=== PATIENT | male | born 1955 | race Hispanic/Latino ===

== ENCOUNTER 2016-05-13 08:39 | Inpatient (IN) | payer MEDICARE, OTHER ==
[2016-05-13] VITALS (15 sets, daily range): BP systolic 73–132; BP diastolic 42–94
[~2016-05-13] VITALS: Ht 170.2 cm; Wt 58.5 kg
[~2016-05-13 08:39] MED LIST: AKTOB1 DROP RIGHT EYE; ARICEPT10 MG ORAL; ASPIRIN-LOW81 MG ORAL; ATIVAN0.5 MG ORAL; ATORVASTATIN CA10 MG ORAL; B COMPLEX-FOLI1 EACH ORAL; CATAPRES0.1 MG ORAL; COLACE100 MG ORAL; DULCOLAX10 MG RC; FAMOTIDINE20 MG ORAL; FEOSOL1 TAB ORAL; FLAGYL500 MG ORAL; FLEET ENEMA133 ML RECTAL; FOLIC ACID1 MG ORAL; GABAPENTIN100 MG ORAL; HEPARIN SO5000 UNIT2 SUBQ; INVANZ1 GM IVPB; LACTASE1 GM PO; LANTUS SOL100 UNIT/1 SUBQ; LANTUS5 UNITS SUBQ; LEVEMIR100 UNIT/1 SUBQ; MILK OF MA400 MG/51 ORAL; MIRTAZAPINE15 MG ORAL; Morphine Sulfate IVP; NEPHRO-VITE RX1 EAC1 PO; NEURONTIN100 MG ORAL; NORCO 5-325 TA1 EAC1 ORAL; NORCO 5-325 TA1 EACH ORAL; NOVOLOG100 UNIT/3 SUBQ; NOVOLOG100 UNITS1 SUBQ; PAXIL20 MG ORAL; PLAVIX75 MG ORAL; PRAVASTATIN SOD20 M1 ORAL; PROTEINEX LIQU236 ML PO; PROTONIX40 MG ORAL; RANITIDINE HCL150 MG ORAL; SANTYL30 GM TOPIC; TOPROL XL25 MG ORAL; TRAMADOL HCL50 MG ORAL; TYLENOL EXTRA500 MG ORAL; TYLENOL650 MG/20. ORAL; VITAMIN C500 M1 ORAL; ZINC SULFATE220 M1 ORAL; ZOFRAN4 M1 ORAL
--- NOTE | 2016-05-13 08:50 | Emergency Room Report ---
History of Present Illness General Chief Complaint: Altered Level of Consciousness Source: Medical Record Present Illness HPI 61 YOM with complex medical history (see list below) BIBEMS from SNF for "more altered than usual." Per SNF, patient usually more talkative, not as talkative today. Patient is aphasic here - follows commands, denies complaints by blinking eyes per my request. Previous history of CVA. On HD for ESRD, MWF. Due today at 4pm. HPI otherwise limited. Patient is FULL CODE per paperwork from SNF. Allergies: Coded Allergies: No Known Allergies (Unverified , 09/05/13) Patient History Past Medical History: DM, HTN, CVA/TIA, dementia, psych hx, renal disease Past Surgical History: other - Right BKA Pertinent Family History: unable to obtain Social History: Denies: alcohol use, drug use, smoking Immunizations: UTD Reviewed Nursing Documentation: PMH: Agreed, PSxH: Agreed Nursing Documentation-PMH Hx Cardiac Problems: No Hx Hypertension: No Hx Pacemaker: No Hx Asthma: No Hx COPD: No Hx Diabetes: Yes Hx Cancer: No Hx Dialysis: Yes History Of Psychiatric Problem: Yes - ,DEMENTIA Hx Neurological Problems: Yes - ALOC,DEMENTIA,DEPRESSION,PVD Hx Cerebrovascular Accident: Yes - x3 August 2013 Hx Transient Ischemic Attacks: Yes Hx Dementia: Yes Hx Seizures: Yes Hx Weakness: Yes Review of Systems All Other Systems: limited - aphasic Physical Exam Vital Signs Date Time Temp Pulse Resp B/P Pulse Ox O2 Delivery O2 Flow Rate FiO2 05/13/16 08:38 98.1 76 16 98/60 94 Nasal Cannula Sp02 EP Interpretation: reviewed, normal General Appearance: normal inspection, well appearing, no apparent distress, alert, GCS 15, non-toxic Head: normocephalic, atraumatic Eyes: bilateral eye EOMI, bilateral eye PERRL, bilateral eye other - Pinpoint pupils bilaterally ENT: normal ENT inspection, normal pharynx, no angioedema, TMs + canals normal , uvula midline, moist mucus membranes Neck: normal inspection, full range of motion, supple, no meningismus, no bony tend Respiratory: normal inspection, lungs clear, normal breath sounds, no rhonchi, no respiratory distress, no retraction, no accessory muscle use, no wheezing, speaking full sentences Cardiovascular #1: regular rate, rhythm, no edema Gastrointestinal: normal inspection, normal bowel sounds, non tender, soft, no guarding, no hernia Genitourinary: no CVA tenderness Musculoskeletal: normal inspection, back normal, normal range of motion, Sosa' s Sign negative, other - Right BKA Neurologic: normal inspection, alert, responsive, artist relationship manager III-XII nml as tested, motor strength/tone normal, other - Follows commands, 4 limb movement is intact Psychiatric: normal inspection, mood/affect normal Skin: normal inspection, normal color, no rash Lymphatic: normal inspection Medical Decision Making Diagnostic Impression: Primary Impression: Altered level of consciousness Additional Impressions: UTI (urinary tract infection) Qualified Codes: N30.01 - Acute cystitis with hematuria Methamphetamine abuse ER Course DDx includes CVA, ACS, metabolic abnormality, narcotic overdose (patient on tramadol) PLAN: Ct head, ECG, utox, CBC/CMP, infectious workup EKG Diagnostic Results Rate: normal Rhythm: NSR ST Segments: no acute changes ASA given to the pt in ED: No Rhythm Strip Diag. Results EP Interpretation: yes Rate: 79 Rhythm: NSR, no PVC's, no ectopy Chest X-Ray Diagnostic Results EP Interpretation: Yes Findings: no consolidation, no effusion, no pneumothorax, no acute cardiopulmonary disease Number of Views: 1 Reevaluation Time: 11:30 Last Vital Signs Date Time Temp Pulse Resp B/P Pulse Ox O2 Delivery O2 Flow Rate FiO2 05/13/16 08:38 98.1 76 16 98/60 94 Nasal Cannula Status: improved Reevaluation Impression Labs: No leuks. H&H stable. Troponin normal. UA grossly infected. Elevated SerumCr at baseline CXR negative for PNA CT head: No acute CVA, mass. Previous lacunar infarcts Utox + for meth IV rocephin given for UTI Endorsed to Dr Mckeon for med/surg admission at 1131am Disposition: ADMITTED INPATIENT Condition: Serious OPAL BLACKWELL M.D. May 13, 2016 08:50
[2016-05-13 09:19] LABS: BASOPHILS % (AUTO) 1.3 % (0.0-2.0); EOSINOPHILS % (AUTO) 5.2 % (0.0-3.0); LYMPHOCYTES % (AUTO) 29.8 % (20.0-45.0); MEAN CORPUSCULAR HEMOGLOBIN 32.2 PG (27.0-31.0); MEAN CORPUSCULAR VOLUME 97 FL (80-99); MEAN PLATELET VOLUME 5.8 FL (6.5-10.1); MONOCYTES % (AUTO) 7.7 % (1.0-10.0); PLATELET COUNT 228 K/UL (150-450); RED BLOOD COUNT 3.39 M/UL (4.70-6.10); RED CELL DISTRIBUTION WIDTH 12.9 % (11.6-14.8); WHITE BLOOD COUNT 7.9 K/UL (4.8-10.8)
[2016-05-13 09:29] LABS: ALANINE AMINOTRANSFERASE 10 U/L (3-41); ALBUMIN/GLOBULIN RATIO 0.8 (1.0-2.7); ANION GAP 17 (5-15); ASPARTATE AMINO TRANSFERASE 14 U/L (5-40); CALCIUM 9.2 mg/dL (8.6-10.2); CARBON DIOXIDE 24 mEQ/L (20-30); CHLORIDE 98 mEQ/L (98-107); CREATININE 5.2 mg/dL (0.7-1.2); GLOMERULAR FILTRATION RATE 11.4 mL/min (>60); HEMOLYSIS 9; POTASSIUM 4.2 mEQ/L (3.4-4.9); SODIUM 139 mEQ/L (135-145); TOTAL PROTEIN 7.4 g/dL (6.6-8.7); TROPONIN I < 0.30 ng/mL (<=0.30)
[2016-05-13 09:39] LABS: CKMB < 1.5 ng/mL (< 6.7)
[2016-05-13] MEDS ORDERED: GLUCAGON W/DILUE1 MG IJ (09:46)
[2016-05-13] MEDS ORDERED: IMODIUM2 MG ORAL (09:47)
[2016-05-13 10:45] LABS: APPEARANCE,URINE TURBID; KETONES,URINE NEGATIVE (NEGATIVE); LEUKOCYTE ESTERASE ,URINE 3+ (NEGATIVE); NITRITE,URINE NEGATIVE (NEGATIVE); PH,URINE 6 (4.5-8.0); PROTEIN,URINE 4+ (NEGATIVE); UROBILINOGEN,URINE 1 MG/DL (0.0-1.0)
--- NOTE | 2016-05-13 10:58 | Diagnostic Imaging Report ---
Indication: Altered mental status Technique: Contiguous 5 mm thick transaxial imaging of the head obtained in a Siemens Sensation [address] scanner. Soft tissue and bone windows generated. Total Dose length Product (DLP): [address] Dose Index Volume (CTDIvol): 70.38 mGy Comparison: 09/05/13 Findings: There is moderate prominence of the ventricles, basal cisterns, and cerebral sulci consistent with atrophy. Moderate, nonspecific, white matter hypoattenuation is noted throughout the brain consistent with chronic small vessel disease. Tiny cystic foci noted within the basal ganglia and thalami bilaterally consistent with old lacunar infarcts. There is no midline shift, edema, acute hemorrhage, mass effect, or abnormal extra-axial fluid collections. Bones and extra osseous soft tissues are unremarkable. Impression: No acute intracranial bleed, mass effect or edema. Old lacunar infarcts Moderate atrophy of the brain. Evidence of chronic small vessel disease involving white matter tracts. The CT scanner at [facility] is accredited by the [employer] and the scans are performed using protocols designed to limit radiation exposure to as low as reasonably achievable to attain images of sufficient resolution adequate for diagnostic evaluation.
[2016-05-13 11:15] LABS: BACTERIA,URINE MANY /HPF; ICTOTEST NEGATIVE; SQUAMOUS EPITHELIAL CELL,UR MODERATE /LPF (NONE/OCC); WBC,URINE 40-60 /HPF (0 - 0)
[2016-05-13] MEDS ORDERED: cefTRIAXone 1 GM in NS 55 ML IVPB ONE (11:30)
[2016-05-13] MEDS ORDERED: PROTEINEX LIQU236 ML PO (12:01)
[2016-05-13] MEDS ORDERED: MULTIVITAMINS1 EAC8 ORAL (12:01)
[2016-05-13] MEDS ORDERED: RENAL VITAMIN0.8 MG PO (12:01)
[2016-05-13] MEDS ORDERED: ZOFRAN ODT4 MG ORAL (12:01)
[2016-05-13] MEDS ORDERED: SENNA8.6 M2 PO (12:02)
[2016-05-13] MEDS ORDERED: TRAMADOL HCL50 MG ORAL (12:03)
--- NOTE | 2016-05-13 12:39 | Diagnostic Imaging Report ---
Indication: Chest Pain Comparison: None A single view chest radiograph was obtained. Findings: Cardiomediastinal appearance is within normal limits for age. Pulmonary vascularity is appropriate. The diaphragmatic contour is smooth and costophrenic angles are sharp. No pleural effusions are identified. The bones are unremarkable. Impression: No acute findings
[2016-05-13] MEDS ORDERED: LR 1000ml 1,000 ML IV STA (14:08)
--- NOTE | 2016-05-13 14:39 | Consultation ---
History of Present Illness General Date patient seen: May 13, 2016 Chief Complaint: Altered Level of Consciousness Referring physician: Dr Mckeon Reason for Consultation: Inpatient management Present Illness HPI 61 year old male with hx of ESRF, on HD, PVD, BKA or right leg, [place] [facility] resident. He was brought in with [facility], he was much less responsive than his usual baseline. His CT of head was negative for any acute changes. He was thought to have sepsis and admitted to telemetry for further management. Allergies: Coded Allergies: No Known Allergies (Unverified , 09/05/13) Medication History Scheduled Amino Acids/Protein Hydrolys (Proteinex Liquid), 30 ML PO DAILY, (Reported) Ascorbic Acid* (Vitamin C*), 500 MG ORAL DAILY, (Reported) Aspirin (Aspirin EC), 81 MG ORAL DAILY, (Reported) Atorvastatin Calcium* (Lipitor*), 10 MG ORAL BEDTIME, (Reported) Bisacodyl (Dulcolax), 10 MG RC PRN, (Reported) Clonidine Hcl* (Catapres*), 0.1 MG ORAL EVERY 6 HOURS, (Reported) Clopidogrel Bisulfate* (Plavix*), 75 MG ORAL DAILY, (Reported) Collagenase Clostridium Hist. (Santyl), 1 APPLIC TOPIC DAILY Docusate Sodium* (Colace*), 100 MG ORAL TWICE A DAY, (Reported) Donepezil Hcl* (Aricept*), 10 MG ORAL DAILY, (Reported) Ertapenem Sodium* (INVanz*), 0.5 GM IVPB Q24H Famotidine (Famotidine), 20 MG ORAL DAILY, (Reported) Ferrous Sulfate (Ferrous Sulfate), 325 MG ORAL DAILY, (Reported) Folic Acid* (Folic Acid*), 1 MG ORAL DAILY, (Reported) Folic Acid/Vit Bcomp,C (Renal Vitamin Tablet), 0.8 MG PO DAILY, (Reported) Gabapentin* (Neurontin*), 100 MG ORAL TID, (Reported) Heparin Sod (Porcine) (Heparin Sodium*), 5,000 UNITS SUBQ EVERY 12 HOURS Insulin Aspart (Novolog Flexpen), 0 UNITS SUBQ BEFORE MEALS AND HS Insulin Aspart* (Novolog*), 0 SUBQ AC+HS, (Reported) Insulin Detemir (Levemir), 10 SUBQ Q12HR, (Reported) Insulin Glargine (Lantus), 10 SUBQ BEDTIME, (Reported) Lactase (Lactase), 1 TAB PO DAILY, (Reported) Magnesium Hydroxide* (Milk Of Magnesia*), 30 ML ORAL DAILY, (Reported) Metoprolol Succinate* (Toprol Xl*), 25 MG ORAL BID, (Reported) Metronidazole* (Flagyl*), 500 MG ORAL TID Mirtazapine* (Remeron*), 15 MG ORAL BEDTIME, (Reported) Multivitamin With Minerals (Multivitamins With Minerals*), 1 TAB ORAL DAILY, ( Reported) Pravastatin Sod* (Pravastatin Sod*), 20 MG ORAL BEDTIME, (Reported) Ranitidine Hcl* (Zantac*), 150 MG ORAL TWICE A DAY Sennosides (Senna), 2 TAB PO BEDTIME, (Reported) Tobramycin Sulf (Tobramycin), 2 DROP RIGHT EYE Q12HR Tramadol Hcl* (Ultram*), 50 MG ORAL BID, (Reported) Vit B Cmplx 3/Fa/Vit C/Biotin (Nephro-Ashleigh Rx Tablet), 1 EACH PO DAILY, ( Reported) Zinc Sulfate (Zinc Sulfate*), 220 MG ORAL DAILY, (Reported) Scheduled PRN Acetaminophen* (Tylenol Extra Strength*), 1,000 MG ORAL Q6H PRN for Mild Pain/ Temp > 100.5, (Reported) Glucagon (Glucagen), 1 MG IJ PRN PRN for hypoglycemia, (Reported) Loperamide HCl (Loperamide), 2 MG ORAL Q6HR PRN for LOOSE STOOL, (Reported) Lorazepam* (Ativan*), 0.5 MG ORAL for Agitation, (Reported) Na Phos,M-B/Na Phos,Di-Ba* (Fleet Enema*), 133 ML RECTAL DAILY PRN for Constipation, (Reported) Ondansetron (Zofran), 4 MG ORAL Q6H PRN for Nausea & Vomiting, (Reported) Ondansetron Odt* (Zofran Odt*), 4 MG ORAL Q6H PRN for Nausea & Vomiting, ( Reported) Tramadol Hcl* (Ultram*), 50 MG ORAL Q6H PRN for For Pain, (Reported) [Morphine Sulfate], 2 MG IVP Q4H PRN for Severe Pain (Pain Scale 7-10) Patient History Healthcare decision maker Resuscitation status Advanced Directive on File No Past Medical/Surgical History Past Medical/Surgical History: (1) ESRD on dialysis (2) HTN (hypertension) (3) Depression (4) Diabetes Review of Systems All Other Systems: negative except mentioned in HPI Physical Exam General Appearance: WD/WN, other - on face mask Lines, tubes and drains: peripheral HEENT: normocephalic, atraumatic Neck: non-tender, normal alignment Respiratory/Chest: chest wall non-tender, lungs clear Cardiovascular/Chest: normal peripheral pulses, normal rate Abdomen: normal bowel sounds Genitourinary/Rectal: normal genital exam Extremities: normal range of motion Last 24 Hour Vital Signs Date Time Temp Pulse Resp B/P Pulse Ox O2 Delivery O2 Flow Rate FiO2 05/13/16 14:08 93 16 73/56 83 Venturi Mask 05/13/16 12:18 89 19 105/58 94 Nasal Cannula 2.0 05/13/16 11:47 97.2 88 14 111/59 92 Room Air 05/13/16 09:10 75 12 120/57 95 Room Air 05/13/16 08:38 98.1 76 16 98/60 94 Nasal Cannula Laboratory Tests Test 05/13/16 08:55 05/13/16 10:15 White Blood Count 7.9 K/UL (4.8-10.8) Red Blood Count 3.39 M/UL (4.70-6.10) L Hemoglobin 10.9 G/DL (14.2-18.0) L Hematocrit 33.0 % (42.0-52.0) L Mean Corpuscular Volume 97 FL (80-99) Mean Corpuscular Hemoglobin 32.2 PG (27.0-31.0) H Mean Corpuscular Hemoglobin Concent 33.0 G/DL (32.0-36.0) Red Cell Distribution Width 12.9 % (11.6-14.8) Platelet Count 228 K/UL (150-450) Mean Platelet Volume 5.8 FL (6.5-10.1) L Neutrophils (%) (Auto) 56.0 % (45.0-75.0) Lymphocytes (%) (Auto) 29.8 % (20.0-45.0) Monocytes (%) (Auto) 7.7 % (1.0-10.0) Eosinophils (%) (Auto) 5.2 % (0.0-3.0) H Basophils (%) (Auto) 1.3 % (0.0-2.0) Sodium Level 139 mEQ/L (135-145) Potassium Level 4.2 mEQ/L (3.4-4.9) Chloride Level 98 mEQ/L (98-107) Carbon Dioxide Level 24 mEQ/L (20-30) Anion Gap 17 (5-15) H Blood Urea Nitrogen 49 mg/dL (7-23) H Creatinine 5.2 mg/dL (0.7-1.2) H Estimat Glomerular Filtration Rate 11.4 mL/min (>60) Glucose Level 114 mg/dL (74-106) H Lactic Acid Level 0.80 mmol/L (0.66-2.22) Calcium Level 9.2 mg/dL (8.6-10.2) Total Bilirubin 0.3 mg/dL (0.0-1.2) Aspartate Amino Transf (AST/SGOT) 14 U/L (5-40) Alanine Aminotransferase (ALT/SGPT) 10 U/L (3-41) Alkaline Phosphatase 69 U/L (40-129) Total Creatine Kinase 15 U/L (38-174) L Creatine Kinase MB < 1.5 ng/mL (< 6.7) Creatine Kinase MB Relative Index Troponin I < 0.30 ng/mL (<=0.30) Total Protein 7.4 g/dL (6.6-8.7) Albumin 3.3 g/dL (3.5-5.2) L Globulin 4.1 g/dL Albumin/Globulin Ratio 0.8 (1.0-2.7) L Urine Color Pale yellow Urine Appearance Turbid Urine pH 6 (4.5-8.0) Urine Specific [place] 1.020 (1.005-1.035) Urine Protein 4+ (NEGATIVE) H Urine Glucose (UA) Negative (NEGATIVE) Urine Ketones Negative (NEGATIVE) Urine Occult Blood 3+ (NEGATIVE) H Urine Nitrite Negative (NEGATIVE) Urine Bilirubin 1+ (NEGATIVE) H Urine Ictotest Negative Urine Urobilinogen 1 MG/DL (0.0-1.0) H Urine Leukocyte Esterase 3+ (NEGATIVE) H Urine RBC 2-4 /HPF (0 - 0) H Urine WBC 40-60 /HPF (0 - 0) H Urine Squamous Epithelial Cells Moderate /LPF (NONE/OCC) H Urine Bacteria Many /HPF (NONE) H Urine Opiates Screen Negative (NEGATIVE) Urine Barbiturates Screen Negative (NEGATIVE) Phencyclidine (PCP) Screen Negative (NEGATIVE) Urine Amphetamines Screen Positive (NEGATIVE) H Urine Benzodiazepines Screen Negative (NEGATIVE) Urine Cocaine Screen Negative (NEGATIVE) Urine Marijuana (THC) Screen Negative (NEGATIVE) Height (Feet): 5 Height (Inches): 6.00 Weight (Pounds): 130 Medications Current Medications Medications (Trade) Dose Ordered Sig/Chelsea Route PRN Reason Start Time Stop Time Status Last Admin Dose Admin Acetaminophen (Tylenol) 1,000 mg Q6H PRN ORAL Mild Pain/Temp > 100.5 05/13/16 14:45 06/12/16 14:44 UNV Atorvastatin Calcium (Lipitor) 10 mg BEDTIME ORAL 05/13/16 21:00 06/12/16 20:59 UNV Ceftriaxone Sodium 2 gm/ Dextrose 110 ml @ 220 mls/hr Q24H IVPB 05/14/16 16:00 05/21/16 15:59 Ceftriaxone Sodium/Dextrose (Rocephin/D5W) 55 ml @ 110 mls/hr ONCE ONCE IVPB 05/13/16 16:00 05/13/16 16:29 Clonidine HCl (Catapres) 0.1 mg EVERY 6 HOURS ORAL 05/13/16 18:00 06/12/16 17:59 UNV Clopidogrel Bisulfate (Plavix) 75 mg DAILY ORAL 05/14/16 09:00 06/13/16 08:59 UNV Donepezil HCl (Aricept) 10 mg DAILY ORAL 05/14/16 09:00 06/13/16 08:59 UNV Gabapentin (Neurontin) 100 mg TID ORAL 05/13/16 18:00 06/12/16 17:59 UNV Lactated Ringer's 1,000 ml @ 999 mls/hr Q1H1M STAT IV 05/13/16 14:08 05/13/16 15:08 05/13/16 14:27 Metoprolol Succinate (Toprol XL) 25 mg BID ORAL 05/13/16 18:00 06/12/16 17:59 UNV Mirtazapine (Remeron) 15 mg BEDTIME ORAL 05/13/16 21:00 06/12/16 20:59 UNV Pravastatin Sodium (Pravachol) 20 mg BEDTIME ORAL 05/13/16 21:00 06/12/16 20:59 UNV Assessment/Plan Problem List: (1) Sepsis ICD Codes: A41.9 - Sepsis, unspecified organism SNOMED: 16003376 (2) Seizure ICD Codes: R56.9 - Seizure SNOMED: 00507174 (3) HTN (hypertension) ICD Codes: I10 - Essential (primary) hypertension SNOMED: 36234903 (4) Encephalopathy ICD Codes: G93.40 - Encephalopathy SNOMED: 35888909 (5) CVA (cerebral vascular accident) ICD Codes: I63.9 - Cerebral infarction, unspecified SNOMED: 544733538 (6) Depression ICD Codes: F32.9 - Depression SNOMED: 13553531 (7) ESRD on dialysis ICD Codes: N18.6 - End stage renal disease; Z99.2 - Dependence on renal dialysis SNOMED: 369236078 Assessment/Plan meek culture broad spectrum antibiotics neuro evaluation npo until mental status improves dvt prophylaxis sliding scale psychiatry to follow. JEFF INMAN May 13, 2016 14:39
[2016-05-13] MEDS ORDERED: Miralax 17gm pkt ORAL PRN (14:45)
[2016-05-13] MEDS ORDERED: Nitroglycerin Subl 0.4mg tab (Bottle Of 25) SL PRN (14:45)
[2016-05-13] MEDS ORDERED: Mylanta II UD 30ml ORAL PRN (14:45)
[2016-05-13] MEDS ORDERED: Acetaminophen 500mg (ES) tab ORAL PRN (14:45)
[2016-05-13] MEDS ORDERED: DuoNeb 0.5-3(2.5)mg/3ml neb HHN PRN (14:45)
[2016-05-13] MEDS ORDERED: Vancomycin 500 MG in D5W 110 ML IVPB PRN (15:30)
--- NOTE | 2016-05-13 15:31 | Infectious Diseases Prog Note ---
Assessment/Plan Problems: (1) Sepsis Assessment & Plan: will send blood culture, and start vancomycin and cefepime. (2) Hypotension Assessment & Plan: rule out sepsis, will send culture of the blood and urine, and start wide spectrum antibiotics therapy (3) UTI (urinary tract infection) Assessment & Plan: will start cefepime, send urine culture (4) ESRD on dialysis Assessment & Plan: renal is following , continue HD (5) Diabetes Assessment & Plan: recommend tight glycemic control to keep blood glucose between 80-120 Subjective Allergies: Coded Allergies: No Known Allergies (Unverified , 09/05/13) Objective Vital Signs Last 24 Hour Vital Signs Date Time Temp Pulse Resp B/P Pulse Ox O2 Delivery O2 Flow Rate FiO2 05/13/16 15:00 97.6 83 20 83/56 90 Venturi Mask 40 05/13/16 14:08 93 16 73/56 83 Venturi Mask 05/13/16 12:18 89 19 105/58 94 Nasal Cannula 2.0 05/13/16 11:47 97.2 88 14 111/59 92 Room Air 05/13/16 09:10 75 12 120/57 95 Room Air 05/13/16 08:38 98.1 76 16 98/60 94 Nasal Cannula Height (Feet): 5 Height (Inches): 6.00 Weight (Pounds): 130 Laboratory Tests Test 05/13/16 08:55 05/13/16 10:15 White Blood Count 7.9 K/UL (4.8-10.8) Red Blood Count 3.39 M/UL (4.70-6.10) L Hemoglobin 10.9 G/DL (14.2-18.0) L Hematocrit 33.0 % (42.0-52.0) L Mean Corpuscular Volume 97 FL (80-99) Mean Corpuscular Hemoglobin 32.2 PG (27.0-31.0) H Mean Corpuscular Hemoglobin Concent 33.0 G/DL (32.0-36.0) Red Cell Distribution Width 12.9 % (11.6-14.8) Platelet Count 228 K/UL (150-450) Mean Platelet Volume 5.8 FL (6.5-10.1) L Neutrophils (%) (Auto) 56.0 % (45.0-75.0) Lymphocytes (%) (Auto) 29.8 % (20.0-45.0) Monocytes (%) (Auto) 7.7 % (1.0-10.0) Eosinophils (%) (Auto) 5.2 % (0.0-3.0) H Basophils (%) (Auto) 1.3 % (0.0-2.0) Sodium Level 139 mEQ/L (135-145) Potassium Level 4.2 mEQ/L (3.4-4.9) Chloride Level 98 mEQ/L (98-107) Carbon Dioxide Level 24 mEQ/L (20-30) Anion Gap 17 (5-15) H Blood Urea Nitrogen 49 mg/dL (7-23) H Creatinine 5.2 mg/dL (0.7-1.2) H Estimat Glomerular Filtration Rate 11.4 mL/min (>60) Glucose Level 114 mg/dL (74-106) H Lactic Acid Level 0.80 mmol/L (0.66-2.22) Calcium Level 9.2 mg/dL (8.6-10.2) Total Bilirubin 0.3 mg/dL (0.0-1.2) Aspartate Amino Transf (AST/SGOT) 14 U/L (5-40) Alanine Aminotransferase (ALT/SGPT) 10 U/L (3-41) Alkaline Phosphatase 69 U/L (40-129) Total Creatine Kinase 15 U/L (38-174) L Creatine Kinase MB < 1.5 ng/mL (< 6.7) Creatine Kinase MB Relative Index Troponin I < 0.30 ng/mL (<=0.30) Total Protein 7.4 g/dL (6.6-8.7) Albumin 3.3 g/dL (3.5-5.2) L Globulin 4.1 g/dL Albumin/Globulin Ratio 0.8 (1.0-2.7) L Urine Color Pale yellow Urine Appearance Turbid Urine pH 6 (4.5-8.0) Urine Specific [place] 1.020 (1.005-1.035) Urine Protein 4+ (NEGATIVE) H Urine Glucose (UA) Negative (NEGATIVE) Urine Ketones Negative (NEGATIVE) Urine Occult Blood 3+ (NEGATIVE) H Urine Nitrite Negative (NEGATIVE) Urine Bilirubin 1+ (NEGATIVE) H Urine Ictotest Negative Urine Urobilinogen 1 MG/DL (0.0-1.0) H Urine Leukocyte Esterase 3+ (NEGATIVE) H Urine RBC 2-4 /HPF (0 - 0) H Urine WBC 40-60 /HPF (0 - 0) H Urine Squamous Epithelial Cells Moderate /LPF (NONE/OCC) H Urine Bacteria Many /HPF (NONE) H Urine Opiates Screen Negative (NEGATIVE) Urine Barbiturates Screen Negative (NEGATIVE) Phencyclidine (PCP) Screen Negative (NEGATIVE) Urine Amphetamines Screen Positive (NEGATIVE) H Urine Benzodiazepines Screen Negative (NEGATIVE) Urine Cocaine Screen Negative (NEGATIVE) Urine Marijuana (THC) Screen Negative (NEGATIVE) Current Medications Medications (Trade) Dose Ordered Sig/Chelsea Route PRN Reason Start Time Stop Time Status Last Admin Dose Admin Acetaminophen (Tylenol) 650 mg Q4H PRN ORAL T>100.5 05/13/16 14:45 06/12/16 14:44 Acetaminophen (Tylenol) 1,000 mg Q6H PRN ORAL Mild Pain/Temp > 100.5 05/13/16 14:45 06/12/16 14:44 Al Hydroxide/Mg Hydroxide (Mylanta II) 30 ml Q6H PRN ORAL dyspepsia 05/13/16 14:45 06/12/16 14:44 Albuterol/ Ipratropium (DuoNeb 0.5-3(2.5)mg/3ml) 3 ml Q4H PRN HHN Shortness of Breath 05/13/16 14:45 05/18/16 14:44 Atorvastatin Calcium (Lipitor) 10 mg BEDTIME ORAL 05/13/16 21:00 06/12/16 20:59 Ceftriaxone Sodium 2 gm/ Dextrose 110 ml @ 220 mls/hr Q24H IVPB 05/14/16 16:00 05/21/16 15:59 Ceftriaxone Sodium/Dextrose (Rocephin/D5W) 55 ml @ 110 mls/hr ONCE ONCE IVPB 05/13/16 16:00 05/13/16 16:29 Clonidine HCl (Catapres) 0.1 mg Q6H PRN ORAL SBP>160 05/13/16 15:00 06/12/16 14:59 Clopidogrel Bisulfate (Plavix) 75 mg DAILY ORAL 05/14/16 09:00 06/13/16 08:59 Dextrose (Dextrose 50%) STAT PRN IV Hypoglycemia 05/13/16 14:45 06/12/16 14:44 Donepezil HCl (Aricept) 10 mg DAILY ORAL 05/14/16 09:00 06/13/16 08:59 Gabapentin (Neurontin) 100 mg TID ORAL 05/13/16 18:00 06/12/16 17:59 Heparin Sodium (Porcine) (Heparin 5000 units/ml) 5,000 units EVERY 12 HOURS SUBQ 05/13/16 21:00 06/12/16 20:59 Insulin Aspart (NovoLOG) BEFORE MEALS AND HS SUBQ 05/13/16 16:30 06/12/16 16:29 Metoprolol Succinate (Toprol XL) 25 mg Q12HR ORAL 05/13/16 21:00 06/12/16 20:59 Mirtazapine (Remeron) 15 mg BEDTIME ORAL 05/13/16 21:00 06/12/16 20:59 Nitroglycerin (Ntg) 0.4 mg Q5M PRN SL Prn Chest Pain 05/13/16 14:45 06/12/16 14:44 Ondansetron HCl (Zofran) 4 mg Q6H PRN IVP Nausea & Vomiting 05/13/16 14:45 06/12/16 14:44 Polyethylene Glycol (Miralax) 17 gm DAILYPRN PRN ORAL Constipation 05/13/16 14:45 06/12/16 14:44 Temazepam (Restoril) 15 mg HSPRN PRN ORAL Insomnia 05/13/16 21:00 05/20/16 20:59 Bandar Cartwright M.D. May 13, 2016 15:31
[2016-05-13] MEDS ORDERED: cefTRIAXone 1gm/D5W 55ml IVPB ONE ×2 (16:00)
--- NOTE | 2016-05-13 16:08 | Cardiac Electrophysiology PN ---
Subjective Subjective 1922000 Objective Last 24 Hour Vital Signs Date Time Temp Pulse Resp B/P Pulse Ox O2 Delivery O2 Flow Rate FiO2 05/13/16 15:30 101 19 104/63 90 Venturi Mask 40 05/13/16 15:00 86 19 100/63 93 Venturi Mask 8.0 40 05/13/16 15:00 97.6 83 20 83/56 90 Venturi Mask 40 05/13/16 14:08 93 16 73/56 83 Venturi Mask 05/13/16 12:18 89 19 105/58 94 Nasal Cannula 2.0 05/13/16 11:47 97.2 88 14 111/59 92 Room Air 05/13/16 09:10 75 12 120/57 95 Room Air 05/13/16 08:38 98.1 76 16 98/60 94 Nasal Cannula Laboratory Tests Test 05/13/16 08:55 05/13/16 10:15 White Blood Count 7.9 K/UL (4.8-10.8) Red Blood Count 3.39 M/UL (4.70-6.10) L Hemoglobin 10.9 G/DL (14.2-18.0) L Hematocrit 33.0 % (42.0-52.0) L Mean Corpuscular Volume 97 FL (80-99) Mean Corpuscular Hemoglobin 32.2 PG (27.0-31.0) H Mean Corpuscular Hemoglobin Concent 33.0 G/DL (32.0-36.0) Red Cell Distribution Width 12.9 % (11.6-14.8) Platelet Count 228 K/UL (150-450) Mean Platelet Volume 5.8 FL (6.5-10.1) L Neutrophils (%) (Auto) 56.0 % (45.0-75.0) Lymphocytes (%) (Auto) 29.8 % (20.0-45.0) Monocytes (%) (Auto) 7.7 % (1.0-10.0) Eosinophils (%) (Auto) 5.2 % (0.0-3.0) H Basophils (%) (Auto) 1.3 % (0.0-2.0) Sodium Level 139 mEQ/L (135-145) Potassium Level 4.2 mEQ/L (3.4-4.9) Chloride Level 98 mEQ/L (98-107) Carbon Dioxide Level 24 mEQ/L (20-30) Anion Gap 17 (5-15) H Blood Urea Nitrogen 49 mg/dL (7-23) H Creatinine 5.2 mg/dL (0.7-1.2) H Estimat Glomerular Filtration Rate 11.4 mL/min (>60) Glucose Level 114 mg/dL (74-106) H Lactic Acid Level 0.80 mmol/L (0.66-2.22) Calcium Level 9.2 mg/dL (8.6-10.2) Total Bilirubin 0.3 mg/dL (0.0-1.2) Aspartate Amino Transf (AST/SGOT) 14 U/L (5-40) Alanine Aminotransferase (ALT/SGPT) 10 U/L (3-41) Alkaline Phosphatase 69 U/L (40-129) Total Creatine Kinase 15 U/L (38-174) L Creatine Kinase MB < 1.5 ng/mL (< 6.7) Creatine Kinase MB Relative Index Troponin I < 0.30 ng/mL (<=0.30) Total Protein 7.4 g/dL (6.6-8.7) Albumin 3.3 g/dL (3.5-5.2) L Globulin 4.1 g/dL Albumin/Globulin Ratio 0.8 (1.0-2.7) L Urine Color Pale yellow Urine Appearance Turbid Urine pH 6 (4.5-8.0) Urine Specific [place] 1.020 (1.005-1.035) Urine Protein 4+ (NEGATIVE) H Urine Glucose (UA) Negative (NEGATIVE) Urine Ketones Negative (NEGATIVE) Urine Occult Blood 3+ (NEGATIVE) H Urine Nitrite Negative (NEGATIVE) Urine Bilirubin 1+ (NEGATIVE) H Urine Ictotest Negative Urine Urobilinogen 1 MG/DL (0.0-1.0) H Urine Leukocyte Esterase 3+ (NEGATIVE) H Urine RBC 2-4 /HPF (0 - 0) H Urine WBC 40-60 /HPF (0 - 0) H Urine Squamous Epithelial Cells Moderate /LPF (NONE/OCC) H Urine Bacteria Many /HPF (NONE) H Urine Opiates Screen Negative (NEGATIVE) Urine Barbiturates Screen Negative (NEGATIVE) Phencyclidine (PCP) Screen Negative (NEGATIVE) Urine Amphetamines Screen Positive (NEGATIVE) H Urine Benzodiazepines Screen Negative (NEGATIVE) Urine Cocaine Screen Negative (NEGATIVE) Urine Marijuana (THC) Screen Negative (NEGATIVE) THU MONREAL May 13, 2016 16:08
[2016-05-13] MEDS: NovoLOG Insulin Flexpen SUBQ SCH ×2 (16:30→21:00)
[2016-05-13] MEDS ORDERED: LORazepam Inj 2mg/ml 1ml IV PRN (17:00)
[2016-05-13] MEDS ORDERED: Cefepime HCl 1 GM in D5W 55 ML IVPB ONE (18:00)
[2016-05-13] MEDS: Vancomycin 1gm in D5W 275ml IVPB SCH (19:19)
[2016-05-13] MEDS: D5NS 1,000 ML IV SCH (20:30)
[2016-05-13] MEDS ORDERED: Cefepime HCl 1 GM in D5W 55 ML IV SCH (21:00)
[2016-05-13] MEDS: Heparin 5000 units/ml inj SUBQ SCH (21:00)
--- NOTE | 2016-05-13 21:38 | Consultation ---
DATE OF CONSULTATION: INFECTIOUS DISEASE CONSULTATION REQUESTING PHYSICIAN: Paul Mckeon D.O. REASON FOR CONSULTATION: Sepsis, hypotension, and urine tract infection in hemodialysis patient. HISTORY OF PRESENT ILLNESS: The patient is a 61-year-old male with end-stage renal disease, on hemodialysis Wednesday, Wednesday, and Wednesday, was sent from the senior care facility for altered mental status. The patient normally is talkative, but he was not today. He seemed aphasic, was following commands. Denied any fever or chills. No cough or shortness of breath. No headache or blurry vision. No nausea, vomiting or diarrhea. No urinary symptoms. The patient was found to be hypotensive with urinary tract infection on his urinalysis. Chest x-ray was negative for pneumonia. Head CT did not show any acute pathology. He was admitted to the hospital and was asked by the primary provider for antibiotics treatment. PAST MEDICAL HISTORY: Significant for diabetes, hypertension, CVA, TIA, dementia, psychiatric, and renal disease. PAST SURGICAL HISTORY: Right [id number] amputation. MEDICATIONS: The patient received ceftriaxone in the emergency room. For the rest of the medications, please refer to MAR. ALLERGIES: No known drug allergy. SOCIAL HISTORY: The patient was living at [facility]. No recent drugs, tobacco or alcohol. FAMILY HISTORY: Unable to obtain. REVIEW OF SYSTEMS: A 14-point systems reviewed were all negative apart from the one I mentioned above in my History and Physical. PHYSICAL EXAMINATION: GENERAL: This is an elderly male, up in bed, awake, alert, follow commands, and not in distress. VITAL SIGNS: Temperature of 97.6 degrees, pulse 83, respiratory rate 20, blood pressure 83/56, and saturation 90% on Venturi mask. HEENT: Normocephalic and atraumatic. Pupils reactive to light equally. Moist oral mucosa. No exudate. NECK: Supple. No lymphadenopathy. CARDIOVASCULAR: Regular rate and rhythm. No murmur or gallop. LUNGS: Clear bilaterally. No wheezing. No rhonchi. ABDOMEN: Soft, nontender, and nondistended. Positive bowel sounds. EXTREMITIES: No edema or cyanosis. SKIN: No rash or breakdown. LABORATORY AND DIAGNOSTIC DATA: Laboratory showed white count of 7.9, hemoglobin of 10.9, and platelet count of 228,000. BUN of 49, creatinine 5.2, and glucose of 114. Urinalysis showed leukocyte esterase +3, WBC 40-60 and many bacteria. Imaging, head CT scan showed no acute bleeding or pathology. Chest x-ray showed no acute infiltrate. ASSESSMENT AND PLAN: 1. Sepsis with hypotension. We will send blood for culture and start vancomycin and cefepime empirically pending culture results. 2. Hypertension, rule out sepsis. Start antibiotics therapy and send culture. Continue hydration as needed. Avoid blood pressure medicine. 3. Urinary tract infection. We will start cefepime and send urine culture. 4. Endstage renal disease. Renal is following. Continue hemodialysis if tolerating with his low blood pressure. 5. Diabetes. Recommend tight glycemic control to keep blood sugar between 80 to 120. Thank you. Bandar Cartwright M.D. DR: COLT JOB#: [id number] CC:
--- NOTE | 2016-05-13 21:48 | History and Physical Report ---
DATE OF ADMISSION: 05/13/2016 Time seen: 12:00 noon. CONSULTANTS: 1. Catalina Meyers M.D. 2. Bandar Cartwright M.D. 3. Christiano Blandon M.D. 4. Marcos Jackman M.D. 5. Amanuel Malhotra M.D. CHIEF COMPLAINT: 1. Altered mental status. 2. Urinary tract infection. 3. Sepsis. 4. End-stage renal disease. 5. Seizure. BRIEF HISTORY: This is a 61-year-old male from [facility] presented with above-mentioned diagnosis, being admitted to telemetry for further care. Currently, confused in bed, not talking much. REVIEW OF SYSTEMS: Not available. PAST MEDICAL HISTORY: Altered mental status, ESRD, seizure. PAST SURGICAL HISTORY: Shunt. MEDICATIONS: Ceftriaxone. Home meds will continue. ALLERGIES: Denies. SOCIAL HISTORY: Unknown. The patient refused to answer. PHYSICAL EXAMINATION: VITAL SIGNS: Temperature 97 degrees, pulse 89, respirations 19, and blood pressure 105/58. CARDIOVASCULAR: Distant without murmur. LUNGS: Poor air exchange. ABDOMEN: Bowel sounds are positive. Nontender and nondistended. EXTREMITIES: No cyanosis, clubbing, or edema. NEUROLOGIC: The patient moves all extremities, slightly weak. LABORATORY AND DIAGNOSTIC DATA: Hemoglobin 10.9, otherwise CBC is normal. BMP shows BUN and creatinine 49 and 5.2, glucose 114. Otherwise troponin less than 0.3. Urinalysis shows 3+ blood, 4+ protein, 3+ leukocyte esterase. Urine toxicology show positive for amphetamines. ASSESSMENT AND PLAN: 1. Altered mental status. 2. Urinary tract infection. 3. Hypertension. 4. Drug intoxication, possibly. 5. Anemia. 6. End-stage renal disease. 7. Seizure. PLAN: 1. Continue premedications. 2. OT and PT. 3. Dietary evaluation. 4. CBC and BMP in the morning. 5. Urine toxicology. 6. Antibiotics per Infectious Disease. 7. Blood pressure control. 8. Dialysis. 9. Seizure control. Dr. Meyers, Dr. Cartwright, Dr. Blandon, and Dr. Jackman, and Dr. Cedeño to consult. Paul Mckeon D.O. DR: Ran JOB#: [id number] CC:
--- NOTE | 2016-05-13 23:58 | Consultation ---
DATE OF CONSULTATION: 05/13/2016 CARDIOLOGY CONSULTATION REFERRING PHYSICIAN: Paul Mckeon D.O. REASON FOR CONSULTATION: hypertension and the patient with altered mental status. HISTORY OF PRESENT ILLNESS: The patient is a 61-year-old gentleman with history of hypertension, Alzheimer's dementia, history of type 2 diabetes, end-stage renal disease, on hemodialysis versus primary schizophrenia as well as peripheral vascular disease status post amputation of right below knee, was brought to the emergency room for altered level of consciousness. The patient was brought in from alf facility. At the time my evaluation, the patient unable to provide any information, however, her sister is at the bedside. The patient also has history of prior stroke and is on dialysis Wednesday, Wednesday, and Wednesday. The patient was admitted and a Cardiology consultation was obtained for further evaluation and management. PAST MEDICAL HISTORY: 1. Hypertension. 2. History of diabetes. 3. History of CVA. 4. Dementia. 5. History of schizophrenia. 6. End-stage renal disease, on hemodialysis. 7. Status post right dtdvp-mgp-ldyx amputation. SOCIAL HISTORY: He lives in shelter. Does not smoke or drink alcohol. REVIEW OF SYSTEMS: Cannot be obtained. PHYSICAL EXAMINATION: VITAL SIGNS: Blood pressure 104/63, pulse 101, respiration 19, and temperature is 97.6 degrees. HEAD AND NECK: No JVD. LUNGS: Coarse rhonchi. CARDIOVASCULAR: Regular S1 and S2 with no gallop or rub. ABDOMEN: Soft and nontender. EXTREMITIES: Status post right below-knee amputation. He has dialysis access in the right femoral area. LABORATORY AND DIAGNOSTIC DATA: His labs show white count 7.9, hemoglobin 10.9, hematocrit 33, and platelet 228,000. Sodium 139, potassium 4.2, BUN of 49, creatinine 1.2, and glucose of 114. His EKG showed normal sinus rhythm and has normal electrocardiogram. ASSESSMENT AND PLAN: 1. Altered mental status. Etiology is not clear at this time. His EKG is normal. Troponin is negative. encephalopathy versus sepsis. The patient was on antibiotic with cefepime. 2. Hypertension, on Toprol-XL 25 mg b.i.d. 3. Hyperlipidemia, on Lipitor. 4. Severe peripheral vascular disease status post right below knee amputation, on Plavix and Lipitor. 5. Sepsis, on cefepime and vancomycin per Dr. Cartwright. 6. Schizophrenia. Thank you very much, Dr. Mckeon, for allowing me to participate in the care of this patient. Please do not hesitate to contact me for any questions regarding my evaluation. Amanuel Malhotra M.D. DR: TUNG JOB#: [id number] CC:
[2016-05-14] VITALS: BP 84/54
[2016-05-14 04:50] VITALS: BP 107/60
[2016-05-14] MEDS: NovoLOG Insulin Flexpen SUBQ SCH ×3 (06:30→16:41)
[2016-05-14 08:15] LABS: MEAN CORPUSCULAR HEMOGLOBIN 32.1 PG (27.0-31.0); MEAN CORPUSCULAR HGB CONC 32.3 G/DL (32.0-36.0); MEAN CORPUSCULAR VOLUME 99 FL (80-99); MEAN PLATELET VOLUME 6.2 FL (6.5-10.1); PLATELET COUNT 231 K/UL (150-450); RED BLOOD COUNT 3.04 M/UL (4.70-6.10); RED CELL DISTRIBUTION WIDTH 13.4 % (11.6-14.8); WHITE BLOOD COUNT 17.1 K/UL (4.8-10.8)
[2016-05-14 08:38] LABS: CALCIUM 8.7 mg/dL (8.6-10.2); CREATININE 6.5 mg/dL (0.7-1.2); GLOMERULAR FILTRATION RATE 8.8 mL/min (>60); POTASSIUM 4.5 mEQ/L (3.4-4.9)
[2016-05-14] MEDS: Heparin 5000 units/ml inj SUBQ SCH ×2 (08:47→22:50)
[2016-05-14 08:48] VITALS: BP 102/41
[2016-05-14] MEDS ORDERED: Donepezil 10mg tab ORAL SCH (09:00)
--- NOTE | 2016-05-14 09:12 | General Progress Note ---
Assessment/Plan Assessment/Plan GI CONSULT Dictated Will begin NGT feeds until neurology w/u completed Thank you Elly Reagan MD Subjective Allergies: Coded Allergies: No Known Allergies (Unverified , 09/05/13) Objective Last 24 Hour Vital Signs Date Time Temp Pulse Resp B/P Pulse Ox O2 Delivery O2 Flow Rate FiO2 05/14/16 08:48 98.1 95 20 102/41 95 Venturi Mask 8.0 05/14/16 08:15 96 Venturi Mask 8.0 40 05/14/16 08:15 114 20 Venturi Mask 8.0 40 05/14/16 08:15 Venturi Mask 8.0 40 05/14/16 04:50 98.6 87 20 107/60 100 Simple Mask 05/14/16 04:14 87 05/14/16 00:00 20 84/54 Venturi Mask 6.0 40 05/13/16 23:51 108 05/13/16 23:30 98.0 105 18 87/48 92 Venturi Mask 6.0 40 05/13/16 22:26 Venturi Mask 8.0 40 05/13/16 22:25 95 Venturi Mask 8.0 40 05/13/16 22:24 114 20 Venturi Mask 8.0 40 05/13/16 20:00 98.6 123 20 115/76 98 05/13/16 19:36 120 05/13/16 16:21 97.7 113 22 108/42 97 05/13/16 16:12 110 05/13/16 15:45 96 19 132/94 92 Venturi Mask 8.0 40 05/13/16 15:45 96 19 132/94 96 Venturi Mask 8.0 40 05/13/16 15:30 101 19 104/63 90 Venturi Mask 40 05/13/16 15:15 86 19 100/63 93 Venturi Mask 8.0 40 05/13/16 15:00 97.6 83 20 83/56 90 Venturi Mask 40 05/13/16 14:30 90 17 96/43 92 Venturi Mask 8.0 40 05/13/16 14:08 93 16 73/56 83 Venturi Mask 05/13/16 14:00 98.2 93 17 92/44 91 Nasal Cannula 2.0 05/13/16 13:50 92 18 74/48 91 Nasal Cannula 2.0 05/13/16 13:30 94 17 97/74 92 Nasal Cannula 2.0 05/13/16 12:18 89 19 105/58 94 Nasal Cannula 2.0 05/13/16 11:47 97.2 88 14 111/59 92 Room Air Intake and Output 05/13/16 05/14/16 19:00 07:00 Intake Total 55 ml 550 ml Output Total 400 ml Balance 55 ml 150 ml Intake Oral 0 ml IV Total 55 ml 550 ml Output Urine Total 400 ml # Voids 1 Laboratory Tests 05/13/16 10:15: Urine Color Pale yellow, Urine Appearance Turbid, Urine pH 6, Urine Specific [place] 1.020, Urine Protein 4+H, Urine Glucose (UA) Negative, Urine Ketones Negative, Urine Occult Blood 3+H, Urine Nitrite Negative, Urine Bilirubin 1+H, Urine Ictotest Negative, Urine Urobilinogen 1H, Urine Leukocyte Esterase 3+H, Urine RBC 2-4H, Urine WBC 40-60H, Urine Squamous Epithelial Cells ModerateH, Urine Bacteria ManyH, Urine Opiates Screen Negative, Urine Barbiturates Screen Negative, Phencyclidine (PCP) Screen Negative, Urine Amphetamines Screen PositiveH, Urine Benzodiazepines Screen Negative, Urine Cocaine Screen Negative , Urine Marijuana (THC) Screen Negative 05/14/16 07:07: White Blood Count 17.1#H, Red Blood Count 3.04L, Hemoglobin 9.8L, Hematocrit 30.2L, Mean Corpuscular Volume 99, Mean Corpuscular Hemoglobin 32.1H, Mean Corpuscular Hemoglobin Concent 32.3, Red Cell Distribution Width 13.4, Platelet Count 231, Mean Platelet Volume 6.2L, Neutrophils (%) (Auto) , Lymphocytes (%) ( Auto) , Monocytes (%) (Auto) , Eosinophils (%) (Auto) , Basophils (%) (Auto) , Neutrophils % (Manual) [Pending], Lymphocytes % (Manual) [Pending], Platelet Estimate [Pending], Platelet Morphology [Pending], Sodium Level [Pending], Potassium Level [Pending], Chloride Level [Pending], Carbon Dioxide Level [ Pending], Anion Gap 20H, Blood Urea Nitrogen [Pending], Creatinine [Pending], Estimat Glomerular Filtration Rate [Pending], Glucose Level [Pending], Calcium Level [Pending], Phosphorus Level [Pending], Troponin I [Pending], Albumin [ Pending] Height (Feet): 5 Height (Inches): 7.00 Weight (Pounds): 129 ELLY REAGAN May 14, 2016 09:12
[2016-05-14 09:27] LABS: TROPONIN I < 0.30 ng/mL (<=0.30)
[2016-05-14 10:38] LABS: BAND NEUTROPHILS % (MANUAL) 9 % (0-8); BASOPHILS % (MANUAL) 0 % (0-2); EOSINOPHILS % (MANUAL) 0 % (0-3); LYMPHOCYTES % (MANUAL) 5 % (20-45); NEUTROPHILS % (MANUAL) 83 % (45-75); PLATELET ESTIMATE ADEQUATE; PLATELET MORPHOLOGY NORMAL; TOTAL CELLS COUNTED 100
[2016-05-14 10:39] LABS: MACROCYTES 1+
[2016-05-14 10:40] LABS: CALCIUM 8.7 mg/dL (8.6-10.2); CREATININE 6.5 mg/dL (0.7-1.2); GLOMERULAR FILTRATION RATE 8.8 mL/min (>60); PHOSPHORUS 4.1 mg/dL (2.5-4.8); POTASSIUM 4.4 mEQ/L (3.4-4.9)
--- NOTE | 2016-05-14 11:10 | General Progress Note ---
Assessment/Plan Problem List: (1) ESRD on dialysis ICD Codes: N18.6 - End stage renal failure on dialysis; Z99.2 - Dependence on renal dialysis SNOMED: 217480007 (2) HTN (hypertension) ICD Codes: I10 - Essential (primary) hypertension SNOMED: 64085218 (3) Anemia ICD Codes: D64.9 - Anemia SNOMED: 567340286 (4) Depression ICD Codes: F32.9 - Depression SNOMED: 56280926 (5) Seizure ICD Codes: R56.9 - Seizure SNOMED: 94480423 (6) Encephalopathy ICD Codes: G93.40 - Encephalopathy SNOMED: 10465121 (7) ESRD on dialysis ICD Codes: N18.6 - End stage renal disease; Z99.2 - Dependence on renal dialysis SNOMED: 698004183 (8) Anemia, chronic disease ICD Codes: D63.8 - Anemia in other chronic diseases classified elsewhere SNOMED: 945896992 (9) CVA (cerebral vascular accident) ICD Codes: I63.9 - Cerebral infarction, unspecified SNOMED: 709419677 (10) Altered level of consciousness ICD Codes: R40.4 - Transient alteration of awareness SNOMED: 1802147 (11) Diabetes ICD Codes: E11.9 - Diabetes SNOMED: 61269736 Status: progressing Assessment/Plan hypotension treatment per renal and cardiology afebrile sepsis and uti abx per id Subjective ROS Limited/Unobtainable: Yes Allergies: Coded Allergies: No Known Allergies (Unverified , 09/05/13) Objective Last 24 Hour Vital Signs Date Time Temp Pulse Resp B/P Pulse Ox O2 Delivery O2 Flow Rate FiO2 05/14/16 08:48 98.1 95 20 102/41 95 Venturi Mask 8.0 05/14/16 08:15 96 Venturi Mask 8.0 40 05/14/16 08:15 114 20 Venturi Mask 8.0 40 05/14/16 08:15 Venturi Mask 8.0 40 05/14/16 07:40 Venturi Mask 40 05/14/16 04:50 98.6 87 20 107/60 100 Simple Mask 05/14/16 04:14 87 05/14/16 00:00 20 84/54 Venturi Mask 6.0 40 05/13/16 23:51 108 05/13/16 23:30 98.0 105 18 87/48 92 Venturi Mask 6.0 40 05/13/16 22:26 Venturi Mask 8.0 40 05/13/16 22:25 95 Venturi Mask 8.0 40 05/13/16 22:24 114 20 Venturi Mask 8.0 40 05/13/16 20:00 98.6 123 20 115/76 98 05/13/16 19:36 120 05/13/16 16:21 97.7 113 22 108/42 97 05/13/16 16:12 110 05/13/16 15:45 96 19 132/94 92 Venturi Mask 8.0 40 05/13/16 15:45 96 19 132/94 96 Venturi Mask 8.0 40 05/13/16 15:30 101 19 104/63 90 Venturi Mask 40 05/13/16 15:15 86 19 100/63 93 Venturi Mask 8.0 40 05/13/16 15:00 97.6 83 20 83/56 90 Venturi Mask 40 05/13/16 14:30 90 17 96/43 92 Venturi Mask 8.0 40 05/13/16 14:08 93 16 73/56 83 Venturi Mask 05/13/16 14:00 98.2 93 17 92/44 91 Nasal Cannula 2.0 05/13/16 13:50 92 18 74/48 91 Nasal Cannula 2.0 05/13/16 13:30 94 17 97/74 92 Nasal Cannula 2.0 05/13/16 12:18 89 19 105/58 94 Nasal Cannula 2.0 05/13/16 11:47 97.2 88 14 111/59 92 Room Air Intake and Output 05/13/16 05/14/16 19:00 07:00 Intake Total 55 ml 600 ml Output Total 400 ml Balance 55 ml 200 ml Intake Oral 0 ml IV Total 55 ml 600 ml Output Urine Total 400 ml # Voids 1 Laboratory Tests 05/14/16 07:07: White Blood Count 17.1#H, Red Blood Count 3.04L, Hemoglobin 9.8L, Hematocrit 30.2L, Mean Corpuscular Volume 99, Mean Corpuscular Hemoglobin 32.1H, Mean Corpuscular Hemoglobin Concent 32.3, Red Cell Distribution Width 13.4, Platelet Count 231, Mean Platelet Volume 6.2L, Neutrophils (%) (Auto) , Lymphocytes (%) ( Auto) , Monocytes (%) (Auto) , Eosinophils (%) (Auto) , Basophils (%) (Auto) , Differential Total Cells Counted 100, Neutrophils % (Manual) 83H, Lymphocytes % (Manual) 5L, Monocytes % (Manual) 3, Eosinophils % (Manual) 0, Basophils % ( Manual) 0, Band Neutrophils 9H, Platelet Estimate Adequate, Platelet Morphology Normal, Macrocytosis 1+, Sodium Level 138, Potassium Level 4.4, Chloride Level 96L, Carbon Dioxide Level 19L, Anion Gap 23H, Blood Urea Nitrogen 55H, Creatinine 6.5H, Estimat Glomerular Filtration Rate 8.8, Glucose Level 152H, Calcium Level 8.7, Phosphorus Level 4.1, Troponin I < 0.30, Albumin 2.9L Height (Feet): 5 Height (Inches): 7.00 Weight (Pounds): 129 General Appearance: confused Cardiovascular: normal rate Respiratory/Chest: lungs clear Beverly Rico MD May 14, 2016 11:10
--- NOTE | 2016-05-14 11:19 | Neurology Progress Note ---
Interim History Interim History ROS Limited/Unobtainable: Yes Objective Physical Exam Last Vital Signs Date Time Temp Pulse Resp B/P Pulse Ox O2 Delivery O2 Flow Rate FiO2 05/14/16 10:45 Venturi Mask 40 05/14/16 08:48 98.1 95 20 102/41 95 8.0 Laboratory Tests Test 05/14/16 07:07 White Blood Count 17.1 K/UL (4.8-10.8) #H Red Blood Count 3.04 M/UL (4.70-6.10) L Hemoglobin 9.8 G/DL (14.2-18.0) L Hematocrit 30.2 % (42.0-52.0) L Mean Corpuscular Volume 99 FL (80-99) Mean Corpuscular Hemoglobin 32.1 PG (27.0-31.0) H Mean Corpuscular Hemoglobin Concent 32.3 G/DL (32.0-36.0) Red Cell Distribution Width 13.4 % (11.6-14.8) Platelet Count 231 K/UL (150-450) Mean Platelet Volume 6.2 FL (6.5-10.1) L Neutrophils (%) (Auto) % (45.0-75.0) Lymphocytes (%) (Auto) % (20.0-45.0) Monocytes (%) (Auto) % (1.0-10.0) Eosinophils (%) (Auto) % (0.0-3.0) Basophils (%) (Auto) % (0.0-2.0) Differential Total Cells Counted 100 Neutrophils % (Manual) 83 % (45-75) H Lymphocytes % (Manual) 5 % (20-45) L Monocytes % (Manual) 3 % (1-10) Eosinophils % (Manual) 0 % (0-3) Basophils % (Manual) 0 % (0-2) Band Neutrophils 9 % (0-8) H Platelet Estimate Adequate Platelet Morphology Normal Macrocytosis 1+ Sodium Level 138 mEQ/L (135-145) Potassium Level 4.4 mEQ/L (3.4-4.9) Chloride Level 96 mEQ/L (98-107) L Carbon Dioxide Level 19 mEQ/L (20-30) L Anion Gap 23 (5-15) H Blood Urea Nitrogen 55 mg/dL (7-23) H Creatinine 6.5 mg/dL (0.7-1.2) H Estimat Glomerular Filtration Rate 8.8 mL/min (>60) Glucose Level 152 mg/dL (74-106) H Calcium Level 8.7 mg/dL (8.6-10.2) Phosphorus Level 4.1 mg/dL (2.5-4.8) Troponin I < 0.30 ng/mL (<=0.30) Albumin 2.9 g/dL (3.5-5.2) L Impression/Recommendations Problems: (1) verbal unresponsiveness2/2sepsis,old multiple strokes (2) Polypharmacy (3) Anemia, chronic disease (4) ESRD on dialysis (5) HTN (hypertension) (6) Diabetes (7) Tremor Status: progressing, not improved Recommendations #[id number] BARTOLO ROCK May 14, 2016 11:19
[2016-05-14 12:10] VITALS: BP 97/63
[2016-05-14] MEDS ORDERED: Tubing IV Secondary IV ONE (14:59)
--- NOTE | 2016-05-14 15:00 | Pulmonology Progress Note ---
Assessment/Plan Problems: (1) Sepsis (2) Seizure (3) HTN (hypertension) (4) Encephalopathy (5) CVA (cerebral vascular accident) (6) Depression (7) ESRD on dialysis Assessment/Plan NG tube feeding check cultures f/u wbc keep in teli titrate fio2 to sat of 02% all notes, labs, meds reviewed. Subjective ROS Limited/Unobtainable: Yes Allergies: Coded Allergies: No Known Allergies (Unverified , 09/05/13) Objective Last 24 Hour Vital Signs Date Time Temp Pulse Resp B/P Pulse Ox O2 Delivery O2 Flow Rate FiO2 05/14/16 12:10 98.1 113 20 97/63 95 Venturi Mask 05/14/16 12:00 93 05/14/16 10:45 Venturi Mask 40 05/14/16 08:48 98.1 95 20 102/41 95 Venturi Mask 8.0 05/14/16 08:15 96 Venturi Mask 8.0 40 05/14/16 08:15 114 20 Venturi Mask 8.0 40 05/14/16 08:15 Venturi Mask 8.0 40 05/14/16 08:00 82 05/14/16 07:40 Venturi Mask 40 05/14/16 04:50 98.6 87 20 107/60 100 Simple Mask 05/14/16 04:14 87 05/14/16 00:00 20 84/54 Venturi Mask 6.0 40 05/13/16 23:51 108 05/13/16 23:30 98.0 105 18 87/48 92 Venturi Mask 6.0 40 05/13/16 22:26 Venturi Mask 8.0 40 05/13/16 22:25 95 Venturi Mask 8.0 40 05/13/16 22:24 114 20 Venturi Mask 8.0 40 05/13/16 20:00 98.6 123 20 115/76 98 05/13/16 19:36 120 05/13/16 16:21 97.7 113 22 108/42 97 05/13/16 16:12 110 05/13/16 15:45 96 19 132/94 92 Venturi Mask 8.0 40 05/13/16 15:45 96 19 132/94 96 Venturi Mask 8.0 40 05/13/16 15:30 101 19 104/63 90 Venturi Mask 40 05/13/16 15:15 86 19 100/63 93 Venturi Mask 8.0 40 05/13/16 15:00 97.6 83 20 83/56 90 Venturi Mask 40 Intake and Output 05/13/16 05/14/16 19:00 07:00 Intake Total 55 ml 600 ml Output Total 400 ml Balance 55 ml 200 ml Intake Oral 0 ml IV Total 55 ml 600 ml Output Urine Total 400 ml # Voids 1 General Appearance: WD/WN Respiratory/Chest: decreased breath sounds Cardiovascular: normal peripheral pulses, regular rhythm Abdomen: normal bowel sounds, no organomegaly Genitourinary: normal external genitalia Extremities: no cyanosis Skin: no rash Neurologic/Psychiatric: talent director II-XII grossly normal, abnormal gait Lymphatic: no neck adenopathy Musculoskeletal: normal muscle bulk Laboratory Tests 05/14/16 07:07: White Blood Count 17.1#H, Red Blood Count 3.04L, Hemoglobin 9.8L, Hematocrit 30.2L, Mean Corpuscular Volume 99, Mean Corpuscular Hemoglobin 32.1H, Mean Corpuscular Hemoglobin Concent 32.3, Red Cell Distribution Width 13.4, Platelet Count 231, Mean Platelet Volume 6.2L, Neutrophils (%) (Auto) , Lymphocytes (%) ( Auto) , Monocytes (%) (Auto) , Eosinophils (%) (Auto) , Basophils (%) (Auto) , Differential Total Cells Counted 100, Neutrophils % (Manual) 83H, Lymphocytes % (Manual) 5L, Monocytes % (Manual) 3, Eosinophils % (Manual) 0, Basophils % ( Manual) 0, Band Neutrophils 9H, Platelet Estimate Adequate, Platelet Morphology Normal, Macrocytosis 1+, Sodium Level 138, Potassium Level 4.4, Chloride Level 96L, Carbon Dioxide Level 19L, Anion Gap 23H, Blood Urea Nitrogen 55H, Creatinine 6.5H, Estimat Glomerular Filtration Rate 8.8, Glucose Level 152H, Calcium Level 8.7, Phosphorus Level 4.1, Troponin I < 0.30, Albumin 2.9L Current Medications Medications (Trade) Dose Ordered Sig/Chelsea Route PRN Reason Start Time Stop Time Status Last Admin Dose Admin Acetaminophen (Tylenol) 650 mg Q4H PRN ORAL T>100.5 05/13/16 14:45 06/12/16 14:44 Acetaminophen (Tylenol) 1,000 mg Q6H PRN ORAL Mild Pain/Temp > 100.5 05/13/16 14:45 06/12/16 14:44 Al Hydroxide/Mg Hydroxide (Mylanta II) 30 ml Q6H PRN ORAL dyspepsia 05/13/16 14:45 06/12/16 14:44 Albuterol/ Ipratropium (DuoNeb 0.5-3(2.5)mg/3ml) 3 ml Q4H PRN HHN Shortness of Breath 05/13/16 14:45 05/18/16 14:44 Cefepime HCl 500 mg/Dextrose 55 ml @ 110 mls/hr Q24H IVPB 05/14/16 18:00 05/20/16 17:59 Clonidine HCl (Catapres) 0.1 mg Q6H PRN ORAL SBP>160 05/13/16 15:00 06/12/16 14:59 Clopidogrel Bisulfate (Plavix) 75 mg DAILY ORAL 05/14/16 09:00 06/13/16 08:59 Dextrose STAT PRN IV Hypoglycemia 05/13/16 14:45 06/12/16 14:44 Dextrose/Sodium Chloride (D5ns) 1,000 ml @ 50 mls/hr Q20H IV 05/13/16 20:30 06/12/16 20:29 05/13/16 20:30 Gabapentin (Neurontin) 100 mg TID ORAL 05/13/16 18:00 06/12/16 17:59 Heparin Sodium (Porcine) (Heparin 5000 units/ml) 5,000 units EVERY 12 HOURS SUBQ 05/13/16 21:00 06/12/16 20:59 05/13/16 21:00 Insulin Aspart (NovoLOG) BEFORE MEALS AND HS SUBQ 05/13/16 16:30 06/12/16 16:29 05/14/16 06:30 Lorazepam 0.5 mg 0.5 mg Q4H PRN IV FOR TREMORS 05/13/16 17:00 05/20/16 16:59 05/13/16 16:59 Metoprolol Succinate (Toprol XL) 25 mg Q12HR ORAL 05/13/16 21:00 06/12/16 20:59 Mirtazapine (Remeron) 15 mg BEDTIME ORAL 05/13/16 21:00 06/12/16 20:59 Nitroglycerin (Ntg) 0.4 mg Q5M PRN SL Prn Chest Pain 05/13/16 14:45 06/12/16 14:44 Ondansetron HCl (Zofran) 4 mg Q6H PRN IVP Nausea & Vomiting 05/13/16 14:45 06/12/16 14:44 Polyethylene Glycol (Miralax) 17 gm DAILYPRN PRN ORAL Constipation 05/13/16 14:45 06/12/16 14:44 Temazepam (Restoril) 15 mg HSPRN PRN ORAL Insomnia 05/13/16 21:00 05/20/16 20:59 Vancomycin HCl (Vanco rx to dose) 1 ea DAILY PRN MISC PRN RX PROTOCOL 05/13/16 16:00 06/12/16 15:59 Vancomycin HCl 500 mg/Dextrose 110 ml @ 110 mls/hr POSTHD PRN IVPB PRN PULSE DOSE 05/13/16 15:30 05/18/16 15:29 Vancomycin HCl/ Dextrose (Vancomycin/D5W) 275 ml @ 183.708 mls/hr ONCE IVPB 05/13/16 19:00 05/18/16 18:59 05/13/16 19:19 JEFF INMAN May 14, 2016 15:00
--- NOTE | 2016-05-14 15:56 | Cardiac Electrophysiology PN ---
Assessment/Plan Assessment/Plan 1. Altered mental status. Etiology is not clear at this time. His EKG is normal. Troponin is negative. Encephalopathy versus sepsis.Follow up Dr Blandon. 2. Hypertension, on Toprol-XL 25 mg b.i.d. 3. Hyperlipidemia, on Lipitor. 4. Severe peripheral vascular disease status post right below knee amputation, on Plavix and Lipitor. 5. Sepsis, on cefepime and vancomycin per Dr. Cartwright. 6. Schizophrenia. 7. ESRD. Had HD today. Subjective Subjective Nonverbal on tele. No events overnight.Had HD today.Inserted NG tube today.Remained in SR. Objective Last 24 Hour Vital Signs Date Time Temp Pulse Resp B/P Pulse Ox O2 Delivery O2 Flow Rate FiO2 05/14/16 12:10 98.1 113 20 97/63 95 Venturi Mask 05/14/16 12:00 93 05/14/16 10:45 Venturi Mask 40 05/14/16 08:48 98.1 95 20 102/41 95 Venturi Mask 8.0 05/14/16 08:15 96 Venturi Mask 8.0 40 05/14/16 08:15 114 20 Venturi Mask 8.0 40 05/14/16 08:15 Venturi Mask 8.0 40 05/14/16 08:00 82 05/14/16 07:40 Venturi Mask 40 05/14/16 04:50 98.6 87 20 107/60 100 Simple Mask 05/14/16 04:14 87 05/14/16 00:00 20 84/54 Venturi Mask 6.0 40 05/13/16 23:51 108 05/13/16 23:30 98.0 105 18 87/48 92 Venturi Mask 6.0 40 05/13/16 22:26 Venturi Mask 8.0 40 05/13/16 22:25 95 Venturi Mask 8.0 40 05/13/16 22:24 114 20 Venturi Mask 8.0 40 05/13/16 20:00 98.6 123 20 115/76 98 05/13/16 19:36 120 05/13/16 16:21 97.7 113 22 108/42 97 05/13/16 16:12 110 Intake and Output 05/13/16 05/14/16 19:00 07:00 Intake Total 55 ml 600 ml Output Total 400 ml Balance 55 ml 200 ml Intake Oral 0 ml IV Total 55 ml 600 ml Output Urine Total 400 ml # Voids 1 Laboratory Tests Test 05/14/16 07:07 White Blood Count 17.1 K/UL (4.8-10.8) #H Red Blood Count 3.04 M/UL (4.70-6.10) L Hemoglobin 9.8 G/DL (14.2-18.0) L Hematocrit 30.2 % (42.0-52.0) L Mean Corpuscular Volume 99 FL (80-99) Mean Corpuscular Hemoglobin 32.1 PG (27.0-31.0) H Mean Corpuscular Hemoglobin Concent 32.3 G/DL (32.0-36.0) Red Cell Distribution Width 13.4 % (11.6-14.8) Platelet Count 231 K/UL (150-450) Mean Platelet Volume 6.2 FL (6.5-10.1) L Neutrophils (%) (Auto) % (45.0-75.0) Lymphocytes (%) (Auto) % (20.0-45.0) Monocytes (%) (Auto) % (1.0-10.0) Eosinophils (%) (Auto) % (0.0-3.0) Basophils (%) (Auto) % (0.0-2.0) Differential Total Cells Counted 100 Neutrophils % (Manual) 83 % (45-75) H Lymphocytes % (Manual) 5 % (20-45) L Monocytes % (Manual) 3 % (1-10) Eosinophils % (Manual) 0 % (0-3) Basophils % (Manual) 0 % (0-2) Band Neutrophils 9 % (0-8) H Platelet Estimate Adequate Platelet Morphology Normal Macrocytosis 1+ Sodium Level 138 mEQ/L (135-145) Potassium Level 4.4 mEQ/L (3.4-4.9) Chloride Level 96 mEQ/L (98-107) L Carbon Dioxide Level 19 mEQ/L (20-30) L Anion Gap 23 (5-15) H Blood Urea Nitrogen 55 mg/dL (7-23) H Creatinine 6.5 mg/dL (0.7-1.2) H Estimat Glomerular Filtration Rate 8.8 mL/min (>60) Glucose Level 152 mg/dL (74-106) H Calcium Level 8.7 mg/dL (8.6-10.2) Phosphorus Level 4.1 mg/dL (2.5-4.8) Troponin I < 0.30 ng/mL (<=0.30) Albumin 2.9 g/dL (3.5-5.2) L Objective HEAD AND NECK: No JVD.NG tube in. LUNGS: Coarse rhonchi. CARDIOVASCULAR: Regular S1 and S2 with no gallop or rub. ABDOMEN: Soft and nontender. EXTREMITIES: Status post right below-knee amputation. He has dialysis access in the right femoral area. THU MONREAL May 14, 2016 15:56
[2016-05-14 16:00] VITALS: BP 122/55
[2016-05-14] MEDS ORDERED: cefTRIAXone 2 GM in D5W 110 ML IVPB SCH (16:00)
--- NOTE | 2016-05-14 16:02 | Wound Care Consultation ---
Wound Assessment Wound Assessment #1: Wound Present on Admission: Yes New Wound: No Status Change of Wound: No Wound Location Body Site Modif: mid Wound Location Body Site: sacral Wound Type: pressure ulcer Radha Test: Does not Radha Pressure Ulcer Stage: deep tissue injury Wound Thickness: Full Thickness Wound Length: 5.0 Wound Width: 6.0 Wound Depth: utd Percent of Wound Black/Brown: 40 Percent of Wound Purple/Maroon: 60 Wound Drainage Amount: None Wound Drainage Odor: None/Absent Tissue Surrounding Wound: Erythemic Wound General Appearance: Reddened Wound Assessment #2: Wound Number: #2 Wound Present on Admission: Yes New Wound: No Status Change of Wound: No Wound Location Body Site Modif: right Wound Location Body Site: other Wound Type: pressure ulcer Radha Test: Does not Radha Pressure Ulcer Stage: deep tissue injury Wound Thickness: Full Thickness Wound Length: 6.0 Wound Width: 5.5 Wound Depth: utd Percent of Wound Black/Brown: 100 Wound Drainage Amount: None Wound Drainage Odor: None/Absent Tissue Surrounding Wound: scar tissue Wound General Appearance: Asymptomatic Wound Assessment #3: Wound Number: #3 Wound Present on Admission: Yes New Wound: No Status Change of Wound: No Wound Location Body Site: heel Wound Type: pressure ulcer Radha Test: Does not Radha Pressure Ulcer Stage: IV/unstageable Wound Thickness: Full Thickness Wound Length: 4.0 Wound Width: 4.5 Wound Depth: utd Percent of Wound Bed Yellow/Wh: 40 Percent of Wound Black/Brown: 60 Wound Drainage Amount: None Wound Drainage Odor: None/Absent Tissue Surrounding Wound: Indurated Wound General Appearance: Reddened Wound Assessment #4: Wound Number: #4 Wound Present on Admission: Yes New Wound: No Status Change of Wound: No Wound Location Body Site Modif: left, lower, anterior Wound Location Body Site: leg Wound Type: scar Radha Test: Does not Radha Wound Thickness: Full Thickness Wound Length: 4.5 Wound Width: 1.5 Wound Depth: utd Wound Drainage Amount: None Wound Drainage Odor: None/Absent Tissue Surrounding Wound: Intact Wound General Appearance: Asymptomatic Wound Assessment #5: Wound Number: #5 Wound Present on Admission: Yes New Wound: No Status Change of Wound: No Wound Location Body Site Modif: left, lateral Wound Location Body Site: knee Wound Type: scar Radha Test: Does not Radha Wound Thickness: Full Thickness Wound Length: 2.0 Wound Width: 1.5 Wound Depth: utd Wound Drainage Amount: None Wound Drainage Odor: None/Absent Tissue Surrounding Wound: Intact Wound General Appearance: Asymptomatic Wound Assessment #6: Wound Number: #6 Wound Present on Admission: Yes New Wound: No Status Change of Wound: No Wound Location Body Site Modif: left, lower Wound Location Body Site: leg Wound Type: scab Radha Test: Does not Radha Wound Thickness: Partial Thickness Wound Length: 2.5 Wound Width: 0.3 Percent of Wound [place]/Red: 100 Wound Drainage Amount: None Wound Drainage Odor: None/Absent Tissue Surrounding Wound: Erythemic Wound General Appearance: Reddened Wound Assessment #7: Wound Number: #7 Wound Present on Admission: Yes New Wound: No Status Change of Wound: No Wound Location Body Site Modif: left, lower, lateral Wound Location Body Site: leg Wound Type: pressure ulcer Radha Test: Does not Radha Pressure Ulcer Stage: deep tissue injury Wound Thickness: Full Thickness Wound Length: 5.0 Wound Width: 3.0 Wound Depth: utd Percent of Wound Purple/Maroon: 100 Wound Drainage Amount: None Wound Drainage Odor: None/Absent Tissue Surrounding Wound: Erythemic Wound General Appearance: Reddened Wound Comment #1 Sacral DTI pressure ulcer #2 Right stump full thickness scar tissue with small dry scab #3 Left heel stage IV/unstageable scar tissue #4 Left lower anterior leg scar tissue #5 Left lateral knee scar tissue #6 Left lower anterior leg with dry scab #7 Left lower lateral leg DTI Recommendation -Sacral DTI, left lower lateral leg DTI and Left heel stage IV/unstageable pressure ulcers Cleanse with saline, pat dry, apply Triad cream, cover with bordered gauze daily and PRN soiled/dislodged -Keep clean and dry -Turn and reposition -Low air loss overlay mattress -Optimize nutrition -Offload left heel -Heel protector on left heel -Assess and f/u accordingly for any changes KALEN BROOKS RN May 14, 2016 16:02
[2016-05-14] MEDS: D5NS 1,000 ML IV SCH ×2 (16:30→23:00)
--- NOTE | 2016-05-14 16:34 | Infectious Diseases Prog Note ---
Assessment/Plan Problems: (1) Sepsis Assessment & Plan: source due to UTI , not improving with current antibiotics regimen , will switch cefepime to meropenem , and continue vancomycin , await blood culture and urine culture (2) Hypotension Assessment & Plan: rule out sepsis, culture of the blood and urine is pending , continue wide spectrum antibiotics therapy (3) UTI (urinary tract infection) Assessment & Plan: on cefepime will switch to meropenem to cover for possible ESBL producing organism , await urine culture (4) ESRD on dialysis Assessment & Plan: renal is following , continue HD (5) Diabetes Assessment & Plan: recommend tight glycemic control to keep blood glucose between 80-120 Subjective ROS Limited/Unobtainable: Yes Allergies: Coded Allergies: No Known Allergies (Unverified , 09/05/13) Subjective he was lying in bed with ventimask on, unresponsive, dosen't follow commands, afebrile, not in distress. Objective Vital Signs Last 24 Hour Vital Signs Date Time Temp Pulse Resp B/P Pulse Ox O2 Delivery O2 Flow Rate FiO2 05/14/16 16:00 98.1 91 20 122/55 91 05/14/16 12:10 98.1 113 20 97/63 95 Venturi Mask 05/14/16 12:00 93 05/14/16 10:45 Venturi Mask 40 05/14/16 08:48 98.1 95 20 102/41 95 Venturi Mask 8.0 05/14/16 08:15 96 Venturi Mask 8.0 40 05/14/16 08:15 114 20 Venturi Mask 8.0 40 05/14/16 08:15 Venturi Mask 8.0 40 05/14/16 08:00 82 05/14/16 07:40 Venturi Mask 40 05/14/16 04:50 98.6 87 20 107/60 100 Simple Mask 05/14/16 04:14 87 05/14/16 00:00 20 84/54 Venturi Mask 6.0 40 05/13/16 23:51 108 05/13/16 23:30 98.0 105 18 87/48 92 Venturi Mask 6.0 40 05/13/16 22:26 Venturi Mask 8.0 40 05/13/16 22:25 95 Venturi Mask 8.0 40 05/13/16 22:24 114 20 Venturi Mask 8.0 40 05/13/16 20:00 98.6 123 20 115/76 98 05/13/16 19:36 120 Height (Feet): 5 Height (Inches): 7.00 Weight (Pounds): 129 General Appearance: WD/WN, no acute distress, other - lethargic HEENT: normocephalic, atraumatic, anicteric, supple, no JVD Respiratory/Chest: normal breath sounds, no respiratory distress, no accessory muscle use, decreased breath sounds, crackles/rales Cardiovascular: normal peripheral pulses, normal rate, regular rhythm, no gallop/murmur Abdomen: normal bowel sounds, soft, non tender, no organomegaly, non distended , no mass Extremities: no cyanosis, no clubbing Skin: no rash, ulcers - on the left heel Laboratory Tests Test 05/14/16 07:07 White Blood Count 17.1 K/UL (4.8-10.8) #H Red Blood Count 3.04 M/UL (4.70-6.10) L Hemoglobin 9.8 G/DL (14.2-18.0) L Hematocrit 30.2 % (42.0-52.0) L Mean Corpuscular Volume 99 FL (80-99) Mean Corpuscular Hemoglobin 32.1 PG (27.0-31.0) H Mean Corpuscular Hemoglobin Concent 32.3 G/DL (32.0-36.0) Red Cell Distribution Width 13.4 % (11.6-14.8) Platelet Count 231 K/UL (150-450) Mean Platelet Volume 6.2 FL (6.5-10.1) L Neutrophils (%) (Auto) % (45.0-75.0) Lymphocytes (%) (Auto) % (20.0-45.0) Monocytes (%) (Auto) % (1.0-10.0) Eosinophils (%) (Auto) % (0.0-3.0) Basophils (%) (Auto) % (0.0-2.0) Differential Total Cells Counted 100 Neutrophils % (Manual) 83 % (45-75) H Lymphocytes % (Manual) 5 % (20-45) L Monocytes % (Manual) 3 % (1-10) Eosinophils % (Manual) 0 % (0-3) Basophils % (Manual) 0 % (0-2) Band Neutrophils 9 % (0-8) H Platelet Estimate Adequate Platelet Morphology Normal Macrocytosis 1+ Sodium Level 138 mEQ/L (135-145) Potassium Level 4.4 mEQ/L (3.4-4.9) Chloride Level 96 mEQ/L (98-107) L Carbon Dioxide Level 19 mEQ/L (20-30) L Anion Gap 23 (5-15) H Blood Urea Nitrogen 55 mg/dL (7-23) H Creatinine 6.5 mg/dL (0.7-1.2) H Estimat Glomerular Filtration Rate 8.8 mL/min (>60) Glucose Level 152 mg/dL (74-106) H Calcium Level 8.7 mg/dL (8.6-10.2) Phosphorus Level 4.1 mg/dL (2.5-4.8) Troponin I < 0.30 ng/mL (<=0.30) Albumin 2.9 g/dL (3.5-5.2) L Current Medications Medications (Trade) Dose Ordered Sig/[place] Route PRN Reason Start Time Stop Time Status Last Admin Dose Admin Acetaminophen (Tylenol) 650 mg Q4H PRN ORAL T>100.5 05/13/16 14:45 06/12/16 14:44 Acetaminophen (Tylenol) 1,000 mg Q6H PRN ORAL Mild Pain/Temp > 100.5 05/13/16 14:45 06/12/16 14:44 Al Hydroxide/Mg Hydroxide (Mylanta II) 30 ml Q6H PRN ORAL dyspepsia 05/13/16 14:45 06/12/16 14:44 Albuterol/ Ipratropium (DuoNeb 0.5-3(2.5)mg/3ml) 3 ml Q4H PRN HHN Shortness of Breath 05/13/16 14:45 05/18/16 14:44 Cefepime HCl 500 mg/Dextrose 55 ml @ 110 mls/hr Q24H IVPB 05/14/16 18:00 05/20/16 17:59 Clonidine HCl (Catapres) 0.1 mg Q6H PRN ORAL SBP>160 05/13/16 15:00 06/12/16 14:59 Clopidogrel Bisulfate (Plavix) 75 mg DAILY ORAL 05/14/16 09:00 06/13/16 08:59 Dextrose STAT PRN IV Hypoglycemia 05/13/16 14:45 06/12/16 14:44 Dextrose/Sodium Chloride (D5ns) 1,000 ml @ 50 mls/hr Q20H IV 05/13/16 20:30 06/12/16 20:29 05/13/16 20:30 Gabapentin (Neurontin) 100 mg TID ORAL 05/13/16 18:00 06/12/16 17:59 Heparin Sodium (Porcine) (Heparin 5000 units/ml) 5,000 units EVERY 12 HOURS SUBQ 05/13/16 21:00 06/12/16 20:59 05/13/16 21:00 Insulin Aspart (NovoLOG) BEFORE MEALS AND HS SUBQ 05/13/16 16:30 06/12/16 16:29 05/14/16 06:30 Lorazepam 0.5 mg 0.5 mg Q4H PRN IV FOR TREMORS 05/13/16 17:00 05/20/16 16:59 05/13/16 16:59 Metoprolol Succinate (Toprol XL) 25 mg Q12HR ORAL 05/13/16 21:00 06/12/16 20:59 Mirtazapine (Remeron) 15 mg BEDTIME ORAL 05/13/16 21:00 06/12/16 20:59 Nitroglycerin (Ntg) 0.4 mg Q5M PRN SL Prn Chest Pain 05/13/16 14:45 06/12/16 14:44 Ondansetron HCl (Zofran) 4 mg Q6H PRN IVP Nausea & Vomiting 05/13/16 14:45 06/12/16 14:44 Polyethylene Glycol (Miralax) 17 gm DAILYPRN PRN ORAL Constipation 05/13/16 14:45 06/12/16 14:44 Temazepam (Restoril) 15 mg HSPRN PRN ORAL Insomnia 05/13/16 21:00 05/20/16 20:59 Vancomycin HCl (Vanco rx to dose) 1 ea DAILY PRN MISC PRN RX PROTOCOL 05/13/16 16:00 06/12/16 15:59 Vancomycin HCl 500 mg/Dextrose 110 ml @ 110 mls/hr POSTHD PRN IVPB PRN PULSE DOSE 05/13/16 15:30 05/18/16 15:29 Vancomycin HCl/ Dextrose (Vancomycin/D5W) 275 ml @ 183.708 mls/hr ONCE IVPB 05/13/16 19:00 05/18/16 18:59 05/13/16 19:19 Bandar Cartwright M.D. May 14, 2016 16:34
[2016-05-14] MEDS ORDERED: Cefepime 500mg in D5W 55ml IVPB SCH (18:00)
--- NOTE | 2016-05-14 19:58 | Consultation ---
DATE OF CONSULTATION: 05/14/2016 NEUROLOGICAL CONSULTATION REQUESTING PHYSICIAN: Paul Mckeon D.O. HISTORY OF PRESENT ILLNESS: The patient is a 61-year-old male, resident of a convalescent home, suffering from multiple chronic medical issues, usually bedridden but talkative presented with a progressive change in mental status and unable to speak although being able to follow commands. He was brought to emergency room with signs of hypotension, blood pressure 98/60, heart rate of 76, temperature 98.1. His initial diagnostic studies included a chest x-ray with no acute findings. CT scan of the brain without contrast revealed moderate atrophy, evidence of chronic small vessel disease involving white matter tract, old lacunar infarct, basal ganglia bilaterally. Laboratory studies included toxicology screen with positive amphetamine. CBC study with hemoglobin 10.9, hematocrit 33.0, 9 bands. Chemistry panel, anion gap of 17, BUN 39, creatinine 5.2, GFR 11.4. Normal troponins. Urinalysis 40 to 60 WBCs, 3+ leukocyte esterase, 4+ protein. Following admission to present, the patient condition remained essentially unchanged. PAST MEDICAL HISTORY: The patient has a history of end-stage renal disease on hemodialysis, chronic obstructive pulmonary disease, previous strokes, vascular dementia, diabetes type 2, peripheral vascular disease status post right gdocj-kpt-belt amputation, osteoarthritis, degenerative joint disease, chronic pain syndrome, paranoid schizophrenia, chronic anemia, hypertension. MEDICATIONS: The patient's treatment prior to admission included aspirin, atorvastatin, clonidine, Plavix, Aricept, famotidine, folate, Neurontin 100 mg three times a day, insulin, metoprolol, Flagyl, Remeron 15 mg at bedtime, pravastatin, ranitidine, tramadol b.i.d., zinc, as needed use of lorazepam, glucagon, and Zofran. ALLERGIES: None reported. SOCIAL HISTORY: Resident of nursing facility. FAMILY HISTORY: Unavailable. REVIEW OF SYSTEM: Unable to obtain due the patient's status. PHYSICAL EXAMINATION: GENERAL APPEARANCE: Ill-appearing pale, cachectic man lying in bed, somewhat restless, being prepared for hemodialysis. VITAL SIGNS: Blood pressure 84/54 in the morning and now 102/41, afebrile, heart rate of 114. HEENT: Head is normocephalic. No evidence of injuries. Eyes, ears, and throat are clear. NECK: Rigid in all directions MUSCULOSKELETAL: Remarkable for right [id number]-ynpy amputation. Muscle wasting and trophic changes left lower extremity with severe deformity of left foot toes. AV fistula in place. Peripheral pulses unable to obtain in the left foot. SKIN: Unremarkable. No rash. MENTAL STATUS: The patient is alert, has a brief eye contact, follows a few simple commands, open and close eyes, looked right to left etc. He is nonverbal. CRANIAL NERVE II: Pupils both responding to light and accommodation. Extraocular movement intact. No nystagmus. CRANIAL NERVE V: Normal corneal responses. CRANIAL NERVE VII: Slight droop of left nasolabial fold. CRANIAL NERVE VIII: Grossly normal hearing. CRANIAL NERVE IX THROUGH XII: Tongue is in midline. MOTOR EXAMINATION: Able to lift arms against the gravity briefly with a postural tremors in both upper extremities, unable to move left lower extremity. Deep tendon reflexes depressed bilaterally. Plantar response is mute. SENSORY EXAMINATION: No response to pin stimulation. The patient is grimacing. IMPRESSION: 1. The patient is a 61-year-old male with extensive ischemic cerebrovascular disease, multiple lacunar strokes now presenting with verbal unresponsiveness, most likely in the setting of urosepsis. 2. End-stage renal disease on hemodialysis. 3. Diabetes type 2. 4. Hypotension. 5. Peripheral vascular disease, right [id number]-[id number] amputation. 6. Chronic pain syndrome. 7. Polypharmacy. DISCUSSION: The patient's unresponsiveness most likely result of encephalopathy or caused by a combination of underlying infection, sepsis in the setting of multiple lacunar strokes in the past. Will check liver function, sedimentation rate, SOL, B12, and folate. We will hold all unessential medication. The patient restarted on IV fluids and antibiotics. Continue with hemodialysis as necessary. Thank you for allowing me to see this interesting patient in neurological consultation. Christiano Blandon M.D. DR: Rajesh JOB#: [id number] CC:
[2016-05-14 20:00] VITALS: BP 118/47
[2016-05-14] MEDS: NS IVPB SCH (20:18)
[2016-05-14] MEDS: MEROPENEM IVPB SCH (20:18)
[2016-05-14] MEDS: Vancomycin 1gm in D5W 275ml IVPB SCH (21:25)
--- NOTE | 2016-05-14 21:38 | Consultation ---
DATE OF CONSULTATION: 05/14/2016 GASTROENTEROLOGY CONSULTATION CONSULTING PHYSICIAN: Elly Reagan M.D. REFERRING PHYSICIAN: Beverly Rico M.D. CHIEF COMPLAINT: I was asked to see this patient by Dr. Beverly Rico for evaluation of dysphagia and nutrition. HISTORY OF PRESENT ILLNESS: The patient is a 61-year-old man with a history of Alzheimer's dementia who was brought into the hospital due to altered level of consciousness. The patient appears to be awake with eyes open, but he has minimal responses. He has some twitching motions of his extremities and cannot elevate them. However, when asked to see if he could move his arm, there is motion of the arm that is visible, but is minimal. The patient therefore unable to provide any history and most of the information is only available from the chart. The patient was noted to have this degree of new mental status change and was brought in for evaluation. He has had a previous history of stroke. He has no gastrostomy tube. PAST MEDICAL HISTORY: History of hypertension; diabetes; stroke; dementia; schizophrenia; renal failure, on dialysis; and status post right below-knee amputation. FAMILY HISTORY: Not available. SOCIAL HISTORY: The patient is a long-term [facility] resident, and there is no recent chart history of smoking or drinking. MEDICATIONS: See chart list for details. REVIEW OF SYSTEMS: Otherwise negative. PHYSICAL EXAMINATION: GENERAL: Debilitated man seen in his room getting dialyzed. HEENT: Normocephalic and atraumatic. Sclerae anicteric. Dentition is poor. NECK: Supple. CHEST: Scattered rhonchi. CARDIOVASCULAR: Regular rate. ABDOMEN: Soft, flat. Good bowel sounds. EXTREMITIES: Right below-knee amputation. LABORATORY DATA: Laboratory data was noted. ASSESSMENT: This patient has had an acute neurological event, which will need to be evaluated by a neurologist. This patient has had a new stroke. The patient is clearly unable to take oral medications or oral food at this time since he is unable to follow commands and unable to move his body parts. The patient should therefore have a nasogastric tube for safe administration of fluid and medicines until at a later date when they can be re-established. He also has some degree of anemia, but that is presumed to be due to his renal failure, which is chronic and he is on dialysis. Of interest is that on admission, drug screen was positive from amphetamines and the source of this finding needs evaluation. RECOMMENDATIONS: 1. Neurology consultation and evaluation. 2. Hold p.o. medications and fluids. 3. Nasogastric tube for safe medication and tube feeding administration. 4. Follow laboratory parameters and exam. Thank you for asking me to participate in the care of this patient. Elly Reagan M.D. DR: JOSE JOB#: [id number] CC:
[2016-05-15] VITALS: BP 123/62
[2016-05-15] MEDS: NovoLOG Insulin Flexpen SUBQ SCH ×5 (00:31→23:38)
[2016-05-15 04:00] VITALS: BP 137/62
[2016-05-15 08:26] VITALS: BP 121/56
[2016-05-15] MEDS: Heparin 5000 units/ml inj SUBQ SCH ×2 (09:20→20:36)
--- NOTE | 2016-05-15 10:48 | Neurology Progress Note ---
Interim History Interim History ROS Limited/Unobtainable: Yes Complaints: nonverbal Events: more responsive Objective Physical Exam Last Vital Signs Date Time Temp Pulse Resp B/P Pulse Ox O2 Delivery O2 Flow Rate FiO2 05/15/16 09:17 99 121/56 05/15/16 08:26 99.1 20 96 15.0 05/15/16 07:39 Venturi Mask 55 General: other - cachectic, illappearingR BKA Head: normocophalic, atraumatic Neurologic Exam Mental Status: awake, alert, other - +eye contact follows few simple command Speech: other Cranial Nerve II: no papilledema Cranial Nerves III, IV, : PERRLA, EOMI, pupils Cranial Nerve V: masseters function normal Cranial Nerve VII: normal facial expressions Cranial Nerve VIII: no nystagmus Cranial Nerve IX: gag response Cranial Nerve XI: trapezii function normal Cranial Nerve XII: no tongue atrophy/fasciculations Motor System: no involuntary movement, other - R arm 3/5 L arm -5/5 L leg 1/5 Sensory: other Deep Tendon Reflexes: 0 ankle (L), 0 ankle (R), 0 bicep (L), 0 bicep (R), 0 brachioradialis (L), 0 brachioradialis (R), 0 knee (L), 0 knee (R), 0 tricep (L) , 0 tricep (R) Reflexes: mute plantar (L), mute plantar (R) Impression/Recommendations Problems: (1) verbal unresponsiveness2/2sepsis,old multiple strokes (2) Polypharmacy (3) Anemia, chronic disease (4) ESRD on dialysis (5) HTN (hypertension) (6) Diabetes (7) Tremor Status: progressing, not improved Recommendations #[id number] cont pt/ot antibx/iv fluids BARTOLO ROCK May 15, 2016 10:48
[2016-05-15 11:48] VITALS: BP 111/48
--- NOTE | 2016-05-15 13:59 | Consultation ---
DATE OF CONSULTATION: 05/14/2016 NOTE: POOR AUDIO QUALITY: PSYCHOTHERAPY CONSULTATION PROGRESS NOTE CONSULTING PHYSICIAN: Tiff Mak PsyD. TREATING ATTENDING PHYSICIAN: Paul Mckeon D.O. HISTORY OF PRESENT ILLNESS: The patient is a 61-year-old male. The patient was brought into the hospital for altered mental status. He is from [facility]. The patient has been very confused, disorganized, and altered in his mental status. and at this time requires continued hospitalization for stabilization of his symptoms. The patient also illness, increase in depression, and . For this reason, treated for . This clinician assessed this patient. The patient continues treatment altered in his mental status, unable to provide logical plan for self-care and safety. At this time, his current temperature suicidal or homicidal thoughts of ideation. This clinician assessed this patient. ALLERGIES: The patient has no known drug allergies. SUBSTANCE USE HISTORY: The patient does not have a history of alcohol use, illicit substance use, or smoking cigarettes. PSYCHIATRIC HISTORY: The patient does have a history of depression and altered mental status. The patient has been treated with psychotropic medications in the past. PAST MEDICAL HISTORY: Includes history of ESRD, ____ altered mental status. SOCIAL HISTORY: The patient is a 61-year-old male from [facility]. Financially sustained through Medicare and [email or web address]. MENTAL STATUS EXAMINATION: The patient is alert and oriented x1, to person. Mood is depressed. Affect is blunted. Thought process is disorganized. The patient has poor attention and concentration, poor insight, judgment, and impulse control. This clinician assessed the patient. Provided the patient with supportive psychotherapy, reality orientation, and coping skills. Encouraging the patient to participate in treatment and milieu . DIAGNOSES: Burnside I Rule out major depressive disorder, recurrent, remote history of dementia. Burnside II Deferred. Burnside III Per History and Physical. PLAN: This clinician assessed this patient, assessed the patient's mental status. Provided the patient with reality orientation. Continue with medication management and behavioral management. This clinician has reviewed the patient's chart. Discussed the treatment with nursing staff. Tiff Mak PsyD. DR: LOPEZ JOB#: [id number] CC:
[2016-05-15] MEDS ORDERED: Tubing IV Secondary IV ONE (14:20)
[2016-05-15] MEDS ORDERED: D5 1/2NS 1000ml IV ONE (14:20)
[2016-05-15] MEDS ORDERED: NS 275ml ONE (14:20)
--- NOTE | 2016-05-15 14:47 | Cardiac Electrophysiology PN ---
Assessment/Plan Assessment/Plan 1. Altered mental status. Etiology is not clear at this time. His EKG is normal. Troponin is negative. Encephalopathy versus sepsis.Follow up Dr Blandon. 2. Hypertension, on Toprol-XL 25 mg b.i.d. 3. Hyperlipidemia, on Lipitor. 4. Severe peripheral vascular disease status post right below knee amputation, on Plavix and Lipitor. 5. Sepsis, on Abx per Dr. Cartwright. 6. Schizophrenia. 7. ESRD. On HD DW RN and Dr Meyers Subjective Subjective Nonverbal on tele. No events overnight.Had HD yesterday. NG tube is in.Remained in SR. Objective Last 24 Hour Vital Signs Date Time Temp Pulse Resp B/P Pulse Ox O2 Delivery O2 Flow Rate FiO2 05/15/16 12:00 94 05/15/16 11:48 98.2 81 20 111/48 96 Venturi Mask 15.0 05/15/16 09:17 99 121/56 05/15/16 08:26 99.1 99 20 121/56 96 15.0 05/15/16 08:00 92 05/15/16 07:39 Venturi Mask 14.0 55 05/15/16 07:38 97 22 Venturi Mask 14.0 55 05/15/16 07:38 96 Venturi Mask 14.0 55 05/15/16 04:00 107 05/15/16 04:00 98.2 101 20 137/62 95 Simple Mask 05/15/16 00:00 98.1 95 20 123/62 95 Simple Mask 05/15/16 00:00 99 05/14/16 22:55 88 124/58 05/14/16 20:00 97 Venturi Mask 14.0 55 05/14/16 20:00 86 20 Venturi Mask 14.0 55 05/14/16 20:00 98.0 83 20 118/47 96 05/14/16 20:00 85 05/14/16 20:00 Venturi Mask 14.0 55 05/14/16 16:00 98.1 91 20 122/55 91 05/14/16 16:00 94 Intake and Output 05/14/16 05/15/16 19:00 07:00 Intake Total 600 ml 1080.000 ml Output Total 170 ml 300 ml Balance 430 ml 780.000 ml IV Total 600 ml 995.000 ml Tube Feeding 85 ml Output Urine Total 150 ml 300 ml Hemodialysis UF 20 ml Labs Test 05/14/16 07:07 White Blood Count 17.1 K/UL (4.8-10.8) Red Blood Count 3.04 M/UL (4.70-6.10) Hemoglobin 9.8 G/DL (14.2-18.0) Hematocrit 30.2 % (42.0-52.0) Mean Corpuscular Volume 99 FL (80-99) Mean Corpuscular Hemoglobin 32.1 PG (27.0-31.0) Mean Corpuscular Hemoglobin Concent 32.3 G/DL (32.0-36.0) Red Cell Distribution Width 13.4 % (11.6-14.8) Platelet Count 231 K/UL (150-450) Mean Platelet Volume 6.2 FL (6.5-10.1) Neutrophils (%) (Auto) % (45.0-75.0) Lymphocytes (%) (Auto) % (20.0-45.0) Monocytes (%) (Auto) % (1.0-10.0) Eosinophils (%) (Auto) % (0.0-3.0) Basophils (%) (Auto) % (0.0-2.0) Differential Total Cells Counted 100 Neutrophils % (Manual) 83 % (45-75) Lymphocytes % (Manual) 5 % (20-45) Monocytes % (Manual) 3 % (1-10) Eosinophils % (Manual) 0 % (0-3) Basophils % (Manual) 0 % (0-2) Band Neutrophils 9 % (0-8) Platelet Estimate Adequate Platelet Morphology Normal Macrocytosis 1+ Sodium Level 138 mEQ/L (135-145) Potassium Level 4.4 mEQ/L (3.4-4.9) Chloride Level 96 mEQ/L (98-107) Carbon Dioxide Level 19 mEQ/L (20-30) Anion Gap 23 (5-15) Blood Urea Nitrogen 55 mg/dL (7-23) Creatinine 6.5 mg/dL (0.7-1.2) Estimat Glomerular Filtration Rate 8.8 mL/min (>60) Glucose Level 152 mg/dL (74-106) Calcium Level 8.7 mg/dL (8.6-10.2) Phosphorus Level 4.1 mg/dL (2.5-4.8) Troponin I < 0.30 ng/mL (<=0.30) Albumin 2.9 g/dL (3.5-5.2) Current Medications Medications (Trade) Dose Ordered Sig/Chelsea Route PRN Reason Start Time Stop Time Status Last Admin Dose Admin Acetaminophen (Tylenol) 650 mg Q4H PRN ORAL T>100.5 05/13/16 14:45 06/12/16 14:44 Acetaminophen (Tylenol) 1,000 mg Q6H PRN ORAL Mild Pain/Temp > 100.5 05/13/16 14:45 06/12/16 14:44 Al Hydroxide/Mg Hydroxide (Mylanta II) 30 ml Q6H PRN ORAL dyspepsia 05/13/16 14:45 06/12/16 14:44 Albuterol/ Ipratropium (DuoNeb 0.5-3(2.5)mg/3ml) 3 ml Q4H PRN HHN Shortness of Breath 05/13/16 14:45 05/18/16 14:44 Clonidine HCl (Catapres) 0.1 mg Q6H PRN ORAL SBP>160 05/13/16 15:00 06/12/16 14:59 Clopidogrel Bisulfate (Plavix) 75 mg DAILY ORAL 05/14/16 09:00 06/13/16 08:59 05/15/16 09:18 Dextrose (Dextrose 50%) STAT PRN IV Hypoglycemia 05/13/16 14:45 06/12/16 14:44 Dextrose/Sodium Chloride 1,000 ml @ 50 mls/hr Q20H IV 05/13/16 20:30 06/12/16 20:29 05/14/16 23:00 Gabapentin (Neurontin) 100 mg TID ORAL 05/13/16 18:00 06/12/16 17:59 05/15/16 13:49 Heparin Sodium (Porcine) (Heparin 5000 units/ml) 5,000 units EVERY 12 HOURS SUBQ 05/13/16 21:00 06/12/16 20:59 05/15/16 09:20 Insulin Aspart (NovoLOG) Q6HR SUBQ 05/15/16 00:00 06/14/16 00:00 05/15/16 13:50 Lorazepam 0.5 mg 0.5 mg Q4H PRN IV FOR TREMORS 05/13/16 17:00 05/20/16 16:59 05/13/16 16:59 Meropenem/Sodium Chloride (Merrem/Sodium Chloride) 110 ml @ 220 mls/hr Q24HRS IVPB 05/14/16 18:00 05/19/16 17:59 05/14/16 20:18 Metoprolol Succinate (Toprol XL) 25 mg Q12HR ORAL 05/13/16 21:00 06/12/16 20:59 05/15/16 09:17 Mirtazapine (Remeron) 15 mg BEDTIME ORAL 05/13/16 21:00 06/12/16 20:59 05/14/16 22:55 Nitroglycerin (Ntg) 0.4 mg Q5M PRN SL Prn Chest Pain 05/13/16 14:45 06/12/16 14:44 Ondansetron HCl (Zofran) 4 mg Q6H PRN IVP Nausea & Vomiting 05/13/16 14:45 06/12/16 14:44 Polyethylene Glycol (Miralax) 17 gm DAILYPRN PRN ORAL Constipation 05/13/16 14:45 06/12/16 14:44 Temazepam (Restoril) 15 mg HSPRN PRN ORAL Insomnia 05/13/16 21:00 05/20/16 20:59 Vancomycin HCl (Vanco rx to dose) 1 ea DAILY PRN MISC PRN RX PROTOCOL 05/13/16 16:00 06/12/16 15:59 Microbiology Date/Time Source Procedure Growth Status 05/13/16 10:22 Blood Blood Culture - Preliminary NO GROWTH AFTER 24 HOURS Resulted 05/13/16 10:15 Blood Blood Culture - Preliminary NO GROWTH AFTER 24 HOURS Resulted 05/13/16 10:15 Nasal Nares MRSA Culture - Final NO METHICILLIN RESISTANT STAPH AUREUS... Complete 05/13/16 10:15 Urine,Clean Catch Urine Culture - Preliminary Gram Negative Bacillus 1 Resulted 05/13/16 10:15 Rectum VRE Culture - Final Enterococcus Faecalis - Vre Complete Objective HEAD AND NECK: No JVD.NG tube in. LUNGS: Coarse rhonchi. CARDIOVASCULAR: Regular S1 and S2 with no gallop or rub. ABDOMEN: Soft and nontender. EXTREMITIES: Status post right below-knee amputation. He has dialysis access in the right femoral area. THU MONREAL 10, 2017 14:47
--- NOTE | 2016-05-15 15:19 | Infectious Diseases Prog Note ---
Assessment/Plan Problems: (1) Sepsis Assessment & Plan: source due to UTI , on meropenem , and vancomycin , await blood culture (2) Hypotension Assessment & Plan: rule out sepsis, culture of the blood and urine is pending , continue wide spectrum antibiotics therapy (3) UTI (urinary tract infection) Assessment & Plan: with gram negative rods on meropenem to cover for possible ESBL producing organism , await identification and sensitivity (4) ESRD on dialysis Assessment & Plan: renal is following , continue HD (5) Diabetes Assessment & Plan: recommend tight glycemic control to keep blood glucose between 80-120 (6) Colonization with VRE (vancomycin-resistant enterococcus) Assessment & Plan: keep on contact isolation Subjective ROS Limited/Unobtainable: Yes Allergies: Coded Allergies: No Known Allergies (Unverified , 09/05/13) Subjective he was lying in bed with ventimask on, unresponsive, dosen't follow commands, afebrile, not in distress. Objective Vital Signs Last 24 Hour Vital Signs Date Time Temp Pulse Resp B/P Pulse Ox O2 Delivery O2 Flow Rate FiO2 05/15/16 12:00 94 05/15/16 11:48 98.2 81 20 111/48 96 Venturi Mask 15.0 05/15/16 09:17 99 121/56 05/15/16 08:26 99.1 99 20 121/56 96 15.0 05/15/16 08:00 92 05/15/16 07:39 Venturi Mask 14.0 55 05/15/16 07:38 97 22 Venturi Mask 14.0 55 05/15/16 07:38 96 Venturi Mask 14.0 55 05/15/16 04:00 107 05/15/16 04:00 98.2 101 20 137/62 95 Simple Mask 05/15/16 00:00 98.1 95 20 123/62 95 Simple Mask 05/15/16 00:00 99 05/14/16 22:55 88 124/58 05/14/16 20:00 97 Venturi Mask 14.0 55 05/14/16 20:00 86 20 Venturi Mask 14.0 55 05/14/16 20:00 98.0 83 20 118/47 96 05/14/16 20:00 85 05/14/16 20:00 Venturi Mask 14.0 55 05/14/16 16:00 98.1 91 20 122/55 91 05/14/16 16:00 94 Height (Feet): 5 Height (Inches): 7.00 Weight (Pounds): 129 General Appearance: WD/WN, no acute distress HEENT: normocephalic, atraumatic, anicteric, mucous membranes moist Respiratory/Chest: normal breath sounds, no respiratory distress, no accessory muscle use, decreased breath sounds, crackles/rales Cardiovascular: normal peripheral pulses, normal rate, regular rhythm, no gallop/murmur Abdomen: normal bowel sounds, soft, non tender, no organomegaly, non distended , no mass, no scars Extremities: no cyanosis, no clubbing Skin: no rash, no lesions Microbiology Date/Time Source Procedure Growth Status 05/13/16 10:22 Blood Blood Culture - Preliminary NO GROWTH AFTER 24 HOURS Resulted 05/13/16 10:15 Blood Blood Culture - Preliminary NO GROWTH AFTER 24 HOURS Resulted 05/13/16 10:15 Nasal Nares MRSA Culture - Final NO METHICILLIN RESISTANT STAPH AUREUS... Complete 05/13/16 10:15 Urine,Clean Catch Urine Culture - Preliminary Gram Negative Bacillus 1 Resulted 05/13/16 10:15 Rectum VRE Culture - Final Enterococcus Faecalis - Vre Complete Current Medications Medications (Trade) Dose Ordered Sig/Chelsea Route PRN Reason Start Time Stop Time Status Last Admin Dose Admin Acetaminophen (Tylenol) 650 mg Q4H PRN ORAL T>100.5 05/13/16 14:45 06/12/16 14:44 Acetaminophen (Tylenol) 1,000 mg Q6H PRN ORAL Mild Pain/Temp > 100.5 05/13/16 14:45 06/12/16 14:44 Al Hydroxide/Mg Hydroxide (Mylanta II) 30 ml Q6H PRN ORAL dyspepsia 05/13/16 14:45 06/12/16 14:44 Albuterol/ Ipratropium (DuoNeb 0.5-3(2.5)mg/3ml) 3 ml Q4H PRN HHN Shortness of Breath 05/13/16 14:45 05/18/16 14:44 Clonidine HCl (Catapres) 0.1 mg Q6H PRN ORAL SBP>160 05/13/16 15:00 06/12/16 14:59 Clopidogrel Bisulfate (Plavix) 75 mg DAILY ORAL 05/14/16 09:00 06/13/16 08:59 05/15/16 09:18 Dextrose (Dextrose 50%) STAT PRN IV Hypoglycemia 05/13/16 14:45 06/12/16 14:44 Dextrose/Sodium Chloride 1,000 ml @ 50 mls/hr Q20H IV 05/13/16 20:30 06/12/16 20:29 05/14/16 23:00 Gabapentin (Neurontin) 100 mg TID ORAL 05/13/16 18:00 06/12/16 17:59 05/15/16 13:49 Heparin Sodium (Porcine) (Heparin 5000 units/ml) 5,000 units EVERY 12 HOURS SUBQ 05/13/16 21:00 06/12/16 20:59 05/15/16 09:20 Insulin Aspart (NovoLOG) Q6HR SUBQ 05/15/16 00:00 06/14/16 00:00 05/15/16 13:50 Lorazepam 0.5 mg 0.5 mg Q4H PRN IV FOR TREMORS 05/13/16 17:00 05/20/16 16:59 05/13/16 16:59 Meropenem/Sodium Chloride (Merrem/Sodium Chloride) 110 ml @ 220 mls/hr Q24HRS IVPB 05/14/16 18:00 05/19/16 17:59 05/14/16 20:18 Metoprolol Succinate (Toprol XL) 25 mg Q12HR ORAL 05/13/16 21:00 06/12/16 20:59 05/15/16 09:17 Mirtazapine (Remeron) 15 mg BEDTIME ORAL 05/13/16 21:00 06/12/16 20:59 05/14/16 22:55 Nitroglycerin (Ntg) 0.4 mg Q5M PRN SL Prn Chest Pain 05/13/16 14:45 06/12/16 14:44 Ondansetron HCl (Zofran) 4 mg Q6H PRN IVP Nausea & Vomiting 05/13/16 14:45 06/12/16 14:44 Polyethylene Glycol (Miralax) 17 gm DAILYPRN PRN ORAL Constipation 05/13/16 14:45 06/12/16 14:44 Temazepam (Restoril) 15 mg HSPRN PRN ORAL Insomnia 05/13/16 21:00 05/20/16 20:59 Vancomycin HCl (Vanco rx to dose) 1 ea DAILY PRN MISC PRN RX PROTOCOL 05/13/16 16:00 06/12/16 15:59 Bandar Cartwright M.D. May 15, 2016 15:19
[2016-05-15 16:00] VITALS: BP 120/62
[2016-05-15] MEDS: MEROPENEM IVPB SCH (18:13)
[2016-05-15] MEDS: NS IVPB SCH (18:13)
[2016-05-15 20:27] VITALS: BP 144/60
--- NOTE | 2016-05-15 22:02 | General Progress Note ---
Assessment/Plan Assessment/Plan Assessment - AMS - dysphagia - HTN - amputation - Renal failure Recommendations - continue TF - Elevate HOB - Neuro w/u Subjective Allergies: Coded Allergies: No Known Allergies (Unverified , 09/05/13) Subjective non verbal tolerating TF able to respond to commands Objective Last 24 Hour Vital Signs Date Time Temp Pulse Resp B/P Pulse Ox O2 Delivery O2 Flow Rate FiO2 05/15/16 20:42 98.2 85 05/15/16 20:34 85 144/60 05/15/16 20:27 18 144/60 100 Venturi Mask 55 05/15/16 19:50 Venturi Mask 14.0 55 05/15/16 19:50 101 20 Venturi Mask 14.0 55 05/15/16 19:50 97 Venturi Mask 14.0 55 05/15/16 16:00 89 05/15/16 16:00 97.9 89 18 120/62 Venturi Mask 98 05/15/16 12:00 94 05/15/16 11:48 98.2 81 20 111/48 96 Venturi Mask 15.0 05/15/16 09:17 99 121/56 05/15/16 08:26 99.1 99 20 121/56 96 15.0 05/15/16 08:00 92 05/15/16 07:39 Venturi Mask 14.0 55 05/15/16 07:38 97 22 Venturi Mask 14.0 55 05/15/16 07:38 96 Venturi Mask 14.0 55 05/15/16 04:00 107 05/15/16 04:00 98.2 101 20 137/62 95 Simple Mask 05/15/16 00:00 98.1 95 20 123/62 95 Simple Mask 05/15/16 00:00 99 05/14/16 22:55 88 124/58 Intake and Output 05/14/16 05/15/16 19:00 07:00 Intake Total 600 ml 1100.000 ml Output Total 170 ml 300 ml Balance 430 ml 800.000 ml IV Total 600 ml 995.000 ml Tube Feeding 105 ml Output Urine Total 150 ml 300 ml Hemodialysis UF 20 ml Laboratory Tests 05/15/16 15:16: Urine Opiates Screen Negative, Urine Barbiturates Screen Negative, Phencyclidine (PCP) Screen Negative, Urine Amphetamines Screen Negative, Urine Benzodiazepines Screen Negative, Urine Cocaine Screen Negative, Urine Marijuana (THC) Screen Negative Height (Feet): 5 Height (Inches): 7.00 Weight (Pounds): 129 Objective Debilitated LM catatonic NCAT supple CTA RRR soft scaphoid no edema WILLIAM MIXON May 15, 2016 22:02
[2016-05-15] MEDS: D5NS 1,000 ML IV SCH ×2 (23:26)
--- NOTE | 2016-05-15 23:29 | Pulmonology Progress Note ---
Assessment/Plan Problems: (1) Sepsis (2) Seizure (3) HTN (hypertension) (4) Encephalopathy (5) CVA (cerebral vascular accident) (6) Depression (7) ESRD on dialysis Assessment/Plan NG tube feeding check cultures f/u wbc keep in teli continue antibiotics titrate fio2 to sat of 02% Mental status unchanged all notes, labs, meds reviewed. Subjective ROS Limited/Unobtainable: Yes Interval Events: somnolent Allergies: Coded Allergies: No Known Allergies (Unverified , 09/05/13) Objective Last 24 Hour Vital Signs Date Time Temp Pulse Resp B/P Pulse Ox O2 Delivery O2 Flow Rate FiO2 05/15/16 20:42 98.2 85 05/15/16 20:34 85 144/60 05/15/16 20:27 18 144/60 100 Venturi Mask 55 05/15/16 19:50 Venturi Mask 14.0 55 05/15/16 19:50 101 20 Venturi Mask 14.0 55 05/15/16 19:50 97 Venturi Mask 14.0 55 05/15/16 16:00 89 05/15/16 16:00 97.9 89 18 120/62 Venturi Mask 98 05/15/16 12:00 94 05/15/16 11:48 98.2 81 20 111/48 96 Venturi Mask 15.0 05/15/16 09:17 99 121/56 05/15/16 08:26 99.1 99 20 121/56 96 15.0 05/15/16 08:00 92 05/15/16 07:39 Venturi Mask 14.0 55 05/15/16 07:38 97 22 Venturi Mask 14.0 55 05/15/16 07:38 96 Venturi Mask 14.0 55 05/15/16 04:00 107 05/15/16 04:00 98.2 101 20 137/62 95 Simple Mask 05/15/16 00:00 98.1 95 20 123/62 95 Simple Mask 05/15/16 00:00 99 Intake and Output 05/14/16 05/15/16 19:00 07:00 Intake Total 600 ml 1100.000 ml Output Total 170 ml 300 ml Balance 430 ml 800.000 ml IV Total 600 ml 995.000 ml Tube Feeding 105 ml Output Urine Total 150 ml 300 ml Hemodialysis UF 20 ml HEENT: normocephalic, atraumatic Respiratory/Chest: crackles/rales Cardiovascular: normal peripheral pulses, normal rate, regular rhythm Abdomen: soft, non tender, no organomegaly Extremities: no cyanosis Skin: no rash Neurologic/Psychiatric: no motor/sensory deficits Microbiology Date/Time Source Procedure Growth Status 05/13/16 10:22 Blood Blood Culture - Preliminary NO GROWTH AFTER 24 HOURS Resulted 05/13/16 10:15 Blood Blood Culture - Preliminary NO GROWTH AFTER 24 HOURS Resulted 05/13/16 10:15 Nasal Nares MRSA Culture - Final NO METHICILLIN RESISTANT STAPH AUREUS... Complete 05/13/16 10:15 Urine,Clean Catch Urine Culture - Preliminary Gram Negative Bacillus 1 Resulted 05/13/16 10:15 Rectum VRE Culture - Final Enterococcus Faecalis - Vre Complete Laboratory Tests 05/15/16 15:16: Urine Opiates Screen Negative, Urine Barbiturates Screen Negative, Phencyclidine (PCP) Screen Negative, Urine Amphetamines Screen Negative, Urine Benzodiazepines Screen Negative, Urine Cocaine Screen Negative, Urine Marijuana (THC) Screen Negative Current Medications Medications (Trade) Dose Ordered Sig/Chelsea Route PRN Reason Start Time Stop Time Status Last Admin Dose Admin Acetaminophen (Tylenol) 650 mg Q4H PRN ORAL T>100.5 05/13/16 14:45 06/12/16 14:44 Acetaminophen (Tylenol) 1,000 mg Q6H PRN ORAL Mild Pain/Temp > 100.5 05/13/16 14:45 06/12/16 14:44 Al Hydroxide/Mg Hydroxide (Mylanta II) 30 ml Q6H PRN ORAL dyspepsia 05/13/16 14:45 06/12/16 14:44 Albuterol/ Ipratropium (DuoNeb 0.5-3(2.5)mg/3ml) 3 ml Q4H PRN HHN Shortness of Breath 05/13/16 14:45 05/18/16 14:44 Clonidine HCl (Catapres) 0.1 mg Q6H PRN ORAL SBP>160 05/13/16 15:00 06/12/16 14:59 Clopidogrel Bisulfate (Plavix) 75 mg DAILY ORAL 05/14/16 09:00 06/13/16 08:59 05/15/16 09:18 Dextrose (Dextrose 50%) STAT PRN IV Hypoglycemia 05/13/16 14:45 06/12/16 14:44 Dextrose/Sodium Chloride 1,000 ml @ 50 mls/hr Q20H IV 05/13/16 20:30 06/12/16 20:29 05/15/16 23:26 Gabapentin (Neurontin) 100 mg TID ORAL 05/13/16 18:00 06/12/16 17:59 05/15/16 18:12 Heparin Sodium (Porcine) (Heparin 5000 units/ml) 5,000 units EVERY 12 HOURS SUBQ 05/13/16 21:00 06/12/16 20:59 05/15/16 20:36 Insulin Aspart (NovoLOG) Q6HR SUBQ 05/15/16 00:00 06/14/16 00:00 05/15/16 18:14 Lorazepam 0.5 mg 0.5 mg Q4H PRN IV FOR TREMORS 05/13/16 17:00 05/20/16 16:59 05/13/16 16:59 Meropenem/Sodium Chloride (Merrem/Sodium Chloride) 110 ml @ 220 mls/hr Q24HRS IVPB 05/14/16 18:00 05/19/16 17:59 05/15/16 18:13 Metoprolol Succinate (Toprol XL) 25 mg Q12HR ORAL 05/13/16 21:00 06/12/16 20:59 05/15/16 20:34 Mirtazapine (Remeron) 15 mg BEDTIME ORAL 05/13/16 21:00 06/12/16 20:59 05/15/16 20:32 Nitroglycerin (Ntg) 0.4 mg Q5M PRN SL Prn Chest Pain 05/13/16 14:45 06/12/16 14:44 Ondansetron HCl (Zofran) 4 mg Q6H PRN IVP Nausea & Vomiting 05/13/16 14:45 06/12/16 14:44 Polyethylene Glycol (Miralax) 17 gm DAILYPRN PRN ORAL Constipation 05/13/16 14:45 06/12/16 14:44 Temazepam (Restoril) 15 mg HSPRN PRN ORAL Insomnia 05/13/16 21:00 05/20/16 20:59 Vancomycin HCl (Vanco rx to dose) 1 ea DAILY PRN MISC PRN RX PROTOCOL 05/13/16 16:00 06/12/16 15:59 JEFF INMAN May 15, 2016 23:29
[2016-05-16] VITALS (7 sets, daily range): BP systolic 120–145; BP diastolic 58–74
--- NOTE | 2016-05-16 01:59 | Consultation ---
DATE OF CONSULTATION: 05/14/2016 HISTORY OF PRESENT ILLNESS: This is a 61-year-old male, who was residing in [facility] and I have been treating the patient at the facility. The patient has been admitted to the hospital due to multiple medical problems, and altered mental status. The patient is be engaged during the evaluation, and is nonverbal. He is able to follow commands. He is a poor historian and his toxicology has been positive for amphetamines , however, as the toxicology is negative for amphetamines. The patient has a history of chronic paranoid schizophrenia and has been treated with antipsychotics. PAST PSYCHIATRIC HISTORY: Several psychiatric hospitalization, schizophrenic and has been treated with antipsychotics. PAST MEDICAL HISTORY: Significant for end-stage renal disease, on hemodialysis, COPD, several strokes, vascular dementia, chronic pain syndrome, anemia, hypertension, and osteoarthritis. MEDICATIONS: Remeron 15 mg by mouth at bedtime, pravastatin, ranitidine, tramadol, metoprolol, insulin, Neurontin, Aricept, and clonidine. ALLERGIES: None known. 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 No known history of illicit drugs or alcohol. SOCIAL HISTORY: The patient resides in a fdc, [facility]. MENTAL STATUS EXAMINATION: Not engaged, disoriented, and he is alert, nonverbal. Mood is neutral. Affect is flat and congruent. Thought process, there is a paucity of thought content. Cognition is impaired. ASSESSMENT: [place] I Schizophrenia. Delirium, which is improving [place] II Deferred. [place] III [place] IV Moderate. [place] V Global assessment of functioning is 10. PLAN: 1. The patient is on Remeron 15 mg by mouth at bedtime, lorazepam 0.4 mg every 4 hours IV. 2. Recommend to avoid prescribing benzodiazepine and opiate pain medication as it may exacerbate the delirium. Nunu Davison M.D. DR: Tree JOB#: [id number] CC:
[2016-05-16] MEDS: NovoLOG Insulin Flexpen SUBQ SCH ×3 (06:41→18:23)
[2016-05-16] MEDS: Heparin 5000 units/ml inj SUBQ SCH ×2 (09:54→22:03)
[2016-05-16] MEDS ORDERED: Sterile Water Irrig 1000ml IRRIG ONE (10:43)
[2016-05-16] MEDS ORDERED: D5NS 1000ml IV ONE (10:43)
--- NOTE | 2016-05-16 12:53 | Pulmonology Progress Note ---
Assessment/Plan Problems: (1) Sepsis (2) Seizure (3) HTN (hypertension) (4) Encephalopathy (5) CVA (cerebral vascular accident) (6) Depression (7) ESRD on dialysis Assessment/Plan no improving NG tube feeding check cultures f/u wbc keep in teli titrate fio2 to sat of 02% f/u by renal all notes, labs, meds reviewed. Subjective Interval Events: lethargic Allergies: Coded Allergies: No Known Allergies (Unverified , 09/05/13) Objective Last 24 Hour Vital Signs Date Time Temp Pulse Resp B/P Pulse Ox O2 Delivery O2 Flow Rate FiO2 05/16/16 12:07 97.7 94 20 120/58 97 Venturi Mask 8.0 05/16/16 10:40 97.7 05/16/16 09:41 88 138/68 05/16/16 08:52 Venturi Mask 55 05/16/16 08:51 97.2 88 20 138/68 95 Venturi Mask 55 05/16/16 07:50 87 20 Venturi Mask 14.0 55 05/16/16 07:50 Venturi Mask 14.0 55 05/16/16 07:50 97 Venturi Mask 14.0 55 05/16/16 07:48 96.9 87 20 132/67 98 Venturi Mask 8.0 05/16/16 05:00 97.7 80 22 145/74 Venturi Mask 55 05/16/16 05:00 Venturi Mask 55 05/16/16 03:40 86 05/16/16 00:00 97.9 81 20 141/67 100 Venturi Mask 14.0 55 05/15/16 23:31 81 05/15/16 20:42 98.2 85 05/15/16 20:34 85 144/60 05/15/16 20:27 18 144/60 100 Venturi Mask 55 05/15/16 19:58 83 05/15/16 19:50 Venturi Mask 14.0 55 05/15/16 19:50 101 20 Venturi Mask 14.0 55 05/15/16 19:50 97 Venturi Mask 14.0 55 05/15/16 16:00 89 05/15/16 16:00 97.9 89 18 120/62 Venturi Mask 98 Intake and Output 05/15/16 05/16/16 19:00 07:00 Intake Total 810 ml 220 ml Output Total 100 ml Balance 710 ml 220 ml IV Total 550 ml Tube Feeding 260 ml 220 ml Output Urine Total 100 ml # Bowel Movements 2 General Appearance: cachetic HEENT: normocephalic, anicteric Respiratory/Chest: chest wall non-tender, crackles/rales Cardiovascular: normal peripheral pulses, normal rate Abdomen: normal bowel sounds, soft, non tender Genitourinary: normal external genitalia Extremities: no cyanosis Skin: no rash 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 Laboratory Tests 05/15/16 15:16: Urine Opiates Screen Negative, Urine Barbiturates Screen Negative, Phencyclidine (PCP) Screen Negative, Urine Amphetamines Screen Negative, Urine Benzodiazepines Screen Negative, Urine Cocaine Screen Negative, Urine Marijuana (THC) Screen Negative Current Medications Medications (Trade) Dose Ordered Sig/Chelsea Route PRN Reason Start Time Stop Time Status Last Admin Dose Admin Acetaminophen (Tylenol) 650 mg Q4H PRN ORAL T>100.5 05/13/16 14:45 06/12/16 14:44 Acetaminophen (Tylenol) 1,000 mg Q6H PRN ORAL Mild Pain/Temp > 100.5 05/13/16 14:45 06/12/16 14:44 Al Hydroxide/Mg Hydroxide (Mylanta II) 30 ml Q6H PRN ORAL dyspepsia 05/13/16 14:45 06/12/16 14:44 Albuterol/ Ipratropium (DuoNeb 0.5-3(2.5)mg/3ml) 3 ml Q4H PRN HHN Shortness of Breath 05/13/16 14:45 05/18/16 14:44 Clonidine HCl (Catapres) 0.1 mg Q6H PRN ORAL SBP>160 05/13/16 15:00 06/12/16 14:59 Clopidogrel Bisulfate (Plavix) 75 mg DAILY ORAL 05/14/16 09:00 06/13/16 08:59 05/16/16 09:41 Dextrose (Dextrose 50%) STAT PRN IV Hypoglycemia 05/13/16 14:45 06/12/16 14:44 Dextrose/Sodium Chloride 1,000 ml @ 50 mls/hr Q20H IV 05/13/16 20:30 06/12/16 20:29 05/15/16 23:26 Gabapentin (Neurontin) 100 mg TID ORAL 05/13/16 18:00 06/12/16 17:59 05/16/16 09:42 Heparin Sodium (Porcine) (Heparin 5000 units/ml) 5,000 units EVERY 12 HOURS SUBQ 05/13/16 21:00 06/12/16 20:59 05/16/16 09:54 Insulin Aspart (NovoLOG) Q6HR SUBQ 05/15/16 00:00 06/14/16 00:00 05/16/16 06:41 Lorazepam 0.5 mg 0.5 mg Q4H PRN IV FOR TREMORS 05/13/16 17:00 05/20/16 16:59 05/13/16 16:59 Meropenem/Sodium Chloride (Merrem/Sodium Chloride) 110 ml @ 220 mls/hr Q24HRS IVPB 05/14/16 18:00 05/19/16 17:59 05/15/16 18:13 Metoprolol Succinate (Toprol XL) 25 mg Q12HR ORAL 05/13/16 21:00 06/12/16 20:59 05/16/16 09:41 Mirtazapine (Remeron) 15 mg BEDTIME ORAL 05/13/16 21:00 06/12/16 20:59 05/15/16 20:32 Nitroglycerin (Ntg) 0.4 mg Q5M PRN SL Prn Chest Pain 05/13/16 14:45 06/12/16 14:44 Ondansetron HCl (Zofran) 4 mg Q6H PRN IVP Nausea & Vomiting 05/13/16 14:45 06/12/16 14:44 Polyethylene Glycol (Miralax) 17 gm DAILYPRN PRN ORAL Constipation 05/13/16 14:45 06/12/16 14:44 Temazepam (Restoril) 15 mg HSPRN PRN ORAL Insomnia 05/13/16 21:00 05/20/16 20:59 Vancomycin HCl (Vanco rx to dose) 1 ea DAILY PRN MISC PRN RX PROTOCOL 05/13/16 16:00 06/12/16 15:59 JEFF INMAN May 16, 2016 12:53
--- NOTE | 2016-05-16 13:17 | Infectious Diseases Prog Note ---
Assessment/Plan Problems: (1) Sepsis Assessment & Plan: source due to UTI with pansensitive E coli, on meropenem , and vancomycin , will wait for blood culture results and deescalate antibiotics as needed . (2) Hypotension Assessment & Plan: rule out sepsis, culture of the blood is pending , continue wide spectrum antibiotics therapy for now, monitor blood pressure (3) UTI (urinary tract infection) Assessment & Plan: with gram negative rods on meropenem to cover for possible ESBL producing organism , await identification and sensitivity (4) ESRD on dialysis Assessment & Plan: renal is following , continue HD (5) Diabetes Assessment & Plan: recommend tight glycemic control to keep blood glucose between 80-120 (6) Colonization with VRE (vancomycin-resistant enterococcus) Assessment & Plan: keep on contact isolation Subjective ROS Limited/Unobtainable: Yes Allergies: Coded Allergies: No Known Allergies (Unverified , 09/05/13) Subjective he was lying in bed with venti mask on, responsive to verbal commands , comfortable , afebrile, not in distress. Objective Vital Signs Last 24 Hour Vital Signs Date Time Temp Pulse Resp B/P Pulse Ox O2 Delivery O2 Flow Rate FiO2 05/16/16 12:07 97.7 94 20 120/58 97 Venturi Mask 8.0 05/16/16 10:40 97.7 05/16/16 09:41 88 138/68 05/16/16 08:52 Venturi Mask 55 05/16/16 08:51 97.2 88 20 138/68 95 Venturi Mask 55 05/16/16 07:50 87 20 Venturi Mask 14.0 55 05/16/16 07:50 Venturi Mask 14.0 55 05/16/16 07:50 97 Venturi Mask 14.0 55 05/16/16 07:48 96.9 87 20 132/67 98 Venturi Mask 8.0 05/16/16 05:00 97.7 80 22 145/74 Venturi Mask 55 05/16/16 05:00 Venturi Mask 55 05/16/16 03:40 86 05/16/16 00:00 97.9 81 20 141/67 100 Venturi Mask 14.0 55 05/15/16 23:31 81 05/15/16 20:42 98.2 85 05/15/16 20:34 85 144/60 05/15/16 20:27 18 144/60 100 Venturi Mask 55 05/15/16 19:58 83 05/15/16 19:50 Venturi Mask 14.0 55 05/15/16 19:50 101 20 Venturi Mask 14.0 55 05/15/16 19:50 97 Venturi Mask 14.0 55 05/15/16 16:00 89 05/15/16 16:00 97.9 89 18 120/62 Venturi Mask 98 Height (Feet): 5 Height (Inches): 7.00 Weight (Pounds): 129 General Appearance: WD/WN, no acute distress HEENT: normocephalic, atraumatic, anicteric, mucous membranes moist Respiratory/Chest: chest wall non-tender, normal breath sounds, no respiratory distress, no accessory muscle use, decreased breath sounds, crackles/rales Cardiovascular: normal peripheral pulses, normal rate, regular rhythm, no JVD Abdomen: normal bowel sounds, soft, non tender, no organomegaly, non distended Extremities: no cyanosis, no clubbing Skin: no rash, no lesions Laboratory Tests Test 05/15/16 15:16 Urine Opiates Screen Negative (NEGATIVE) Urine Barbiturates Screen Negative (NEGATIVE) Phencyclidine (PCP) Screen Negative (NEGATIVE) Urine Amphetamines Screen Negative (NEGATIVE) Urine Benzodiazepines Screen Negative (NEGATIVE) Urine Cocaine Screen Negative (NEGATIVE) Urine Marijuana (THC) Screen Negative (NEGATIVE) Current Medications Medications (Trade) Dose Ordered Sig/Chelsea Route PRN Reason Start Time Stop Time Status Last Admin Dose Admin Acetaminophen (Tylenol) 650 mg Q4H PRN ORAL T>100.5 05/13/16 14:45 06/12/16 14:44 Acetaminophen (Tylenol) 1,000 mg Q6H PRN ORAL Mild Pain/Temp > 100.5 05/13/16 14:45 06/12/16 14:44 Al Hydroxide/Mg Hydroxide (Mylanta II) 30 ml Q6H PRN ORAL dyspepsia 05/13/16 14:45 06/12/16 14:44 Albuterol/ Ipratropium (DuoNeb 0.5-3(2.5)mg/3ml) 3 ml Q4H PRN HHN Shortness of Breath 05/13/16 14:45 05/18/16 14:44 Clonidine HCl (Catapres) 0.1 mg Q6H PRN ORAL SBP>160 05/13/16 15:00 06/12/16 14:59 Clopidogrel Bisulfate (Plavix) 75 mg DAILY ORAL 05/14/16 09:00 06/13/16 08:59 05/16/16 09:41 Dextrose (Dextrose 50%) STAT PRN IV Hypoglycemia 05/13/16 14:45 06/12/16 14:44 Dextrose/Sodium Chloride 1,000 ml @ 50 mls/hr Q20H IV 05/13/16 20:30 06/12/16 20:29 05/15/16 23:26 Gabapentin (Neurontin) 100 mg TID ORAL 05/13/16 18:00 06/12/16 17:59 05/16/16 13:03 Heparin Sodium (Porcine) (Heparin 5000 units/ml) 5,000 units EVERY 12 HOURS SUBQ 05/13/16 21:00 06/12/16 20:59 05/16/16 09:54 Insulin Aspart (NovoLOG) Q6HR SUBQ 05/15/16 00:00 06/14/16 00:00 05/16/16 13:04 Lorazepam 0.5 mg 0.5 mg Q4H PRN IV FOR TREMORS 05/13/16 17:00 05/20/16 16:59 05/13/16 16:59 Meropenem/Sodium Chloride (Merrem/Sodium Chloride) 110 ml @ 220 mls/hr Q24HRS IVPB 05/14/16 18:00 05/19/16 17:59 05/15/16 18:13 Metoprolol Succinate (Toprol XL) 25 mg Q12HR ORAL 05/13/16 21:00 06/12/16 20:59 05/16/16 09:41 Mirtazapine (Remeron) 15 mg BEDTIME ORAL 05/13/16 21:00 06/12/16 20:59 05/15/16 20:32 Nitroglycerin (Ntg) 0.4 mg Q5M PRN SL Prn Chest Pain 05/13/16 14:45 06/12/16 14:44 Ondansetron HCl (Zofran) 4 mg Q6H PRN IVP Nausea & Vomiting 05/13/16 14:45 06/12/16 14:44 Polyethylene Glycol (Miralax) 17 gm DAILYPRN PRN ORAL Constipation 05/13/16 14:45 06/12/16 14:44 Temazepam (Restoril) 15 mg HSPRN PRN ORAL Insomnia 05/13/16 21:00 05/20/16 20:59 Vancomycin HCl (Vanco rx to dose) 1 ea DAILY PRN MISC PRN RX PROTOCOL 05/13/16 16:00 06/12/16 15:59 Bandar Cartwright M.D. May 16, 2016 13:17
--- NOTE | 2016-05-16 13:35 | General Progress Note ---
Assessment/Plan Assessment/Plan Assessment - AMS - dysphagia - HTN - amputation - Renal failure Recommendations - continue TF - Elevate HOB - Neuro w/u - follow labs Subjective Allergies: Coded Allergies: No Known Allergies (Unverified , 09/05/13) Subjective non verbal tolerating TF able to respond to commands Objective Last 24 Hour Vital Signs Date Time Temp Pulse Resp B/P Pulse Ox O2 Delivery O2 Flow Rate FiO2 05/16/16 12:07 97.7 94 20 120/58 97 Venturi Mask 8.0 05/16/16 10:40 97.7 05/16/16 09:41 88 138/68 05/16/16 08:52 Venturi Mask 55 05/16/16 08:51 97.2 88 20 138/68 95 Venturi Mask 55 05/16/16 07:50 87 20 Venturi Mask 14.0 55 05/16/16 07:50 Venturi Mask 14.0 55 05/16/16 07:50 97 Venturi Mask 14.0 55 05/16/16 07:48 96.9 87 20 132/67 98 Venturi Mask 8.0 05/16/16 05:00 97.7 80 22 145/74 Venturi Mask 55 05/16/16 05:00 Venturi Mask 55 05/16/16 03:40 86 05/16/16 00:00 97.9 81 20 141/67 100 Venturi Mask 14.0 55 05/15/16 23:31 81 05/15/16 20:42 98.2 85 05/15/16 20:34 85 144/60 05/15/16 20:27 18 144/60 100 Venturi Mask 55 05/15/16 19:58 83 05/15/16 19:50 Venturi Mask 14.0 55 05/15/16 19:50 101 20 Venturi Mask 14.0 55 05/15/16 19:50 97 Venturi Mask 14.0 55 05/15/16 16:00 89 05/15/16 16:00 97.9 89 18 120/62 Venturi Mask 98 Intake and Output 05/15/16 05/16/16 19:00 07:00 Intake Total 810 ml 220 ml Output Total 100 ml Balance 710 ml 220 ml IV Total 550 ml Tube Feeding 260 ml 220 ml Output Urine Total 100 ml # Bowel Movements 2 Laboratory Tests 05/15/16 15:16: Urine Opiates Screen Negative, Urine Barbiturates Screen Negative, Phencyclidine (PCP) Screen Negative, Urine Amphetamines Screen Negative, Urine Benzodiazepines Screen Negative, Urine Cocaine Screen Negative, Urine Marijuana (THC) Screen Negative Height (Feet): 5 Height (Inches): 7.00 Weight (Pounds): 129 Objective Debilitated LM catatonic NCAT supple CTA RRR soft scaphoid no edema WILLIAM MIXON May 16, 2016 13:35
--- NOTE | 2016-05-16 14:29 | Cardiac Electrophysiology PN ---
Assessment/Plan Assessment/Plan 1. Altered mental status. Etiology is not clear at this time. EKG is normal. Troponin is negative. Echo EF 55%. No vegetation reported. Encephalopathy versus sepsis.Follow up Dr Blandon. 2. Hypertension, on Toprol 25 mg b.i.d. 3. Hyperlipidemia, on Lipitor. 4. Severe peripheral vascular disease status post right below knee amputation, on Plavix and Lipitor. 5. Sepsis, on Abx per Dr. Cartwright. 6. Schizophrenia per Dr Davison 7. ESRD. On HD DW RN and Pt sister at bedside No arrhythmias on last 4 days. DC Tele. Will follow periodically if any new cardiac issues arise. Subjective Subjective Nonverbal on tele. No events overnight. NG tube is in.Remained in SR with no arrhythmias on tele. Objective Last 24 Hour Vital Signs Date Time Temp Pulse Resp B/P Pulse Ox O2 Delivery O2 Flow Rate FiO2 05/16/16 12:07 97.7 94 20 120/58 97 Venturi Mask 8.0 05/16/16 10:40 97.7 05/16/16 09:41 88 138/68 05/16/16 08:52 Venturi Mask 55 05/16/16 08:51 97.2 88 20 138/68 95 Venturi Mask 55 05/16/16 07:50 87 20 Venturi Mask 14.0 55 05/16/16 07:50 Venturi Mask 14.0 55 05/16/16 07:50 97 Venturi Mask 14.0 55 05/16/16 07:48 96.9 87 20 132/67 98 Venturi Mask 8.0 05/16/16 05:00 97.7 80 22 145/74 Venturi Mask 55 05/16/16 05:00 Venturi Mask 55 05/16/16 03:40 86 05/16/16 00:00 97.9 81 20 141/67 100 Venturi Mask 14.0 55 05/15/16 23:31 81 05/15/16 20:42 98.2 85 05/15/16 20:34 85 144/60 05/15/16 20:27 18 144/60 100 Venturi Mask 55 05/15/16 19:58 83 05/15/16 19:50 Venturi Mask 14.0 55 05/15/16 19:50 101 20 Venturi Mask 14.0 55 05/15/16 19:50 97 Venturi Mask 14.0 55 05/15/16 16:00 89 05/15/16 16:00 97.9 89 18 120/62 Venturi Mask 98 Intake and Output 05/15/16 05/16/16 19:00 07:00 Intake Total 810 ml 220 ml Output Total 100 ml Balance 710 ml 220 ml IV Total 550 ml Tube Feeding 260 ml 220 ml Output Urine Total 100 ml # Bowel Movements 2 Laboratory Tests Test 05/15/16 15:16 Urine Opiates Screen Negative (NEGATIVE) Urine Barbiturates Screen Negative (NEGATIVE) Phencyclidine (PCP) Screen Negative (NEGATIVE) Urine Amphetamines Screen Negative (NEGATIVE) Urine Benzodiazepines Screen Negative (NEGATIVE) Urine Cocaine Screen Negative (NEGATIVE) Urine Marijuana (THC) Screen Negative (NEGATIVE) Objective HEAD AND NECK: No JVD.NG tube in. LUNGS: Coarse rhonchi. CARDIOVASCULAR: Regular S1 and S2 with no gallop or rub. ABDOMEN: Soft and nontender. EXTREMITIES: Status post right below-knee amputation. He has dialysis access in the right femoral area. THU MONREAL May 16, 2016 14:29
--- NOTE | 2016-05-16 14:32 | General Progress Note ---
Assessment/Plan Problem List: (1) ESRD on dialysis ICD Codes: N18.6 - End stage renal failure on dialysis; Z99.2 - Dependence on renal dialysis SNOMED: 175883119 (2) HTN (hypertension) ICD Codes: I10 - Essential (primary) hypertension SNOMED: 64429687 (3) Anemia ICD Codes: D64.9 - Anemia SNOMED: 232006304 (4) Depression ICD Codes: F32.9 - Depression SNOMED: 22284150 (5) Seizure ICD Codes: R56.9 - Seizure SNOMED: 27450558 (6) Encephalopathy ICD Codes: G93.40 - Encephalopathy SNOMED: 01438305 (7) ESRD on dialysis ICD Codes: N18.6 - End stage renal disease; Z99.2 - Dependence on renal dialysis SNOMED: 421641089 (8) Anemia, chronic disease ICD Codes: D63.8 - Anemia in other chronic diseases classified elsewhere SNOMED: 687055759 (9) CVA (cerebral vascular accident) ICD Codes: I63.9 - Cerebral infarction, unspecified SNOMED: 684000755 (10) Altered level of consciousness ICD Codes: R40.4 - Transient alteration of awareness SNOMED: 4287313 (11) Diabetes ICD Codes: E11.9 - Diabetes SNOMED: 00657339 Status: progressing Assessment/Plan hypotension resolved esrd per renal lyte abnormilty improving treatment per renal and cardiology Subjective ROS Limited/Unobtainable: Yes Constitutional: Reports: no symptoms Allergies: Coded Allergies: No Known Allergies (Unverified , 09/05/13) Objective Last 24 Hour Vital Signs Date Time Temp Pulse Resp B/P Pulse Ox O2 Delivery O2 Flow Rate FiO2 05/16/16 14:02 97.7 05/16/16 12:07 97.7 94 20 120/58 97 Venturi Mask 8.0 05/16/16 09:41 88 138/68 05/16/16 08:52 Venturi Mask 55 05/16/16 08:51 97.2 88 20 138/68 95 Venturi Mask 55 05/16/16 07:50 87 20 Venturi Mask 14.0 55 05/16/16 07:50 Venturi Mask 14.0 55 05/16/16 07:50 97 Venturi Mask 14.0 55 05/16/16 07:48 96.9 87 20 132/67 98 Venturi Mask 8.0 05/16/16 05:00 97.7 80 22 145/74 Venturi Mask 55 05/16/16 05:00 Venturi Mask 55 05/16/16 03:40 86 05/16/16 00:00 97.9 81 20 141/67 100 Venturi Mask 14.0 55 05/15/16 23:31 81 05/15/16 20:42 98.2 85 05/15/16 20:34 85 144/60 05/15/16 20:27 18 144/60 100 Venturi Mask 55 05/15/16 19:58 83 05/15/16 19:50 Venturi Mask 14.0 55 05/15/16 19:50 101 20 Venturi Mask 14.0 55 05/15/16 19:50 97 Venturi Mask 14.0 55 05/15/16 16:00 89 05/15/16 16:00 97.9 89 18 120/62 Venturi Mask 98 Intake and Output 05/15/16 05/16/16 19:00 07:00 Intake Total 810 ml 220 ml Output Total 100 ml Balance 710 ml 220 ml IV Total 550 ml Tube Feeding 260 ml 220 ml Output Urine Total 100 ml # Bowel Movements 2 Laboratory Tests 05/15/16 15:16: Urine Opiates Screen Negative, Urine Barbiturates Screen Negative, Phencyclidine (PCP) Screen Negative, Urine Amphetamines Screen Negative, Urine Benzodiazepines Screen Negative, Urine Cocaine Screen Negative, Urine Marijuana (THC) Screen Negative Height (Feet): 5 Height (Inches): 7.00 Weight (Pounds): 129 EENT: PERRL/EOMI Neck: supple Cardiovascular: normal rate Respiratory/Chest: lungs clear Abdomen: soft Beverly Rico MD May 16, 2016 14:32
--- NOTE | 2016-05-16 14:39 | Cardiology Report ---
APPROVED REPORT EXAM: Two-dimensional and M-mode echocardiogram with Doppler and color Doppler. INDICATION Congestive Heart Failure M-Mode DIMENSIONS IVSd1.1 (0.7-1.1cm)Left Atrium (MM)3.4 (1.6-4.0cm) LVDd4.5 (3.5-5.6cm)Aortic Root2.0 (2.0-3.7cm) PWd1.0 (0.7-1.1cm)Aortic Cusp Exc.1.5 (1.5-2.0cm) LVDs3.5 (2.5-4.0cm) PWs1.3 cm Technically difficult study due to poor acoustic windows. Study quality precludes accurate assessment of regional wall motion. Normal left ventricular chamber size, systolic function and wall motion. Left ventricular ejection fraction estimated to be 55 %. No evidence of ventricular hypertrophy. Small pericardial effusion. All other cardiac chamber sizes are within normal limits. Mild focal aortic valve sclerosis with adequate cusp excursion. Mildly thickened mitral valve leaflets with normal excursion. Mild mitral annulus and aortic root calcification. Pulmonic valve not well visualized. Normal tricuspid valve structure. IVC at normal size with physiologic collapse. A color flow and spectral Doppler study was performed and revealed: No aortic regurgitation. Trace mitral regurgitation. Mitral diastolic velocities suggest reduced left ventricular relaxation (Grade I). Trace tricuspid regurgitation. Tricuspid systolic velocities suggests peak right ventricular systolic pressure of 20 mmHg. No pulmonic regurgitation present.
--- NOTE | 2016-05-16 15:09 | Cardiology Report ---
APPROVED REPORT EKG Measurement Heart [id number] Normal sinus rhythm Normal ECG
[2016-05-16] MEDS ORDERED: Vancomycin 500mg in D5W 110ml IVPB ONE (16:00)
[2016-05-16] MEDS: NS IVPB SCH (18:22)
[2016-05-16] MEDS: MEROPENEM IVPB SCH (18:22)
[2016-05-16] MEDS: D5NS 1,000 ML IV SCH (19:23)
--- NOTE | 2016-05-16 21:09 | Progress Note ---
DATE: 05/15/2016 SUBJECTIVE: The patient is a 61-year-old male with altered mental status, confused, disorganized, disoriented, and has no viable or logical plan for self-care. The patient requires continued hospitalization for stabilization of symptoms. The patient has poor insight, poor judgment, and poor impulse control. The patient has no viable or logical plan for self-care. ASSESSMENT AND PLAN: This clinician assessed this patient, assessed the patient's mental status, and provided the patient with reality orientation. Continue with medication management and behavioral management. This clinician has reviewed the patient's chart. Discussed the treatment with nursing staff. Tiff Mak PsyD. DR: EDMUND JOB#: [id number] CC:
[2016-05-17] VITALS (13 sets, daily range): BP systolic 90–132; BP diastolic 45–69
[2016-05-17] MEDS: NovoLOG Insulin Flexpen SUBQ SCH ×2 (00:35→18:43)
[2016-05-17 07:41] LABS: CALCIUM 8.1 mg/dL (8.6-10.2); CREATININE 4.2 mg/dL (0.7-1.2); GLOMERULAR FILTRATION RATE 14.5 mL/min (>60); POTASSIUM 3.1 mEQ/L (3.4-4.9); TOTAL PROTEIN 5.6 g/dL (6.6-8.7)
[2016-05-17] MEDS ORDERED: Nitroglycerin Subl 0.4mg tab (Bottle Of 25) SL PRN ×2 (07:45→15:30)
[2016-05-17] MEDS ORDERED: D5NS 1,000 ML IV SCH (08:30)
[2016-05-17] MEDS ORDERED: Acetaminophen 500mg (ES) tab ORAL PRN (08:45)
[2016-05-17] MEDS ORDERED: Mylanta II UD 30ml ORAL PRN ×2 (08:45→20:45)
[2016-05-17] MEDS ORDERED: Heparin 5000 units/ml inj SUBQ SCH (09:00)
[2016-05-17] MEDS ORDERED: LORazepam Inj 2mg/ml 1ml IV PRN ×2 (09:00→17:00)
[2016-05-17 09:03] LABS: MEAN CORPUSCULAR HEMOGLOBIN 31.8 PG (27.0-31.0); MEAN CORPUSCULAR HGB CONC 31.7 G/DL (32.0-36.0); MEAN CORPUSCULAR VOLUME 100 FL (80-99); PLATELET COUNT 268 K/UL (150-450); RED BLOOD COUNT 2.91 M/UL (4.70-6.10); RED CELL DISTRIBUTION WIDTH 13.9 % (11.6-14.8); WHITE BLOOD COUNT 18.5 K/UL (4.8-10.8)
--- NOTE | 2016-05-17 09:58 | Diagnostic Imaging Report ---
Indication: NGT Technique: XRAY CHEST 1 V Comparison:05/13/2016 Findings: A nasogastric tube has been placed with the tip in the stomach. There is retrocardiac opacification obscuring the left hemidiaphragm. Left perihilar infiltrate is present. There is also right perihilar infiltrate. Blunting of left costophrenic angle is noted. Impression: Left lower lobe consolidation versus collapse. Bilateral perihilar infiltrates. This may be consistent with pneumonia or developing pulmonary edema. NG tube in the stomach.
[2016-05-17 10:25] LABS: BAND NEUTROPHILS % (MANUAL) 0 % (0-8); BASOPHILS % (MANUAL) 0 % (0-2); EOSINOPHILS % (MANUAL) 2 % (0-3); LYMPHOCYTES % (MANUAL) 7 % (20-45); NEUTROPHILS % (MANUAL) 84 % (45-75); PLATELET ESTIMATE ADEQUATE; TOTAL CELLS COUNTED 100
[2016-05-17 10:26] LABS: HYPOCHROMASIA 1+; MACROCYTES 1+; PLATELET MORPHOLOGY NORMAL
[2016-05-17] MEDS ORDERED: DuoNeb 0.5-3(2.5)mg/3ml neb HHN PRN ×2 (10:45→18:45)
--- NOTE | 2016-05-17 10:46 | Diagnostic Imaging Report ---
Indication: NGT Technique: XRAY ABDOMEN 1VIEW/KUB Comparison: 05/14/2016. Findings: A nasogastric tube is in place with the tip in the stomach. The bowel gas pattern is nonobstructive. Impression: NG tube tip in the stomach.
--- NOTE | 2016-05-17 11:06 | General Progress Note ---
Assessment/Plan Problem List: (1) ESRD on dialysis ICD Codes: N18.6 - End stage renal failure on dialysis; Z99.2 - Dependence on renal dialysis SNOMED: 676505089 (2) HTN (hypertension) ICD Codes: I10 - Essential (primary) hypertension SNOMED: 58895392 (3) Anemia ICD Codes: D64.9 - Anemia SNOMED: 155092428 (4) Depression ICD Codes: F32.9 - Depression SNOMED: 44511684 (5) Seizure ICD Codes: R56.9 - Seizure SNOMED: 00876997 (6) Encephalopathy ICD Codes: G93.40 - Encephalopathy SNOMED: 79500948 (7) ESRD on dialysis ICD Codes: N18.6 - End stage renal disease; Z99.2 - Dependence on renal dialysis SNOMED: 391212691 (8) Anemia, chronic disease ICD Codes: D63.8 - Anemia in other chronic diseases classified elsewhere SNOMED: 585138067 (9) CVA (cerebral vascular accident) ICD Codes: I63.9 - Cerebral infarction, unspecified SNOMED: 852973368 (10) Altered level of consciousness ICD Codes: R40.4 - Transient alteration of awareness SNOMED: 1782737 (11) Diabetes ICD Codes: E11.9 - Diabetes SNOMED: 82622526 Status: deteriorating Assessment/Plan hypotension resolved esrd r/o asa pna [facility] to [facility] consulted and informed dr evangelista and dr william villanueva re asa pna Subjective ROS Limited/Unobtainable: Yes Allergies: Coded Allergies: No Known Allergies (Unverified , 09/05/13) Objective Last 24 Hour Vital Signs Date Time Temp Pulse Resp B/P Pulse Ox O2 Delivery O2 Flow Rate FiO2 05/17/16 08:30 98.1 79 20 132/54 95 Venturi Mask 05/17/16 07:57 Venturi Mask 14.0 55 05/17/16 07:56 95 Venturi Mask 14.0 55 05/17/16 07:55 79 20 Venturi Mask 14.0 55 05/17/16 04:00 98.4 89 20 113/66 100 Simple Mask 10.0 05/17/16 04:00 88 05/17/16 00:00 91 05/17/16 00:00 99.3 92 20 105/67 91 Simple Mask 10.0 05/16/16 22:01 91 124/70 05/16/16 20:00 98.2 91 20 124/70 96 Venturi Mask 14.0 55 05/16/16 20:00 94 05/16/16 19:26 Venturi Mask 14.0 55 05/16/16 19:26 93 20 Venturi Mask 14.0 55 05/16/16 19:26 96 Venturi Mask 14.0 55 05/16/16 16:14 97.7 96 20 132/68 95 Venturi Mask 8.0 05/16/16 16:00 95 05/16/16 14:02 97.7 05/16/16 12:07 97.7 94 20 120/58 97 Venturi Mask 8.0 05/16/16 12:00 94 Intake and Output 05/16/16 05/17/16 19:00 07:00 Intake Total 560 ml 40 ml Output Total 3625 ml 300 ml Balance -3065 ml -260 ml IV Total 400 ml Tube Feeding 160 ml 40 ml Output Urine Total 25 ml 300 ml Hemodialysis UF 3600 ml # Bowel Movements 2 Laboratory Tests 05/17/16 05:50: Sodium Level 139, Potassium Level 3.1L, Chloride Level 96L, Carbon Dioxide Level 27, Anion Gap 16H, Blood Urea Nitrogen 30H, Creatinine 4.2H, Estimat Glomerular Filtration Rate 14.5, Glucose Level 128H, Calcium Level 8.1L, Total Bilirubin 0.5, Aspartate Amino Transf (AST/SGOT) 23, Alanine Aminotransferase ( ALT/SGPT) 11, Alkaline Phosphatase 61, Total Protein 5.6L, Albumin 2.8L, Globulin 2.8, Albumin/Globulin Ratio 1.0, Random Vancomycin Level 26.3 05/17/16 08:05: White Blood Count 18.5H, Red Blood Count 2.91L, Hemoglobin 9.2L, Hematocrit 29.1L, Mean Corpuscular Volume 100H, Mean Corpuscular Hemoglobin 31.8H, Mean Corpuscular Hemoglobin Concent 31.7L, Red Cell Distribution Width 13.9, Platelet Count 268, Mean Platelet Volume 6.0L, Neutrophils (%) (Auto) , Lymphocytes (%) (Auto) , Monocytes (%) (Auto) , Eosinophils (%) (Auto) , Basophils (%) (Auto) , Differential Total Cells Counted 100, Neutrophils % ( Manual) 84H, Lymphocytes % (Manual) 7L, Monocytes % (Manual) 7, Eosinophils % ( Manual) 2, Basophils % (Manual) 0, Band Neutrophils 0, Platelet Estimate Adequate, Platelet Morphology Normal, Hypochromasia 1+, Macrocytosis 1+ Height (Feet): 5 Height (Inches): 7.00 Weight (Pounds): 129 General Appearance: confused Respiratory/Chest: rhonchi - bilaterally Abdomen: soft Beverly Rico MD May 17, 2016 11:06
[2016-05-17] MEDS ORDERED: NovoLOG Insulin Flexpen SUBQ SCH (12:00)
[2016-05-17] MEDS ORDERED: Vancomycin oral 125mg/2.5ml ORAL SCH (13:00)
[2016-05-17] MEDS ORDERED: metroNIDAZOLE 500mg 100 ML IVPB SCH (14:00)
--- NOTE | 2016-05-17 14:17 | Cardiac Electrophysiology PN ---
Assessment/Plan Assessment/Plan 1. Altered mental status. Etiology unclear clear at this time. EKG is normal. Troponin is negative. Echo EF 55%. No vegetation reported. Encephalopathy versus sepsis.Follow up Dr Blandon. 2. Hypertension, on Toprol 25 mg NG b.i.d. 3. Hyperlipidemia, on Lipitor. 4. Severe peripheral vascular disease status post right below knee amputation, on Plavix and Lipitor. 5. Sepsis, on Abx per Dr. Cartwright. 6. Schizophrenia per Dr Davison 7. ESRD. On HD 8. ? Aspiration. NG tube was is correct place per RN. ADRIAN RN Subjective Subjective Nonverbal, transferred to [facility] / [facility] and brought back to [facility] for ? aspiration. NG tube is in.Remained in SR with no arrhythmias on tele. Objective Last 24 Hour Vital Signs Date Time Temp Pulse Resp B/P Pulse Ox O2 Delivery O2 Flow Rate FiO2 05/17/16 12:31 83 103/57 05/17/16 11:45 97.7 83 20 103/57 92 Venturi Mask 05/17/16 08:30 98.1 79 20 132/54 95 Venturi Mask 05/17/16 07:57 Venturi Mask 14.0 55 05/17/16 07:56 95 Venturi Mask 14.0 55 05/17/16 07:55 79 20 Venturi Mask 14.0 55 05/17/16 04:00 98.4 89 20 113/66 100 Simple Mask 10.0 05/17/16 04:00 88 05/17/16 00:00 91 05/17/16 00:00 99.3 92 20 105/67 91 Simple Mask 10.0 05/16/16 22:01 91 124/70 05/16/16 20:00 98.2 91 20 124/70 96 Venturi Mask 14.0 55 05/16/16 20:00 94 05/16/16 19:26 Venturi Mask 14.0 55 05/16/16 19:26 93 20 Venturi Mask 14.0 55 05/16/16 19:26 96 Venturi Mask 14.0 55 05/16/16 16:14 97.7 96 20 132/68 95 Venturi Mask 8.0 05/16/16 16:00 95 Intake and Output 05/16/16 05/17/16 19:00 07:00 Intake Total 560 ml 40 ml Output Total 3625 ml 300 ml Balance -3065 ml -260 ml IV Total 400 ml Tube Feeding 160 ml 40 ml Output Urine Total 25 ml 300 ml Hemodialysis UF 3600 ml # Bowel Movements 2 Laboratory Tests Test 05/17/16 05:50 05/17/16 08:05 Sodium Level 139 mEQ/L (135-145) Potassium Level 3.1 mEQ/L (3.4-4.9) L Chloride Level 96 mEQ/L (98-107) L Carbon Dioxide Level 27 mEQ/L (20-30) Anion Gap 16 (5-15) H Blood Urea Nitrogen 30 mg/dL (7-23) H Creatinine 4.2 mg/dL (0.7-1.2) H Estimat Glomerular Filtration Rate 14.5 mL/min (>60) Glucose Level 128 mg/dL (74-106) H Calcium Level 8.1 mg/dL (8.6-10.2) L Total Bilirubin 0.5 mg/dL (0.0-1.2) Aspartate Amino Transf (AST/SGOT) 23 U/L (5-40) Alanine Aminotransferase (ALT/SGPT) 11 U/L (3-41) Alkaline Phosphatase 61 U/L (40-129) Total Protein 5.6 g/dL (6.6-8.7) L Albumin 2.8 g/dL (3.5-5.2) L Globulin 2.8 g/dL Albumin/Globulin Ratio 1.0 (1.0-2.7) Random Vancomycin Level 26.3 ug/mL White Blood Count 18.5 K/UL (4.8-10.8) H Red Blood Count 2.91 M/UL (4.70-6.10) L Hemoglobin 9.2 G/DL (14.2-18.0) L Hematocrit 29.1 % (42.0-52.0) L Mean Corpuscular Volume 100 FL (80-99) H Mean Corpuscular Hemoglobin 31.8 PG (27.0-31.0) H Mean Corpuscular Hemoglobin Concent 31.7 G/DL (32.0-36.0) L Red Cell Distribution Width 13.9 % (11.6-14.8) Platelet Count 268 K/UL (150-450) Mean Platelet Volume 6.0 FL (6.5-10.1) L Neutrophils (%) (Auto) % (45.0-75.0) Lymphocytes (%) (Auto) % (20.0-45.0) Monocytes (%) (Auto) % (1.0-10.0) Eosinophils (%) (Auto) % (0.0-3.0) Basophils (%) (Auto) % (0.0-2.0) Differential Total Cells Counted 100 Neutrophils % (Manual) 84 % (45-75) H Lymphocytes % (Manual) 7 % (20-45) L Monocytes % (Manual) 7 % (1-10) Eosinophils % (Manual) 2 % (0-3) Basophils % (Manual) 0 % (0-2) Band Neutrophils 0 % (0-8) Platelet Estimate Adequate Platelet Morphology Normal Hypochromasia 1+ Macrocytosis 1+ Microbiology Date/Time Source Procedure Growth Status 05/16/16 05:05 Stool Clostridium difficile Toxin Assay - Final Complete Objective HEAD AND NECK: No JVD.NG tube in. LUNGS: Coarse rhonchi. CARDIOVASCULAR: Regular S1 and S2 with no gallop or rub. ABDOMEN: Soft and nontender. EXTREMITIES: Status post right below-knee amputation. He has dialysis access in the right femoral area. THU MONREAL May 17, 2016 14:17
[2016-05-17] MEDS ORDERED: EPINEPHrine 1mg/10ml carp IV ONE (14:40)
[2016-05-17] MEDS ORDERED: Miralax 17gm pkt ORAL PRN (14:45)
--- NOTE | 2016-05-17 14:59 | Emergency Room Report ---
Physical Exam Code blue called. Respiratory distress and copious secretions. Last 24 Hour Vital Signs Date Time Temp Pulse Resp B/P Pulse Ox O2 Delivery O2 Flow Rate FiO2 05/17/16 12:31 83 103/57 05/17/16 11:45 97.7 83 20 103/57 92 Venturi Mask 05/17/16 08:30 98.1 79 20 132/54 95 Venturi Mask 05/17/16 07:57 Venturi Mask 14.0 55 05/17/16 07:56 95 Venturi Mask 14.0 55 05/17/16 07:55 79 20 Venturi Mask 14.0 55 05/17/16 04:00 98.4 89 20 113/66 100 Simple Mask 10.0 05/17/16 04:00 88 05/17/16 00:00 91 05/17/16 00:00 99.3 92 20 105/67 91 Simple Mask 10.0 05/16/16 22:01 91 124/70 05/16/16 20:00 98.2 91 20 124/70 96 Venturi Mask 14.0 55 05/16/16 20:00 94 05/16/16 19:26 Venturi Mask 14.0 55 05/16/16 19:26 93 20 Venturi Mask 14.0 55 05/16/16 19:26 96 Venturi Mask 14.0 55 05/16/16 16:14 97.7 96 20 132/68 95 Venturi Mask 8.0 05/16/16 16:00 95 [id number] EP Interpretation: reviewed, abnormal - interpreted as low by me Head: normocephalic, atraumatic Eyes: bilateral eye conjunctivae pale, bilateral eye other - unreactive pupils ENT: moist mucus membranes, other - copious secretions pharynx - mucoid Neck: other - flaccid Respiratory: other - no spont vents Cardiovascular #1: other - no heart sounds Cardiovascular #2: 0 femoral (L) - shunt Gastrointestinal: abnormal bowel sounds - abscent Genitourinary: normal inspection Musculoskeletal: other - AKA Neurologic: other - flaccid and unresponsive Psychiatric: other - unresponsive Skin: pallor, cyanosis, mottled CPR/Code Blue CPR/Code Blue Narrative Respiratory arrest. RT ventilating patient. Set up and CPR started under my direction. Intubated by me. Asystole on monitor. Epi 1 mg IV. Complexes and soon after pulses with ST. ABG requested by me. Transfer to ICU. Intubation Intubation : Consent: Emergent Intubation Method: orotracheal Tube Size (cm): 7.5 Medications: Other - none Breath Sounds after Intubation: equal Intubation Complications: no complications - evidence of aspiration with copious lung secretoins also Attempts: One Patient Tolerated: Well Complications: None Medical Decision Making Diagnostic Impression: Primary Impression: Respiratory arrest Additional Impressions: Altered level of consciousness Methamphetamine abuse UTI (urinary tract infection) Qualified Codes: N30.01 - Acute cystitis with hematuria ER Course Patient with resp arrest on floor. See code and intubation notes. Patient transfer to ICU. Vent, CXR and labs ordered by me. Prognosis = poor. Labs Test 05/13/16 08:55 05/13/16 10:15 05/14/16 07:07 05/15/16 15:16 Lactic Acid Level 0.80 mmol/L (0.66-2.22) Total Creatine Kinase 15 U/L (38-174) Creatine Kinase MB < 1.5 ng/mL (< 6.7) Creatine Kinase MB Relative Index Urine Color Pale yellow Urine Appearance Turbid Urine pH 6 (4.5-8.0) Urine Specific [place] 1.020 (1.005-1.035) Urine Protein 4+ (NEGATIVE) Urine Glucose (UA) Negative (NEGATIVE) Urine Ketones Negative (NEGATIVE) Urine Occult Blood 3+ (NEGATIVE) Urine Nitrite Negative (NEGATIVE) Urine Bilirubin 1+ (NEGATIVE) Urine Ictotest Negative Urine Urobilinogen 1 MG/DL (0.0-1.0) Urine Leukocyte Esterase 3+ (NEGATIVE) Urine RBC 2-4 /HPF (0 - 0) Urine WBC 40-60 /HPF (0 - 0) Urine Squamous Epithelial Cells Moderate /LPF (NONE/OCC) Urine Bacteria Many /HPF (NONE) Phosphorus Level 4.1 mg/dL (2.5-4.8) Urine Opiates Screen Negative (NEGATIVE) Urine Barbiturates Screen Negative (NEGATIVE) Phencyclidine (PCP) Screen Negative (NEGATIVE) Urine Amphetamines Screen Negative (NEGATIVE) Urine Benzodiazepines Screen Negative (NEGATIVE) Urine Cocaine Screen Negative (NEGATIVE) Urine Marijuana (THC) Screen Negative (NEGATIVE) Test 05/17/16 05:50 05/17/16 08:05 05/17/16 15:22 05/17/16 15:30 Random Vancomycin Level 26.3 ug/mL Differential Total Cells Counted 100 Neutrophils % (Manual) 84 % (45-75) Lymphocytes % (Manual) 7 % (20-45) Monocytes % (Manual) 7 % (1-10) Eosinophils % (Manual) 2 % (0-3) Basophils % (Manual) 0 % (0-2) Band Neutrophils 0 % (0-8) Platelet Estimate Adequate Platelet Morphology Normal Hypochromasia 1+ Macrocytosis 1+ Arterial Blood pH 7.406 (7.350-7.450) Arterial Blood Partial Pressure CO2 41.1 mmHg (35.0-45.0) Arterial Blood Partial Pressure O2 148.5 mmHg (75.0-100.0) Arterial Blood HCO3 25.2 mmol/L (22.0-26.0) Arterial Blood Oxygen Saturation 98.9 % (92.0-98.0) Arterial Blood Base Excess 0.6 Tadeo Test Positive Anion Gap 18 (5-15) Troponin I < 0.30 ng/mL (<=0.30) Albumin/Globulin Ratio 0.6 (1.0-2.7) Test 05/18/16 04:00 White Blood Count 14.0 K/UL (4.8-10.8) Red Blood Count 2.59 M/UL (4.70-6.10) Hemoglobin 8.7 G/DL (14.2-18.0) Hematocrit 25.6 % (42.0-52.0) Mean Corpuscular Volume 99 FL (80-99) Mean Corpuscular Hemoglobin 33.6 PG (27.0-31.0) Mean Corpuscular Hemoglobin Concent 34.0 G/DL (32.0-36.0) Red Cell Distribution Width 13.5 % (11.6-14.8) Platelet Count 238 K/UL (150-450) Mean Platelet Volume 6.0 FL (6.5-10.1) Neutrophils (%) (Auto) 78.7 % (45.0-75.0) Lymphocytes (%) (Auto) 12.3 % (20.0-45.0) Monocytes (%) (Auto) 7.2 % (1.0-10.0) Eosinophils (%) (Auto) 1.3 % (0.0-3.0) Basophils (%) (Auto) 0.6 % (0.0-2.0) Rhythm Strip Diag. Results EP Interpretation: yes Rhythm: no PVC's, no ectopy, other - ST Chest X-Ray Diagnostic Results EP Interpretation: Yes Findings: other - infiltrates, ET too high, supine film Number of Views: 1 Other Impression Second CXR with ET better position, infiltrate R more pronounced, no pneumo Status: improved Disposition: ADMITTED INPATIENT Condition: Critical Referrals: VANDANA INMAN (PCP) Dayday London M.D. May 17, 2016 14:59
--- NOTE | 2016-05-17 15:05 | General Progress Note ---
Assessment/Plan Assessment/Plan Assessment - AMS - C Diff (+) - UTI - PNA - dysphagia - HTN - amputation - Renal failure Recommendations - Hold TF - Elevate HOB - Abx per ID - on Vanco and flagyl now - follow labs Subjective Allergies: Coded Allergies: No Known Allergies (Unverified , 09/05/13) Subjective above noted transfered to [facility] due to resp distress aspiration suspected CXR noted also C diff (+) Objective Last 24 Hour Vital Signs Date Time Temp Pulse Resp B/P Pulse Ox O2 Delivery O2 Flow Rate FiO2 05/17/16 12:31 83 103/57 05/17/16 11:45 97.7 83 20 103/57 92 Venturi Mask 05/17/16 08:30 98.1 79 20 132/54 95 Venturi Mask 05/17/16 07:57 Venturi Mask 14.0 55 05/17/16 07:56 95 Venturi Mask 14.0 55 05/17/16 07:55 79 20 Venturi Mask 14.0 55 05/17/16 04:00 98.4 89 20 113/66 100 Simple Mask 10.0 05/17/16 04:00 88 05/17/16 00:00 91 05/17/16 00:00 99.3 92 20 105/67 91 Simple Mask 10.0 05/16/16 22:01 91 124/70 05/16/16 20:00 98.2 91 20 124/70 96 Venturi Mask 14.0 55 05/16/16 20:00 94 05/16/16 19:26 Venturi Mask 14.0 55 05/16/16 19:26 93 20 Venturi Mask 14.0 55 05/16/16 19:26 96 Venturi Mask 14.0 55 05/16/16 16:14 97.7 96 20 132/68 95 Venturi Mask 8.0 05/16/16 16:00 95 Intake and Output 05/16/16 05/17/16 19:00 07:00 Intake Total 560 ml 40 ml Output Total 3625 ml 300 ml Balance -3065 ml -260 ml IV Total 400 ml Tube Feeding 160 ml 40 ml Output Urine Total 25 ml 300 ml Hemodialysis UF 3600 ml # Bowel Movements 2 Laboratory Tests 05/17/16 05:50: Sodium Level 139, Potassium Level 3.1L, Chloride Level 96L, Carbon Dioxide Level 27, Anion Gap 16H, Blood Urea Nitrogen 30H, Creatinine 4.2H, Estimat Glomerular Filtration Rate 14.5, Glucose Level 128H, Calcium Level 8.1L, Total Bilirubin 0.5, Aspartate Amino Transf (AST/SGOT) 23, Alanine Aminotransferase ( ALT/SGPT) 11, Alkaline Phosphatase 61, Total Protein 5.6L, Albumin 2.8L, Globulin 2.8, Albumin/Globulin Ratio 1.0, Random Vancomycin Level 26.3 05/17/16 08:05: White Blood Count 18.5H, Red Blood Count 2.91L, Hemoglobin 9.2L, Hematocrit 29.1L, Mean Corpuscular Volume 100H, Mean Corpuscular Hemoglobin 31.8H, Mean Corpuscular Hemoglobin Concent 31.7L, Red Cell Distribution Width 13.9, Platelet Count 268, Mean Platelet Volume 6.0L, Neutrophils (%) (Auto) , Lymphocytes (%) (Auto) , Monocytes (%) (Auto) , Eosinophils (%) (Auto) , Basophils (%) (Auto) , Differential Total Cells Counted 100, Neutrophils % ( Manual) 84H, Lymphocytes % (Manual) 7L, Monocytes % (Manual) 7, Eosinophils % ( Manual) 2, Basophils % (Manual) 0, Band Neutrophils 0, Platelet Estimate Adequate, Platelet Morphology Normal, Hypochromasia 1+, Macrocytosis 1+ Height (Feet): 5 Height (Inches): 7.00 Weight (Pounds): 129 Objective Debilitated LM catatonic NCAT supple CTA RRR soft scaphoid no edema WILLIAM MIXON May 17, 2016 15:05
[2016-05-17 15:25] LABS: ABG ALLEN TEST POSITIVE; ABG BASE EXCESS 0.6; ABG PCO2 41.1 mmHg (35.0-45.0)
[2016-05-17 15:49] LABS: BASOPHILS % (AUTO) 0.5 % (0.0-2.0); EOSINOPHILS % (AUTO) 1.4 % (0.0-3.0); LYMPHOCYTES % (AUTO) 14.8 % (20.0-45.0); MEAN CORPUSCULAR HEMOGLOBIN 32.7 PG (27.0-31.0); MEAN CORPUSCULAR HGB CONC 32.8 G/DL (32.0-36.0); MEAN CORPUSCULAR VOLUME 100 FL (80-99); MEAN PLATELET VOLUME 5.6 FL (6.5-10.1); MONOCYTES % (AUTO) 7.1 % (1.0-10.0); NEUTROPHILS % (AUTO) 76.3 % (45.0-75.0); PLATELET COUNT 227 K/UL (150-450); RED BLOOD COUNT 3.05 M/UL (4.70-6.10); RED CELL DISTRIBUTION WIDTH 14.2 % (11.6-14.8); WHITE BLOOD COUNT 17.5 K/UL (4.8-10.8)
[2016-05-17] MEDS: D5NS 1,000 ML IV SCH (16:00)
[2016-05-17 16:05] LABS: ALBUMIN/GLOBULIN RATIO 0.6 (1.0-2.7); CALCIUM 8.6 mg/dL (8.6-10.2); CREATININE 4.7 mg/dL (0.7-1.2); GLOMERULAR FILTRATION RATE 12.8 mL/min (>60); POTASSIUM 3.1 mEQ/L (3.4-4.9); TOTAL PROTEIN 6.6 g/dL (6.6-8.7); TROPONIN I < 0.30 ng/mL (<=0.30)
--- NOTE | 2016-05-17 17:56 | Infectious Diseases Prog Note ---
Assessment/Plan Problems: (1) C. difficile diarrhea Assessment & Plan: will start oral vancomycin and IV flagyl for sever C diff infection , and D/C vancomycin and meropenem for now. (2) Sepsis Assessment & Plan: most likely due to C diff infection, was treated for UTI already with meropenem, will D/C vancomycin and meropenem , and start him on oral vancomycin and IV flagyl. keep off antacid and Imodium (3) UTI (urinary tract infection) Assessment & Plan: with E coli, was treated with meropenem for 4 days (4) ESRD on dialysis Assessment & Plan: renal is following , continue HD (5) Diabetes Assessment & Plan: recommend tight glycemic control to keep blood glucose between 80-120 (6) Colonization with VRE (vancomycin-resistant enterococcus) Assessment & Plan: keep on contact isolation (7) Altered level of consciousness Assessment & Plan: due to hypoxemia and fluids overload, intubated, continue HD to remove fluids, monitor CXR, pulmonary is following Subjective ROS Limited/Unobtainable: Yes Allergies: Coded Allergies: No Known Allergies (Unverified , 09/05/13) Subjective he was altered and hypoxemic, was intubated, now on mechanical ventilation , afebrile, not in distress. Objective Vital Signs Last 24 Hour Vital Signs Date Time Temp Pulse Resp B/P Pulse Ox O2 Delivery O2 Flow Rate FiO2 05/17/16 17:21 60 05/17/16 17:05 108 28 50 05/17/16 16:00 102 05/17/16 15:51 60 05/17/16 15:00 101 20 109/64 100 Mechanical Ventilator 100 05/17/16 14:56 125 21 100 05/17/16 12:31 83 103/57 05/17/16 11:45 97.7 83 20 103/57 92 Venturi Mask 05/17/16 08:30 98.1 79 20 132/54 95 Venturi Mask 05/17/16 07:57 Venturi Mask 14.0 55 05/17/16 07:56 95 Venturi Mask 14.0 55 05/17/16 07:55 79 20 Venturi Mask 14.0 55 05/17/16 04:00 98.4 89 20 113/66 100 Simple Mask 10.0 05/17/16 04:00 88 05/17/16 00:00 91 05/17/16 00:00 99.3 92 20 105/67 91 Simple Mask 10.0 05/16/16 22:01 91 124/70 05/16/16 20:00 98.2 91 20 124/70 96 Venturi Mask 14.0 55 05/16/16 20:00 94 05/16/16 19:26 Venturi Mask 14.0 55 05/16/16 19:26 93 20 Venturi Mask 14.0 55 05/16/16 19:26 96 Venturi Mask 14.0 55 Height (Feet): 5 Height (Inches): 7.00 Weight (Pounds): 129 General Appearance: WD/WN, no acute distress HEENT: normocephalic, atraumatic, anicteric Respiratory/Chest: normal breath sounds, no respiratory distress, no accessory muscle use, decreased breath sounds, crackles/rales Cardiovascular: normal peripheral pulses, normal rate, regular rhythm Abdomen: normal bowel sounds, no organomegaly, non distended, no mass Extremities: no cyanosis, no clubbing Skin: no rash, no lesions Microbiology Date/Time Source Procedure Growth Status 05/16/16 05:05 Stool Clostridium difficile Toxin Assay - Final Complete Laboratory Tests Test 05/17/16 05:50 05/17/16 08:05 05/17/16 15:22 05/17/16 15:30 Sodium Level 139 mEQ/L (135-145) 137 mEQ/L (135-145) Potassium Level 3.1 mEQ/L (3.4-4.9) L 3.1 mEQ/L (3.4-4.9) L Chloride Level 96 mEQ/L (98-107) L 93 mEQ/L (98-107) L Carbon Dioxide Level 27 mEQ/L (20-30) 26 mEQ/L (20-30) Anion Gap 16 (5-15) H 18 (5-15) H Blood Urea Nitrogen 30 mg/dL (7-23) H 33 mg/dL (7-23) H Creatinine 4.2 mg/dL (0.7-1.2) H 4.7 mg/dL (0.7-1.2) H Estimat Glomerular Filtration Rate 14.5 mL/min (>60) 12.8 mL/min (>60) Glucose Level 128 mg/dL (74-106) H 186 mg/dL (74-106) H Calcium Level 8.1 mg/dL (8.6-10.2) L 8.6 mg/dL (8.6-10.2) Total Bilirubin 0.5 mg/dL (0.0-1.2) 0.8 mg/dL (0.0-1.2) Aspartate Amino Transf (AST/SGOT) 23 U/L (5-40) 113 U/L (5-40) H Alanine Aminotransferase (ALT/SGPT) 11 U/L (3-41) 67 U/L (3-41) H Alkaline Phosphatase 61 U/L (40-129) 68 U/L (40-129) Total Protein 5.6 g/dL (6.6-8.7) L 6.6 g/dL (6.6-8.7) Albumin 2.8 g/dL (3.5-5.2) L 2.5 g/dL (3.5-5.2) L Globulin 2.8 g/dL 4.1 g/dL Albumin/Globulin Ratio 1.0 (1.0-2.7) 0.6 (1.0-2.7) L Random Vancomycin Level 26.3 ug/mL White Blood Count 18.5 K/UL (4.8-10.8) H 17.5 K/UL (4.8-10.8) H Red Blood Count 2.91 M/UL (4.70-6.10) L 3.05 M/UL (4.70-6.10) L Hemoglobin 9.2 G/DL (14.2-18.0) L 10.0 G/DL (14.2-18.0) L Hematocrit 29.1 % (42.0-52.0) L 30.5 % (42.0-52.0) L Mean Corpuscular Volume 100 FL (80-99) H 100 FL (80-99) H Mean Corpuscular Hemoglobin 31.8 PG (27.0-31.0) H 32.7 PG (27.0-31.0) H Mean Corpuscular Hemoglobin Concent 31.7 G/DL (32.0-36.0) L 32.8 G/DL (32.0-36.0) Red Cell Distribution Width 13.9 % (11.6-14.8) 14.2 % (11.6-14.8) Platelet Count 268 K/UL (150-450) 227 K/UL (150-450) Mean Platelet Volume 6.0 FL (6.5-10.1) L 5.6 FL (6.5-10.1) L Neutrophils (%) (Auto) % (45.0-75.0) 76.3 % (45.0-75.0) H Lymphocytes (%) (Auto) % (20.0-45.0) 14.8 % (20.0-45.0) L Monocytes (%) (Auto) % (1.0-10.0) 7.1 % (1.0-10.0) Eosinophils (%) (Auto) % (0.0-3.0) 1.4 % (0.0-3.0) Basophils (%) (Auto) % (0.0-2.0) 0.5 % (0.0-2.0) Differential Total Cells Counted 100 Neutrophils % (Manual) 84 % (45-75) H Lymphocytes % (Manual) 7 % (20-45) L Monocytes % (Manual) 7 % (1-10) Eosinophils % (Manual) 2 % (0-3) Basophils % (Manual) 0 % (0-2) Band Neutrophils 0 % (0-8) Platelet Estimate Adequate Platelet Morphology Normal Hypochromasia 1+ Macrocytosis 1+ Arterial Blood pH 7.406 (7.350-7.450) Arterial Blood Partial Pressure CO2 41.1 mmHg (35.0-45.0) Arterial Blood Partial Pressure O2 148.5 mmHg (75.0-100.0) H Arterial Blood HCO3 25.2 mmol/L (22.0-26.0) Arterial Blood Oxygen Saturation 98.9 % (92.0-98.0) H Arterial Blood Base Excess 0.6 Tadeo Test Positive Troponin I < 0.30 ng/mL (<=0.30) Current Medications Medications (Trade) Dose Ordered Sig/[place]sea Route PRN Reason Start Time Stop Time Status Last Admin Dose Admin Acetaminophen (Tylenol) 1,000 mg Q6H PRN ORAL Mild Pain/Temp > 100.5 05/17/16 20:45 06/16/16 20:44 Al Hydroxide/Mg Hydroxide (Mylanta II) 30 ml Q6H PRN ORAL dyspepsia 05/17/16 20:45 06/16/16 20:44 Albuterol/ Ipratropium (DuoNeb 0.5-3(2.5)mg/3ml) 3 ml Q4H PRN HHN Shortness of Breath 05/17/16 18:45 05/22/16 18:44 Clonidine HCl (Catapres) 0.1 mg Q6H PRN ORAL SBP>160 05/17/16 21:00 06/16/16 20:59 Clopidogrel Bisulfate (Plavix) 75 mg DAILY ORAL 05/18/16 09:00 06/17/16 08:59 Dextrose (Dextrose 50%) STAT PRN IV Hypoglycemia 05/18/16 14:45 06/17/16 14:44 Dextrose/Sodium Chloride 1,000 ml @ 50 mls/hr Q20H IV 05/17/16 16:00 06/16/16 15:59 05/17/16 16:00 Gabapentin (Neurontin) 100 mg TID ORAL 05/17/16 18:00 06/16/16 17:59 Heparin Sodium (Porcine) (Heparin 5000 units/ml) 5,000 units EVERY 12 HOURS SUBQ 05/17/16 21:00 06/16/16 20:59 Insulin Aspart (NovoLOG) Q6HR SUBQ 05/17/16 18:00 06/16/16 17:59 Lorazepam (Ativan 2mg/ml 1ml) 0.5 mg Q4H PRN IV FOR TREMORS 05/17/16 17:00 05/24/16 16:59 Metoprolol Tartrate (Lopressor) 25 mg Q12HR NG 05/17/16 21:00 06/16/16 20:59 Metronidazole (Flagyl) 100 ml @ 100 mls/hr Q8HR IVPB 05/17/16 22:00 05/24/16 21:59 Mirtazapine (Remeron) 15 mg BEDTIME ORAL 05/17/16 21:00 06/16/16 20:59 Nitroglycerin (Ntg) 0.4 mg Q5M PRN SL Prn Chest Pain 05/17/16 15:30 06/16/16 15:29 Ondansetron HCl (Zofran) 4 mg Q6H PRN IVP Nausea & Vomiting 05/17/16 20:45 06/16/16 20:44 Polyethylene Glycol (Miralax) 17 gm DAILYPRN PRN ORAL Constipation 05/18/16 14:45 06/17/16 14:44 Temazepam (Restoril) 15 mg HSPRN PRN ORAL Insomnia 05/17/16 21:00 05/24/16 20:59 Vancomycin HCl (Vancomycin) 125 mg FOUR TIMES A DAY ORAL 05/17/16 18:00 05/24/16 17:59 Bandar Cartwright M.D. May 17, 2016 17:56
[2016-05-17] MEDS ORDERED: NS IVPB SCH (18:00)
[2016-05-17] MEDS ORDERED: MEROPENEM IVPB SCH (18:00)
[2016-05-17] MEDS: Vancomycin oral 125mg/2.5ml ORAL SCH ×2 (18:40→20:39)
[2016-05-17] MEDS: Metoprolol 25mg tab NG SCH (20:35)
[2016-05-17] MEDS: Heparin 5000 units/ml inj SUBQ SCH (20:38)
[2016-05-17] MEDS ORDERED: Metoprolol 25mg tab NG SCH (21:00)
[2016-05-17] MEDS: metroNIDAZOLE 500mg 100 ML IVPB SCH (21:37)
[2016-05-18] VITALS (26 sets, daily range): BP systolic 12–129; BP diastolic 37–66
[2016-05-18] MEDS: NovoLOG Insulin Flexpen SUBQ SCH ×5 (00:30→23:56)
[2016-05-18 05:13] LABS: BASOPHILS % (AUTO) 0.6 % (0.0-2.0); EOSINOPHILS % (AUTO) 1.3 % (0.0-3.0); LYMPHOCYTES % (AUTO) 12.3 % (20.0-45.0); MEAN CORPUSCULAR HEMOGLOBIN 33.6 PG (27.0-31.0); MEAN CORPUSCULAR VOLUME 99 FL (80-99); MONOCYTES % (AUTO) 7.2 % (1.0-10.0); NEUTROPHILS % (AUTO) 78.7 % (45.0-75.0); PLATELET COUNT 238 K/UL (150-450); RED BLOOD COUNT 2.59 M/UL (4.70-6.10); RED CELL DISTRIBUTION WIDTH 13.5 % (11.6-14.8)
[2016-05-18 05:37] LABS: ALBUMIN/GLOBULIN RATIO 0.4 (1.0-2.7); CALCIUM 7.9 mg/dL (8.6-10.2); CREATININE 5.1 mg/dL (0.7-1.2); GLOMERULAR FILTRATION RATE 11.6 mL/min (>60); POTASSIUM 2.9 mEQ/L (3.4-4.9); TOTAL PROTEIN 5.5 g/dL (6.6-8.7)
[2016-05-18] MEDS: metroNIDAZOLE 500mg 100 ML IVPB SCH ×3 (05:38→21:53)
--- NOTE | 2016-05-18 08:58 | Progress Note ---
DATE: 05/16/2016 PSYCHOTHERAPY CONSULTATION PROGRESS NOTE TREATING ATTENDING PHYSICIAN: Paul Mckeon D.O. SUBJECTIVE: The patient is a year-old female. confused, disorganized, has poor judgment and poor impulse control. Poor insight into her current condition. PLAN: This clinician assessed the patient and provided the patient with reality orientation and assessed the patient's mental status. Continue with medication management and behavioral management. This clinician has reviewed the patient's chart and discussed the treatment with nursing staff. Tiff Mak PsyD. DR: MARCELINA JOB#: [id number] CC:
--- NOTE | 2016-05-18 08:59 | Diagnostic Imaging Report ---
Indication: DYSPNEA Technique: XRAY CHEST 1 V Comparison:Current examination obtained at 08 40 compared with one obtained earlier 05/17/2016 03 51 Findings: Bilateral lower lung and perihilar infiltrates are present but has decreased. There is now visualization of the major fissure on the right indicating right pleural effusion. Blunting of the left prosthetic angle also remains. There is retrocardiac opacification as well though this is less prominent than on previous study. Nasogastric tube is in the stomach. Impression: Bilateral lower lobe infiltrate or atelectasis with bilateral pleural effusions. The infiltrates appear to have decreased.
[2016-05-18] MEDS: Metoprolol 25mg tab NG SCH ×2 (09:00→21:53)
[2016-05-18] MEDS: Pantoprazole Inj IVP SCH ×2 (10:04→21:54)
[2016-05-18] MEDS: Vancomycin oral 125mg/2.5ml ORAL SCH ×4 (10:05→21:00)
[2016-05-18] MEDS: Heparin 5000 units/ml inj SUBQ SCH ×2 (10:08→21:55)
--- NOTE | 2016-05-18 10:25 | Pulmonolgy Critical Care Note ---
Critical Care - Asmt/Plan Problems: (1) Acute respiratory failure (2) Nosocomial pneumonia (3) C. 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 - Objective Last 24 Hour Vital Signs Date Time Temp Pulse Resp B/P Pulse Ox O2 Delivery O2 Flow Rate FiO2 05/18/16 09:40 Mechanical Ventilator 50 05/18/16 09:38 98.0 85 20 122/53 99 Mechanical Ventilator 50 05/18/16 09:26 94 16 50 05/18/16 07:03 89 16 50 05/18/16 06:00 86 16 103/37 99 Mechanical Ventilator 50 05/18/16 06:00 86 05/18/16 05:45 97.8 84 16 103/45 Mechanical Ventilator 50 05/18/16 05:45 Mechanical Ventilator 50 05/18/16 05:25 86 17 50 05/18/16 05:00 84 16 103/44 99 Mechanical Ventilator 50 05/18/16 04:00 98.4 81 17 129/51 99 Mechanical Ventilator 50 05/18/16 03:00 82 20 94/43 99 Mechanical Ventilator 50 05/18/16 02:58 84 16 50 05/18/16 02:00 98.0 84 20 108/44 99 Mechanical Ventilator 50 05/18/16 01:20 89 16 50 05/18/16 01:00 87 24 102/50 99 Mechanical Ventilator 50 05/18/16 00:00 100.1 87 23 91/47 99 Mechanical Ventilator 50 05/18/16 00:00 87 05/17/16 23:13 91 16 50 05/17/16 23:00 94 24 113/69 99 Mechanical Ventilator 50 05/17/16 22:00 91 22 99/57 100 Mechanical Ventilator 50 05/17/16 21:17 90 16 50 05/17/16 21:00 98 23 94/61 100 Mechanical Ventilator 50 05/17/16 20:35 99 114/45 05/17/16 20:00 98.9 94 24 114/45 100 Mechanical Ventilator 50 05/17/16 20:00 50 05/17/16 20:00 99 05/17/16 19:38 97.7 05/17/16 19:04 96 16 50 05/17/16 19:00 96 22 114/57 100 Mechanical Ventilator 60 05/17/16 18:00 102 22 100/51 100 Mechanical Ventilator 60 05/17/16 17:21 60 05/17/16 17:05 108 28 50 05/17/16 17:00 102 22 90/48 100 Mechanical Ventilator 60 05/17/16 16:00 102 05/17/16 16:00 98.7 103 22 92/46 100 Mechanical Ventilator 60 05/17/16 15:51 60 05/17/16 15:00 101 20 109/64 100 Mechanical Ventilator 100 05/17/16 14:56 125 21 100 05/17/16 12:31 83 103/57 05/17/16 11:45 97.7 83 20 103/57 92 Venturi Mask Status: somnolent Condition: critical HEENT: atraumatic Neck: full ROM Lungs: clear Heart: HR/BP stable, HR/BP unstable Abdomen: soft, non-tender Extremities: no C/C/E Micro: Microbiology Date/Time Source Procedure Growth Status 05/16/16 05:05 Stool Clostridium difficile Toxin Assay - Final Complete Accucheck: 133 Critical Care - Subjective ROS Limited/Unobtainable: Yes ICU Day: 2 Intubation Day: intubated yesterday, dialyzed this morning EKG Rhythm: Sinus Rhythm FI02: 50 Vent Support Breath Rate: 16 Vent Support Mode: AC Vent Tidal Volume: 600 Sputum Amount: Small PIP: 22 Fluids: d5 NS 50 cc.hour Tube Feeding Amount: 40 I&O: Intake and Output 05/17/16 05/18/16 19:00 07:00 Intake Total 150 ml 730 ml Output Total 40 ml 95 ml Balance 110 ml 635 ml IV Total 150 ml 700 ml Other 30 ml Output Urine Total 40 ml 95 ml # Bowel Movements 2 4 CXR: ET at antonio, RLL infiltrate ET-Tube: 7.5 ET Position: 25 Labs: Laboratory Tests Test 05/17/16 15:22 05/17/16 15:30 05/18/16 04:00 Arterial Blood pH 7.406 (7.350-7.450) Arterial Blood Partial Pressure CO2 41.1 mmHg (35.0-45.0) Arterial Blood Partial Pressure O2 148.5 mmHg (75.0-100.0) H Arterial Blood HCO3 25.2 mmol/L (22.0-26.0) Arterial Blood Oxygen Saturation 98.9 % (92.0-98.0) H Arterial Blood Base Excess 0.6 Tadeo Test Positive White Blood Count 17.5 K/UL (4.8-10.8) H 14.0 K/UL (4.8-10.8) H Red Blood Count 3.05 M/UL (4.70-6.10) L 2.59 M/UL (4.70-6.10) L Hemoglobin 10.0 G/DL (14.2-18.0) L 8.7 G/DL (14.2-18.0) L Hematocrit 30.5 % (42.0-52.0) L 25.6 % (42.0-52.0) L Mean Corpuscular Volume 100 FL (80-99) H 99 FL (80-99) Mean Corpuscular Hemoglobin 32.7 PG (27.0-31.0) H 33.6 PG (27.0-31.0) H Mean Corpuscular Hemoglobin Concent 32.8 G/DL (32.0-36.0) 34.0 G/DL (32.0-36.0) Red Cell Distribution Width 14.2 % (11.6-14.8) 13.5 % (11.6-14.8) Platelet Count 227 K/UL (150-450) 238 K/UL (150-450) Mean Platelet Volume 5.6 FL (6.5-10.1) L 6.0 FL (6.5-10.1) L Neutrophils (%) (Auto) 76.3 % (45.0-75.0) H 78.7 % (45.0-75.0) H Lymphocytes (%) (Auto) 14.8 % (20.0-45.0) L 12.3 % (20.0-45.0) L Monocytes (%) (Auto) 7.1 % (1.0-10.0) 7.2 % (1.0-10.0) Eosinophils (%) (Auto) 1.4 % (0.0-3.0) 1.3 % (0.0-3.0) Basophils (%) (Auto) 0.5 % (0.0-2.0) 0.6 % (0.0-2.0) Sodium Level 137 mEQ/L (135-145) 141 mEQ/L (135-145) Potassium Level 3.1 mEQ/L (3.4-4.9) L 2.9 mEQ/L (3.4-4.9) L Chloride Level 93 mEQ/L (98-107) L 101 mEQ/L (98-107) Carbon Dioxide Level 26 mEQ/L (20-30) 21 mEQ/L (20-30) Anion Gap 18 (5-15) H 19 (5-15) H Blood Urea Nitrogen 33 mg/dL (7-23) H 40 mg/dL (7-23) H Creatinine 4.7 mg/dL (0.7-1.2) H 5.1 mg/dL (0.7-1.2) H Estimat Glomerular Filtration Rate 12.8 mL/min (>60) 11.6 mL/min (>60) Glucose Level 186 mg/dL (74-106) H 132 mg/dL (74-106) H Calcium Level 8.6 mg/dL (8.6-10.2) 7.9 mg/dL (8.6-10.2) L Total Bilirubin 0.8 mg/dL (0.0-1.2) 0.7 mg/dL (0.0-1.2) Aspartate Amino Transf (AST/SGOT) 113 U/L (5-40) H 53 U/L (5-40) H Alanine Aminotransferase (ALT/SGPT) 67 U/L (3-41) H 37 U/L (3-41) Alkaline Phosphatase 68 U/L (40-129) 64 U/L (40-129) Troponin I < 0.30 ng/mL (<=0.30) Total Protein 6.6 g/dL (6.6-8.7) 5.5 g/dL (6.6-8.7) L Albumin 2.5 g/dL (3.5-5.2) L 1.8 g/dL (3.5-5.2) L Globulin 4.1 g/dL 3.7 g/dL Albumin/Globulin Ratio 0.6 (1.0-2.7) L 0.4 (1.0-2.7) L JEFF INMAN May 18, 2016 10:25
[2016-05-18] MEDS ORDERED: Morphine Sulfate 4mg/ml Inj IVP PRN (10:30)
--- NOTE | 2016-05-18 10:33 | Diagnostic Imaging Report ---
Indication: Status post intubation Technique: One view of the chest Comparison: 6 hours earlier Findings: There is a nasogastric tube again demonstrated. Endotracheal tube is not visible. Hazy right lower lobe opacities, possible bilateral pleural fluid is again demonstrated. Cutaneous pacemaker paddles are demonstrated. Impression: Despite stated clinical history, no endotracheal tube is visible, presumably malpositioned is present. Other findings as noted This agrees with the preliminary interpretation provided overnight by Dr. Gamino
--- NOTE | 2016-05-18 10:51 | Diagnostic Imaging Report ---
Indication: TUBE PLCWA Technique: One view of the chest Comparison: 45 minutes earlier Findings: Endotracheal tube tip now projects at the level of the orifice of the right mainstem bronchus. Nasogastric tube remains in place. There is degeneration of the lungs. The diaphragms are not well demonstrated and the costophrenic angles are sharp. Bilateral perihilar/infrahilar infiltrates are better delineated on the current exam. Impression: Low position of endotracheal tube, tip projecting at level of the right mainstem bronchus orifice Bilateral infiltrates again demonstrated Other findings as noted This agrees with the preliminary interpretation provided overnight by Dr. Gamino
[2016-05-18] MEDS ORDERED: LORazepam Inj 2mg/ml 1ml IV PRN (11:00)
[2016-05-18] MEDS: D5NS 1,000 ML IV SCH ×2 (12:00→19:02)
--- NOTE | 2016-05-18 13:52 | General Progress Note ---
Assessment/Plan Problem List: (1) Respiratory failure ICD Codes: J96.90 - Respiratory failure, unspecified, unspecified whether with hypoxia or hypercapnia SNOMED: 152605168 (2) ESRD on dialysis ICD Codes: N18.6 - ESRD on dialysis; Z99.2 - Dependence on renal dialysis SNOMED: 997689589 (3) Sepsis ICD Codes: A41.9 - Sepsis, unspecified organism SNOMED: 70499780 (4) CVA (cerebral vascular accident) ICD Codes: I63.9 - Cerebral infarction, unspecified SNOMED: 547814445 (5) Encephalopathy ICD Codes: G93.40 - Encephalopathy SNOMED: 91775244 (6) Seizure ICD Codes: R56.9 - Seizure SNOMED: 81519271 (7) Altered level of consciousness ICD Codes: R40.4 - Transient alteration of awareness SNOMED: 6105744 (8) UTI (urinary tract infection) ICD Codes: N39.0 - Urinary tract infection, site not specified SNOMED: 14691246 Qualifiers: Qualified Codes: N30.01 - Acute cystitis with hematuria Status: stable, progressing, tolerating diet Assessment/Plan vent abx cbc bmp am Subjective Constitutional: Reports: weakness Allergies: Coded Allergies: No Known Allergies (Unverified , 09/05/13) All Systems: reviewed and negative except above Subjective intub ng in icu Objective Last 24 Hour Vital Signs Date Time Temp Pulse Resp B/P Pulse Ox O2 Delivery O2 Flow Rate FiO2 05/18/16 13:18 94 17 50 05/18/16 13:00 88 18 117/57 100 Mechanical Ventilator 50 05/18/16 12:00 82 05/18/16 12:00 97.9 87 17 109/61 100 Mechanical Ventilator 50 05/18/16 11:59 50 05/18/16 11:00 91 17 12/43 100 Mechanical Ventilator 50 05/18/16 10:30 92 16 50 05/18/16 10:00 89 17 101/43 100 Mechanical Ventilator 50 05/18/16 09:40 Mechanical Ventilator 50 05/18/16 09:38 98.0 85 20 122/53 99 Mechanical Ventilator 50 05/18/16 09:26 94 16 50 05/18/16 09:00 90 17 101/43 100 Mechanical Ventilator 50 05/18/16 09:00 50 05/18/16 09:00 98 119/83 3/13/17 08:00 98.0 92 17 101/45 100 Mechanical Ventilator 50 05/18/16 08:00 81 05/18/16 07:03 89 16 50 05/18/16 07:00 80 17 110/45 100 Mechanical Ventilator 50 05/18/16 06:00 86 16 103/37 99 Mechanical Ventilator 50 05/18/16 06:00 86 05/18/16 05:45 97.8 84 16 103/45 Mechanical Ventilator 50 05/18/16 05:45 Mechanical Ventilator 50 05/18/16 05:25 86 17 50 05/18/16 05:00 84 16 103/44 99 Mechanical Ventilator 50 05/18/16 04:00 98.4 81 17 129/51 99 Mechanical Ventilator 50 05/18/16 03:00 82 20 94/43 99 Mechanical Ventilator 50 05/18/16 02:58 84 16 50 05/18/16 02:00 98.0 84 20 108/44 99 Mechanical Ventilator 50 05/18/16 01:20 89 16 50 05/18/16 01:00 87 24 102/50 99 Mechanical Ventilator 50 05/18/16 00:00 100.1 87 23 91/47 99 Mechanical Ventilator 50 05/18/16 00:00 87 05/17/16 23:13 91 16 50 05/17/16 23:00 94 24 113/69 99 Mechanical Ventilator 50 05/17/16 22:00 91 22 99/57 100 Mechanical Ventilator 50 05/17/16 21:17 90 16 50 05/17/16 21:00 98 23 94/61 100 Mechanical Ventilator 50 05/17/16 20:35 99 114/45 05/17/16 20:00 98.9 94 24 114/45 100 Mechanical Ventilator 50 05/17/16 20:00 50 05/17/16 20:00 99 05/17/16 19:38 97.7 05/17/16 19:04 96 16 50 05/17/16 19:00 96 22 114/57 100 Mechanical Ventilator 60 05/17/16 18:00 102 22 100/51 100 Mechanical Ventilator 60 05/17/16 17:21 60 05/17/16 17:05 108 28 50 05/17/16 17:00 102 22 90/48 100 Mechanical Ventilator 60 05/17/16 16:00 102 05/17/16 16:00 98.7 103 22 92/46 100 Mechanical Ventilator 60 05/17/16 15:51 60 05/17/16 15:00 101 20 109/64 100 Mechanical Ventilator 100 05/17/16 14:56 125 21 100 Intake and Output 05/17/16 05/18/16 19:00 07:00 Intake Total 150 ml 880 ml Output Total 40 ml 95 ml Balance 110 ml 785 ml IV Total 150 ml 850 ml Other 30 ml Output Urine Total 40 ml 95 ml # Bowel Movements 2 4 Laboratory Tests 05/17/16 15:22: Arterial Blood pH 7.406, Arterial Blood Partial Pressure CO2 41.1, Arterial Blood Partial Pressure O2 148.5H, Arterial Blood HCO3 25.2, Arterial Blood Oxygen Saturation 98.9H, Arterial Blood Base Excess 0.6, Tadeo Test Positive 05/17/16 15:30: White Blood Count 17.5H, Red Blood Count 3.05L, Hemoglobin 10.0L, Hematocrit 30.5L, Mean Corpuscular Volume 100H, Mean Corpuscular Hemoglobin 32.7H, Mean Corpuscular Hemoglobin Concent 32.8, Red Cell Distribution Width 14.2, Platelet Count 227, Mean Platelet Volume 5.6L, Neutrophils (%) (Auto) 76.3H, Lymphocytes (%) (Auto) 14.8L, Monocytes (%) (Auto) 7.1, Eosinophils (%) (Auto) 1.4, Basophils (%) (Auto) 0.5, Sodium Level 137, Potassium Level 3.1L, Chloride Level 93L, Carbon Dioxide Level 26, Anion Gap 18H, Blood Urea Nitrogen 33H, Creatinine 4.7H, Estimat Glomerular Filtration Rate 12.8, Glucose Level 186H, Calcium Level 8.6, Total Bilirubin 0.8, Aspartate Amino Transf (AST/SGOT) 113H, Alanine Aminotransferase (ALT/SGPT) 67H, Alkaline Phosphatase 68, Troponin I < 0.30, Total Protein 6.6, Albumin 2.5L, Globulin 4.1, Albumin/Globulin Ratio 0.6L 05/18/16 04:00: White Blood Count 14.0H, Red Blood Count 2.59L, Hemoglobin 8.7L, Hematocrit 25.6L, Mean Corpuscular Volume 99, Mean Corpuscular Hemoglobin 33.6H, Mean Corpuscular Hemoglobin Concent 34.0, Red Cell Distribution Width 13.5, Platelet Count 238, Mean Platelet Volume 6.0L, Neutrophils (%) (Auto) 78.7H, Lymphocytes (%) (Auto) 12.3L, Monocytes (%) (Auto) 7.2, Eosinophils (%) (Auto) 1.3, Basophils (%) (Auto) 0.6, Sodium Level 141, Potassium Level 2.9L, Chloride Level 101, Carbon Dioxide Level 21, Anion Gap 19H, Blood Urea Nitrogen 40H, Creatinine 5.1H, Estimat Glomerular Filtration Rate 11.6, Glucose Level 132H, Calcium Level 7.9L, Total Bilirubin 0.7, Aspartate Amino Transf (AST/SGOT) 53H, Alanine Aminotransferase (ALT/SGPT) 37, Alkaline Phosphatase 64, Total Protein 5.5L, Albumin 1.8L, Globulin 3.7, Albumin/Globulin Ratio 0.4L Height (Feet): 5 Height (Inches): 7.00 Weight (Pounds): 129 General Appearance: lethargic EENT: normal ENT inspection Neck: normal alignment Cardiovascular: normal peripheral pulses, normal rate, regular rhythm Respiratory/Chest: chest wall non-tender, lungs clear, normal breath sounds Abdomen: normal bowel sounds, non tender, soft Extremities: normal inspection Edema: no edema noted Arm (L), no edema noted Arm (R), no edema noted Leg (L), no edema noted Leg (R), no edema noted Pedal (L), no edema noted Pedal (R), no edema noted Generalized Neurologic: motor weakness Skin: normal pigmentation, warm/dry VANDANA INMAN May 18, 2016 13:52
--- NOTE | 2016-05-18 14:19 | Cardiac Electrophysiology PN ---
Assessment/Plan Assessment/Plan 1. Respiratory failure due to Nosocomial PNA. On Vent. No significant CHF component as EF 55% by echo.EKG is nonischemic and Troponin is negative. 2. Hypertension, on Toprol 25 mg NG b.i.d. 3. Hyperlipidemia, on Lipitor. 4. Severe peripheral vascular disease status post right below knee amputation, on Plavix and Lipitor. 5. Sepsis, on Abx per Dr. Cartwright. 6. Psych/Schizophrenia per Dr. Davison 7. ESRD. On HD 8. Altered mental status. Etiology unclear clear at this marian. No vegetation on echo. Encephalopathy versus sepsis.Follow up Dr Blandon. DW RN Subjective Subjective Transferred to ICU on Vent for respiratory failure. RN and daughters at bedside. NG tube is in.Remained in SR with no arrhythmias on tele. Objective Last 24 Hour Vital Signs Date Time Temp Pulse Resp B/P Pulse Ox O2 Delivery O2 Flow Rate FiO2 05/18/16 14:00 90 20 111/58 99 Mechanical Ventilator 50 05/18/16 13:18 94 17 50 05/18/16 13:00 88 18 117/57 100 Mechanical Ventilator 50 05/18/16 12:00 82 05/18/16 12:00 97.9 87 17 109/61 100 Mechanical Ventilator 50 05/18/16 11:59 50 05/18/16 11:00 91 17 12/43 100 Mechanical Ventilator 50 05/18/16 10:30 92 16 50 05/18/16 10:00 89 17 101/43 100 Mechanical Ventilator 50 05/18/16 09:40 Mechanical Ventilator 50 05/18/16 09:38 98.0 85 20 122/53 99 Mechanical Ventilator 50 05/18/16 09:26 94 16 50 05/18/16 09:00 90 17 101/43 100 Mechanical Ventilator 50 05/18/16 09:00 50 05/18/16 09:00 98 119/83 05/18/16 08:00 98.0 92 17 101/45 100 Mechanical Ventilator 50 05/18/16 08:00 81 05/18/16 07:03 89 16 50 05/18/16 07:00 80 17 110/45 100 Mechanical Ventilator 50 05/18/16 06:00 86 16 103/37 99 Mechanical Ventilator 50 05/18/16 06:00 86 05/18/16 05:45 97.8 84 16 103/45 Mechanical Ventilator 50 05/18/16 05:45 Mechanical Ventilator 50 05/18/16 05:25 86 17 50 05/18/16 05:00 84 16 103/44 99 Mechanical Ventilator 50 05/18/16 04:00 98.4 81 17 129/51 99 Mechanical Ventilator 50 05/18/16 03:00 82 20 94/43 99 Mechanical Ventilator 50 05/18/16 02:58 84 16 50 05/18/16 02:00 98.0 84 20 108/44 99 Mechanical Ventilator 50 05/18/16 01:20 89 16 50 05/18/16 01:00 87 24 102/50 99 Mechanical Ventilator 50 05/18/16 00:00 100.1 87 23 91/47 99 Mechanical Ventilator 50 05/18/16 00:00 87 05/17/16 23:13 91 16 50 05/17/16 23:00 94 24 113/69 99 Mechanical Ventilator 50 05/17/16 22:00 91 22 99/57 100 Mechanical Ventilator 50 05/17/16 21:17 90 16 50 05/17/16 21:00 98 23 94/61 100 Mechanical Ventilator 50 05/17/16 20:35 99 114/45 05/17/16 20:00 98.9 94 24 114/45 100 Mechanical Ventilator 50 05/17/16 20:00 50 05/17/16 20:00 99 05/17/16 19:38 97.7 05/17/16 19:04 96 16 50 05/17/16 19:00 96 22 114/57 100 Mechanical Ventilator 60 05/17/16 18:00 102 22 100/51 100 Mechanical Ventilator 60 05/17/16 17:21 60 05/17/16 17:05 108 28 50 05/17/16 17:00 102 22 90/48 100 Mechanical Ventilator 60 05/17/16 16:00 102 05/17/16 16:00 98.7 103 22 92/46 100 Mechanical Ventilator 60 05/17/16 15:51 60 05/17/16 15:00 101 20 109/64 100 Mechanical Ventilator 100 05/17/16 14:56 125 21 100 Intake and Output 05/17/16 05/18/16 19:00 07:00 Intake Total 150 ml 880 ml Output Total 40 ml 95 ml Balance 110 ml 785 ml IV Total 150 ml 850 ml Other 30 ml Output Urine Total 40 ml 95 ml # Bowel Movements 2 4 Laboratory Tests Test 05/17/16 15:22 05/17/16 15:30 05/18/16 04:00 Arterial Blood pH 7.406 (7.350-7.450) Arterial Blood Partial Pressure CO2 41.1 mmHg (35.0-45.0) Arterial Blood Partial Pressure O2 148.5 mmHg (75.0-100.0) H Arterial Blood HCO3 25.2 mmol/L (22.0-26.0) Arterial Blood Oxygen Saturation 98.9 % (92.0-98.0) H Arterial Blood Base Excess 0.6 Tadeo Test Positive White Blood Count 17.5 K/UL (4.8-10.8) H 14.0 K/UL (4.8-10.8) H Red Blood Count 3.05 M/UL (4.70-6.10) L 2.59 M/UL (4.70-6.10) L Hemoglobin 10.0 G/DL (14.2-18.0) L 8.7 G/DL (14.2-18.0) L Hematocrit 30.5 % (42.0-52.0) L 25.6 % (42.0-52.0) L Mean Corpuscular Volume 100 FL (80-99) H 99 FL (80-99) Mean Corpuscular Hemoglobin 32.7 PG (27.0-31.0) H 33.6 PG (27.0-31.0) H Mean Corpuscular Hemoglobin Concent 32.8 G/DL (32.0-36.0) 34.0 G/DL (32.0-36.0) Red Cell Distribution Width 14.2 % (11.6-14.8) 13.5 % (11.6-14.8) Platelet Count 227 K/UL (150-450) 238 K/UL (150-450) Mean Platelet Volume 5.6 FL (6.5-10.1) L 6.0 FL (6.5-10.1) L Neutrophils (%) (Auto) 76.3 % (45.0-75.0) H 78.7 % (45.0-75.0) H Lymphocytes (%) (Auto) 14.8 % (20.0-45.0) L 12.3 % (20.0-45.0) L Monocytes (%) (Auto) 7.1 % (1.0-10.0) 7.2 % (1.0-10.0) Eosinophils (%) (Auto) 1.4 % (0.0-3.0) 1.3 % (0.0-3.0) Basophils (%) (Auto) 0.5 % (0.0-2.0) 0.6 % (0.0-2.0) Sodium Level 137 mEQ/L (135-145) 141 mEQ/L (135-145) Potassium Level 3.1 mEQ/L (3.4-4.9) L 2.9 mEQ/L (3.4-4.9) L Chloride Level 93 mEQ/L (98-107) L 101 mEQ/L (98-107) Carbon Dioxide Level 26 mEQ/L (20-30) 21 mEQ/L (20-30) Anion Gap 18 (5-15) H 19 (5-15) H Blood Urea Nitrogen 33 mg/dL (7-23) H 40 mg/dL (7-23) H Creatinine 4.7 mg/dL (0.7-1.2) H 5.1 mg/dL (0.7-1.2) H Estimat Glomerular Filtration Rate 12.8 mL/min (>60) 11.6 mL/min (>60) Glucose Level 186 mg/dL (74-106) H 132 mg/dL (74-106) H Calcium Level 8.6 mg/dL (8.6-10.2) 7.9 mg/dL (8.6-10.2) L Total Bilirubin 0.8 mg/dL (0.0-1.2) 0.7 mg/dL (0.0-1.2) Aspartate Amino Transf (AST/SGOT) 113 U/L (5-40) H 53 U/L (5-40) H Alanine Aminotransferase (ALT/SGPT) 67 U/L (3-41) H 37 U/L (3-41) Alkaline Phosphatase 68 U/L (40-129) 64 U/L (40-129) Troponin I < 0.30 ng/mL (<=0.30) Total Protein 6.6 g/dL (6.6-8.7) 5.5 g/dL (6.6-8.7) L Albumin 2.5 g/dL (3.5-5.2) L 1.8 g/dL (3.5-5.2) L Globulin 4.1 g/dL 3.7 g/dL Albumin/Globulin Ratio 0.6 (1.0-2.7) L 0.4 (1.0-2.7) L Microbiology Date/Time Source Procedure Growth Status 05/16/16 05:05 Stool Clostridium difficile Toxin Assay - Final Complete Objective HEAD AND NECK: Orally intubated.NG tube in. LUNGS: Coarse rhonchi. CARDIOVASCULAR: Regular S1 and S2 with no gallop or rub. ABDOMEN: Soft and nontender. EXTREMITIES: Status post right below-knee amputation. He has dialysis access in the right femoral area. THU MONREAL May 18, 2016 14:19
[2016-05-18] MEDS ORDERED: Miralax 17gm pkt ORAL PRN (14:45)
--- NOTE | 2016-05-18 14:46 | GI Progress Note ---
Assessment/Plan Problems: (1) On tube feeding diet ICD Codes: Z78.9 - Other specified health status SNOMED: 09748353 (2) C. difficile colitis ICD Codes: A04.7 - Enterocolitis due to Clostridium difficile SNOMED: 796895764 (3) Methamphetamine abuse ICD Codes: F15.10 - Other stimulant abuse, uncomplicated SNOMED: 491572860 (4) Anemia, chronic disease ICD Codes: D63.8 - Anemia in other chronic diseases classified elsewhere SNOMED: 371552878 (5) Diabetes ICD Codes: E11.9 - Diabetes SNOMED: 10732264 Status: unchanged Status Narrative Discussed with Dr. Irizarry. Assessment/Plan Assessment - AMS - C Diff (+) - UTI - PNA - dysphagia - HTN - amputation - Renal failure Recommendations - Hold TF - Elevate HOB - Abx per ID - on Vanco and flagyl now - follow labs Subjective Subjective limited, pt in ICU Objective Last 24 Hour Vital Signs Date Time Temp Pulse Resp B/P Pulse Ox O2 Delivery O2 Flow Rate FiO2 05/18/16 14:00 90 20 111/58 99 Mechanical Ventilator 50 05/18/16 13:18 94 17 50 05/18/16 13:00 88 18 117/57 100 Mechanical Ventilator 50 05/18/16 12:00 82 05/18/16 12:00 97.9 87 17 109/61 100 Mechanical Ventilator 50 05/18/16 11:59 50 05/18/16 11:00 91 17 12/43 100 Mechanical Ventilator 50 05/18/16 10:30 92 16 50 05/18/16 10:00 89 17 101/43 100 Mechanical Ventilator 50 05/18/16 09:40 Mechanical Ventilator 50 05/18/16 09:38 98.0 85 20 122/53 99 Mechanical Ventilator 50 05/18/16 09:26 94 16 50 05/18/16 09:00 90 17 101/43 100 Mechanical Ventilator 50 05/18/16 09:00 50 05/18/16 09:00 98 119/83 05/18/16 08:00 98.0 92 17 101/45 100 Mechanical Ventilator 50 05/18/16 08:00 81 05/18/16 07:03 89 16 50 05/18/16 07:00 80 17 110/45 100 Mechanical Ventilator 50 05/18/16 06:00 86 16 103/37 99 Mechanical Ventilator 50 05/18/16 06:00 86 05/18/16 05:45 97.8 84 16 103/45 Mechanical Ventilator 50 05/18/16 05:45 Mechanical Ventilator 50 05/18/16 05:25 86 17 50 05/18/16 05:00 84 16 103/44 99 Mechanical Ventilator 50 05/18/16 04:00 98.4 81 17 129/51 99 Mechanical Ventilator 50 05/18/16 03:00 82 20 94/43 99 Mechanical Ventilator 50 05/18/16 02:58 84 16 50 05/18/16 02:00 98.0 84 20 108/44 99 Mechanical Ventilator 50 05/18/16 01:20 89 16 50 05/18/16 01:00 87 24 102/50 99 Mechanical Ventilator 50 05/18/16 00:00 100.1 87 23 91/47 99 Mechanical Ventilator 50 05/18/16 00:00 87 05/17/16 23:13 91 16 50 05/17/16 23:00 94 24 113/69 99 Mechanical Ventilator 50 05/17/16 22:00 91 22 99/57 100 Mechanical Ventilator 50 05/17/16 21:17 90 16 50 05/17/16 21:00 98 23 94/61 100 Mechanical Ventilator 50 05/17/16 20:35 99 114/45 05/17/16 20:00 98.9 94 24 114/45 100 Mechanical Ventilator 50 05/17/16 20:00 50 05/17/16 20:00 99 05/17/16 19:38 97.7 05/17/16 19:04 96 16 50 05/17/16 19:00 96 22 114/57 100 Mechanical Ventilator 60 05/17/16 18:00 102 22 100/51 100 Mechanical Ventilator 60 05/17/16 17:21 60 05/17/16 17:05 108 28 50 05/17/16 17:00 102 22 90/48 100 Mechanical Ventilator 60 05/17/16 16:00 102 05/17/16 16:00 98.7 103 22 92/46 100 Mechanical Ventilator 60 05/17/16 15:51 60 05/17/16 15:00 101 20 109/64 100 Mechanical Ventilator 100 05/17/16 14:56 125 21 100 Intake and Output 05/17/16 05/18/16 19:00 07:00 Intake Total 150 ml 880 ml Output Total 40 ml 95 ml Balance 110 ml 785 ml IV Total 150 ml 850 ml Other 30 ml Output Urine Total 40 ml 95 ml # Bowel Movements 2 4 Laboratory Tests Test 05/17/16 15:22 05/17/16 15:30 05/18/16 04:00 Arterial Blood pH 7.406 (7.350-7.450) Arterial Blood Partial Pressure CO2 41.1 mmHg (35.0-45.0) Arterial Blood Partial Pressure O2 148.5 mmHg (75.0-100.0) H Arterial Blood HCO3 25.2 mmol/L (22.0-26.0) Arterial Blood Oxygen Saturation 98.9 % (92.0-98.0) H Arterial Blood Base Excess 0.6 Tadeo Test Positive White Blood Count 17.5 K/UL (4.8-10.8) H 14.0 K/UL (4.8-10.8) H Red Blood Count 3.05 M/UL (4.70-6.10) L 2.59 M/UL (4.70-6.10) L Hemoglobin 10.0 G/DL (14.2-18.0) L 8.7 G/DL (14.2-18.0) L Hematocrit 30.5 % (42.0-52.0) L 25.6 % (42.0-52.0) L Mean Corpuscular Volume 100 FL (80-99) H 99 FL (80-99) Mean Corpuscular Hemoglobin 32.7 PG (27.0-31.0) H 33.6 PG (27.0-31.0) H Mean Corpuscular Hemoglobin Concent 32.8 G/DL (32.0-36.0) 34.0 G/DL (32.0-36.0) Red Cell Distribution Width 14.2 % (11.6-14.8) 13.5 % (11.6-14.8) Platelet Count 227 K/UL (150-450) 238 K/UL (150-450) Mean Platelet Volume 5.6 FL (6.5-10.1) L 6.0 FL (6.5-10.1) L Neutrophils (%) (Auto) 76.3 % (45.0-75.0) H 78.7 % (45.0-75.0) H Lymphocytes (%) (Auto) 14.8 % (20.0-45.0) L 12.3 % (20.0-45.0) L Monocytes (%) (Auto) 7.1 % (1.0-10.0) 7.2 % (1.0-10.0) Eosinophils (%) (Auto) 1.4 % (0.0-3.0) 1.3 % (0.0-3.0) Basophils (%) (Auto) 0.5 % (0.0-2.0) 0.6 % (0.0-2.0) Sodium Level 137 mEQ/L (135-145) 141 mEQ/L (135-145) Potassium Level 3.1 mEQ/L (3.4-4.9) L 2.9 mEQ/L (3.4-4.9) L Chloride Level 93 mEQ/L (98-107) L 101 mEQ/L (98-107) Carbon Dioxide Level 26 mEQ/L (20-30) 21 mEQ/L (20-30) Anion Gap 18 (5-15) H 19 (5-15) H Blood Urea Nitrogen 33 mg/dL (7-23) H 40 mg/dL (7-23) H Creatinine 4.7 mg/dL (0.7-1.2) H 5.1 mg/dL (0.7-1.2) H Estimat Glomerular Filtration Rate 12.8 mL/min (>60) 11.6 mL/min (>60) Glucose Level 186 mg/dL (74-106) H 132 mg/dL (74-106) H Calcium Level 8.6 mg/dL (8.6-10.2) 7.9 mg/dL (8.6-10.2) L Total Bilirubin 0.8 mg/dL (0.0-1.2) 0.7 mg/dL (0.0-1.2) Aspartate Amino Transf (AST/SGOT) 113 U/L (5-40) H 53 U/L (5-40) H Alanine Aminotransferase (ALT/SGPT) 67 U/L (3-41) H 37 U/L (3-41) Alkaline Phosphatase 68 U/L (40-129) 64 U/L (40-129) Troponin I < 0.30 ng/mL (<=0.30) Total Protein 6.6 g/dL (6.6-8.7) 5.5 g/dL (6.6-8.7) L Albumin 2.5 g/dL (3.5-5.2) L 1.8 g/dL (3.5-5.2) L Globulin 4.1 g/dL 3.7 g/dL Albumin/Globulin Ratio 0.6 (1.0-2.7) L 0.4 (1.0-2.7) L Height (Feet): 5 Height (Inches): 7.00 Weight (Pounds): 129 General Appearance: lethargic Cardiovascular: normal rate Respiratory/Chest: other - mech vent Abdominal Exam: other - STALINT Tia Pederson N.P. May 18, 2016 14:46
--- NOTE | 2016-05-18 16:11 | Infectious Diseases Prog Note ---
Assessment/Plan Problems: (1) C. difficile diarrhea Assessment & Plan: on oral vancomycin and IV flagyl for sever C diff infection , continue hydration, avoid antacids (2) Sepsis Assessment & Plan: most likely due to C diff infection, was treated for UTI already with meropenem, on oral vancomycin and IV flagyl. keep off antacid and Imodium (3) UTI (urinary tract infection) Assessment & Plan: with E coli pansensitive , was treated with antibiotics 5 days (4) ESRD on dialysis Assessment & Plan: renal is following , continue HD (5) Diabetes Assessment & Plan: recommend tight glycemic control to keep blood glucose between 80-120 (6) Colonization with VRE (vancomycin-resistant enterococcus) Assessment & Plan: keep on contact isolation (7) Altered level of consciousness Assessment & Plan: due to hypoxemia and fluids overload, intubated, continue HD to remove fluids, monitor CXR, pulmonary is following Subjective ROS Limited/Unobtainable: Yes Allergies: Coded Allergies: No Known Allergies (Unverified , 09/05/13) Subjective he is intubated, but awake and alert, not in distress, afebrile, on mechanical ventilation . Objective Vital Signs Last 24 Hour Vital Signs Date Time Temp Pulse Resp B/P Pulse Ox O2 Delivery O2 Flow Rate FiO2 05/18/16 15:23 81 16 50 05/18/16 15:00 91 21 118/56 98 Mechanical Ventilator 50 05/18/16 14:00 90 20 111/58 99 Mechanical Ventilator 50 05/18/16 13:18 94 17 50 05/18/16 13:00 88 18 117/57 100 Mechanical Ventilator 50 05/18/16 12:00 82 05/18/16 12:00 97.9 87 17 109/61 100 Mechanical Ventilator 50 05/18/16 11:59 50 05/18/16 11:00 91 17 12/43 100 Mechanical Ventilator 50 05/18/16 10:30 92 16 50 05/18/16 10:00 89 17 101/43 100 Mechanical Ventilator 50 05/18/16 09:40 Mechanical Ventilator 50 05/18/16 09:38 98.0 85 20 122/53 99 Mechanical Ventilator 50 05/18/16 09:26 94 16 50 05/18/16 09:00 90 17 101/43 100 Mechanical Ventilator 50 05/18/16 09:00 50 05/18/16 09:00 98 119/83 3/13/17 08:00 98.0 92 17 101/45 100 Mechanical Ventilator 50 05/18/16 08:00 81 05/18/16 07:03 89 16 50 05/18/16 07:00 80 17 110/45 100 Mechanical Ventilator 50 05/18/16 06:00 86 16 103/37 99 Mechanical Ventilator 50 05/18/16 06:00 86 05/18/16 05:45 97.8 84 16 103/45 Mechanical Ventilator 50 05/18/16 05:45 Mechanical Ventilator 50 05/18/16 05:25 86 17 50 05/18/16 05:00 84 16 103/44 99 Mechanical Ventilator 50 05/18/16 04:00 98.4 81 17 129/51 99 Mechanical Ventilator 50 05/18/16 03:00 82 20 94/43 99 Mechanical Ventilator 50 05/18/16 02:58 84 16 50 05/18/16 02:00 98.0 84 20 108/44 99 Mechanical Ventilator 50 05/18/16 01:20 89 16 50 05/18/16 01:00 87 24 102/50 99 Mechanical Ventilator 50 05/18/16 00:00 100.1 87 23 91/47 99 Mechanical Ventilator 50 05/18/16 00:00 87 05/17/16 23:13 91 16 50 05/17/16 23:00 94 24 113/69 99 Mechanical Ventilator 50 05/17/16 22:00 91 22 99/57 100 Mechanical Ventilator 50 05/17/16 21:17 90 16 50 05/17/16 21:00 98 23 94/61 100 Mechanical Ventilator 50 05/17/16 20:35 99 114/45 05/17/16 20:00 98.9 94 24 114/45 100 Mechanical Ventilator 50 05/17/16 20:00 50 05/17/16 20:00 99 05/17/16 19:38 97.7 05/17/16 19:04 96 16 50 05/17/16 19:00 96 22 114/57 100 Mechanical Ventilator 60 05/17/16 18:00 102 22 100/51 100 Mechanical Ventilator 60 05/17/16 17:21 60 05/17/16 17:05 108 28 50 05/17/16 17:00 102 22 90/48 100 Mechanical Ventilator 60 Height (Feet): 5 Height (Inches): 7.00 Weight (Pounds): 129 General Appearance: WD/WN, no acute distress HEENT: normocephalic, atraumatic, anicteric Respiratory/Chest: normal breath sounds, no respiratory distress, decreased breath sounds, crackles/rales, expiratory wheezing Cardiovascular: normal peripheral pulses, normal rate, regular rhythm, no JVD Abdomen: soft, non tender, no organomegaly, no mass, no scars, hyperactive bowel sounds, distended Extremities: no cyanosis, no clubbing Skin: no rash, no lesions Microbiology Date/Time Source Procedure Growth Status 05/16/16 05:05 Stool Clostridium difficile Toxin Assay - Final Complete Laboratory Tests Test 05/18/16 04:00 White Blood Count 14.0 K/UL (4.8-10.8) H Red Blood Count 2.59 M/UL (4.70-6.10) L Hemoglobin 8.7 G/DL (14.2-18.0) L Hematocrit 25.6 % (42.0-52.0) L Mean Corpuscular Volume 99 FL (80-99) Mean Corpuscular Hemoglobin 33.6 PG (27.0-31.0) H Mean Corpuscular Hemoglobin Concent 34.0 G/DL (32.0-36.0) Red Cell Distribution Width 13.5 % (11.6-14.8) Platelet Count 238 K/UL (150-450) Mean Platelet Volume 6.0 FL (6.5-10.1) L Neutrophils (%) (Auto) 78.7 % (45.0-75.0) H Lymphocytes (%) (Auto) 12.3 % (20.0-45.0) L Monocytes (%) (Auto) 7.2 % (1.0-10.0) Eosinophils (%) (Auto) 1.3 % (0.0-3.0) Basophils (%) (Auto) 0.6 % (0.0-2.0) Sodium Level 141 mEQ/L (135-145) Potassium Level 2.9 mEQ/L (3.4-4.9) L Chloride Level 101 mEQ/L (98-107) Carbon Dioxide Level 21 mEQ/L (20-30) Anion Gap 19 (5-15) H Blood Urea Nitrogen 40 mg/dL (7-23) H Creatinine 5.1 mg/dL (0.7-1.2) H Estimat Glomerular Filtration Rate 11.6 mL/min (>60) Glucose Level 132 mg/dL (74-106) H Calcium Level 7.9 mg/dL (8.6-10.2) L Total Bilirubin 0.7 mg/dL (0.0-1.2) Aspartate Amino Transf (AST/SGOT) 53 U/L (5-40) H Alanine Aminotransferase (ALT/SGPT) 37 U/L (3-41) Alkaline Phosphatase 64 U/L (40-129) Total Protein 5.5 g/dL (6.6-8.7) L Albumin 1.8 g/dL (3.5-5.2) L Globulin 3.7 g/dL Albumin/Globulin Ratio 0.4 (1.0-2.7) L Current Medications Medications (Trade) Dose Ordered Sig/Chelsea Route PRN Reason Start Time Stop Time Status Last Admin Dose Admin Acetaminophen (Tylenol) 1,000 mg Q6H PRN ORAL Mild Pain/Temp > 100.5 05/17/16 20:45 06/16/16 20:44 Albuterol/ Ipratropium (DuoNeb 0.5-3(2.5)mg/3ml) 3 ml Q4H PRN HHN Shortness of Breath 05/17/16 18:45 05/22/16 18:44 Clonidine HCl (Catapres) 0.1 mg Q6H PRN ORAL SBP>160 05/17/16 21:00 06/16/16 20:59 Dextrose (Dextrose 50%) STAT PRN IV Hypoglycemia 05/18/16 14:45 06/17/16 14:44 Dextrose/Sodium Chloride 1,000 ml @ 50 mls/hr Q20H IV 05/17/16 16:00 06/16/16 15:59 05/17/16 16:00 Heparin Sodium (Porcine) (Heparin 5000 units/ml) 5,000 units EVERY 12 HOURS SUBQ 05/17/16 21:00 06/16/16 20:59 05/18/16 10:08 Insulin Aspart (NovoLOG) Q6HR SUBQ 05/17/16 18:00 06/16/16 17:59 05/18/16 12:48 Lorazepam (Ativan 2mg/ml 1ml) 2 mg Q4H PRN IV PRN FOR TREMORS 05/18/16 11:00 05/25/16 10:59 Metoprolol Tartrate (Lopressor) 25 mg Q12HR NG 05/17/16 21:00 06/16/16 20:59 05/18/16 09:00 Metronidazole (Flagyl) 100 ml @ 100 mls/hr Q8HR IVPB 05/17/16 22:00 05/24/16 21:59 05/18/16 14:00 Morphine Sulfate (Morphine Sulfate) 4 mg Q4H PRN IVP Moderate Pain (Pain Scale 4-6) 05/18/16 10:30 05/25/16 10:29 Nitroglycerin (Ntg) 0.4 mg Q5M PRN SL Prn Chest Pain 05/17/16 15:30 06/16/16 15:29 Ondansetron HCl (Zofran) 4 mg Q6H PRN IVP Nausea & Vomiting 05/17/16 20:45 06/16/16 20:44 05/18/16 10:05 Pantoprazole (Protonix) 40 mg EVERY 12 HOURS IVP 05/18/16 09:00 06/17/16 08:59 05/18/16 10:04 Polyethylene Glycol (Miralax) 17 gm DAILYPRN PRN ORAL Constipation 05/18/16 14:45 06/17/16 14:44 Vancomycin HCl (Vancomycin) 125 mg FOUR TIMES A DAY ORAL 05/17/16 18:00 05/24/16 17:59 05/18/16 12:46 Bandar Cartwright M.D. May 18, 2016 16:11
[2016-05-19] VITALS (24 sets, daily range): BP systolic 92–142; BP diastolic 45–106
[2016-05-19] MEDS: Acetaminophen 500mg (ES) tab ORAL PRN (01:23)
[2016-05-19] MEDS: NovoLOG Insulin Flexpen SUBQ SCH ×3 (05:54→18:30)
[2016-05-19] MEDS: metroNIDAZOLE 500mg 100 ML IVPB SCH ×3 (05:54→21:44)
[2016-05-19 06:29] LABS: BASOPHILS % (AUTO) 0.7 % (0.0-2.0); EOSINOPHILS % (AUTO) 4.4 % (0.0-3.0); LYMPHOCYTES % (AUTO) 15.9 % (20.0-45.0); MEAN CORPUSCULAR HEMOGLOBIN 32.2 PG (27.0-31.0); MEAN CORPUSCULAR VOLUME 101 FL (80-99); MEAN PLATELET VOLUME 6.1 FL (6.5-10.1); NEUTROPHILS % (AUTO) 71.9 % (45.0-75.0); PLATELET COUNT 237 K/UL (150-450); RED BLOOD COUNT 2.65 M/UL (4.70-6.10); RED CELL DISTRIBUTION WIDTH 13.3 % (11.6-14.8); WHITE BLOOD COUNT 13.1 K/UL (4.8-10.8)
[2016-05-19 07:22] LABS: ALBUMIN/GLOBULIN RATIO 0.5 (1.0-2.7); CREATININE 3.8 mg/dL (0.7-1.2); GLOMERULAR FILTRATION RATE 16.3 mL/min (>60); MAGNESIUM 1.7 mg/dL (1.7-2.5); PHOSPHORUS 1.6 mg/dL (2.5-4.8); TOTAL PROTEIN 5.8 g/dL (6.6-8.7)
[2016-05-19 07:28] LABS: POTASSIUM 2.8 mEQ/L (3.4-4.9)
[2016-05-19 08:26] LABS: ABG BASE EXCESS 5
[2016-05-19] MEDS: Vancomycin oral 125mg/2.5ml ORAL SCH ×4 (09:00→21:45)
[2016-05-19] MEDS: Metoprolol 25mg tab NG SCH ×2 (09:00→21:00)
[2016-05-19] MEDS: Heparin 5000 units/ml inj SUBQ SCH ×2 (09:00→21:46)
[2016-05-19] MEDS: Pantoprazole Inj IVP SCH (09:00)
--- NOTE | 2016-05-19 09:14 | Diagnostic Imaging Report ---
Indication: DYSPNEA Technique: One view of the chest Comparison: none Findings: Interim withdrawal of endotracheal tube, tip none improved position just above the antonio. Stable satisfactory position of nasogastric tube. Bilateral infiltrates are again demonstrated. There is now suggestion of left costophrenic angle blunting, which could indicate some atelectasis or pleural fluid. Impression: Improved position of endotracheal tube, tip now just above the antonio
[2016-05-19] MEDS ORDERED: NS 550ML IV ONE (10:56)
--- NOTE | 2016-05-19 11:57 | Diagnostic Imaging Report ---
Indication: DYSPNEA Technique: One view of the chest Comparison: 05/18/2016 Findings: Endotracheal tube remains just above the antonio. There is interim marked increase in left pulmonary opacification, likely indicates increasing pleural fluid.. There is persistent right infrahilar parenchymal opacity. Nasogastric tube is coiled in the gastric fundus. Impression: Markedly increased, now large, left pleural effusion, over one day Other stable findings as described
--- NOTE | 2016-05-19 12:23 | Pulmonolgy Critical Care Note ---
Critical Care - Asmt/Plan Problems: (1) Acute respiratory failure (2) Nosocomial pneumonia (3) C. difficile colitis (4) ESRD on dialysis (5) Sepsis Respiratory: monitor respiratory rate, adjust FIO2, CXR, other - Keep left chest elevated Cardiac: continue to monitor HR/BP Renal: F/U I&O, other - on Hd Infectious Disease: check cultures, continue antibiotics Gastrointestinal: continue feedings/current rate Endocrine: monitor blood sugar, continue sliding scale insulin Hematologic: transfuse if hgb<8.5 Neurologic: PRN Ativan, PRN Morphine, keep patient comfortable Affect: PRN ativan Prophylaxis: Protonix, Heparin Disposition: keep in ICU Notes Reviewed: coal cutter, cardio, renal Discussed with: nurses, consultants, rifle case repairergeophysical manager - Objective Last 24 Hour Vital Signs Date Time Temp Pulse Resp B/P Pulse Ox O2 Delivery O2 Flow Rate FiO2 05/19/16 12:02 50 05/19/16 12:02 79 05/19/16 12:00 98.5 80 18 132/56 100 Mechanical Ventilator 50 05/19/16 11:00 81 17 131/53 100 Mechanical Ventilator 50 05/19/16 10:54 83 16 50 05/19/16 10:00 83 16 104/65 100 Mechanical Ventilator 50 05/19/16 09:00 79 16 122/49 100 Mechanical Ventilator 50 05/19/16 09:00 85 126/70 05/19/16 08:45 84 16 50 05/19/16 08:00 98.5 85 16 105/52 100 Mechanical Ventilator 50 05/19/16 08:00 50 05/19/16 08:00 80 05/19/16 07:00 79 16 119/106 100 Mechanical Ventilator 50 05/19/16 06:59 81 16 50 05/19/16 06:00 85 16 105/71 100 Mechanical Ventilator 50 05/19/16 05:10 83 16 50 05/19/16 05:00 79 16 96/56 100 Mechanical Ventilator 50 05/19/16 04:00 98.6 76 16 97/46 100 Mechanical Ventilator 50 05/19/16 04:00 74 05/19/16 04:00 50 05/19/16 03:32 93 16 50 05/19/16 03:00 77 16 111/49 100 Mechanical Ventilator 50 05/19/16 02:30 98.7 05/19/16 02:00 83 16 98/54 98 Mechanical Ventilator 50 05/19/16 01:46 91 16 50 05/19/16 01:00 100.0 82 18 106/50 100 Mechanical Ventilator 50 05/19/16 00:00 89 05/19/16 00:00 50 05/19/16 00:00 85 16 105/45 95 Mechanical Ventilator 50 05/18/16 23:00 87 16 99/66 96 Mechanical Ventilator 50 05/18/16 22:31 90 16 50 05/18/16 22:00 85 16 119/45 100 Mechanical Ventilator 50 05/18/16 21:53 90 119/62 05/18/16 21:52 89 16 50 05/18/16 21:00 90 16 126/63 100 Mechanical Ventilator 50 05/18/16 20:00 97.3 87 16 124/48 100 Mechanical Ventilator 50 05/18/16 20:00 50 05/18/16 20:00 87 05/18/16 19:21 96 18 50 05/18/16 19:00 94 16 103/50 97 Mechanical Ventilator 50 05/18/16 18:00 92 16 118/55 97 Mechanical Ventilator 50 05/18/16 17:00 93 16 107/66 92 Mechanical Ventilator 50 05/18/16 16:51 92 16 50 05/18/16 16:00 50 05/18/16 16:00 97.7 95 16 113/56 89 Mechanical Ventilator 50 05/18/16 16:00 95 05/18/16 15:23 81 16 50 05/18/16 15:00 91 21 118/56 98 Mechanical Ventilator 50 05/18/16 14:00 90 20 111/58 99 Mechanical Ventilator 50 05/18/16 13:18 94 17 50 05/18/16 13:00 88 18 117/57 100 Mechanical Ventilator 50 Status: somnolent Condition: critical HEENT: atraumatic Neck: full ROM Lungs: rales, rhonchi Heart: HR/BP stable, HR/BP unstable Abdomen: soft, non-tender, active bowel sounds, feeding tube Extremities: no C/C/E, edema Accucheck: 151 Critical Care - Subjective ROS Limited/Unobtainable: Yes ICU Day: 2 Intubation Day: 2 Condition: critical EKG Rhythm: Sinus Rhythm FI02: 50 Vent Support Breath Rate: 16 Vent Support Mode: AC Vent Tidal Volume: 600 Sputum Amount: Moderate PIP: 27 Tube Feeding Amount: 40 I&O: Intake and Output 05/18/16 05/19/16 19:00 07:00 Intake Total 900 ml 1050 ml Output Total 400 ml 25 ml Balance 500 ml 1025 ml Intake Oral 120 ml IV Total 600 ml 700 ml Tube Feeding 180 ml 350 ml Output Urine Total 0 ml 25 ml Hemodialysis UF 400 ml # Bowel Movements 2 3 CXR: LLL atelectasis ET in good position ET-Tube: 7.5 ET Position: 22 Labs: Laboratory Tests Test 05/19/16 05:45 05/19/16 08:13 White Blood Count 13.1 K/UL (4.8-10.8) H Red Blood Count 2.65 M/UL (4.70-6.10) L Hemoglobin 8.5 G/DL (14.2-18.0) L Hematocrit 26.7 % (42.0-52.0) L Mean Corpuscular Volume 101 FL (80-99) H Mean Corpuscular Hemoglobin 32.2 PG (27.0-31.0) H Mean Corpuscular Hemoglobin Concent 32.0 G/DL (32.0-36.0) Red Cell Distribution Width 13.3 % (11.6-14.8) Platelet Count 237 K/UL (150-450) Mean Platelet Volume 6.1 FL (6.5-10.1) L Neutrophils (%) (Auto) 71.9 % (45.0-75.0) Lymphocytes (%) (Auto) 15.9 % (20.0-45.0) L Monocytes (%) (Auto) 7.0 % (1.0-10.0) Eosinophils (%) (Auto) 4.4 % (0.0-3.0) H Basophils (%) (Auto) 0.7 % (0.0-2.0) Sodium Level 138 mEQ/L (135-145) Potassium Level 2.8 mEQ/L (3.4-4.9) L Chloride Level 96 mEQ/L (98-107) L Carbon Dioxide Level 26 mEQ/L (20-30) Anion Gap 16 (5-15) H Blood Urea Nitrogen 24 mg/dL (7-23) H Creatinine 3.8 mg/dL (0.7-1.2) H Estimat Glomerular Filtration Rate 16.3 mL/min (>60) Glucose Level 189 mg/dL (74-106) H Calcium Level 8.0 mg/dL (8.6-10.2) L Phosphorus Level 1.6 mg/dL (2.5-4.8) L Magnesium Level 1.7 mg/dL (1.7-2.5) Total Bilirubin 0.4 mg/dL (0.0-1.2) Aspartate Amino Transf (AST/SGOT) 27 U/L (5-40) Alanine Aminotransferase (ALT/SGPT) 21 U/L (3-41) Alkaline Phosphatase 62 U/L (40-129) Total Protein 5.8 g/dL (6.6-8.7) L Albumin 2.1 g/dL (3.5-5.2) L Globulin 3.7 g/dL Albumin/Globulin Ratio 0.5 (1.0-2.7) L Arterial Blood pH 7.500 (7.350-7.450) Arterial Blood Partial Pressure CO2 38.0 mmHg (35.0-45.0) Arterial Blood Partial Pressure O2 58.0 mmHg (75.0-100.0) L Arterial Blood HCO3 29.0 mmol/L (22.0-26.0) H Arterial Blood Oxygen Saturation 89.0 % (92.0-98.0) L Arterial Blood Base Excess 5 Tadeo Test JEFF INMAN May 19, 2016 12:23
--- NOTE | 2016-05-19 15:00 | General Progress Note ---
Assessment/Plan Problem List: (1) Respiratory failure ICD Codes: J96.90 - Respiratory failure, unspecified, unspecified whether with hypoxia or hypercapnia SNOMED: 900566448 (2) ESRD on dialysis ICD Codes: N18.6 - ESRD on dialysis; Z99.2 - Dependence on renal dialysis SNOMED: 289184581 (3) Sepsis ICD Codes: A41.9 - Sepsis, unspecified organism SNOMED: 00528570 (4) CVA (cerebral vascular accident) ICD Codes: I63.9 - Cerebral infarction, unspecified SNOMED: 159153621 (5) Encephalopathy ICD Codes: G93.40 - Encephalopathy SNOMED: 04507940 (6) Seizure ICD Codes: R56.9 - Seizure SNOMED: 94610853 (7) Altered level of consciousness ICD Codes: R40.4 - Transient alteration of awareness SNOMED: 5731647 (8) UTI (urinary tract infection) ICD Codes: N39.0 - Urinary tract infection, site not specified SNOMED: 44129616 Qualifiers: Qualified Codes: N30.01 - Acute cystitis with hematuria Status: unchanged Assessment/Plan vent abx cbc bmp am Subjective Constitutional: Reports: weakness Allergies: Coded Allergies: No Known Allergies (Unverified , 09/05/13) All Systems: reviewed and negative except above Subjective intub ng in icu Objective Last 24 Hour Vital Signs Date Time Temp Pulse Resp B/P Pulse Ox O2 Delivery O2 Flow Rate FiO2 05/19/16 14:00 85 18 120/65 100 Mechanical Ventilator 50 05/19/16 13:00 86 20 107/53 99 Mechanical Ventilator 50 05/19/16 12:43 84 16 50 05/19/16 12:02 50 05/19/16 12:02 79 05/19/16 12:00 98.5 80 18 132/56 100 Mechanical Ventilator 50 05/19/16 11:00 81 17 131/53 100 Mechanical Ventilator 50 05/19/16 10:54 83 16 50 05/19/16 10:00 83 16 104/65 100 Mechanical Ventilator 50 05/19/16 09:00 79 16 122/49 100 Mechanical Ventilator 50 05/19/16 09:00 85 126/70 05/19/16 08:45 84 16 50 05/19/16 08:00 98.5 85 16 105/52 100 Mechanical Ventilator 50 05/19/16 08:00 50 05/19/16 08:00 80 05/19/16 07:00 79 16 119/106 100 Mechanical Ventilator 50 05/19/16 06:59 81 16 50 05/19/16 06:00 85 16 105/71 100 Mechanical Ventilator 50 05/19/16 05:10 83 16 50 05/19/16 05:00 79 16 96/56 100 Mechanical Ventilator 50 05/19/16 04:00 98.6 76 16 97/46 100 Mechanical Ventilator 50 05/19/16 04:00 74 05/19/16 04:00 50 05/19/16 03:32 93 16 50 05/19/16 03:00 77 16 111/49 100 Mechanical Ventilator 50 05/19/16 02:30 98.7 05/19/16 02:00 83 16 98/54 98 Mechanical Ventilator 50 05/19/16 01:46 91 16 50 05/19/16 01:00 100.0 82 18 106/50 100 Mechanical Ventilator 50 05/19/16 00:00 89 05/19/16 00:00 50 05/19/16 00:00 85 16 105/45 95 Mechanical Ventilator 50 05/18/16 23:00 87 16 99/66 96 Mechanical Ventilator 50 05/18/16 22:31 90 16 50 05/18/16 22:00 85 16 119/45 100 Mechanical Ventilator 50 05/18/16 21:53 90 119/62 05/18/16 21:52 89 16 50 05/18/16 21:00 90 16 126/63 100 Mechanical Ventilator 50 05/18/16 20:00 97.3 87 16 124/48 100 Mechanical Ventilator 50 05/18/16 20:00 50 05/18/16 20:00 87 05/18/16 19:21 96 18 50 05/18/16 19:00 94 16 103/50 97 Mechanical Ventilator 50 05/18/16 18:00 92 16 118/55 97 Mechanical Ventilator 50 05/18/16 17:00 93 16 107/66 92 Mechanical Ventilator 50 05/18/16 16:51 92 16 50 05/18/16 16:00 50 05/18/16 16:00 97.7 95 16 113/56 89 Mechanical Ventilator 50 05/18/16 16:00 95 05/18/16 15:23 81 16 50 05/18/16 15:00 91 21 118/56 98 Mechanical Ventilator 50 Intake and Output 05/18/16 05/19/16 19:00 07:00 Intake Total 900 ml 1050 ml Output Total 400 ml 25 ml Balance 500 ml 1025 ml Intake Oral 120 ml IV Total 600 ml 700 ml Tube Feeding 180 ml 350 ml Output Urine Total 0 ml 25 ml Hemodialysis UF 400 ml # Bowel Movements 2 3 Laboratory Tests 05/19/16 05:45: White Blood Count 13.1H, Red Blood Count 2.65L, Hemoglobin 8.5L, Hematocrit 26.7L, Mean Corpuscular Volume 101H, Mean Corpuscular Hemoglobin 32.2H, Mean Corpuscular Hemoglobin Concent 32.0, Red Cell Distribution Width 13.3, Platelet Count 237, Mean Platelet Volume 6.1L, Neutrophils (%) (Auto) 71.9, Lymphocytes ( %) (Auto) 15.9L, Monocytes (%) (Auto) 7.0, Eosinophils (%) (Auto) 4.4H, Basophils (%) (Auto) 0.7, Sodium Level 138, Potassium Level 2.8L, Chloride Level 96L, Carbon Dioxide Level 26, Anion Gap 16H, Blood Urea Nitrogen 24H, Creatinine 3.8H, Estimat Glomerular Filtration Rate 16.3, Glucose Level 189H, Calcium Level 8.0L, Phosphorus Level 1.6L, Magnesium Level 1.7, Total Bilirubin 0.4, Aspartate Amino Transf (AST/SGOT) 27, Alanine Aminotransferase (ALT/SGPT) 21, Alkaline Phosphatase 62, Total Protein 5.8L, Albumin 2.1L, Globulin 3.7, Albumin/Globulin Ratio 0.5L 05/19/16 08:13: Arterial Blood pH 7.500H, Arterial Blood Partial Pressure CO2 38.0, Arterial Blood Partial Pressure O2 58.0L, Arterial Blood HCO3 29.0H, Arterial Blood Oxygen Saturation 89.0L, Arterial Blood Base Excess 5, Tadeo Test Height (Feet): 5 Height (Inches): 7.00 Weight (Pounds): 129 General Appearance: lethargic EENT: normal ENT inspection Neck: normal alignment Cardiovascular: normal peripheral pulses, normal rate, regular rhythm Respiratory/Chest: chest wall non-tender, lungs clear, normal breath sounds Abdomen: normal bowel sounds, non tender, soft Extremities: normal inspection Edema: no edema noted Arm (L), no edema noted Arm (R), no edema noted Leg (L), no edema noted Leg (R), no edema noted Pedal (L), no edema noted Pedal (R), no edema noted Generalized Neurologic: motor weakness Skin: normal pigmentation, warm/dry VANDANA INMAN May 19, 2016 15:00
[2016-05-19] MEDS ORDERED: Tubing IV Secondary IV ONE (15:21)
--- NOTE | 2016-05-19 15:45 | GI Progress Note ---
Assessment/Plan Problems: (1) On tube feeding diet ICD Codes: Z78.9 - Other specified health status SNOMED: 96823551 (2) C. difficile colitis ICD Codes: A04.7 - Enterocolitis due to Clostridium difficile SNOMED: 318212712 (3) Methamphetamine abuse ICD Codes: F15.10 - Other stimulant abuse, uncomplicated SNOMED: 255803267 (4) Anemia, chronic disease ICD Codes: D63.8 - Anemia in other chronic diseases classified elsewhere SNOMED: 062873124 (5) Diabetes ICD Codes: E11.9 - Diabetes SNOMED: 28647922 Status: unchanged Status Narrative Discussed with Dr. Irizarry. Assessment/Plan - AMS - C Diff (+) - UTI - PNA - dysphagia - HTN - amputation - Renal failure - NGTFs - Elevate HOB - Abx per ID - follow labs Subjective Subjective limited, pt in ICU Objective Last 24 Hour Vital Signs Date Time Temp Pulse Resp B/P Pulse Ox O2 Delivery O2 Flow Rate FiO2 05/19/16 15:00 90 16 92/65 100 Mechanical Ventilator 50 05/19/16 14:00 85 18 120/65 100 Mechanical Ventilator 50 05/19/16 13:00 86 20 107/53 99 Mechanical Ventilator 50 05/19/16 12:43 84 16 50 05/19/16 12:02 50 05/19/16 12:02 79 05/19/16 12:00 98.5 80 18 132/56 100 Mechanical Ventilator 50 05/19/16 11:00 81 17 131/53 100 Mechanical Ventilator 50 05/19/16 10:54 83 16 50 05/19/16 10:00 83 16 104/65 100 Mechanical Ventilator 50 05/19/16 09:00 79 16 122/49 100 Mechanical Ventilator 50 05/19/16 09:00 85 126/70 05/19/16 08:45 84 16 50 05/19/16 08:00 98.5 85 16 105/52 100 Mechanical Ventilator 50 05/19/16 08:00 50 05/19/16 08:00 80 05/19/16 07:00 79 16 119/106 100 Mechanical Ventilator 50 05/19/16 06:59 81 16 50 05/19/16 06:00 85 16 105/71 100 Mechanical Ventilator 50 05/19/16 05:10 83 16 50 05/19/16 05:00 79 16 96/56 100 Mechanical Ventilator 50 05/19/16 04:00 98.6 76 16 97/46 100 Mechanical Ventilator 50 05/19/16 04:00 74 05/19/16 04:00 50 05/19/16 03:32 93 16 50 05/19/16 03:00 77 16 111/49 100 Mechanical Ventilator 50 05/19/16 02:30 98.7 05/19/16 02:00 83 16 98/54 98 Mechanical Ventilator 50 05/19/16 01:46 91 16 50 05/19/16 01:00 100.0 82 18 106/50 100 Mechanical Ventilator 50 05/19/16 00:00 89 05/19/16 00:00 50 05/19/16 00:00 85 16 105/45 95 Mechanical Ventilator 50 05/18/16 23:00 87 16 99/66 96 Mechanical Ventilator 50 05/18/16 22:31 90 16 50 05/18/16 22:00 85 16 119/45 100 Mechanical Ventilator 50 05/18/16 21:53 90 119/62 05/18/16 21:52 89 16 50 05/18/16 21:00 90 16 126/63 100 Mechanical Ventilator 50 05/18/16 20:00 97.3 87 16 124/48 100 Mechanical Ventilator 50 05/18/16 20:00 50 05/18/16 20:00 87 05/18/16 19:21 96 18 50 05/18/16 19:00 94 16 103/50 97 Mechanical Ventilator 50 05/18/16 18:00 92 16 118/55 97 Mechanical Ventilator 50 05/18/16 17:00 93 16 107/66 92 Mechanical Ventilator 50 05/18/16 16:51 92 16 50 05/18/16 16:00 50 05/18/16 16:00 97.7 95 16 113/56 89 Mechanical Ventilator 50 05/18/16 16:00 95 Intake and Output 05/18/16 05/19/16 19:00 07:00 Intake Total 900 ml 1050 ml Output Total 400 ml 25 ml Balance 500 ml 1025 ml Intake Oral 120 ml IV Total 600 ml 700 ml Tube Feeding 180 ml 350 ml Output Urine Total 0 ml 25 ml Hemodialysis UF 400 ml # Bowel Movements 2 3 Laboratory Tests Test 05/19/16 05:45 05/19/16 08:13 White Blood Count 13.1 K/UL (4.8-10.8) H Red Blood Count 2.65 M/UL (4.70-6.10) L Hemoglobin 8.5 G/DL (14.2-18.0) L Hematocrit 26.7 % (42.0-52.0) L Mean Corpuscular Volume 101 FL (80-99) H Mean Corpuscular Hemoglobin 32.2 PG (27.0-31.0) H Mean Corpuscular Hemoglobin Concent 32.0 G/DL (32.0-36.0) Red Cell Distribution Width 13.3 % (11.6-14.8) Platelet Count 237 K/UL (150-450) Mean Platelet Volume 6.1 FL (6.5-10.1) L Neutrophils (%) (Auto) 71.9 % (45.0-75.0) Lymphocytes (%) (Auto) 15.9 % (20.0-45.0) L Monocytes (%) (Auto) 7.0 % (1.0-10.0) Eosinophils (%) (Auto) 4.4 % (0.0-3.0) H Basophils (%) (Auto) 0.7 % (0.0-2.0) Sodium Level 138 mEQ/L (135-145) Potassium Level 2.8 mEQ/L (3.4-4.9) L Chloride Level 96 mEQ/L (98-107) L Carbon Dioxide Level 26 mEQ/L (20-30) Anion Gap 16 (5-15) H Blood Urea Nitrogen 24 mg/dL (7-23) H Creatinine 3.8 mg/dL (0.7-1.2) H Estimat Glomerular Filtration Rate 16.3 mL/min (>60) Glucose Level 189 mg/dL (74-106) H Calcium Level 8.0 mg/dL (8.6-10.2) L Phosphorus Level 1.6 mg/dL (2.5-4.8) L Magnesium Level 1.7 mg/dL (1.7-2.5) Total Bilirubin 0.4 mg/dL (0.0-1.2) Aspartate Amino Transf (AST/SGOT) 27 U/L (5-40) Alanine Aminotransferase (ALT/SGPT) 21 U/L (3-41) Alkaline Phosphatase 62 U/L (40-129) Total Protein 5.8 g/dL (6.6-8.7) L Albumin 2.1 g/dL (3.5-5.2) L Globulin 3.7 g/dL Albumin/Globulin Ratio 0.5 (1.0-2.7) L Arterial Blood pH 7.500 (7.350-7.450) Arterial Blood Partial Pressure CO2 38.0 mmHg (35.0-45.0) Arterial Blood Partial Pressure O2 58.0 mmHg (75.0-100.0) L Arterial Blood HCO3 29.0 mmol/L (22.0-26.0) H Arterial Blood Oxygen Saturation 89.0 % (92.0-98.0) L Arterial Blood Base Excess 5 Tadeo Test Height (Feet): 5 Height (Inches): 7.00 Weight (Pounds): 129 General Appearance: no apparent distress, thin Cardiovascular: normal rate Respiratory/Chest: other - [facility] vent Abdominal Exam: other - NGT Tia Pederson N.P. May 19, 2016 15:45
--- NOTE | 2016-05-19 16:04 | Infectious Diseases Prog Note ---
Assessment/Plan Problems: (1) C. difficile diarrhea Assessment & Plan: continue oral vancomycin and IV flagyl for sever C diff infection , continue hydration since he has sever diarrhea , avoid antacids and laxatives (2) Sepsis Assessment & Plan: most likely due to C diff infection, was treated for UTI already with meropenem, on oral vancomycin and IV flagyl. keep off antacid and Imodium (3) UTI (urinary tract infection) Assessment & Plan: with E coli pansensitive , was treated with antibiotics for 5 days (4) ESRD on dialysis Assessment & Plan: renal is following , continue HD (5) Diabetes Assessment & Plan: recommend tight glycemic control to keep blood glucose between 80-120 (6) Colonization with VRE (vancomycin-resistant enterococcus) Assessment & Plan: keep on contact isolation (7) Altered level of consciousness Assessment & Plan: improved, due to hypoxemia and fluids overload, intubated, continue HD to remove fluids, monitor CXR, pulmonary is following (8) Pleural effusion Assessment & Plan: recommend removing extra fluids with HD, or thoracentesis Subjective ROS Limited/Unobtainable: Yes Allergies: Coded Allergies: No Known Allergies (Unverified , 09/05/13) Subjective he is intubated, but awake and alert, and responsive to verbal commands.afebrile , on mechanical ventilation . Objective Vital Signs Last 24 Hour Vital Signs Date Time Temp Pulse Resp B/P Pulse Ox O2 Delivery O2 Flow Rate FiO2 05/19/16 15:00 90 16 92/65 100 Mechanical Ventilator 50 05/19/16 14:00 85 18 120/65 100 Mechanical Ventilator 50 05/19/16 13:00 86 20 107/53 99 Mechanical Ventilator 50 05/19/16 12:43 84 16 50 05/19/16 12:02 50 05/19/16 12:02 79 05/19/16 12:00 98.5 80 18 132/56 100 Mechanical Ventilator 50 05/19/16 11:00 81 17 131/53 100 Mechanical Ventilator 50 05/19/16 10:54 83 16 50 05/19/16 10:00 83 16 104/65 100 Mechanical Ventilator 50 05/19/16 09:00 79 16 122/49 100 Mechanical Ventilator 50 05/19/16 09:00 85 126/70 05/19/16 08:45 84 16 50 05/19/16 08:00 98.5 85 16 105/52 100 Mechanical Ventilator 50 05/19/16 08:00 50 05/19/16 08:00 80 05/19/16 07:00 79 16 119/106 100 Mechanical Ventilator 50 05/19/16 06:59 81 16 50 05/19/16 06:00 85 16 105/71 100 Mechanical Ventilator 50 05/19/16 05:10 83 16 50 05/19/16 05:00 79 16 96/56 100 Mechanical Ventilator 50 05/19/16 04:00 98.6 76 16 97/46 100 Mechanical Ventilator 50 05/19/16 04:00 74 05/19/16 04:00 50 05/19/16 03:32 93 16 50 05/19/16 03:00 77 16 111/49 100 Mechanical Ventilator 50 05/19/16 02:30 98.7 05/19/16 02:00 83 16 98/54 98 Mechanical Ventilator 50 05/19/16 01:46 91 16 50 05/19/16 01:00 100.0 82 18 106/50 100 Mechanical Ventilator 50 05/19/16 00:00 89 05/19/16 00:00 50 05/19/16 00:00 85 16 105/45 95 Mechanical Ventilator 50 05/18/16 23:00 87 16 99/66 96 Mechanical Ventilator 50 05/18/16 22:31 90 16 50 05/18/16 22:00 85 16 119/45 100 Mechanical Ventilator 50 05/18/16 21:53 90 119/62 05/18/16 21:52 89 16 50 05/18/16 21:00 90 16 126/63 100 Mechanical Ventilator 50 05/18/16 20:00 97.3 87 16 124/48 100 Mechanical Ventilator 50 05/18/16 20:00 50 05/18/16 20:00 87 05/18/16 19:21 96 18 50 05/18/16 19:00 94 16 103/50 97 Mechanical Ventilator 50 05/18/16 18:00 92 16 118/55 97 Mechanical Ventilator 50 05/18/16 17:00 93 16 107/66 92 Mechanical Ventilator 50 05/18/16 16:51 92 16 50 Height (Feet): 5 Height (Inches): 7.00 Weight (Pounds): 129 General Appearance: WD/WN, no acute distress HEENT: normocephalic, atraumatic, anicteric, mucous membranes moist Respiratory/Chest: chest wall non-tender, no respiratory distress, no accessory muscle use, decreased breath sounds, crackles/rales Cardiovascular: normal peripheral pulses, normal rate, regular rhythm, no gallop/murmur Abdomen: normal bowel sounds, soft, non tender, no organomegaly, non distended , no mass, no scars Extremities: no cyanosis, no clubbing Skin: no rash, no lesions Laboratory Tests Test 05/19/16 05:45 05/19/16 08:13 White Blood Count 13.1 K/UL (4.8-10.8) H Red Blood Count 2.65 M/UL (4.70-6.10) L Hemoglobin 8.5 G/DL (14.2-18.0) L Hematocrit 26.7 % (42.0-52.0) L Mean Corpuscular Volume 101 FL (80-99) H Mean Corpuscular Hemoglobin 32.2 PG (27.0-31.0) H Mean Corpuscular Hemoglobin Concent 32.0 G/DL (32.0-36.0) Red Cell Distribution Width 13.3 % (11.6-14.8) Platelet Count 237 K/UL (150-450) Mean Platelet Volume 6.1 FL (6.5-10.1) L Neutrophils (%) (Auto) 71.9 % (45.0-75.0) Lymphocytes (%) (Auto) 15.9 % (20.0-45.0) L Monocytes (%) (Auto) 7.0 % (1.0-10.0) Eosinophils (%) (Auto) 4.4 % (0.0-3.0) H Basophils (%) (Auto) 0.7 % (0.0-2.0) Sodium Level 138 mEQ/L (135-145) Potassium Level 2.8 mEQ/L (3.4-4.9) L Chloride Level 96 mEQ/L (98-107) L Carbon Dioxide Level 26 mEQ/L (20-30) Anion Gap 16 (5-15) H Blood Urea Nitrogen 24 mg/dL (7-23) H Creatinine 3.8 mg/dL (0.7-1.2) H Estimat Glomerular Filtration Rate 16.3 mL/min (>60) Glucose Level 189 mg/dL (74-106) H Calcium Level 8.0 mg/dL (8.6-10.2) L Phosphorus Level 1.6 mg/dL (2.5-4.8) L Magnesium Level 1.7 mg/dL (1.7-2.5) Total Bilirubin 0.4 mg/dL (0.0-1.2) Aspartate Amino Transf (AST/SGOT) 27 U/L (5-40) Alanine Aminotransferase (ALT/SGPT) 21 U/L (3-41) Alkaline Phosphatase 62 U/L (40-129) Total Protein 5.8 g/dL (6.6-8.7) L Albumin 2.1 g/dL (3.5-5.2) L Globulin 3.7 g/dL Albumin/Globulin Ratio 0.5 (1.0-2.7) L Arterial Blood pH 7.500 (7.350-7.450) Arterial Blood Partial Pressure CO2 38.0 mmHg (35.0-45.0) Arterial Blood Partial Pressure O2 58.0 mmHg (75.0-100.0) L Arterial Blood HCO3 29.0 mmol/L (22.0-26.0) H Arterial Blood Oxygen Saturation 89.0 % (92.0-98.0) L Arterial Blood Base Excess 5 Tadeo Test Current Medications Medications (Trade) Dose Ordered Sig/Chelsea Route PRN Reason Start Time Stop Time Status Last Admin Dose Admin Acetaminophen (Tylenol) 1,000 mg Q6H PRN ORAL Mild Pain/Temp > 100.5 05/17/16 20:45 06/16/16 20:44 05/19/16 01:23 Albuterol/ Ipratropium (DuoNeb 0.5-3(2.5)mg/3ml) 3 ml Q4H PRN HHN Shortness of Breath 05/17/16 18:45 05/22/16 18:44 Clonidine HCl (Catapres) 0.1 mg Q6H PRN ORAL SBP>160 05/17/16 21:00 06/16/16 20:59 Dextrose (Dextrose 50%) STAT PRN IV Hypoglycemia 05/18/16 14:45 06/17/16 14:44 Heparin Sodium (Porcine) (Heparin 5000 units/ml) 5,000 units EVERY 12 HOURS SUBQ 05/17/16 21:00 06/16/16 20:59 3/13/17 21:55 Insulin Aspart (NovoLOG) Q6HR SUBQ 05/17/16 18:00 06/16/16 17:59 05/19/16 12:20 Lorazepam (Ativan 2mg/ml 1ml) 2 mg Q4H PRN IV PRN FOR TREMORS 05/18/16 11:00 05/25/16 10:59 Metoprolol Tartrate (Lopressor) 25 mg Q12HR NG 05/17/16 21:00 06/16/16 20:59 05/19/16 09:00 Metronidazole (Flagyl) 100 ml @ 100 mls/hr Q8HR IVPB 05/17/16 22:00 05/24/16 21:59 05/19/16 14:26 Morphine Sulfate (Morphine Sulfate) 4 mg Q4H PRN IVP Moderate Pain (Pain Scale 4-6) 05/18/16 10:30 05/25/16 10:29 Nitroglycerin (Ntg) 0.4 mg Q5M PRN SL Prn Chest Pain 05/17/16 15:30 06/16/16 15:29 Ondansetron HCl (Zofran) 4 mg Q6H PRN IVP Nausea & Vomiting 05/17/16 20:45 06/16/16 20:44 05/18/16 10:05 Pantoprazole (Protonix) 40 mg EVERY 12 HOURS IVP 05/18/16 09:00 06/17/16 08:59 05/19/16 09:00 Polyethylene Glycol (Miralax) 17 gm DAILYPRN PRN ORAL Constipation 05/18/16 14:45 06/17/16 14:44 Vancomycin HCl (Vancomycin) 125 mg FOUR TIMES A DAY ORAL 05/17/16 18:00 05/24/16 17:59 05/19/16 12:19 Bandar Cartwright M.D. May 19, 2016 16:04
--- NOTE | 2016-05-19 16:47 | Progress Note ---
DATE: 05/18/2016 TREATMENT ATTENDING: Paul Mckeon D.O. SUBJECTIVE: The patient is a 61-year-old male who is confused, disorganized, altered mental status, poor insight, poor judgment, poor impulse control, at this time has no viable and logical plan for self-care at this time. The patient requires further hospitalization for stabilization of symptoms. He has been altered in mental status. This clinician assessed this patient. This clinician continued to assess the patient's mental status. PLAN: Continue with medication management and behavioral management. This clinician has reviewed the patient's chart and discussed the treatment with nursing staff. Tiff Mak PsyD. DR: AVINASH JOB#: [id number] CC:
--- NOTE | 2016-05-19 16:53 | Cardiac Electrophysiology PN ---
Assessment/Plan Assessment/Plan 1. Respiratory failure due to Nosocomial PNA. On Vent. No significant CHF component as EF 55% by echo.EKG is nonischemic and Troponin is negative. 2. Hypertension, on Toprol 25 mg NG b.i.d. 3. Hyperlipidemia, on Lipitor. 4. Severe peripheral vascular disease status post right below knee amputation, on Plavix and Lipitor. 5. Sepsis, on Abx per Dr. Cartwright. 6. Psychosis per Dr. Davison 7. ESRD. Had HD 05/18/16 8. Altered mental status. No vegetation on echo. Encephalopathy versus sepsis.Follow up Dr Blandon. DW RN Subjective Subjective In ICU on Vent for respiratory failure. RN at bedside. NG tube is in.Remained in SR with no arrhythmias on tele.Off pressors. Objective Last 24 Hour Vital Signs Date Time Temp Pulse Resp B/P Pulse Ox O2 Delivery O2 Flow Rate FiO2 05/19/16 15:00 90 16 92/65 100 Mechanical Ventilator 50 05/19/16 14:50 91 16 50 05/19/16 14:00 85 18 120/65 100 Mechanical Ventilator 50 05/19/16 13:00 86 20 107/53 99 Mechanical Ventilator 50 05/19/16 12:43 84 16 50 05/19/16 12:02 50 05/19/16 12:02 79 05/19/16 12:00 98.5 80 18 132/56 100 Mechanical Ventilator 50 05/19/16 11:00 81 17 131/53 100 Mechanical Ventilator 50 05/19/16 10:54 83 16 50 05/19/16 10:00 83 16 104/65 100 Mechanical Ventilator 50 05/19/16 09:00 79 16 122/49 100 Mechanical Ventilator 50 05/19/16 09:00 85 126/70 05/19/16 08:45 84 16 50 05/19/16 08:00 98.5 85 16 105/52 100 Mechanical Ventilator 50 05/19/16 08:00 50 05/19/16 08:00 80 05/19/16 07:00 79 16 119/106 100 Mechanical Ventilator 50 05/19/16 06:59 81 16 50 05/19/16 06:00 85 16 105/71 100 Mechanical Ventilator 50 05/19/16 05:10 83 16 50 05/19/16 05:00 79 16 96/56 100 Mechanical Ventilator 50 05/19/16 04:00 98.6 76 16 97/46 100 Mechanical Ventilator 50 05/19/16 04:00 74 05/19/16 04:00 50 05/19/16 03:32 93 16 50 05/19/16 03:00 77 16 111/49 100 Mechanical Ventilator 50 05/19/16 02:30 98.7 05/19/16 02:00 83 16 98/54 98 Mechanical Ventilator 50 05/19/16 01:46 91 16 50 05/19/16 01:00 100.0 82 18 106/50 100 Mechanical Ventilator 50 05/19/16 00:00 89 05/19/16 00:00 50 05/19/16 00:00 85 16 105/45 95 Mechanical Ventilator 50 05/18/16 23:00 87 16 99/66 96 Mechanical Ventilator 50 05/18/16 22:31 90 16 50 05/18/16 22:00 85 16 119/45 100 Mechanical Ventilator 50 05/18/16 21:53 90 119/62 05/18/16 21:52 89 16 50 05/18/16 21:00 90 16 126/63 100 Mechanical Ventilator 50 05/18/16 20:00 97.3 87 16 124/48 100 Mechanical Ventilator 50 05/18/16 20:00 50 05/18/16 20:00 87 05/18/16 19:21 96 18 50 05/18/16 19:00 94 16 103/50 97 Mechanical Ventilator 50 05/18/16 18:00 92 16 118/55 97 Mechanical Ventilator 50 05/18/16 17:00 93 16 107/66 92 Mechanical Ventilator 50 05/18/16 16:51 92 16 50 Intake and Output 05/18/16 05/19/16 19:00 07:00 Intake Total 900 ml 1050 ml Output Total 400 ml 25 ml Balance 500 ml 1025 ml Intake Oral 120 ml IV Total 600 ml 700 ml Tube Feeding 180 ml 350 ml Output Urine Total 0 ml 25 ml Hemodialysis UF 400 ml # Bowel Movements 2 3 Laboratory Tests Test 05/19/16 05:45 05/19/16 08:13 White Blood Count 13.1 K/UL (4.8-10.8) H Red Blood Count 2.65 M/UL (4.70-6.10) L Hemoglobin 8.5 G/DL (14.2-18.0) L Hematocrit 26.7 % (42.0-52.0) L Mean Corpuscular Volume 101 FL (80-99) H Mean Corpuscular Hemoglobin 32.2 PG (27.0-31.0) H Mean Corpuscular Hemoglobin Concent 32.0 G/DL (32.0-36.0) Red Cell Distribution Width 13.3 % (11.6-14.8) Platelet Count 237 K/UL (150-450) Mean Platelet Volume 6.1 FL (6.5-10.1) L Neutrophils (%) (Auto) 71.9 % (45.0-75.0) Lymphocytes (%) (Auto) 15.9 % (20.0-45.0) L Monocytes (%) (Auto) 7.0 % (1.0-10.0) Eosinophils (%) (Auto) 4.4 % (0.0-3.0) H Basophils (%) (Auto) 0.7 % (0.0-2.0) Sodium Level 138 mEQ/L (135-145) Potassium Level 2.8 mEQ/L (3.4-4.9) L Chloride Level 96 mEQ/L (98-107) L Carbon Dioxide Level 26 mEQ/L (20-30) Anion Gap 16 (5-15) H Blood Urea Nitrogen 24 mg/dL (7-23) H Creatinine 3.8 mg/dL (0.7-1.2) H Estimat Glomerular Filtration Rate 16.3 mL/min (>60) Glucose Level 189 mg/dL (74-106) H Calcium Level 8.0 mg/dL (8.6-10.2) L Phosphorus Level 1.6 mg/dL (2.5-4.8) L Magnesium Level 1.7 mg/dL (1.7-2.5) Total Bilirubin 0.4 mg/dL (0.0-1.2) Aspartate Amino Transf (AST/SGOT) 27 U/L (5-40) Alanine Aminotransferase (ALT/SGPT) 21 U/L (3-41) Alkaline Phosphatase 62 U/L (40-129) Total Protein 5.8 g/dL (6.6-8.7) L Albumin 2.1 g/dL (3.5-5.2) L Globulin 3.7 g/dL Albumin/Globulin Ratio 0.5 (1.0-2.7) L Arterial Blood pH 7.500 (7.350-7.450) Arterial Blood Partial Pressure CO2 38.0 mmHg (35.0-45.0) Arterial Blood Partial Pressure O2 58.0 mmHg (75.0-100.0) L Arterial Blood HCO3 29.0 mmol/L (22.0-26.0) H Arterial Blood Oxygen Saturation 89.0 % (92.0-98.0) L Arterial Blood Base Excess 5 Tadeo Test Objective HEAD AND NECK: Orally intubated.NG tube in. LUNGS: Coarse rhonchi. CARDIOVASCULAR: Regular S1 and S2 with no gallop or rub. ABDOMEN: Soft and nontender. EXTREMITIES: Status post right below-knee amputation. Dialysis access in the right femoral area. THU MONREAL May 19, 2016 16:53
--- NOTE | 2016-05-19 22:58 | Progress Note ---
DATE: 05/19/2016 SUBJECTIVE: The patient's mental condition is unchanged since previous encounter. Continues to be anxious to question. He continues to be home, however, he is unable to communicate. There is no anxiety or agitation. No aggressive behavior. MENTAL STATUS EXAMINATION: Alert and oriented x2. Mood is neutral. Affect is constricted. Congruent mood. Thought process, was unable to assess. Cognitive impairment. Affect constricted and paraplegic delirium, which is improving. PLAN: 1. We will be continued on Ativan as needed. 2. We will continue to follow. Nunu Davison M.D. DR: Tree JOB#: [id number] CC:
--- NOTE | 2016-05-19 23:47 | Nephrology Progress Note ---
Objective Objective Last 24 Hour Vital Signs Date Time Temp Pulse Resp B/P Pulse Ox O2 Delivery O2 Flow Rate FiO2 05/19/16 23:10 92 16 65 05/19/16 23:00 92 16 102/50 96 Mechanical Ventilator 65 05/19/16 22:00 99 17 101/49 98 Mechanical Ventilator 65 05/19/16 21:18 91 16 65 05/19/16 21:00 92 16 113/62 97 Mechanical Ventilator 65 05/19/16 21:00 101 99/48 05/19/16 20:00 95 05/19/16 20:00 65 05/19/16 20:00 98.8 95 16 103/50 94 Mechanical Ventilator 65 05/19/16 19:33 99 16 65 05/19/16 19:00 100 16 103/45 95 Mechanical Ventilator 65 05/19/16 18:00 92 16 109/48 94 Mechanical Ventilator 65 05/19/16 17:02 91 16 50 05/19/16 17:00 97 16 100/49 95 Mechanical Ventilator 65 05/19/16 16:00 82 05/19/16 16:00 99.1 84 16 142/46 100 Mechanical Ventilator 65 05/19/16 16:00 65 05/19/16 15:00 90 16 92/65 100 Mechanical Ventilator 50 05/19/16 14:50 91 16 50 05/19/16 14:00 85 18 120/65 100 Mechanical Ventilator 50 05/19/16 13:00 86 20 107/53 99 Mechanical Ventilator 50 05/19/16 12:43 84 16 50 05/19/16 12:02 50 05/19/16 12:02 79 05/19/16 12:00 98.5 80 18 132/56 100 Mechanical Ventilator 50 05/19/16 11:00 81 17 131/53 100 Mechanical Ventilator 50 05/19/16 10:54 83 16 50 05/19/16 10:00 83 16 104/65 100 Mechanical Ventilator 50 05/19/16 09:00 79 16 122/49 100 Mechanical Ventilator 50 05/19/16 09:00 85 126/70 05/19/16 08:45 84 16 50 05/19/16 08:00 98.5 85 16 105/52 100 Mechanical Ventilator 50 05/19/16 08:00 50 05/19/16 08:00 80 05/19/16 07:00 79 16 119/106 100 Mechanical Ventilator 50 05/19/16 06:59 81 16 50 05/19/16 06:00 85 16 105/71 100 Mechanical Ventilator 50 05/19/16 05:10 83 16 50 05/19/16 05:00 79 16 96/56 100 Mechanical Ventilator 50 05/19/16 04:00 98.6 76 16 97/46 100 Mechanical Ventilator 50 05/19/16 04:00 74 05/19/16 04:00 50 05/19/16 03:32 93 16 50 05/19/16 03:00 77 16 111/49 100 Mechanical Ventilator 50 05/19/16 02:30 98.7 05/19/16 02:00 83 16 98/54 98 Mechanical Ventilator 50 05/19/16 01:46 91 16 50 05/19/16 01:00 100.0 82 18 106/50 100 Mechanical Ventilator 50 05/19/16 00:00 89 05/19/16 00:00 50 05/19/16 00:00 85 16 105/45 95 Mechanical Ventilator 50 Intake and Output 05/18/16 05/19/16 19:00 07:00 Intake Total 900 ml 1050 ml Output Total 400 ml 25 ml Balance 500 ml 1025 ml Intake Oral 120 ml IV Total 600 ml 700 ml Tube Feeding 180 ml 350 ml Output Urine Total 0 ml 25 ml Hemodialysis UF 400 ml # Bowel Movements 2 3 Laboratory Tests 05/19/16 05:45: White Blood Count 13.1H, Red Blood Count 2.65L, Hemoglobin 8.5L, Hematocrit 26.7L, Mean Corpuscular Volume 101H, Mean Corpuscular Hemoglobin 32.2H, Mean Corpuscular Hemoglobin Concent 32.0, Red Cell Distribution Width 13.3, Platelet Count 237, Mean Platelet Volume 6.1L, Neutrophils (%) (Auto) 71.9, Lymphocytes ( %) (Auto) 15.9L, Monocytes (%) (Auto) 7.0, Eosinophils (%) (Auto) 4.4H, Basophils (%) (Auto) 0.7, Sodium Level 138, Potassium Level 2.8L, Chloride Level 96L, Carbon Dioxide Level 26, Anion Gap 16H, Blood Urea Nitrogen 24H, Creatinine 3.8H, Estimat Glomerular Filtration Rate 16.3, Glucose Level 189H, Calcium Level 8.0L, Phosphorus Level 1.6L, Magnesium Level 1.7, Total Bilirubin 0.4, Aspartate Amino Transf (AST/SGOT) 27, Alanine Aminotransferase (ALT/SGPT) 21, Alkaline Phosphatase 62, Total Protein 5.8L, Albumin 2.1L, Globulin 3.7, Albumin/Globulin Ratio 0.5L 05/19/16 08:13: Arterial Blood pH 7.500H, Arterial Blood Partial Pressure CO2 38.0, Arterial Blood Partial Pressure O2 58.0L, Arterial Blood HCO3 29.0H, Arterial Blood Oxygen Saturation 89.0L, Arterial Blood Base Excess 5, Tadeo Test Height (Feet): 5 Height (Inches): 7.00 Weight (Pounds): 129 AUTUMN RODNEY May 19, 2016 23:47
[2016-05-20] VITALS (25 sets, daily range): BP systolic 91–156; BP diastolic 40–73
[2016-05-20] MEDS: NovoLOG Insulin Flexpen SUBQ SCH ×5 (00:21→23:39)
--- NOTE | 2016-05-20 01:08 | Progress Note ---
DATE: 05/18/2016 SUBJECTIVE: The patient is likely intubated, however, he was able to understand as he was communicating by closing and opening his eyes. He was alert and oriented to self and place. There is no anxiety or agitation. No behavior issues. Compliant. MENTAL STATUS EXAMINATION: The patient is alert and oriented x2, intubated, unable to speak. Therefore, I was unable to assess the thought process, thought content, or do a min-mental status examination. ASSESSMENT: Respiratory failure, sepsis, delirious, which is impending, urinary tract infection, and cerebrovascular accident. PLAN: 1. At this point, the patient will be only continued on Ativan p.r.n. He will not benefit from antipsychotic medication. 2. We will continue to follow him and readjust the medication. Nunu Davison M.D. DR: ANDRE JOB#: [id number] CC:
[2016-05-20] MEDS: metroNIDAZOLE 500mg 100 ML IVPB SCH ×3 (05:23→21:45)
[2016-05-20] MEDS: Acetaminophen 500mg (ES) tab ORAL PRN (06:16)
[2016-05-20 06:24] LABS: MEAN CORPUSCULAR HEMOGLOBIN 32.2 PG (27.0-31.0); MEAN CORPUSCULAR HGB CONC 32.1 G/DL (32.0-36.0); MEAN CORPUSCULAR VOLUME 100 FL (80-99); MEAN PLATELET VOLUME 6.2 FL (6.5-10.1); PLATELET COUNT 251 K/UL (150-450); RED BLOOD COUNT 2.42 M/UL (4.70-6.10); RED CELL DISTRIBUTION WIDTH 13.6 % (11.6-14.8); WHITE BLOOD COUNT 11.1 K/UL (4.8-10.8)
[2016-05-20 06:39] LABS: ALBUMIN/GLOBULIN RATIO 0.6 (1.0-2.7); CALCIUM 7.9 mg/dL (8.6-10.2); GLOMERULAR FILTRATION RATE 11.9 mL/min (>60); MAGNESIUM 1.8 mg/dL (1.7-2.5); PHOSPHORUS 1.6 mg/dL (2.5-4.8); TOTAL PROTEIN 5.6 g/dL (6.6-8.7)
[2016-05-20 06:49] LABS: POTASSIUM 2.5 mEQ/L (3.4-4.9)
[2016-05-20] MEDS: Metoprolol 25mg tab NG SCH ×2 (09:00→20:39)
[2016-05-20] MEDS: Vancomycin oral 125mg/2.5ml ORAL SCH ×4 (09:00→20:39)
[2016-05-20 10:08] LABS: ABG BASE EXCESS 11.6; ABG PCO2 28.7 mmHg (35.0-45.0)
[2016-05-20 10:09] LABS: ABG ALLEN TEST POSITIVE
--- NOTE | 2016-05-20 10:25 | Pulmonolgy Critical Care Note ---
Critical Care - Asmt/Plan Problems: (1) Acute respiratory failure (2) Nosocomial pneumonia (3) C. difficile colitis (4) ESRD on dialysis (5) Sepsis Respiratory: adjust FIO2, other - chagne to SIMV to treat respiratory alkalosis. Keep left chest up, if atelectasis doesn't resolve then I do FOB. Renal: F/U I&O, check electrolytes Infectious Disease: check cultures Gastrointestinal: continue feedings/current rate Endocrine: monitor blood sugar, continue sliding scale insulin Hematologic: monitor H/H, transfuse if hgb<8.5 Neurologic: PRN Ativan, PRN Morphine, keep patient comfortable Affect: PRN ativan Prophylaxis: Protonix, Heparin Disposition: keep in ICU Time Spent (Minutes): 40 Notes Reviewed: cardio, renal Discussed with: nurses, consultants, case aidenight manager - Objective Last 24 Hour Vital Signs Date Time Temp Pulse Resp B/P Pulse Ox O2 Delivery O2 Flow Rate FiO2 05/20/16 10:09 85 19 100/56 98 Mechanical Ventilator 65 05/20/16 09:11 92 16 65 05/20/16 09:00 86 18 104/58 98 Mechanical Ventilator 65 05/20/16 08:57 Mechanical Ventilator 62 05/20/16 08:30 98.8 90 16 103/61 99 Mechanical Ventilator 65 05/20/16 08:00 94 18 100/52 98 Mechanical Ventilator 65 05/20/16 08:00 65 05/20/16 08:00 85 05/20/16 07:07 92 16 94/51 98 Mechanical Ventilator 65 05/20/16 06:37 91 16 65 05/20/16 06:00 94 16 109/55 98 Mechanical Ventilator 65 05/20/16 05:12 94 16 65 05/20/16 05:00 94 16 125/48 98 Mechanical Ventilator 65 05/20/16 05:00 Mechanical Ventilator 65 05/20/16 05:00 99.3 104 22 103/40 100 Mechanical Ventilator 65 05/20/16 04:00 98.2 87 16 113/63 98 Mechanical Ventilator 65 05/20/16 04:00 65 05/20/16 04:00 87 05/20/16 03:00 90 16 111/52 98 Mechanical Ventilator 65 05/20/16 02:40 88 16 65 05/20/16 02:00 91 18 102/48 98 Mechanical Ventilator 65 05/20/16 01:10 95 16 65 05/20/16 01:00 91 18 91/45 98 Mechanical Ventilator 65 05/20/16 00:00 98.2 93 18 108/49 98 Mechanical Ventilator 65 05/20/16 00:00 65 05/20/16 00:00 94 05/19/16 23:10 92 16 65 05/19/16 23:00 92 16 102/50 96 Mechanical Ventilator 65 05/19/16 22:00 99 17 101/49 98 Mechanical Ventilator 65 05/19/16 21:18 91 16 65 05/19/16 21:00 92 16 113/62 97 Mechanical Ventilator 65 05/19/16 21:00 101 99/48 05/19/16 20:00 95 05/19/16 20:00 65 05/19/16 20:00 98.8 95 16 103/50 94 Mechanical Ventilator 65 05/19/16 19:33 99 16 65 05/19/16 19:00 100 16 103/45 95 Mechanical Ventilator 65 05/19/16 18:00 92 16 109/48 94 Mechanical Ventilator 65 05/19/16 17:02 91 16 50 05/19/16 17:00 97 16 100/49 95 Mechanical Ventilator 65 05/19/16 16:00 82 05/19/16 16:00 99.1 84 16 142/46 100 Mechanical Ventilator 65 05/19/16 16:00 65 05/19/16 15:00 90 16 92/65 100 Mechanical Ventilator 50 05/19/16 14:50 91 16 50 05/19/16 14:00 85 18 120/65 100 Mechanical Ventilator 50 05/19/16 13:00 86 20 107/53 99 Mechanical Ventilator 50 05/19/16 12:43 84 16 50 05/19/16 12:02 50 05/19/16 12:02 79 05/19/16 12:00 98.5 80 18 132/56 100 Mechanical Ventilator 50 05/19/16 11:00 81 17 131/53 100 Mechanical Ventilator 50 05/19/16 10:54 83 16 50 Status: awake Condition: critical, grave Neck: full ROM Lungs: clear Heart: HR/BP stable Abdomen: soft, non-tender Extremities: no C/C/E, edema Decubiti: stage Accucheck: 133 Critical Care - Subjective ROS Limited/Unobtainable: Yes ICU Day: 3 Intubation Day: 3 Condition: critical EKG Rhythm: Sinus Rhythm FI02: 65 Vent Support Breath Rate: 16 Vent Support Mode: AC Vent Tidal Volume: 700 Sputum Amount: Large PIP: 25 Tube Feeding Amount: 40 I&O: Intake and Output 05/19/16 05/20/16 19:00 07:00 Intake Total 980 ml 630 ml Output Total 160 ml 460 ml Balance 820 ml 170 ml Free Water 50 ml IV Total 500 ml 100 ml Tube Feeding 480 ml 480 ml Output Urine Total 10 ml 10 ml Stool Total 150 ml 450 ml # Bowel Movements 2 2 CXR: worsening LLL atelectasis ET-Tube: 7.5 ET Position: 24 Labs: Laboratory Tests Test 05/20/16 05:30 05/20/16 09:52 White Blood Count 11.1 K/UL (4.8-10.8) H Red Blood Count 2.42 M/UL (4.70-6.10) L Hemoglobin 7.8 G/DL (14.2-18.0) L Hematocrit 24.3 % (42.0-52.0) L Mean Corpuscular Volume 100 FL (80-99) H Mean Corpuscular Hemoglobin 32.2 PG (27.0-31.0) H Mean Corpuscular Hemoglobin Concent 32.1 G/DL (32.0-36.0) Red Cell Distribution Width 13.6 % (11.6-14.8) Platelet Count 251 K/UL (150-450) Mean Platelet Volume 6.2 FL (6.5-10.1) L Neutrophils (%) (Auto) % (45.0-75.0) Lymphocytes (%) (Auto) % (20.0-45.0) Monocytes (%) (Auto) % (1.0-10.0) Eosinophils (%) (Auto) % (0.0-3.0) Basophils (%) (Auto) % (0.0-2.0) Sodium Level 141 mEQ/L (135-145) Potassium Level 2.5 mEQ/L (3.4-4.9) *L Chloride Level 103 mEQ/L (98-107) Carbon Dioxide Level 23 mEQ/L (20-30) Anion Gap 15 (5-15) Blood Urea Nitrogen 33 mg/dL (7-23) H Creatinine 5.0 mg/dL (0.7-1.2) H Estimat Glomerular Filtration Rate 11.9 mL/min (>60) Glucose Level 178 mg/dL (74-106) H Calcium Level 7.9 mg/dL (8.6-10.2) L Phosphorus Level 1.6 mg/dL (2.5-4.8) L Magnesium Level 1.8 mg/dL (1.7-2.5) Total Bilirubin 0.4 mg/dL (0.0-1.2) Aspartate Amino Transf (AST/SGOT) 18 U/L (5-40) Alanine Aminotransferase (ALT/SGPT) 14 U/L (3-41) Alkaline Phosphatase 50 U/L (40-129) Total Protein 5.6 g/dL (6.6-8.7) L Albumin 2.3 g/dL (3.5-5.2) L Globulin 3.3 g/dL Albumin/Globulin Ratio 0.6 (1.0-2.7) L Arterial Blood pH 7.673 (7.350-7.450) Arterial Blood Partial Pressure CO2 28.7 mmHg (35.0-45.0) L Arterial Blood Partial Pressure O2 55.9 mmHg (75.0-100.0) L Arterial Blood HCO3 32.6 mmol/L (22.0-26.0) H Arterial Blood Oxygen Saturation 93.2 % (92.0-98.0) Arterial Blood Base Excess 11.6 Tadeo Test Positive JEFF INMAN May 20, 2016 10:25
[2016-05-20] MEDS: Heparin 5000 units/ml inj SUBQ SCH ×2 (10:27→20:41)
--- NOTE | 2016-05-20 12:31 | Diagnostic Imaging Report ---
Indication: DYSPNEA Technique: One view of the chest Comparison: 05/19/2016 Findings: There is increased pleural fluid on the left, with pleural fluid now occupying the vast majority left the thorax and minimal residual aerated lung is demonstrated. Right perihilar infiltrate persists, unchanged. Right pleural space remains clear. Stable satisfactory positions of endotracheal and nasogastric tubes Impression: Interim marked worsening of left pleural effusion, now occupying the vast majority of left hemithorax with only minimal aerated lung. Persistent right perihilar infiltrate Stable nasogastric and endotracheal tube positions
--- NOTE | 2016-05-20 13:07 | GI Progress Note ---
Assessment/Plan Problems: (1) On tube feeding diet ICD Codes: Z78.9 - Other specified health status SNOMED: 49566414 (2) C. difficile colitis ICD Codes: A04.7 - Enterocolitis due to Clostridium difficile SNOMED: 048409496 (3) Methamphetamine abuse ICD Codes: F15.10 - Other stimulant abuse, uncomplicated SNOMED: 666251791 (4) Anemia, chronic disease ICD Codes: D63.8 - Anemia in other chronic diseases classified elsewhere SNOMED: 025747262 (5) Diabetes ICD Codes: E11.9 - Diabetes SNOMED: 56755872 Status: unchanged Status Narrative Discussed with Dr. Irizarry. Assessment/Plan - AMS - C Diff (+) - UTI - PNA - dysphagia - HTN - amputation - Renal failure - NGTFs - monitor H&H, transfuse prn >> downtrending, ordered OB stool - Elevate HOB - Abx per ID - follow labs Subjective Subjective limited, pt in ICU Objective Last 24 Hour Vital Signs Date Time Temp Pulse Resp B/P Pulse Ox O2 Delivery O2 Flow Rate FiO2 05/20/16 11:02 84 20 98/56 96 Mechanical Ventilator 100 05/20/16 10:34 100 05/20/16 10:15 89 14 100 05/20/16 10:09 85 19 100/56 98 Mechanical Ventilator 65 05/20/16 09:11 92 16 65 05/20/16 09:00 86 18 104/58 98 Mechanical Ventilator 65 05/20/16 09:00 84 95/60 05/20/16 08:57 Mechanical Ventilator 62 05/20/16 08:30 98.8 90 16 103/61 99 Mechanical Ventilator 65 05/20/16 08:00 94 18 100/52 98 Mechanical Ventilator 65 05/20/16 08:00 65 05/20/16 08:00 85 05/20/16 07:07 92 16 94/51 98 Mechanical Ventilator 65 05/20/16 06:37 91 16 65 05/20/16 06:00 94 16 109/55 98 Mechanical Ventilator 65 05/20/16 05:12 94 16 65 05/20/16 05:00 94 16 125/48 98 Mechanical Ventilator 65 05/20/16 05:00 Mechanical Ventilator 65 05/20/16 05:00 99.3 104 22 103/40 100 Mechanical Ventilator 65 05/20/16 04:00 98.2 87 16 113/63 98 Mechanical Ventilator 65 05/20/16 04:00 65 05/20/16 04:00 87 05/20/16 03:00 90 16 111/52 98 Mechanical Ventilator 65 05/20/16 02:40 88 16 65 05/20/16 02:00 91 18 102/48 98 Mechanical Ventilator 65 05/20/16 01:10 95 16 65 05/20/16 01:00 91 18 91/45 98 Mechanical Ventilator 65 05/20/16 00:00 98.2 93 18 108/49 98 Mechanical Ventilator 65 05/20/16 00:00 65 05/20/16 00:00 94 05/19/16 23:10 92 16 65 05/19/16 23:00 92 16 102/50 96 Mechanical Ventilator 65 05/19/16 22:00 99 17 101/49 98 Mechanical Ventilator 65 05/19/16 21:18 91 16 65 05/19/16 21:00 92 16 113/62 97 Mechanical Ventilator 65 05/19/16 21:00 101 99/48 05/19/16 20:00 95 05/19/16 20:00 65 05/19/16 20:00 98.8 95 16 103/50 94 Mechanical Ventilator 65 05/19/16 19:33 99 16 65 05/19/16 19:00 100 16 103/45 95 Mechanical Ventilator 65 05/19/16 18:00 92 16 109/48 94 Mechanical Ventilator 65 05/19/16 17:02 91 16 50 05/19/16 17:00 97 16 100/49 95 Mechanical Ventilator 65 05/19/16 16:00 82 05/19/16 16:00 99.1 84 16 142/46 100 Mechanical Ventilator 65 05/19/16 16:00 65 05/19/16 15:00 90 16 92/65 100 Mechanical Ventilator 50 05/19/16 14:50 91 16 50 05/19/16 14:00 85 18 120/65 100 Mechanical Ventilator 50 Intake and Output 05/19/16 05/20/16 19:00 07:00 Intake Total 980 ml 630 ml Output Total 160 ml 460 ml Balance 820 ml 170 ml Free Water 50 ml IV Total 500 ml 100 ml Tube Feeding 480 ml 480 ml Output Urine Total 10 ml 10 ml Stool Total 150 ml 450 ml # Bowel Movements 2 2 Laboratory Tests Test 05/20/16 05:30 3/15/17 09:52 White Blood Count 11.1 K/UL (4.8-10.8) H Red Blood Count 2.42 M/UL (4.70-6.10) L Hemoglobin 7.8 G/DL (14.2-18.0) L Hematocrit 24.3 % (42.0-52.0) L Mean Corpuscular Volume 100 FL (80-99) H Mean Corpuscular Hemoglobin 32.2 PG (27.0-31.0) H Mean Corpuscular Hemoglobin Concent 32.1 G/DL (32.0-36.0) Red Cell Distribution Width 13.6 % (11.6-14.8) Platelet Count 251 K/UL (150-450) Mean Platelet Volume 6.2 FL (6.5-10.1) L Neutrophils (%) (Auto) % (45.0-75.0) Lymphocytes (%) (Auto) % (20.0-45.0) Monocytes (%) (Auto) % (1.0-10.0) Eosinophils (%) (Auto) % (0.0-3.0) Basophils (%) (Auto) % (0.0-2.0) Sodium Level 141 mEQ/L (135-145) Potassium Level 2.5 mEQ/L (3.4-4.9) *L Chloride Level 103 mEQ/L (98-107) Carbon Dioxide Level 23 mEQ/L (20-30) Anion Gap 15 (5-15) Blood Urea Nitrogen 33 mg/dL (7-23) H Creatinine 5.0 mg/dL (0.7-1.2) H Estimat Glomerular Filtration Rate 11.9 mL/min (>60) Glucose Level 178 mg/dL (74-106) H Calcium Level 7.9 mg/dL (8.6-10.2) L Phosphorus Level 1.6 mg/dL (2.5-4.8) L Magnesium Level 1.8 mg/dL (1.7-2.5) Total Bilirubin 0.4 mg/dL (0.0-1.2) Aspartate Amino Transf (AST/SGOT) 18 U/L (5-40) Alanine Aminotransferase (ALT/SGPT) 14 U/L (3-41) Alkaline Phosphatase 50 U/L (40-129) Total Protein 5.6 g/dL (6.6-8.7) L Albumin 2.3 g/dL (3.5-5.2) L Globulin 3.3 g/dL Albumin/Globulin Ratio 0.6 (1.0-2.7) L Arterial Blood pH 7.673 (7.350-7.450) Arterial Blood Partial Pressure CO2 28.7 mmHg (35.0-45.0) L Arterial Blood Partial Pressure O2 55.9 mmHg (75.0-100.0) L Arterial Blood HCO3 32.6 mmol/L (22.0-26.0) H Arterial Blood Oxygen Saturation 93.2 % (92.0-98.0) Arterial Blood Base Excess 11.6 Tadeo Test Positive Height (Feet): 5 Height (Inches): 7.00 Weight (Pounds): 129 General Appearance: no apparent distress Cardiovascular: normal rate Respiratory/Chest: other - mech vent Abdominal Exam: other - [facility] Tia Pederson N.P. May 20, 2016 13:07
--- NOTE | 2016-05-20 15:01 | General Progress Note ---
Assessment/Plan Problem List: (1) Respiratory failure ICD Codes: J96.90 - Respiratory failure, unspecified, unspecified whether with hypoxia or hypercapnia SNOMED: 544099453 (2) ESRD on dialysis ICD Codes: N18.6 - ESRD on dialysis; Z99.2 - Dependence on renal dialysis SNOMED: 409368404 (3) Sepsis ICD Codes: A41.9 - Sepsis, unspecified organism SNOMED: 87368637 (4) CVA (cerebral vascular accident) ICD Codes: I63.9 - Cerebral infarction, unspecified SNOMED: 640366230 (5) Encephalopathy ICD Codes: G93.40 - Encephalopathy SNOMED: 60602392 (6) Seizure ICD Codes: R56.9 - Seizure SNOMED: 97695677 (7) Altered level of consciousness ICD Codes: R40.4 - Transient alteration of awareness SNOMED: 3272307 (8) UTI (urinary tract infection) ICD Codes: N39.0 - Urinary tract infection, site not specified SNOMED: 96182047 Qualifiers: Qualified Codes: N30.01 - Acute cystitis with hematuria Status: unchanged Assessment/Plan vent abx cbc bmp am Subjective Constitutional: Reports: weakness Allergies: Coded Allergies: No Known Allergies (Unverified , 09/05/13) All Systems: reviewed and negative except above Subjective intub ng in icu Objective Last 24 Hour Vital Signs Date Time Temp Pulse Resp B/P Pulse Ox O2 Delivery O2 Flow Rate FiO2 05/20/16 14:00 84 22 104/61 98 Mechanical Ventilator 50 05/20/16 13:08 95 22 100 05/20/16 13:00 82 25 105/58 100 Mechanical Ventilator 50 05/20/16 12:00 98.7 86 18 100/60 98 Mechanical Ventilator 100 05/20/16 12:00 86 05/20/16 11:02 84 20 98/56 96 Mechanical Ventilator 100 05/20/16 10:34 100 05/20/16 10:15 89 14 100 05/20/16 10:09 85 19 100/56 98 Mechanical Ventilator 65 05/20/16 09:11 92 16 65 05/20/16 09:00 86 18 104/58 98 Mechanical Ventilator 65 05/20/16 09:00 84 95/60 05/20/16 08:57 Mechanical Ventilator 62 05/20/16 08:30 98.8 90 16 103/61 99 Mechanical Ventilator 65 05/20/16 08:00 94 18 100/52 98 Mechanical Ventilator 65 05/20/16 08:00 65 05/20/16 08:00 85 05/20/16 07:07 92 16 94/51 98 Mechanical Ventilator 65 05/20/16 06:37 91 16 65 05/20/16 06:00 94 16 109/55 98 Mechanical Ventilator 65 05/20/16 05:12 94 16 65 05/20/16 05:00 94 16 125/48 98 Mechanical Ventilator 65 05/20/16 05:00 Mechanical Ventilator 65 05/20/16 05:00 99.3 104 22 103/40 100 Mechanical Ventilator 65 05/20/16 04:00 98.2 87 16 113/63 98 Mechanical Ventilator 65 05/20/16 04:00 65 05/20/16 04:00 87 05/20/16 03:00 90 16 111/52 98 Mechanical Ventilator 65 05/20/16 02:40 88 16 65 05/20/16 02:00 91 18 102/48 98 Mechanical Ventilator 65 05/20/16 01:10 95 16 65 05/20/16 01:00 91 18 91/45 98 Mechanical Ventilator 65 05/20/16 00:00 98.2 93 18 108/49 98 Mechanical Ventilator 65 05/20/16 00:00 65 05/20/16 00:00 94 05/19/16 23:10 92 16 65 05/19/16 23:00 92 16 102/50 96 Mechanical Ventilator 65 05/19/16 22:00 99 17 101/49 98 Mechanical Ventilator 65 05/19/16 21:18 91 16 65 05/19/16 21:00 92 16 113/62 97 Mechanical Ventilator 65 05/19/16 21:00 101 99/48 05/19/16 20:00 95 05/19/16 20:00 65 05/19/16 20:00 98.8 95 16 103/50 94 Mechanical Ventilator 65 05/19/16 19:33 99 16 65 05/19/16 19:00 100 16 103/45 95 Mechanical Ventilator 65 05/19/16 18:00 92 16 109/48 94 Mechanical Ventilator 65 05/19/16 17:02 91 16 50 05/19/16 17:00 97 16 100/49 95 Mechanical Ventilator 65 05/19/16 16:00 82 05/19/16 16:00 99.1 84 16 142/46 100 Mechanical Ventilator 65 05/19/16 16:00 65 Intake and Output 05/19/16 05/20/16 19:00 07:00 Intake Total 980 ml 630 ml Output Total 160 ml 460 ml Balance 820 ml 170 ml Free Water 50 ml IV Total 500 ml 100 ml Tube Feeding 480 ml 480 ml Output Urine Total 10 ml 10 ml Stool Total 150 ml 450 ml # Bowel Movements 2 2 Laboratory Tests 05/20/16 05:30: White Blood Count 11.1H, Red Blood Count 2.42L, Hemoglobin 7.8L, Hematocrit 24.3L, Mean Corpuscular Volume 100H, Mean Corpuscular Hemoglobin 32.2H, Mean Corpuscular Hemoglobin Concent 32.1, Red Cell Distribution Width 13.6, Platelet Count 251, Mean Platelet Volume 6.2L, Neutrophils (%) (Auto) , Lymphocytes (%) ( Auto) , Monocytes (%) (Auto) , Eosinophils (%) (Auto) , Basophils (%) (Auto) , Sodium Level 141, Potassium Level 2.5*L, Chloride Level 103, Carbon Dioxide Level 23, Anion Gap 15, Blood Urea Nitrogen 33H, Creatinine 5.0H, Estimat Glomerular Filtration Rate 11.9, Glucose Level 178H, Calcium Level 7.9L, Phosphorus Level 1.6L, Magnesium Level 1.8, Total Bilirubin 0.4, Aspartate Amino Transf (AST/SGOT) 18, Alanine Aminotransferase (ALT/SGPT) 14, Alkaline Phosphatase 50, Total Protein 5.6L, Albumin 2.3L, Globulin 3.3, Albumin/ Globulin Ratio 0.6L 05/20/16 09:52: Arterial Blood pH 7.673*H, Arterial Blood Partial Pressure CO2 28.7L, Arterial Blood Partial Pressure O2 55.9L, Arterial Blood HCO3 32.6H, Arterial Blood Oxygen Saturation 93.2, Arterial Blood Base Excess 11.6, Tadeo Test Positive Height (Feet): 5 Height (Inches): 7.00 Weight (Pounds): 129 General Appearance: lethargic EENT: normal ENT inspection Neck: normal alignment Cardiovascular: normal peripheral pulses, normal rate, regular rhythm Respiratory/Chest: chest wall non-tender, lungs clear, decreased breath sounds Abdomen: normal bowel sounds, non tender, soft Extremities: normal inspection Edema: no edema noted Arm (L), no edema noted Arm (R), no edema noted Leg (L), no edema noted Leg (R), no edema noted Pedal (L), no edema noted Pedal (R), no edema noted Generalized Neurologic: motor weakness Skin: normal pigmentation, warm/dry VANDANA INMAN May 20, 2016 15:01
--- NOTE | 2016-05-20 16:19 | Infectious Diseases Prog Note ---
Assessment/Plan Problems: (1) C. difficile diarrhea Assessment & Plan: on oral vancomycin and IV flagyl for sever C diff infection , continue gentle hydration since he still has sever diarrhea , avoid antacids and laxatives (2) Sepsis Assessment & Plan: most likely due to C diff infection, was treated for UTI already with meropenem, on oral vancomycin and IV flagyl. keep off antacid and Imodium (3) UTI (urinary tract infection) Assessment & Plan: with E coli pansensitive , was treated with antibiotics for 5 days (4) ESRD on dialysis Assessment & Plan: renal is following , continue HD (5) Diabetes Assessment & Plan: recommend tight glycemic control to keep blood glucose between 80-120 (6) Colonization with VRE (vancomycin-resistant enterococcus) Assessment & Plan: keep on contact isolation (7) Altered level of consciousness Assessment & Plan: improved, due to hypoxemia and fluids overload, intubated, continue HD to remove fluids, monitor CXR, pulmonary is following (8) Pleural effusion Assessment & Plan: with complete left lung collapse , recommend thoracentesis to remove fluids quickly , since he didn't tolerate HD today , and became hypotensive , 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 Subjective ROS Limited/Unobtainable: Yes Allergies: Coded Allergies: No Known Allergies (Unverified , 09/05/13) Subjective he is still intubated, on mechanical ventilation , alert, but tachypneic, in mild distress .afebrile Objective Vital Signs Last 24 Hour Vital Signs Date Time Temp Pulse Resp B/P Pulse Ox O2 Delivery O2 Flow Rate FiO2 05/20/16 15:00 90 14 156/73 100 Mechanical Ventilator 50 05/20/16 14:46 92 18 100 05/20/16 14:00 84 22 104/61 98 Mechanical Ventilator 50 05/20/16 13:08 95 22 100 05/20/16 13:00 82 25 105/58 100 Mechanical Ventilator 50 05/20/16 12:00 98.7 86 18 100/60 98 Mechanical Ventilator 100 05/20/16 12:00 86 05/20/16 11:02 84 20 98/56 96 Mechanical Ventilator 100 05/20/16 10:34 100 05/20/16 10:15 89 14 100 05/20/16 10:09 85 19 100/56 98 Mechanical Ventilator 65 05/20/16 09:11 92 16 65 05/20/16 09:00 86 18 104/58 98 Mechanical Ventilator 65 05/20/16 09:00 84 95/60 05/20/16 08:57 Mechanical Ventilator 62 05/20/16 08:30 98.8 90 16 103/61 99 Mechanical Ventilator 65 05/20/16 08:00 94 18 100/52 98 Mechanical Ventilator 65 05/20/16 08:00 65 05/20/16 08:00 85 05/20/16 07:07 92 16 94/51 98 Mechanical Ventilator 65 05/20/16 06:37 91 16 65 05/20/16 06:00 94 16 109/55 98 Mechanical Ventilator 65 05/20/16 05:12 94 16 65 05/20/16 05:00 94 16 125/48 98 Mechanical Ventilator 65 05/20/16 05:00 Mechanical Ventilator 65 05/20/16 05:00 99.3 104 22 103/40 100 Mechanical Ventilator 65 05/20/16 04:00 98.2 87 16 113/63 98 Mechanical Ventilator 65 05/20/16 04:00 65 05/20/16 04:00 87 05/20/16 03:00 90 16 111/52 98 Mechanical Ventilator 65 05/20/16 02:40 88 16 65 05/20/16 02:00 91 18 102/48 98 Mechanical Ventilator 65 05/20/16 01:10 95 16 65 05/20/16 01:00 91 18 91/45 98 Mechanical Ventilator 65 05/20/16 00:00 98.2 93 18 108/49 98 Mechanical Ventilator 65 05/20/16 00:00 65 05/20/16 00:00 94 05/19/16 23:10 92 16 65 05/19/16 23:00 92 16 102/50 96 Mechanical Ventilator 65 05/19/16 22:00 99 17 101/49 98 Mechanical Ventilator 65 05/19/16 21:18 91 16 65 05/19/16 21:00 92 16 113/62 97 Mechanical Ventilator 65 05/19/16 21:00 101 99/48 05/19/16 20:00 95 05/19/16 20:00 65 05/19/16 20:00 98.8 95 16 103/50 94 Mechanical Ventilator 65 05/19/16 19:33 99 16 65 05/19/16 19:00 100 16 103/45 95 Mechanical Ventilator 65 05/19/16 18:00 92 16 109/48 94 Mechanical Ventilator 65 05/19/16 17:02 91 16 50 05/19/16 17:00 97 16 100/49 95 Mechanical Ventilator 65 Height (Feet): 5 Height (Inches): 7.00 Weight (Pounds): 129 General Appearance: WD/WN, other - tachypnec HEENT: normocephalic, atraumatic, anicteric Respiratory/Chest: respiratory distress, decreased breath sounds, crackles/ rales Cardiovascular: normal peripheral pulses, normal rate, regular rhythm, no gallop/murmur Abdomen: normal bowel sounds, soft, non tender, no organomegaly, non distended , no mass, no scars Extremities: no cyanosis, no clubbing Skin: no rash, no lesions Laboratory Tests Test 05/20/16 05:30 05/20/16 09:52 White Blood Count 11.1 K/UL (4.8-10.8) H Red Blood Count 2.42 M/UL (4.70-6.10) L Hemoglobin 7.8 G/DL (14.2-18.0) L Hematocrit 24.3 % (42.0-52.0) L Mean Corpuscular Volume 100 FL (80-99) H Mean Corpuscular Hemoglobin 32.2 PG (27.0-31.0) H Mean Corpuscular Hemoglobin Concent 32.1 G/DL (32.0-36.0) Red Cell Distribution Width 13.6 % (11.6-14.8) Platelet Count 251 K/UL (150-450) Mean Platelet Volume 6.2 FL (6.5-10.1) L Neutrophils (%) (Auto) % (45.0-75.0) Lymphocytes (%) (Auto) % (20.0-45.0) Monocytes (%) (Auto) % (1.0-10.0) Eosinophils (%) (Auto) % (0.0-3.0) Basophils (%) (Auto) % (0.0-2.0) Sodium Level 141 mEQ/L (135-145) Potassium Level 2.5 mEQ/L (3.4-4.9) *L Chloride Level 103 mEQ/L (98-107) Carbon Dioxide Level 23 mEQ/L (20-30) Anion Gap 15 (5-15) Blood Urea Nitrogen 33 mg/dL (7-23) H Creatinine 5.0 mg/dL (0.7-1.2) H Estimat Glomerular Filtration Rate 11.9 mL/min (>60) Glucose Level 178 mg/dL (74-106) H Calcium Level 7.9 mg/dL (8.6-10.2) L Phosphorus Level 1.6 mg/dL (2.5-4.8) L Magnesium Level 1.8 mg/dL (1.7-2.5) Total Bilirubin 0.4 mg/dL (0.0-1.2) Aspartate Amino Transf (AST/SGOT) 18 U/L (5-40) Alanine Aminotransferase (ALT/SGPT) 14 U/L (3-41) Alkaline Phosphatase 50 U/L (40-129) Total Protein 5.6 g/dL (6.6-8.7) L Albumin 2.3 g/dL (3.5-5.2) L Globulin 3.3 g/dL Albumin/Globulin Ratio 0.6 (1.0-2.7) L Arterial Blood pH 7.673 (7.350-7.450) Arterial Blood Partial Pressure CO2 28.7 mmHg (35.0-45.0) L Arterial Blood Partial Pressure O2 55.9 mmHg (75.0-100.0) L Arterial Blood HCO3 32.6 mmol/L (22.0-26.0) H Arterial Blood Oxygen Saturation 93.2 % (92.0-98.0) Arterial Blood Base Excess 11.6 Tadeo Test Positive Current Medications Medications (Trade) Dose Ordered Sig/Chelsea Route PRN Reason Start Time Stop Time Status Last Admin Dose Admin Acetaminophen (Tylenol) 1,000 mg Q6H PRN ORAL Mild Pain/Temp > 100.5 05/17/16 20:45 06/16/16 20:44 05/20/16 06:16 Albuterol/ Ipratropium (DuoNeb 0.5-3(2.5)mg/3ml) 3 ml Q4H PRN HHN Shortness of Breath 05/17/16 18:45 05/22/16 18:44 Clonidine HCl (Catapres) 0.1 mg Q6H PRN ORAL SBP>160 05/17/16 21:00 06/16/16 20:59 Dextrose (Dextrose 50%) STAT PRN IV Hypoglycemia 05/18/16 14:45 06/17/16 14:44 Heparin Sodium (Porcine) (Heparin 5000 units/ml) 5,000 units EVERY 12 HOURS SUBQ 05/17/16 21:00 06/16/16 20:59 05/20/16 10:27 Insulin Aspart (NovoLOG) Q6HR SUBQ 05/17/16 18:00 06/16/16 17:59 05/20/16 13:43 Lorazepam (Ativan 2mg/ml 1ml) 2 mg Q4H PRN IV PRN FOR TREMORS 05/18/16 11:00 05/25/16 10:59 Metoprolol Tartrate (Lopressor) 25 mg Q12HR NG 05/17/16 21:00 06/16/16 20:59 05/19/16 09:00 Metronidazole (Flagyl) 100 ml @ 100 mls/hr Q8HR IVPB 05/17/16 22:00 05/24/16 21:59 05/20/16 14:33 Morphine Sulfate (Morphine Sulfate) 4 mg Q4H PRN IVP Moderate Pain (Pain Scale 4-6) 05/18/16 10:30 05/25/16 10:29 Nitroglycerin (Ntg) 0.4 mg Q5M PRN SL Prn Chest Pain 05/17/16 15:30 06/16/16 15:29 Ondansetron HCl (Zofran) 4 mg Q6H PRN IVP Nausea & Vomiting 05/17/16 20:45 06/16/16 20:44 05/18/16 10:05 Vancomycin HCl (Vancomycin) 125 mg FOUR TIMES A DAY ORAL 05/17/16 18:00 05/24/16 17:59 05/20/16 13:44 Bandar Cartwright M.D. May 20, 2016 16:19
--- NOTE | 2016-05-20 16:29 | Wound Care Consultation ---
Wound Assessment Wound Assessment : Wound Present on Admission: No New Wound: No Status Change of Wound: No Wound Location Body Site Modif: left, upper, lateral Wound Location Body Site: thigh Wound Type: pressure ulcer Radha Test: Does not Radha Pressure Ulcer Stage: deep tissue injury Wound Thickness: Full Thickness Wound Length: 4.5 Wound Width: 3.5 Wound Depth: utd Percent of Wound Purple/Maroon: 100 Wound Drainage Amount: None Wound Drainage Odor: None/Absent Tissue Surrounding Wound: Erythemic Wound General Appearance: Reddened Wound Comment #7 Left upper lateral thigh DTI pressure ulcer Reassessed this Pt. Pt with multiple pressure ulcer. Sacral DTI same in size and 50% maroon and 50% purple in color from the last time I saw this Pt. Will cont to monitor. Pt in ICU at this time. Recommendation -Local wound care per protocol for DTI -Cont previous wound care treatment as ordered for all sites -Turn and reposition -Keep clean and dry -Low air loss mattress -Optimize nutrition -Assess and f/u accordingly for any changes KALEN BROOKS RN May 20, 2016 16:29
--- NOTE | 2016-05-20 21:37 | Cardiac Electrophysiology PN ---
Assessment/Plan Problem List: (1) Acute respiratory failure (2) Nosocomial pneumonia (3) ESRD on dialysis (4) HTN (hypertension) (5) Anemia Status: not improved, unchanged Status Narrative Pt remains on vent, but more alert/ responsive. In resp failure , due to pneumonia ECHO w/ nl LV systolic function noted. Met and resp alkalosis noted - pt now on IMV . Repeat ABG Hypokalemia - ESRD, on dialysis Assessment/Plan Continue vent support - IMV Repeat ABGs, K Hypkalemia management per nephrology - HD adjustment. Subjective ROS Limited/Unobtainable: No Subjective Intubated/ awake. c/o CP Objective Last 24 Hour Vital Signs Date Time Temp Pulse Resp B/P Pulse Ox O2 Delivery O2 Flow Rate FiO2 05/20/16 20:51 78 12 50 05/20/16 20:39 82 114/54 05/20/16 18:57 83 12 50 05/20/16 18:00 82 12 122/54 97 Mechanical Ventilator 50 05/20/16 17:02 98.5 85 18 109/56 98 Mechanical Ventilator 50 05/20/16 16:46 83 12 100 05/20/16 16:00 82 05/20/16 16:00 84 16 119/58 98 Mechanical Ventilator 50 05/20/16 16:00 50 05/20/16 15:00 90 14 156/73 100 Mechanical Ventilator 50 05/20/16 14:46 92 18 100 05/20/16 14:00 84 22 104/61 98 Mechanical Ventilator 50 05/20/16 13:08 95 22 100 05/20/16 13:00 82 25 105/58 100 Mechanical Ventilator 50 05/20/16 12:00 98.7 86 18 100/60 98 Mechanical Ventilator 100 05/20/16 12:00 86 05/20/16 11:02 84 20 98/56 96 Mechanical Ventilator 100 05/20/16 10:34 100 05/20/16 10:15 89 14 100 05/20/16 10:09 85 19 100/56 98 Mechanical Ventilator 65 05/20/16 09:11 92 16 65 05/20/16 09:00 86 18 104/58 98 Mechanical Ventilator 65 05/20/16 09:00 84 95/60 05/20/16 08:57 Mechanical Ventilator 62 05/20/16 08:30 98.8 90 16 103/61 99 Mechanical Ventilator 65 05/20/16 08:00 94 18 100/52 98 Mechanical Ventilator 65 05/20/16 08:00 65 05/20/16 08:00 85 05/20/16 07:07 92 16 94/51 98 Mechanical Ventilator 65 05/20/16 06:37 91 16 65 05/20/16 06:00 94 16 109/55 98 Mechanical Ventilator 65 05/20/16 05:12 94 16 65 05/20/16 05:00 94 16 125/48 98 Mechanical Ventilator 65 05/20/16 05:00 Mechanical Ventilator 65 05/20/16 05:00 99.3 104 22 103/40 100 Mechanical Ventilator 65 05/20/16 04:00 98.2 87 16 113/63 98 Mechanical Ventilator 65 05/20/16 04:00 65 05/20/16 04:00 87 05/20/16 03:00 90 16 111/52 98 Mechanical Ventilator 65 05/20/16 02:40 88 16 65 05/20/16 02:00 91 18 102/48 98 Mechanical Ventilator 65 05/20/16 01:10 95 16 65 05/20/16 01:00 91 18 91/45 98 Mechanical Ventilator 65 05/20/16 00:00 98.2 93 18 108/49 98 Mechanical Ventilator 65 05/20/16 00:00 65 05/20/16 00:00 94 05/19/16 23:10 92 16 65 05/19/16 23:00 92 16 102/50 96 Mechanical Ventilator 65 05/19/16 22:00 99 17 101/49 98 Mechanical Ventilator 65 General Appearance: WD/WN, on vent EENT: PERRL/EOMI, other - ET tube og tube Neck: non-tender Rhythm: NSR Cardiovascular: normal rate, regular rhythm, no gallop/murmur Respiratory/Chest: lungs clear - clear anteriorly Abdomen: non tender, soft Extremities: no swelling, other - R BKA Intake and Output 05/19/16 05/20/16 19:00 07:00 Intake Total 980 ml 630 ml Output Total 160 ml 460 ml Balance 820 ml 170 ml Free Water 50 ml IV Total 500 ml 100 ml Tube Feeding 480 ml 480 ml Output Urine Total 10 ml 10 ml Stool Total 150 ml 450 ml # Bowel Movements 2 2 Laboratory Tests Test 05/20/16 05:30 05/20/16 09:52 White Blood Count 11.1 K/UL (4.8-10.8) H Red Blood Count 2.42 M/UL (4.70-6.10) L Hemoglobin 7.8 G/DL (14.2-18.0) L Hematocrit 24.3 % (42.0-52.0) L Mean Corpuscular Volume 100 FL (80-99) H Mean Corpuscular Hemoglobin 32.2 PG (27.0-31.0) H Mean Corpuscular Hemoglobin Concent 32.1 G/DL (32.0-36.0) Red Cell Distribution Width 13.6 % (11.6-14.8) Platelet Count 251 K/UL (150-450) Mean Platelet Volume 6.2 FL (6.5-10.1) L Neutrophils (%) (Auto) % (45.0-75.0) Lymphocytes (%) (Auto) % (20.0-45.0) Monocytes (%) (Auto) % (1.0-10.0) Eosinophils (%) (Auto) % (0.0-3.0) Basophils (%) (Auto) % (0.0-2.0) Sodium Level 141 mEQ/L (135-145) Potassium Level 2.5 mEQ/L (3.4-4.9) *L Chloride Level 103 mEQ/L (98-107) Carbon Dioxide Level 23 mEQ/L (20-30) Anion Gap 15 (5-15) Blood Urea Nitrogen 33 mg/dL (7-23) H Creatinine 5.0 mg/dL (0.7-1.2) H Estimat Glomerular Filtration Rate 11.9 mL/min (>60) Glucose Level 178 mg/dL (74-106) H Calcium Level 7.9 mg/dL (8.6-10.2) L Phosphorus Level 1.6 mg/dL (2.5-4.8) L Magnesium Level 1.8 mg/dL (1.7-2.5) Total Bilirubin 0.4 mg/dL (0.0-1.2) Aspartate Amino Transf (AST/SGOT) 18 U/L (5-40) Alanine Aminotransferase (ALT/SGPT) 14 U/L (3-41) Alkaline Phosphatase 50 U/L (40-129) Total Protein 5.6 g/dL (6.6-8.7) L Albumin 2.3 g/dL (3.5-5.2) L Globulin 3.3 g/dL Albumin/Globulin Ratio 0.6 (1.0-2.7) L Arterial Blood pH 7.673 (7.350-7.450) Arterial Blood Partial Pressure CO2 28.7 mmHg (35.0-45.0) L Arterial Blood Partial Pressure O2 55.9 mmHg (75.0-100.0) L Arterial Blood HCO3 32.6 mmol/L (22.0-26.0) H Arterial Blood Oxygen Saturation 93.2 % (92.0-98.0) Arterial Blood Base Excess 11.6 Tadeo Test Positive KAVEH ROBISON May 20, 2016 21:37
--- NOTE | 2016-05-20 21:46 | Consultation ---
History of Present Illness General Date patient seen: May 20, 2016 Chief Complaint: Altered Level of Consciousness Referring physician: Dr Mckeon Reason for Consultation: ESRD on HD Present Illness HPI The patient is a 61-year-old male with history of hypertension, Alzheimer's dementia, type 2 diabetes, end-stage renal disease, on hemodialysis, schizophrenia as well as peripheral vascular disease status post amputation of right below knee, was brought to the emergency room for altered level of consciousness. The patient was brought in from half-way facility. At the time my evaluation, the patient unable to provide any information, however, her sister is at the bedside. The patient also has history of prior stroke and is on dialysis Wednesday, Wednesday, and Wednesday. Currently intubated, on mechanical ventilation , alert, but tachypneic, in mild distress .afebrile Allergies: Coded Allergies: No Known Allergies (Unverified , 09/05/13) Medication History Scheduled Amino Acids/Protein Hydrolys (Proteinex Liquid), 30 ML PO DAILY, (Reported) Ascorbic Acid* (Vitamin C*), 500 MG ORAL DAILY, (Reported) Aspirin (Aspirin EC), 81 MG ORAL DAILY, (Reported) Atorvastatin Calcium* (Lipitor*), 10 MG ORAL BEDTIME, (Reported) Bisacodyl (Dulcolax), 10 MG RC PRN, (Reported) Clonidine Hcl* (Catapres*), 0.1 MG ORAL EVERY 6 HOURS, (Reported) Clopidogrel Bisulfate* (Plavix*), 75 MG ORAL DAILY, (Reported) Collagenase Clostridium Hist. (Santyl), 1 APPLIC TOPIC DAILY Docusate Sodium* (Colace*), 100 MG ORAL TWICE A DAY, (Reported) Donepezil Hcl* (Aricept*), 10 MG ORAL DAILY, (Reported) Ertapenem Sodium* (INVanz*), 0.5 GM IVPB Q24H Famotidine (Famotidine), 20 MG ORAL DAILY, (Reported) Ferrous Sulfate (Ferrous Sulfate), 325 MG ORAL DAILY, (Reported) Folic Acid* (Folic Acid*), 1 MG ORAL DAILY, (Reported) Folic Acid/Vit Bcomp,C (Renal Vitamin Tablet), 0.8 MG PO DAILY, (Reported) Gabapentin* (Neurontin*), 100 MG ORAL TID, (Reported) Heparin Sod (Porcine) (Heparin Sodium*), 5,000 UNITS SUBQ EVERY 12 HOURS Insulin Aspart (Novolog Flexpen), 0 UNITS SUBQ BEFORE MEALS AND HS Insulin Aspart* (Novolog*), 0 SUBQ AC+HS, (Reported) Insulin Detemir (Levemir), 10 SUBQ Q12HR, (Reported) Insulin Glargine (Lantus), 10 SUBQ BEDTIME, (Reported) Lactase (Lactase), 1 TAB PO DAILY, (Reported) Magnesium Hydroxide* (Milk Of Magnesia*), 30 ML ORAL DAILY, (Reported) Metoprolol Succinate* (Toprol Xl*), 25 MG ORAL BID, (Reported) Metronidazole* (Flagyl*), 500 MG ORAL TID Mirtazapine* (Remeron*), 15 MG ORAL BEDTIME, (Reported) Multivitamin With Minerals (Multivitamins With Minerals*), 1 TAB ORAL DAILY, ( Reported) Pravastatin Sod* (Pravastatin Sod*), 20 MG ORAL BEDTIME, (Reported) Ranitidine Hcl* (Zantac*), 150 MG ORAL TWICE A DAY Sennosides (Senna), 2 TAB PO BEDTIME, (Reported) Tobramycin Sulf (Tobramycin), 2 DROP RIGHT EYE Q12HR Tramadol Hcl* (Ultram*), 50 MG ORAL BID, (Reported) Vit B Cmplx 3/Fa/Vit C/Biotin (Nephro-Ashleigh Rx Tablet), 1 EACH PO DAILY, ( Reported) Zinc Sulfate (Zinc Sulfate*), 220 MG ORAL DAILY, (Reported) Scheduled PRN Acetaminophen* (Tylenol Extra Strength*), 1,000 MG ORAL Q6H PRN for Mild Pain/ Temp > 100.5, (Reported) Glucagon (Glucagen), 1 MG IJ PRN PRN for hypoglycemia, (Reported) Loperamide HCl (Loperamide), 2 MG ORAL Q6HR PRN for LOOSE STOOL, (Reported) Lorazepam* (Ativan*), 0.5 MG ORAL for Agitation, (Reported) Na Phos,M-B/Na Phos,Di-Ba* (Fleet Enema*), 133 ML RECTAL DAILY PRN for Constipation, (Reported) Ondansetron (Zofran), 4 MG ORAL Q6H PRN for Nausea & Vomiting, (Reported) Ondansetron Odt* (Zofran Odt*), 4 MG ORAL Q6H PRN for Nausea & Vomiting, ( Reported) Tramadol Hcl* (Ultram*), 50 MG ORAL Q6H PRN for For Pain, (Reported) [Morphine Sulfate], 2 MG IVP Q4H PRN for Severe Pain (Pain Scale 7-10) Patient History Healthcare decision maker Resuscitation status Full Code Advanced Directive on File No Past Medical/Surgical History Past Medical/Surgical History: (1) ESRD on dialysis (2) Anemia, chronic disease (3) Methamphetamine abuse (4) Depression (5) Diabetes Review of Systems All Other Systems: negative except mentioned in HPI Physical Exam General Appearance: no apparent distress Lines, tubes and drains: ngt, dialysis access, stone cath, rectal tube HEENT: normocephalic Neck: supple Respiratory/Chest: decreased breath sounds Cardiovascular/Chest: no JVD Abdomen: normal bowel sounds Genitourinary/Rectal: stone Extremities: non-pitting Neurologic: unresponsiveness Last 24 Hour Vital Signs Date Time Temp Pulse Resp B/P Pulse Ox O2 Delivery O2 Flow Rate FiO2 05/20/16 20:51 78 12 50 05/20/16 20:39 82 114/54 05/20/16 18:57 83 12 50 05/20/16 18:00 82 12 122/54 97 Mechanical Ventilator 50 05/20/16 17:02 98.5 85 18 109/56 98 Mechanical Ventilator 50 05/20/16 16:46 83 12 100 05/20/16 16:00 82 05/20/16 16:00 84 16 119/58 98 Mechanical Ventilator 50 05/20/16 16:00 50 05/20/16 15:00 90 14 156/73 100 Mechanical Ventilator 50 05/20/16 14:46 92 18 100 05/20/16 14:00 84 22 104/61 98 Mechanical Ventilator 50 05/20/16 13:08 95 22 100 05/20/16 13:00 82 25 105/58 100 Mechanical Ventilator 50 05/20/16 12:00 98.7 86 18 100/60 98 Mechanical Ventilator 100 05/20/16 12:00 86 05/20/16 11:02 84 20 98/56 96 Mechanical Ventilator 100 05/20/16 10:34 100 05/20/16 10:15 89 14 100 05/20/16 10:09 85 19 100/56 98 Mechanical Ventilator 65 05/20/16 09:11 92 16 65 05/20/16 09:00 86 18 104/58 98 Mechanical Ventilator 65 05/20/16 09:00 84 95/60 05/20/16 08:57 Mechanical Ventilator 62 05/20/16 08:30 98.8 90 16 103/61 99 Mechanical Ventilator 65 05/20/16 08:00 94 18 100/52 98 Mechanical Ventilator 65 05/20/16 08:00 65 05/20/16 08:00 85 05/20/16 07:07 92 16 94/51 98 Mechanical Ventilator 65 05/20/16 06:37 91 16 65 05/20/16 06:00 94 16 109/55 98 Mechanical Ventilator 65 05/20/16 05:12 94 16 65 05/20/16 05:00 94 16 125/48 98 Mechanical Ventilator 65 05/20/16 05:00 Mechanical Ventilator 65 05/20/16 05:00 99.3 104 22 103/40 100 Mechanical Ventilator 65 05/20/16 04:00 98.2 87 16 113/63 98 Mechanical Ventilator 65 05/20/16 04:00 65 05/20/16 04:00 87 05/20/16 03:00 90 16 111/52 98 Mechanical Ventilator 65 05/20/16 02:40 88 16 65 05/20/16 02:00 91 18 102/48 98 Mechanical Ventilator 65 05/20/16 01:10 95 16 65 05/20/16 01:00 91 18 91/45 98 Mechanical Ventilator 65 05/20/16 00:00 98.2 93 18 108/49 98 Mechanical Ventilator 65 05/20/16 00:00 65 05/20/16 00:00 94 05/19/16 23:10 92 16 65 05/19/16 23:00 92 16 102/50 96 Mechanical Ventilator 65 05/19/16 22:00 99 17 101/49 98 Mechanical Ventilator 65 Intake and Output 05/19/16 05/20/16 19:00 07:00 Intake Total 980 ml 630 ml Output Total 160 ml 460 ml Balance 820 ml 170 ml Free Water 50 ml IV Total 500 ml 100 ml Tube Feeding 480 ml 480 ml Output Urine Total 10 ml 10 ml Stool Total 150 ml 450 ml # Bowel Movements 2 2 Laboratory Tests Test 05/20/16 05:30 05/20/16 09:52 White Blood Count 11.1 K/UL (4.8-10.8) H Red Blood Count 2.42 M/UL (4.70-6.10) L Hemoglobin 7.8 G/DL (14.2-18.0) L Hematocrit 24.3 % (42.0-52.0) L Mean Corpuscular Volume 100 FL (80-99) H Mean Corpuscular Hemoglobin 32.2 PG (27.0-31.0) H Mean Corpuscular Hemoglobin Concent 32.1 G/DL (32.0-36.0) Red Cell Distribution Width 13.6 % (11.6-14.8) Platelet Count 251 K/UL (150-450) Mean Platelet Volume 6.2 FL (6.5-10.1) L Neutrophils (%) (Auto) % (45.0-75.0) Lymphocytes (%) (Auto) % (20.0-45.0) Monocytes (%) (Auto) % (1.0-10.0) Eosinophils (%) (Auto) % (0.0-3.0) Basophils (%) (Auto) % (0.0-2.0) Sodium Level 141 mEQ/L (135-145) Potassium Level 2.5 mEQ/L (3.4-4.9) *L Chloride Level 103 mEQ/L (98-107) Carbon Dioxide Level 23 mEQ/L (20-30) Anion Gap 15 (5-15) Blood Urea Nitrogen 33 mg/dL (7-23) H Creatinine 5.0 mg/dL (0.7-1.2) H Estimat Glomerular Filtration Rate 11.9 mL/min (>60) Glucose Level 178 mg/dL (74-106) H Calcium Level 7.9 mg/dL (8.6-10.2) L Phosphorus Level 1.6 mg/dL (2.5-4.8) L Magnesium Level 1.8 mg/dL (1.7-2.5) Total Bilirubin 0.4 mg/dL (0.0-1.2) Aspartate Amino Transf (AST/SGOT) 18 U/L (5-40) Alanine Aminotransferase (ALT/SGPT) 14 U/L (3-41) Alkaline Phosphatase 50 U/L (40-129) Total Protein 5.6 g/dL (6.6-8.7) L Albumin 2.3 g/dL (3.5-5.2) L Globulin 3.3 g/dL Albumin/Globulin Ratio 0.6 (1.0-2.7) L Arterial Blood pH 7.673 (7.350-7.450) Arterial Blood Partial Pressure CO2 28.7 mmHg (35.0-45.0) L Arterial Blood Partial Pressure O2 55.9 mmHg (75.0-100.0) L Arterial Blood HCO3 32.6 mmol/L (22.0-26.0) H Arterial Blood Oxygen Saturation 93.2 % (92.0-98.0) Arterial Blood Base Excess 11.6 Tadeo Test Positive Height (Feet): 5 Height (Inches): 7.00 Weight (Pounds): 129 Medications Current Medications Medications (Trade) Dose Ordered Sig/Chelsea Route PRN Reason Start Time Stop Time Status Last Admin Dose Admin Acetaminophen (Tylenol) 1,000 mg Q6H PRN ORAL Mild Pain/Temp > 100.5 05/17/16 20:45 06/16/16 20:44 05/20/16 06:16 Albuterol/ Ipratropium (DuoNeb 0.5-3(2.5)mg/3ml) 3 ml Q4H PRN HHN Shortness of Breath 05/17/16 18:45 05/22/16 18:44 Clonidine HCl (Catapres) 0.1 mg Q6H PRN ORAL SBP>160 05/17/16 21:00 06/16/16 20:59 Dextrose (Dextrose 50%) STAT PRN IV Hypoglycemia 05/18/16 14:45 06/17/16 14:44 Heparin Sodium (Porcine) (Heparin 5000 units/ml) 5,000 units EVERY 12 HOURS SUBQ 05/17/16 21:00 06/16/16 20:59 05/20/16 20:41 Insulin Aspart (NovoLOG) Q6HR SUBQ 05/17/16 18:00 06/16/16 17:59 05/20/16 18:28 Lorazepam (Ativan 2mg/ml 1ml) 2 mg Q4H PRN IV PRN FOR TREMORS 05/18/16 11:00 05/25/16 10:59 Metoprolol Tartrate (Lopressor) 25 mg Q12HR NG 05/17/16 21:00 06/16/16 20:59 05/20/16 20:39 Metronidazole (Flagyl) 100 ml @ 100 mls/hr Q8HR IVPB 05/17/16 22:00 05/24/16 21:59 05/20/16 14:33 Morphine Sulfate (Morphine Sulfate) 4 mg Q4H PRN IVP Moderate Pain (Pain Scale 4-6) 05/18/16 10:30 05/25/16 10:29 Nitroglycerin (Ntg) 0.4 mg Q5M PRN SL Prn Chest Pain 05/17/16 15:30 06/16/16 15:29 Ondansetron HCl (Zofran) 4 mg Q6H PRN IVP Nausea & Vomiting 05/17/16 20:45 06/16/16 20:44 05/18/16 10:05 Vancomycin HCl (Vancomycin) 125 mg FOUR TIMES A DAY ORAL 05/17/16 18:00 05/24/16 17:59 05/20/16 20:39 Assessment/Plan Status: not improved Assessment/Plan Continue HD every MWF Monitor lytes, correct with HD Monitor H&H, transfuse as needed Continue Stone ABX per ID DVT prophylaxis AM labs Yelena Peoples N.P. May 20, 2016 21:46
[2016-05-21] VITALS (24 sets, daily range): BP systolic 102–144; BP diastolic 37–70
[2016-05-21 05:48] LABS: BASOPHILS % (AUTO) 0.6 % (0.0-2.0); EOSINOPHILS % (AUTO) 6.1 % (0.0-3.0); LYMPHOCYTES % (AUTO) 19.4 % (20.0-45.0); MEAN CORPUSCULAR HEMOGLOBIN 31.9 PG (27.0-31.0); MEAN CORPUSCULAR HGB CONC 32.6 G/DL (32.0-36.0); MEAN CORPUSCULAR VOLUME 98 FL (80-99); MEAN PLATELET VOLUME 6.2 FL (6.5-10.1); NEUTROPHILS % (AUTO) 66.8 % (45.0-75.0); PLATELET COUNT 254 K/UL (150-450); RED BLOOD COUNT 3.04 M/UL (4.70-6.10); RED CELL DISTRIBUTION WIDTH 13.6 % (11.6-14.8); WHITE BLOOD COUNT 11.5 K/UL (4.8-10.8)
[2016-05-21] MEDS: metroNIDAZOLE 500mg 100 ML IVPB SCH ×3 (05:49→21:37)
[2016-05-21] MEDS: NovoLOG Insulin Flexpen SUBQ SCH ×3 (05:50→17:39)
[2016-05-21 06:23] LABS: ALBUMIN/GLOBULIN RATIO 0.5 (1.0-2.7); CALCIUM 8.1 mg/dL (8.6-10.2); CREATININE 3.8 mg/dL (0.7-1.2); GLOMERULAR FILTRATION RATE 16.3 mL/min (>60); MAGNESIUM 1.8 mg/dL (1.7-2.5); PHOSPHORUS 1.3 mg/dL (2.5-4.8); TOTAL PROTEIN 5.8 g/dL (6.6-8.7)
[2016-05-21] MEDS: Vancomycin oral 125mg/2.5ml ORAL SCH ×4 (08:36→20:55)
[2016-05-21] MEDS: Metoprolol 25mg tab NG SCH ×2 (08:36→20:41)
[2016-05-21] MEDS: Heparin 5000 units/ml inj SUBQ SCH ×2 (08:37→20:42)
[2016-05-21 09:37] LABS: ABG ALLEN TEST POSITIVE; ABG BASE EXCESS 11.2; ABG PCO2 33.7 mmHg (35.0-45.0)
--- NOTE | 2016-05-21 10:22 | Pulmonolgy Critical Care Note ---
Critical Care - Asmt/Plan Problems: (1) Acute respiratory failure (2) Nosocomial pneumonia (3) C. 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 Discussed with: nurses, consultants Critical Care - Objective Last 24 Hour Vital Signs Date Time Temp Pulse Resp B/P Pulse Ox O2 Delivery O2 Flow Rate FiO2 05/21/16 09:25 75 12 50 05/21/16 08:36 77 119/76 05/21/16 07:15 82 12 50 05/21/16 06:00 76 12 112/37 98 Mechanical Ventilator 50 05/21/16 05:00 83 12 104/69 99 Mechanical Ventilator 50 05/21/16 04:51 79 12 50 05/21/16 04:00 98.5 78 12 128/55 98 Mechanical Ventilator 50 05/21/16 04:00 78 05/21/16 04:00 50 05/21/16 03:00 77 12 120/56 98 Mechanical Ventilator 50 05/21/16 02:58 77 12 50 05/21/16 02:00 79 12 116/62 98 Mechanical Ventilator 50 05/21/16 01:26 78 12 50 05/21/16 01:00 79 15 117/58 98 Mechanical Ventilator 50 05/21/16 00:00 80 05/21/16 00:00 99.5 80 12 112/61 97 Mechanical Ventilator 50 05/21/16 00:00 50 05/20/16 23:20 79 12 50 05/20/16 23:00 79 12 119/54 97 Mechanical Ventilator 50 05/20/16 22:00 76 12 105/53 98 Mechanical Ventilator 50 05/20/16 21:00 81 14 105/53 99 Mechanical Ventilator 50 05/20/16 20:51 78 12 50 05/20/16 20:39 82 114/54 05/20/16 20:00 100.1 86 14 114/54 99 Mechanical Ventilator 50 05/20/16 20:00 86 3/15/17 20:00 50 05/20/16 19:00 85 13 115/55 99 Mechanical Ventilator 50 05/20/16 18:57 83 12 50 05/20/16 18:00 82 12 122/54 97 Mechanical Ventilator 50 05/20/16 17:02 98.5 85 18 109/56 98 Mechanical Ventilator 50 05/20/16 16:46 83 12 100 05/20/16 16:00 82 05/20/16 16:00 84 16 119/58 98 Mechanical Ventilator 50 05/20/16 16:00 50 05/20/16 15:00 90 14 156/73 100 Mechanical Ventilator 50 05/20/16 14:46 92 18 100 05/20/16 14:00 84 22 104/61 98 Mechanical Ventilator 50 05/20/16 13:08 95 22 100 05/20/16 13:00 82 25 105/58 100 Mechanical Ventilator 50 05/20/16 12:00 98.7 86 18 100/60 98 Mechanical Ventilator 100 05/20/16 12:00 86 05/20/16 11:02 84 20 98/56 96 Mechanical Ventilator 100 05/20/16 10:34 100 Status: sedated Condition: critical HEENT: atraumatic Neck: full ROM Lungs: chest wall tender Heart: HR/BP stable, regular Abdomen: non-tender, feeding tube Extremities: no C/C/E, edema Accucheck: 175 Critical Care - Subjective ROS Limited/Unobtainable: No ICU Day: 4 Condition: critical EKG Rhythm: Sinus Rhythm FI02: 50 Vent Support Breath Rate: 12 Vent Support Mode: IMV/SIMV Vent Tidal Volume: 700 Sputum Amount: Small PEEP: 5.0 PIP: 33 Tube Feeding Amount: 40 I&O: Intake and Output 05/20/16 05/21/16 19:00 07:00 Intake Total 940 ml 570 ml Output Total 510 ml 60 ml Balance 430 ml 510 ml Free Water 80 ml 30 ml IV Total 100 ml 100 ml Tube Feeding 480 ml 440 ml Blood Product 280 ml Output Urine Total 10 ml 10 ml Stool Total 200 ml 50 ml Hemodialysis UF 300 ml CXR: LLL atelectasis opened up now. ET-Tube: 7.5 ET Position: 24 Labs: Laboratory Tests Test 05/21/16 03:50 05/21/16 09:27 White Blood Count 11.5 K/UL (4.8-10.8) H Red Blood Count 3.04 M/UL (4.70-6.10) L Hemoglobin 9.7 G/DL (14.2-18.0) L Hematocrit 29.8 % (42.0-52.0) L Mean Corpuscular Volume 98 FL (80-99) Mean Corpuscular Hemoglobin 31.9 PG (27.0-31.0) H Mean Corpuscular Hemoglobin Concent 32.6 G/DL (32.0-36.0) Red Cell Distribution Width 13.6 % (11.6-14.8) Platelet Count 254 K/UL (150-450) Mean Platelet Volume 6.2 FL (6.5-10.1) L Neutrophils (%) (Auto) 66.8 % (45.0-75.0) Lymphocytes (%) (Auto) 19.4 % (20.0-45.0) L Monocytes (%) (Auto) 7.0 % (1.0-10.0) Eosinophils (%) (Auto) 6.1 % (0.0-3.0) H Basophils (%) (Auto) 0.6 % (0.0-2.0) Sodium Level 143 mEQ/L (135-145) Potassium Level 3.0 mEQ/L (3.4-4.9) L Chloride Level 99 mEQ/L (98-107) Carbon Dioxide Level 32 mEQ/L (20-30) H Anion Gap 12 (5-15) Blood Urea Nitrogen 26 mg/dL (7-23) H Creatinine 3.8 mg/dL (0.7-1.2) H Estimat Glomerular Filtration Rate 16.3 mL/min (>60) Glucose Level 166 mg/dL (74-106) H Calcium Level 8.1 mg/dL (8.6-10.2) L Phosphorus Level 1.3 mg/dL (2.5-4.8) L Magnesium Level 1.8 mg/dL (1.7-2.5) Total Bilirubin 0.5 mg/dL (0.0-1.2) Aspartate Amino Transf (AST/SGOT) 20 U/L (5-40) Alanine Aminotransferase (ALT/SGPT) 12 U/L (3-41) Alkaline Phosphatase 68 U/L (40-129) Total Protein 5.8 g/dL (6.6-8.7) L Albumin 2.0 g/dL (3.5-5.2) L Globulin 3.8 g/dL Albumin/Globulin Ratio 0.5 (1.0-2.7) L Arterial Blood pH 7.612 (7.350-7.450) Arterial Blood Partial Pressure CO2 33.7 mmHg (35.0-45.0) L Arterial Blood Partial Pressure O2 76.4 mmHg (75.0-100.0) Arterial Blood HCO3 33.2 mmol/L (22.0-26.0) H Arterial Blood Oxygen Saturation 95.6 % (92.0-98.0) Arterial Blood Base Excess 11.2 Tadeo Test Positive JEFF INMAN May 21, 2016 10:22
--- NOTE | 2016-05-21 10:30 | Diagnostic Imaging Report ---
Indication: DYSPNEA Technique: One view of the chest Comparison: 05/20/2016 Findings: There has been interim reexpansion of the left lung. Some residual hazy opacity is seen in the left infrahilar region. Hazy right perihilar opacity persists. Is slight blunting of the right costophrenic sulcus, likely indicating a small amount of pleural fluid. Nasogastric tube and endotracheal tube remain. The heart remains borderline enlarged.. Impression: Interim reexpansion of previously atelectatic left lung. Some residual hazy opacity may reflect infiltrate or reexpansion pulmonary edema
--- NOTE | 2016-05-21 14:34 | General Progress Note ---
Assessment/Plan Problem List: (1) Respiratory failure ICD Codes: J96.90 - Respiratory failure, unspecified, unspecified whether with hypoxia or hypercapnia SNOMED: 251411607 (2) ESRD on dialysis ICD Codes: N18.6 - ESRD on dialysis; Z99.2 - Dependence on renal dialysis SNOMED: 953182828 (3) Sepsis ICD Codes: A41.9 - Sepsis, unspecified organism SNOMED: 78380924 (4) CVA (cerebral vascular accident) ICD Codes: I63.9 - Cerebral infarction, unspecified SNOMED: 859343410 (5) Encephalopathy ICD Codes: G93.40 - Encephalopathy SNOMED: 08808777 (6) Seizure ICD Codes: R56.9 - Seizure SNOMED: 06505831 (7) Altered level of consciousness ICD Codes: R40.4 - Transient alteration of awareness SNOMED: 4856044 (8) UTI (urinary tract infection) ICD Codes: N39.0 - Urinary tract infection, site not specified SNOMED: 42912428 Qualifiers: Qualified Codes: N30.01 - Acute cystitis with hematuria Status: stable, progressing, tolerating diet Assessment/Plan vent abx cbc bmp am ltach eval Subjective Constitutional: Reports: weakness Allergies: Coded Allergies: No Known Allergies (Unverified , 09/05/13) All Systems: reviewed and negative except above Subjective intub ng in icu Objective Last 24 Hour Vital Signs Date Time Temp Pulse Resp B/P Pulse Ox O2 Delivery O2 Flow Rate FiO2 05/21/16 14:00 74 14 131/57 100 Mechanical Ventilator 50 05/21/16 13:17 85 12 50 05/21/16 13:00 77 12 122/53 100 Mechanical Ventilator 50 05/21/16 12:00 50 05/21/16 12:00 99.0 75 12 133/64 98 Mechanical Ventilator 50 05/21/16 12:00 79 05/21/16 11:00 75 12 126/61 98 Mechanical Ventilator 50 05/21/16 10:33 80 12 50 05/21/16 10:00 74 12 116/55 98 Mechanical Ventilator 50 05/21/16 09:25 75 12 50 05/21/16 09:00 75 14 115/54 98 Mechanical Ventilator 50 05/21/16 08:36 77 119/76 05/21/16 08:00 50 05/21/16 08:00 99.1 76 13 102/49 98 Mechanical Ventilator 50 05/21/16 08:00 81 05/21/16 07:15 82 12 50 05/21/16 07:00 79 12 119/66 98 Mechanical Ventilator 50 05/21/16 06:00 76 12 112/37 98 Mechanical Ventilator 50 05/21/16 05:00 83 12 104/69 99 Mechanical Ventilator 50 05/21/16 04:51 79 12 50 05/21/16 04:00 98.5 78 12 128/55 98 Mechanical Ventilator 50 05/21/16 04:00 78 05/21/16 04:00 50 05/21/16 03:00 77 12 120/56 98 Mechanical Ventilator 50 05/21/16 02:58 77 12 50 05/21/16 02:00 79 12 116/62 98 Mechanical Ventilator 50 05/21/16 01:26 78 12 50 05/21/16 01:00 79 15 117/58 98 Mechanical Ventilator 50 05/21/16 00:00 80 05/21/16 00:00 99.5 80 12 112/61 97 Mechanical Ventilator 50 05/21/16 00:00 50 05/20/16 23:20 79 12 50 05/20/16 23:00 79 12 119/54 97 Mechanical Ventilator 50 05/20/16 22:00 76 12 105/53 98 Mechanical Ventilator 50 05/20/16 21:00 81 14 105/53 99 Mechanical Ventilator 50 05/20/16 20:51 78 12 50 05/20/16 20:39 82 114/54 05/20/16 20:00 100.1 86 14 114/54 99 Mechanical Ventilator 50 05/20/16 20:00 86 05/20/16 20:00 50 05/20/16 19:00 85 13 115/55 99 Mechanical Ventilator 50 05/20/16 18:57 83 12 50 05/20/16 18:00 82 12 122/54 97 Mechanical Ventilator 50 05/20/16 17:02 98.5 85 18 109/56 98 Mechanical Ventilator 50 05/20/16 16:46 83 12 100 05/20/16 16:00 82 05/20/16 16:00 84 16 119/58 98 Mechanical Ventilator 50 05/20/16 16:00 50 05/20/16 15:00 90 14 156/73 100 Mechanical Ventilator 50 05/20/16 14:46 92 18 100 Intake and Output 05/20/16 05/21/16 19:00 07:00 Intake Total 940 ml 570 ml Output Total 510 ml 60 ml Balance 430 ml 510 ml Free Water 80 ml 30 ml IV Total 100 ml 100 ml Tube Feeding 480 ml 440 ml Blood Product 280 ml Output Urine Total 10 ml 10 ml Stool Total 200 ml 50 ml Hemodialysis UF 300 ml Laboratory Tests 05/21/16 03:50: White Blood Count 11.5H, Red Blood Count 3.04L, Hemoglobin 9.7L, Hematocrit 29.8L, Mean Corpuscular Volume 98, Mean Corpuscular Hemoglobin 31.9H, Mean Corpuscular Hemoglobin Concent 32.6, Red Cell Distribution Width 13.6, Platelet Count 254, Mean Platelet Volume 6.2L, Neutrophils (%) (Auto) 66.8, Lymphocytes ( %) (Auto) 19.4L, Monocytes (%) (Auto) 7.0, Eosinophils (%) (Auto) 6.1H, Basophils (%) (Auto) 0.6, Sodium Level 143, Potassium Level 3.0L, Chloride Level 99, Carbon Dioxide Level 32H, Anion Gap 12, Blood Urea Nitrogen 26H, Creatinine 3.8H, Estimat Glomerular Filtration Rate 16.3, Glucose Level 166H, Calcium Level 8.1L, Phosphorus Level 1.3L, Magnesium Level 1.8, Total Bilirubin 0.5, Aspartate Amino Transf (AST/SGOT) 20, Alanine Aminotransferase (ALT/SGPT) 12, Alkaline Phosphatase 68, Total Protein 5.8L, Albumin 2.0L, Globulin 3.8, Albumin/Globulin Ratio 0.5L 05/21/16 09:27: Arterial Blood pH 7.612*H, Arterial Blood Partial Pressure CO2 33.7L, Arterial Blood Partial Pressure O2 76.4, Arterial Blood HCO3 33.2H, Arterial Blood Oxygen Saturation 95.6, Arterial Blood Base Excess 11.2, Tadeo Test Positive Height (Feet): 5 Height (Inches): 7.00 Weight (Pounds): 129 General Appearance: lethargic EENT: normal ENT inspection Neck: normal alignment Cardiovascular: normal peripheral pulses, normal rate, regular rhythm Respiratory/Chest: chest wall non-tender, lungs clear, decreased breath sounds Abdomen: normal bowel sounds, non tender, soft Extremities: normal inspection Edema: no edema noted Arm (L), no edema noted Arm (R), no edema noted Leg (L), no edema noted Leg (R), no edema noted Pedal (L), no edema noted Pedal (R), no edema noted Generalized Neurologic: motor weakness Skin: normal pigmentation, warm/dry VANDANA INMAN May 21, 2016 14:34
--- NOTE | 2016-05-21 15:17 | General Progress Note ---
Assessment/Plan Problem List: (1) C. difficile colitis ICD Codes: A04.7 - Enterocolitis due to Clostridium difficile SNOMED: 105212741 (2) HTN (hypertension) ICD Codes: I10 - Essential (primary) hypertension SNOMED: 89114384 (3) Anemia, chronic disease ICD Codes: D63.8 - Anemia in other chronic diseases classified elsewhere SNOMED: 496030867 (4) Methamphetamine abuse ICD Codes: F15.10 - Other stimulant abuse, uncomplicated SNOMED: 268464088 (5) Acute respiratory failure ICD Codes: J96.00 - Acute respiratory failure, unspecified whether with hypoxia or hypercapnia SNOMED: 19984954 Assessment/Plan ngtf treat for C.diff fu labs peg if needed Subjective ROS Limited/Unobtainable: No Allergies: Coded Allergies: No Known Allergies (Unverified , 09/05/13) Objective Last 24 Hour Vital Signs Date Time Temp Pulse Resp B/P Pulse Ox O2 Delivery O2 Flow Rate FiO2 05/21/16 15:05 76 12 50 05/21/16 14:00 74 14 131/57 100 Mechanical Ventilator 50 05/21/16 13:17 85 12 50 05/21/16 13:00 77 12 122/53 100 Mechanical Ventilator 50 05/21/16 12:00 50 05/21/16 12:00 99.0 75 12 133/64 98 Mechanical Ventilator 50 05/21/16 12:00 79 05/21/16 11:00 75 12 126/61 98 Mechanical Ventilator 50 05/21/16 10:33 80 12 50 05/21/16 10:00 74 12 116/55 98 Mechanical Ventilator 50 05/21/16 09:25 75 12 50 05/21/16 09:00 75 14 115/54 98 Mechanical Ventilator 50 05/21/16 08:36 77 119/76 05/21/16 08:00 50 05/21/16 08:00 99.1 76 13 102/49 98 Mechanical Ventilator 50 05/21/16 08:00 81 05/21/16 07:15 82 12 50 05/21/16 07:00 79 12 119/66 98 Mechanical Ventilator 50 05/21/16 06:00 76 12 112/37 98 Mechanical Ventilator 50 05/21/16 05:00 83 12 104/69 99 Mechanical Ventilator 50 05/21/16 04:51 79 12 50 05/21/16 04:00 98.5 78 12 128/55 98 Mechanical Ventilator 50 05/21/16 04:00 78 05/21/16 04:00 50 05/21/16 03:00 77 12 120/56 98 Mechanical Ventilator 50 05/21/16 02:58 77 12 50 05/21/16 02:00 79 12 116/62 98 Mechanical Ventilator 50 05/21/16 01:26 78 12 50 05/21/16 01:00 79 15 117/58 98 Mechanical Ventilator 50 05/21/16 00:00 80 05/21/16 00:00 99.5 80 12 112/61 97 Mechanical Ventilator 50 05/21/16 00:00 50 05/20/16 23:20 79 12 50 05/20/16 23:00 79 12 119/54 97 Mechanical Ventilator 50 05/20/16 22:00 76 12 105/53 98 Mechanical Ventilator 50 05/20/16 21:00 81 14 105/53 99 Mechanical Ventilator 50 05/20/16 20:51 78 12 50 05/20/16 20:39 82 114/54 05/20/16 20:00 100.1 86 14 114/54 99 Mechanical Ventilator 50 05/20/16 20:00 86 05/20/16 20:00 50 05/20/16 19:00 85 13 115/55 99 Mechanical Ventilator 50 05/20/16 18:57 83 12 50 05/20/16 18:00 82 12 122/54 97 Mechanical Ventilator 50 05/20/16 17:02 98.5 85 18 109/56 98 Mechanical Ventilator 50 05/20/16 16:46 83 12 100 05/20/16 16:00 82 05/20/16 16:00 84 16 119/58 98 Mechanical Ventilator 50 05/20/16 16:00 50 Intake and Output 05/20/16 05/21/16 19:00 07:00 Intake Total 940 ml 570 ml Output Total 510 ml 60 ml Balance 430 ml 510 ml Free Water 80 ml 30 ml IV Total 100 ml 100 ml Tube Feeding 480 ml 440 ml Blood Product 280 ml Output Urine Total 10 ml 10 ml Stool Total 200 ml 50 ml Hemodialysis UF 300 ml Laboratory Tests 05/21/16 03:50: White Blood Count 11.5H, Red Blood Count 3.04L, Hemoglobin 9.7L, Hematocrit 29.8L, Mean Corpuscular Volume 98, Mean Corpuscular Hemoglobin 31.9H, Mean Corpuscular Hemoglobin Concent 32.6, Red Cell Distribution Width 13.6, Platelet Count 254, Mean Platelet Volume 6.2L, Neutrophils (%) (Auto) 66.8, Lymphocytes ( %) (Auto) 19.4L, Monocytes (%) (Auto) 7.0, Eosinophils (%) (Auto) 6.1H, Basophils (%) (Auto) 0.6, Sodium Level 143, Potassium Level 3.0L, Chloride Level 99, Carbon Dioxide Level 32H, Anion Gap 12, Blood Urea Nitrogen 26H, Creatinine 3.8H, Estimat Glomerular Filtration Rate 16.3, Glucose Level 166H, Calcium Level 8.1L, Phosphorus Level 1.3L, Magnesium Level 1.8, Total Bilirubin 0.5, Aspartate Amino Transf (AST/SGOT) 20, Alanine Aminotransferase (ALT/SGPT) 12, Alkaline Phosphatase 68, Total Protein 5.8L, Albumin 2.0L, Globulin 3.8, Albumin/Globulin Ratio 0.5L 05/21/16 09:27: Arterial Blood pH 7.612*H, Arterial Blood Partial Pressure CO2 33.7L, Arterial Blood Partial Pressure O2 76.4, Arterial Blood HCO3 33.2H, Arterial Blood Oxygen Saturation 95.6, Arterial Blood Base Excess 11.2, Tadeo Test Positive Height (Feet): 5 Height (Inches): 7.00 Weight (Pounds): 129 General Appearance: no apparent distress EENT: normal ENT inspection Neck: supple Cardiovascular: normal rate Respiratory/Chest: decreased breath sounds Abdomen: normal bowel sounds, non tender, soft Extremities: non-tender GOLD LOPEZ May 21, 2016 15:16
[2016-05-21] MEDS ORDERED: D5NS 1000ml IV ONE (15:19)
[2016-05-21] MEDS ORDERED: NS 275ml ONE (15:19)
--- NOTE | 2016-05-21 15:22 | Wound Care Consultation ---
Wound Assessment Wound Assessment #1: Wound Number: #1 Wound Present on Admission: No New Wound: Yes Status Change of Wound: No Wound Location Body Site Modif: left, upper, lateral Wound Location Body Site: thigh Wound Type: pressure ulcer Radha Test: Does not Radha Pressure Ulcer Stage: deep tissue injury Wound Thickness: Full Thickness Wound Length: 4.5 Wound Width: 3.5 Wound Depth: utd Percent of Wound Purple/Maroon: 100 Wound Drainage Amount: None Wound Drainage Odor: None/Absent Tissue Surrounding Wound: Erythemic Wound General Appearance: Reddened Wound Assessment #2: Wound Number: #2 Wound Present on Admission: Yes New Wound: No Status Change of Wound: No Wound Location Body Site Modif: mid Wound Location Body Site: sacral Wound Type: pressure ulcer Radha Test: Does not Radha Pressure Ulcer Stage: deep tissue injury Wound Thickness: Full Thickness Wound Length: 5.0 Wound Width: 6.0 Wound Depth: utd Percent of Wound Black/Brown: 40 Percent of Wound Purple/Maroon: 60 Wound Drainage Amount: None Wound Drainage Odor: None/Absent Tissue Surrounding Wound: Intact - maroon. Wound General Appearance: Reddened Wound Assessment #3: Wound Number: #3 Wound Present on Admission: Yes New Wound: No Status Change of Wound: No Wound Location Body Site Modif: right Wound Location Body Site: other - stump Wound Type: scar - full thickness scar with scab , scab is 0.5cmx0.5cm Radha Test: Does not Radha Wound Thickness: Full Thickness Wound Drainage Amount: None Wound Drainage Odor: None/Absent Tissue Surrounding Wound: Intact Wound General Appearance: Blackened - scar tissue, Clean/Dry Wound Assessment #4: Wound Number: #4 Wound Present on Admission: Yes New Wound: No Status Change of Wound: No Wound Location Body Site Modif: left Wound Location Body Site: heel Wound Type: pressure ulcer Radha Test: Does not Radha Pressure Ulcer Stage: IV/unstageable - surrounding skin noted with scar tissue. Wound Thickness: Full Thickness Wound Length: 4.0 Wound Width: 4.5 Wound Depth: utd Percent of Wound Bed Yellow/Wh: 40 Percent of Wound Black/Brown: 60 Wound Drainage Amount: None Wound Drainage Odor: None/Absent Tissue Surrounding Wound: Indurated Wound General Appearance: Reddened Wound Assessment #5: Wound Number: #5 Wound Present on Admission: Yes New Wound: No Status Change of Wound: No Wound Location Body Site Modif: left, lower, anterior Wound Location Body Site: leg Wound Type: scar - FULLTHICKNESS SCAR TISSUE. Radha Test: Does not Radha Wound Thickness: Full Thickness Wound Length: 4.5 Wound Width: 1.5 Wound Drainage Amount: None Wound Drainage Odor: None/Absent Tissue Surrounding Wound: Intact Wound General Appearance: Clean/Dry Wound Assessment #6: Wound Number: #6 Wound Present on Admission: Yes New Wound: No Status Change of Wound: No Wound Location Body Site Modif: left, lateral Wound Location Body Site: knee Wound Type: scar - full thickness Radha Test: Does not Radha Wound Thickness: Full Thickness Wound Length: 2.0 Wound Width: 1.5 Wound Drainage Amount: None Wound Drainage Odor: None/Absent Tissue Surrounding Wound: Intact Wound Assessment #7: Wound Number: #7 Wound Present on Admission: Yes New Wound: No Status Change of Wound: Yes Wound Location Body Site Modif: left, lower, lateral Wound Location Body Site: leg Wound Type: pressure ulcer Radha Test: Does not Radha Pressure Ulcer Stage: IV/unstageable - previous DTI revealed self to stage IV/Unstageable. Wound Thickness: Full Thickness Wound Length: 5.0 Wound Width: 3.0 Wound Depth: utd Percent of Wound Bed Yellow/Wh: 100 Wound Drainage Description: Serosanguineous Wound Drainage Amount: Moderate Wound Drainage Odor: None/Absent Tissue Surrounding Wound: Erythemic Wound General Appearance: Reddened, Necrotic Wound Comment #1 Sacral Deep tissue injury. #2 Right stump full thickness scar tissue with small dry scab. #3 Left heel stage IV/Unstageable with surrounding skin noted with scar tissue. #4 Left lower anterior leg scar tissue. #5 Left lateral anterior leg scab - resolved, skin intact. #6 Left lower lateral leg previous DTI revealing self as stage IV/Unstageable. Recommendation. -Offload left lower extremity/heels/ankle -Turn and reposition. -Keep clean and dry. -Avoid shear and friction. -Local wound care as ordered. -Optimize nutrition. -pressure reduce mattress low air loss mattress -Assess and notify MD if any further changes of condition in skin is noted. TOMAS FORRESTER May 21, 2016 15:22
--- NOTE | 2016-05-21 16:39 | Infectious Diseases Prog Note ---
Assessment/Plan Problems: (1) C. difficile diarrhea Assessment & Plan: will continue oral vancomycin and IV flagyl for sever C diff infection , continue gentle hydration since he still has sever diarrhea , avoid antacids and laxatives (2) Sepsis Assessment & Plan: most likely due to C diff infection, continue oral vancomycin and IV flagyl. keep off antacid and Imodium (3) ESRD on dialysis Assessment & Plan: renal is following , continue HD (4) Diabetes Assessment & Plan: recommend tight glycemic control to keep blood glucose between 80-120 (5) Colonization with VRE (vancomycin-resistant enterococcus) Assessment & Plan: keep on contact isolation (6) Altered level of consciousness Assessment & Plan: improved, due to hypoxemia and fluids overload, intubated, continue HD to remove fluids, monitor CXR, pulmonary is following Subjective ROS Limited/Unobtainable: Yes Allergies: Coded Allergies: No Known Allergies (Unverified , 09/05/13) Subjective he is still intubated, on mechanical ventilation , had large volume diarrhea .afebrile Objective Vital Signs Last 24 Hour Vital Signs Date Time Temp Pulse Resp B/P Pulse Ox O2 Delivery O2 Flow Rate FiO2 05/21/16 15:05 76 12 50 05/21/16 15:00 77 14 120/62 100 Mechanical Ventilator 50 05/21/16 14:00 74 14 131/57 100 Mechanical Ventilator 50 05/21/16 13:17 85 12 50 05/21/16 13:00 77 12 122/53 100 Mechanical Ventilator 50 05/21/16 12:00 50 05/21/16 12:00 99.0 75 12 133/64 98 Mechanical Ventilator 50 05/21/16 12:00 79 05/21/16 11:00 75 12 126/61 98 Mechanical Ventilator 50 05/21/16 10:33 80 12 50 05/21/16 10:00 74 12 116/55 98 Mechanical Ventilator 50 05/21/16 09:25 75 12 50 05/21/16 09:00 75 14 115/54 98 Mechanical Ventilator 50 05/21/16 08:36 77 119/76 05/21/16 08:00 50 05/21/16 08:00 99.1 76 13 102/49 98 Mechanical Ventilator 50 05/21/16 08:00 81 05/21/16 07:15 82 12 50 05/21/16 07:00 79 12 119/66 98 Mechanical Ventilator 50 05/21/16 06:00 76 12 112/37 98 Mechanical Ventilator 50 05/21/16 05:00 83 12 104/69 99 Mechanical Ventilator 50 05/21/16 04:51 79 12 50 05/21/16 04:00 98.5 78 12 128/55 98 Mechanical Ventilator 50 05/21/16 04:00 78 05/21/16 04:00 50 05/21/16 03:00 77 12 120/56 98 Mechanical Ventilator 50 05/21/16 02:58 77 12 50 05/21/16 02:00 79 12 116/62 98 Mechanical Ventilator 50 05/21/16 01:26 78 12 50 05/21/16 01:00 79 15 117/58 98 Mechanical Ventilator 50 05/21/16 00:00 80 05/21/16 00:00 99.5 80 12 112/61 97 Mechanical Ventilator 50 05/21/16 00:00 50 05/20/16 23:20 79 12 50 05/20/16 23:00 79 12 119/54 97 Mechanical Ventilator 50 05/20/16 22:00 76 12 105/53 98 Mechanical Ventilator 50 05/20/16 21:00 81 14 105/53 99 Mechanical Ventilator 50 05/20/16 20:51 78 12 50 05/20/16 20:39 82 114/54 05/20/16 20:00 100.1 86 14 114/54 99 Mechanical Ventilator 50 05/20/16 20:00 86 05/20/16 20:00 50 05/20/16 19:00 85 13 115/55 99 Mechanical Ventilator 50 05/20/16 18:57 83 12 50 05/20/16 18:00 82 12 122/54 97 Mechanical Ventilator 50 05/20/16 17:02 98.5 85 18 109/56 98 Mechanical Ventilator 50 05/20/16 16:46 83 12 100 Height (Feet): 5 Height (Inches): 7.00 Weight (Pounds): 129 General Appearance: WD/WN, no acute distress HEENT: normocephalic, atraumatic, anicteric, mucous membranes moist Respiratory/Chest: no respiratory distress, no accessory muscle use, decreased breath sounds, crackles/rales Cardiovascular: normal peripheral pulses, normal rate, regular rhythm, no JVD Abdomen: normal bowel sounds, soft, non tender, no organomegaly, non distended , no mass Extremities: no cyanosis, no clubbing Skin: ulcers Laboratory Tests Test 05/21/16 03:50 05/21/16 09:27 05/21/16 16:00 White Blood Count 11.5 K/UL (4.8-10.8) H Red Blood Count 3.04 M/UL (4.70-6.10) L Hemoglobin 9.7 G/DL (14.2-18.0) L Hematocrit 29.8 % (42.0-52.0) L Mean Corpuscular Volume 98 FL (80-99) Mean Corpuscular Hemoglobin 31.9 PG (27.0-31.0) H Mean Corpuscular Hemoglobin Concent 32.6 G/DL (32.0-36.0) Red Cell Distribution Width 13.6 % (11.6-14.8) Platelet Count 254 K/UL (150-450) Mean Platelet Volume 6.2 FL (6.5-10.1) L Neutrophils (%) (Auto) 66.8 % (45.0-75.0) Lymphocytes (%) (Auto) 19.4 % (20.0-45.0) L Monocytes (%) (Auto) 7.0 % (1.0-10.0) Eosinophils (%) (Auto) 6.1 % (0.0-3.0) H Basophils (%) (Auto) 0.6 % (0.0-2.0) Sodium Level 143 mEQ/L (135-145) Potassium Level 3.0 mEQ/L (3.4-4.9) L Chloride Level 99 mEQ/L (98-107) Carbon Dioxide Level 32 mEQ/L (20-30) H Anion Gap 12 (5-15) Blood Urea Nitrogen 26 mg/dL (7-23) H Creatinine 3.8 mg/dL (0.7-1.2) H Estimat Glomerular Filtration Rate 16.3 mL/min (>60) Glucose Level 166 mg/dL (74-106) H Calcium Level 8.1 mg/dL (8.6-10.2) L Phosphorus Level 1.3 mg/dL (2.5-4.8) L Magnesium Level 1.8 mg/dL (1.7-2.5) Total Bilirubin 0.5 mg/dL (0.0-1.2) Aspartate Amino Transf (AST/SGOT) 20 U/L (5-40) Alanine Aminotransferase (ALT/SGPT) 12 U/L (3-41) Alkaline Phosphatase 68 U/L (40-129) Total Protein 5.8 g/dL (6.6-8.7) L Albumin 2.0 g/dL (3.5-5.2) L Globulin 3.8 g/dL Albumin/Globulin Ratio 0.5 (1.0-2.7) L Arterial Blood pH 7.612 (7.350-7.450) Arterial Blood Partial Pressure CO2 33.7 mmHg (35.0-45.0) L Arterial Blood Partial Pressure O2 76.4 mmHg (75.0-100.0) Arterial Blood HCO3 33.2 mmol/L (22.0-26.0) H Arterial Blood Oxygen Saturation 95.6 % (92.0-98.0) Arterial Blood Base Excess 11.2 Tadeo Test Positive Stool Occult Blood Pending Current Medications Medications (Trade) Dose Ordered Sig/Chelsea Route PRN Reason Start Time Stop Time Status Last Admin Dose Admin Acetaminophen (Tylenol) 1,000 mg Q6H PRN ORAL Mild Pain/Temp > 100.5 05/17/16 20:45 06/16/16 20:44 05/20/16 06:16 Albuterol/ Ipratropium (DuoNeb 0.5-3(2.5)mg/3ml) 3 ml Q4H PRN HHN Shortness of Breath 05/17/16 18:45 05/22/16 18:44 Clonidine HCl (Catapres) 0.1 mg Q6H PRN ORAL SBP>160 05/17/16 21:00 06/16/16 20:59 Dextrose (Dextrose 50%) STAT PRN IV Hypoglycemia 05/18/16 14:45 06/17/16 14:44 Heparin Sodium (Porcine) (Heparin 5000 units/ml) 5,000 units EVERY 12 HOURS SUBQ 05/17/16 21:00 06/16/16 20:59 05/21/16 08:37 Insulin Aspart (NovoLOG) Q6HR SUBQ 05/17/16 18:00 06/16/16 17:59 05/21/16 12:21 Lorazepam (Ativan 2mg/ml 1ml) 2 mg Q4H PRN IV PRN FOR TREMORS 05/18/16 11:00 05/25/16 10:59 Metoprolol Tartrate (Lopressor) 25 mg Q12HR NG 05/17/16 21:00 06/16/16 20:59 05/21/16 08:36 Metronidazole (Flagyl) 100 ml @ 100 mls/hr Q8HR IVPB 05/17/16 22:00 05/24/16 21:59 05/21/16 14:23 Morphine Sulfate (Morphine Sulfate) 4 mg Q4H PRN IVP Moderate Pain (Pain Scale 4-6) 05/18/16 10:30 05/25/16 10:29 Nitroglycerin (Ntg) 0.4 mg Q5M PRN SL Prn Chest Pain 05/17/16 15:30 06/16/16 15:29 Ondansetron HCl (Zofran) 4 mg Q6H PRN IVP Nausea & Vomiting 05/17/16 20:45 06/16/16 20:44 05/18/16 10:05 Vancomycin HCl (Vancomycin) 125 mg FOUR TIMES A DAY ORAL 05/17/16 18:00 05/24/16 17:59 05/21/16 13:00 Bandar Cartwright M.D. May 21, 2016 16:39
--- NOTE | 2016-05-21 19:53 | Cardiac Electrophysiology PN ---
Assessment/Plan Assessment/Plan 1. Respiratory failure due to Nosocomial PNA. On Vent. No significant CHF component. EF 55% by echo.EKG is nonischemic and Troponin is negative.May need Tracheostomy. 2. Hypertension, on Toprol 25 mg NG b.i.d. 3. Hyperlipidemia, on Lipitor. 4. Severe peripheral vascular disease status post right below knee amputation, on Plavix and Lipitor. 5. Sepsis, on Abx per Dr. Cartwright. 6. Psychosis per Dr. Davison 7. ESRD. Had HD 05/20/16 8. Altered mental status. No vegetation on echo. Encephalopathy versus sepsis. DW RN Subjective Subjective In ICU on Vent for respiratory failure. NG tube is in.Remained in SR with no arrhythmias. Off pressors. Objective Last 24 Hour Vital Signs Date Time Temp Pulse Resp B/P Pulse Ox O2 Delivery O2 Flow Rate FiO2 05/21/16 19:05 81 12 50 05/21/16 19:00 79 12 127/64 100 Mechanical Ventilator 50 05/21/16 18:00 77 12 127/68 100 Mechanical Ventilator 50 05/21/16 17:00 76 14 142/62 100 Mechanical Ventilator 50 05/21/16 16:50 75 12 50 05/21/16 16:00 97.9 74 15 144/70 100 Mechanical Ventilator 50 05/21/16 16:00 75 05/21/16 16:00 50 05/21/16 15:05 76 12 50 05/21/16 15:00 77 14 120/62 100 Mechanical Ventilator 50 05/21/16 14:00 74 14 131/57 100 Mechanical Ventilator 50 05/21/16 13:17 85 12 50 05/21/16 13:00 77 12 122/53 100 Mechanical Ventilator 50 05/21/16 12:00 50 05/21/16 12:00 99.0 75 12 133/64 98 Mechanical Ventilator 50 05/21/16 12:00 79 05/21/16 11:00 75 12 126/61 98 Mechanical Ventilator 50 05/21/16 10:33 80 12 50 05/21/16 10:00 74 12 116/55 98 Mechanical Ventilator 50 05/21/16 09:25 75 12 50 05/21/16 09:00 75 14 115/54 98 Mechanical Ventilator 50 05/21/16 08:36 77 119/76 05/21/16 08:00 50 05/21/16 08:00 99.1 76 13 102/49 98 Mechanical Ventilator 50 05/21/16 08:00 81 05/21/16 07:15 82 12 50 05/21/16 07:00 79 12 119/66 98 Mechanical Ventilator 50 05/21/16 06:00 76 12 112/37 98 Mechanical Ventilator 50 05/21/16 05:00 83 12 104/69 99 Mechanical Ventilator 50 05/21/16 04:51 79 12 50 05/21/16 04:00 98.5 78 12 128/55 98 Mechanical Ventilator 50 05/21/16 04:00 78 05/21/16 04:00 50 05/21/16 03:00 77 12 120/56 98 Mechanical Ventilator 50 05/21/16 02:58 77 12 50 05/21/16 02:00 79 12 116/62 98 Mechanical Ventilator 50 05/21/16 01:26 78 12 50 05/21/16 01:00 79 15 117/58 98 Mechanical Ventilator 50 05/21/16 00:00 80 05/21/16 00:00 99.5 80 12 112/61 97 Mechanical Ventilator 50 05/21/16 00:00 50 05/20/16 23:20 79 12 50 05/20/16 23:00 79 12 119/54 97 Mechanical Ventilator 50 05/20/16 22:00 76 12 105/53 98 Mechanical Ventilator 50 05/20/16 21:00 81 14 105/53 99 Mechanical Ventilator 50 05/20/16 20:51 78 12 50 05/20/16 20:39 82 114/54 05/20/16 20:00 100.1 86 14 114/54 99 Mechanical Ventilator 50 05/20/16 20:00 86 05/20/16 20:00 50 Intake and Output 05/20/16 05/21/16 19:00 07:00 Intake Total 940 ml 570 ml Output Total 510 ml 60 ml Balance 430 ml 510 ml Free Water 80 ml 30 ml IV Total 100 ml 100 ml Tube Feeding 480 ml 440 ml Blood Product 280 ml Output Urine Total 10 ml 10 ml Stool Total 200 ml 50 ml Hemodialysis UF 300 ml Laboratory Tests Test 05/21/16 03:50 05/21/16 09:27 05/21/16 16:00 White Blood Count 11.5 K/UL (4.8-10.8) H Red Blood Count 3.04 M/UL (4.70-6.10) L Hemoglobin 9.7 G/DL (14.2-18.0) L Hematocrit 29.8 % (42.0-52.0) L Mean Corpuscular Volume 98 FL (80-99) Mean Corpuscular Hemoglobin 31.9 PG (27.0-31.0) H Mean Corpuscular Hemoglobin Concent 32.6 G/DL (32.0-36.0) Red Cell Distribution Width 13.6 % (11.6-14.8) Platelet Count 254 K/UL (150-450) Mean Platelet Volume 6.2 FL (6.5-10.1) L Neutrophils (%) (Auto) 66.8 % (45.0-75.0) Lymphocytes (%) (Auto) 19.4 % (20.0-45.0) L Monocytes (%) (Auto) 7.0 % (1.0-10.0) Eosinophils (%) (Auto) 6.1 % (0.0-3.0) H Basophils (%) (Auto) 0.6 % (0.0-2.0) Sodium Level 143 mEQ/L (135-145) Potassium Level 3.0 mEQ/L (3.4-4.9) L Chloride Level 99 mEQ/L (98-107) Carbon Dioxide Level 32 mEQ/L (20-30) H Anion Gap 12 (5-15) Blood Urea Nitrogen 26 mg/dL (7-23) H Creatinine 3.8 mg/dL (0.7-1.2) H Estimat Glomerular Filtration Rate 16.3 mL/min (>60) Glucose Level 166 mg/dL (74-106) H Calcium Level 8.1 mg/dL (8.6-10.2) L Phosphorus Level 1.3 mg/dL (2.5-4.8) L Magnesium Level 1.8 mg/dL (1.7-2.5) Total Bilirubin 0.5 mg/dL (0.0-1.2) Aspartate Amino Transf (AST/SGOT) 20 U/L (5-40) Alanine Aminotransferase (ALT/SGPT) 12 U/L (3-41) Alkaline Phosphatase 68 U/L (40-129) Total Protein 5.8 g/dL (6.6-8.7) L Albumin 2.0 g/dL (3.5-5.2) L Globulin 3.8 g/dL Albumin/Globulin Ratio 0.5 (1.0-2.7) L Arterial Blood pH 7.612 (7.350-7.450) Arterial Blood Partial Pressure CO2 33.7 mmHg (35.0-45.0) L Arterial Blood Partial Pressure O2 76.4 mmHg (75.0-100.0) Arterial Blood HCO3 33.2 mmol/L (22.0-26.0) H Arterial Blood Oxygen Saturation 95.6 % (92.0-98.0) Arterial Blood Base Excess 11.2 Tadeo Test Positive Stool Occult Blood Pending Objective HEAD AND NECK: Orally intubated.NG tube in. LUNGS: Coarse rhonchi. CARDIOVASCULAR: Regular S1 and S2 with no gallop or rub. ABDOMEN: Soft and nontender. EXTREMITIES: Status post right below-knee amputation. Dialysis access in the right femoral area. THU MONREAL May 21, 2016 19:53
--- NOTE | 2016-05-21 20:48 | Consultation ---
DATE OF CONSULTATION: ADDENDUM MENTAL STATUS EXAMINATION: He also has confusion. Cognition continues to decline at baseline. I will continue to work on this patient to prevent any further decline in cognition. Siva Hussein M.D. DR: MELY JOB#: [id number] CC:
--- NOTE | 2016-05-21 21:08 | Consultation ---
DATE OF CONSULTATION: SUBJECTIVE: The patient is a 61-year-old male patient with altered mental status. PLAN: I am going to continue treating this patient with psychotropic medications to prevent any further decline in his cognition. Chart reviewed. Discussed with staff. Seen and assessed at bedside. Siva Hussein M.D. DR: CELESTINA JOB#: [id number] CC:
--- NOTE | 2016-05-21 22:08 | Consultation ---
DATE OF CONSULTATION: 05/21/2016 The patient continues to have altered mental status and confusion. Poor cognition secondary to progression of his medical illness. So, to prevent any of his cognition. Continue to be followed. Continue treatment with Ativan 2 mg q.4 hours as needed for anxiety and agitation. Siva Hussein M.D. DR: ADELAIDE JOB#: [id number] CC:
--- NOTE | 2016-05-21 22:18 | Consultation ---
DATE OF CONSULTATION: 05/16/2016 The patient has altered mental status and confusion. Continue treating this patient with Ativan as needed for anxiety and agitation. Chart reviewed and discussed with staff. Seen and assessed at the bedside. Siva Hussein M.D. DR: ADELAIDE JOB#: [id number] CC:
--- NOTE | 2016-05-21 23:28 | Consultation ---
DATE OF CONSULTATION: 05/13/2016 REQUESTING PHYSICIAN: Paul Mckeon D.O. HISTORY OF PRESENT ILLNESS: The patient came into the hospital with altered mental status, confused, disorganized, poor cognition, subsequently had progression of his medical illness. The patient came in because of altered mental status and confusion. His cognition is declined below baseline. For that reason the patient required consistent psychiatric followup throughout hospital course. This patient is confused, disorganized, does have some mood lability and confusion throughout his hospital course. PAST MEDICAL HISTORY: See internal medicine notes. PAST PSYCHIATRIC HISTORY: Paranoid schizophrenia. ALLERGIES: No known drug allergies. SOCIAL HISTORY: He is financially supported by [employer] and Medicare. Lives in [facility]. MENTAL STATUS EXAMINATION: The patient is a 61-year-old male with psychomotor retardation. Mood is depressed. Affect is guarded and restricted. Thought process disorganized and illogical. No signs of any suicidal or homicidal thoughts. Hearing is poor. DIAGNOSES: Paranoid schizophrenia with acute exacerbation. PLAN: Continue treatment for this patient with psychotropic medications, stabilize his mood and reduce any further decline in his cognition so his cognition does not decline below baseline and continue to follow. Chart reviewed. Discussed with staff. Seen and assessed at bedside. Thank you for this interesting consultation. Siva Hussein M.D. DR: CARMEN JOB#: [id number] CC:
--- NOTE | 2016-05-21 23:28 | Nephrology Progress Note ---
Objective Objective Last 24 Hour Vital Signs Date Time Temp Pulse Resp B/P Pulse Ox O2 Delivery O2 Flow Rate FiO2 05/21/16 22:56 75 12 50 05/21/16 22:00 73 12 126/58 100 Mechanical Ventilator 50 05/21/16 21:08 76 12 50 05/21/16 21:00 80 15 125/63 100 Mechanical Ventilator 50 05/21/16 20:41 80 109/52 05/21/16 20:00 98.7 77 12 109/52 100 Mechanical Ventilator 50 05/21/16 20:00 50 05/21/16 20:00 75 05/21/16 19:05 81 12 50 05/21/16 19:00 79 12 127/64 100 Mechanical Ventilator 50 05/21/16 18:00 77 12 127/68 100 Mechanical Ventilator 50 05/21/16 17:00 76 14 142/62 100 Mechanical Ventilator 50 05/21/16 16:50 75 12 50 05/21/16 16:00 97.9 74 15 144/70 100 Mechanical Ventilator 50 05/21/16 16:00 75 05/21/16 16:00 50 05/21/16 15:05 76 12 50 05/21/16 15:00 77 14 120/62 100 Mechanical Ventilator 50 05/21/16 14:00 74 14 131/57 100 Mechanical Ventilator 50 05/21/16 13:17 85 12 50 05/21/16 13:00 77 12 122/53 100 Mechanical Ventilator 50 05/21/16 12:00 50 05/21/16 12:00 99.0 75 12 133/64 98 Mechanical Ventilator 50 05/21/16 12:00 79 05/21/16 11:00 75 12 126/61 98 Mechanical Ventilator 50 05/21/16 10:33 80 12 50 05/21/16 10:00 74 12 116/55 98 Mechanical Ventilator 50 05/21/16 09:25 75 12 50 05/21/16 09:00 75 14 115/54 98 Mechanical Ventilator 50 05/21/16 08:36 77 119/76 05/21/16 08:00 50 05/21/16 08:00 99.1 76 13 102/49 98 Mechanical Ventilator 50 05/21/16 08:00 81 05/21/16 07:15 82 12 50 05/21/16 07:00 79 12 119/66 98 Mechanical Ventilator 50 05/21/16 06:00 76 12 112/37 98 Mechanical Ventilator 50 05/21/16 05:00 83 12 104/69 99 Mechanical Ventilator 50 05/21/16 04:51 79 12 50 05/21/16 04:00 98.5 78 12 128/55 98 Mechanical Ventilator 50 05/21/16 04:00 78 05/21/16 04:00 50 05/21/16 03:00 77 12 120/56 98 Mechanical Ventilator 50 05/21/16 02:58 77 12 50 05/21/16 02:00 79 12 116/62 98 Mechanical Ventilator 50 05/21/16 01:26 78 12 50 05/21/16 01:00 79 15 117/58 98 Mechanical Ventilator 50 05/21/16 00:00 80 05/21/16 00:00 99.5 80 12 112/61 97 Mechanical Ventilator 50 05/21/16 00:00 50 Intake and Output 05/20/16 05/21/16 19:00 07:00 Intake Total 940 ml 570 ml Output Total 510 ml 60 ml Balance 430 ml 510 ml Free Water 80 ml 30 ml IV Total 100 ml 100 ml Tube Feeding 480 ml 440 ml Blood Product 280 ml Output Urine Total 10 ml 10 ml Stool Total 200 ml 50 ml Hemodialysis UF 300 ml Laboratory Tests 05/21/16 03:50: White Blood Count 11.5H, Red Blood Count 3.04L, Hemoglobin 9.7L, Hematocrit 29.8L, Mean Corpuscular Volume 98, Mean Corpuscular Hemoglobin 31.9H, Mean Corpuscular Hemoglobin Concent 32.6, Red Cell Distribution Width 13.6, Platelet Count 254, Mean Platelet Volume 6.2L, Neutrophils (%) (Auto) 66.8, Lymphocytes ( %) (Auto) 19.4L, Monocytes (%) (Auto) 7.0, Eosinophils (%) (Auto) 6.1H, Basophils (%) (Auto) 0.6, Sodium Level 143, Potassium Level 3.0L, Chloride Level 99, Carbon Dioxide Level 32H, Anion Gap 12, Blood Urea Nitrogen 26H, Creatinine 3.8H, Estimat Glomerular Filtration Rate 16.3, Glucose Level 166H, Calcium Level 8.1L, Phosphorus Level 1.3L, Magnesium Level 1.8, Total Bilirubin 0.5, Aspartate Amino Transf (AST/SGOT) 20, Alanine Aminotransferase (ALT/SGPT) 12, Alkaline Phosphatase 68, Total Protein 5.8L, Albumin 2.0L, Globulin 3.8, Albumin/Globulin Ratio 0.5L 05/21/16 09:27: Arterial Blood pH 7.612*H, Arterial Blood Partial Pressure CO2 33.7L, Arterial Blood Partial Pressure O2 76.4, Arterial Blood HCO3 33.2H, Arterial Blood Oxygen Saturation 95.6, Arterial Blood Base Excess 11.2, Tadeo Test Positive 05/21/16 16:00: Stool Occult Blood [Pending] Height (Feet): 5 Height (Inches): 7.00 Weight (Pounds): 129 AUTUMN RODNEY May 21, 2016 23:28
[2016-05-22] VITALS (25 sets, daily range): BP systolic 98–152; BP diastolic 48–99
[2016-05-22] MEDS: NovoLOG Insulin Flexpen SUBQ SCH ×5 (00:09→23:53)
[2016-05-22] MEDS: metroNIDAZOLE 500mg 100 ML IVPB SCH ×3 (05:54→21:40)
[2016-05-22 06:32] LABS: BASOPHILS % (AUTO) 0.8 % (0.0-2.0); EOSINOPHILS % (AUTO) 5.4 % (0.0-3.0); LYMPHOCYTES % (AUTO) 13.9 % (20.0-45.0); MEAN CORPUSCULAR HEMOGLOBIN 32.3 PG (27.0-31.0); MEAN CORPUSCULAR HGB CONC 32.8 G/DL (32.0-36.0); MEAN CORPUSCULAR VOLUME 98 FL (80-99); MONOCYTES % (AUTO) 7.3 % (1.0-10.0); NEUTROPHILS % (AUTO) 72.6 % (45.0-75.0); PLATELET COUNT 282 K/UL (150-450); RED CELL DISTRIBUTION WIDTH 13.2 % (11.6-14.8); WHITE BLOOD COUNT 12.5 K/UL (4.8-10.8)
[2016-05-22 06:51] LABS: ALBUMIN/GLOBULIN RATIO 0.5 (1.0-2.7); CALCIUM 8.1 mg/dL (8.6-10.2); GLOMERULAR FILTRATION RATE 11.9 mL/min (>60); PHOSPHORUS 1.8 mg/dL (2.5-4.8); POTASSIUM 2.9 mEQ/L (3.4-4.9); TOTAL PROTEIN 5.8 g/dL (6.6-8.7)
[2016-05-22] MEDS: Vancomycin oral 125mg/2.5ml ORAL SCH ×4 (09:25→21:42)
[2016-05-22] MEDS: Metoprolol 25mg tab NG SCH ×2 (09:25→21:41)
[2016-05-22] MEDS: Heparin 5000 units/ml inj SUBQ SCH ×2 (09:27→21:00)
[2016-05-22] MEDS ORDERED: NS 275ml ONE ×2 (10:28→10:33)
[2016-05-22] MEDS ORDERED: Tubing IV Secondary IV ONE ×2 (10:28→10:33)
[2016-05-22] MEDS ORDERED: Sterile Water Irrig 1000ml IRRIG ONE (10:33)
[2016-05-22] MEDS ORDERED: Tubing Blood Filter IV ONE (10:33)
[2016-05-22 10:40] LABS: ABG BASE EXCESS 12.3; ABG PCO2 35.9 mmHg (35.0-45.0)
--- NOTE | 2016-05-22 11:53 | Pulmonolgy Critical Care Note ---
Critical Care - Asmt/Plan Problems: (1) Acute respiratory failure (2) Nosocomial pneumonia (3) C. 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 Discussed with: nurses, consultants Critical Care - Objective Last 24 Hour Vital Signs Date Time Temp Pulse Resp B/P Pulse Ox O2 Delivery O2 Flow Rate FiO2 05/22/16 11:00 80 12 50 05/22/16 11:00 79 14 143/73 100 Mechanical Ventilator 50 05/22/16 10:00 85 20 115/65 100 Mechanical Ventilator 50 05/22/16 09:25 82 134/69 05/22/16 09:00 97 05/22/16 09:00 82 20 134/69 100 Mechanical Ventilator 50 05/22/16 09:00 85 12 50 05/22/16 08:51 Mechanical Ventilator 50 05/22/16 08:00 98.3 85 110/86 Mechanical Ventilator 50 05/22/16 08:00 83 05/22/16 08:00 50 05/22/16 08:00 98.5 81 118/64 Mechanical Ventilator 50 05/22/16 07:00 85 12 50 05/22/16 07:00 85 12 106/89 100 Mechanical Ventilator 50 05/22/16 06:00 85 13 98/72 100 Mechanical Ventilator 50 05/22/16 05:27 77 12 50 05/22/16 05:00 71 12 125/59 99 Mechanical Ventilator 50 05/22/16 05:00 Mechanical Ventilator 50 05/22/16 04:45 98.7 75 12 125/59 100 Mechanical Ventilator 50 05/22/16 04:00 84 05/22/16 04:00 50 05/22/16 04:00 97.9 82 13 115/54 100 Mechanical Ventilator 50 05/22/16 03:15 77 12 50 05/22/16 03:00 77 12 117/52 99 Mechanical Ventilator 50 05/22/16 02:00 77 13 123/67 100 Mechanical Ventilator 50 05/22/16 01:00 80 15 113/88 100 Mechanical Ventilator 50 05/22/16 00:52 80 12 50 05/22/16 00:00 76 05/22/16 00:00 98.1 77 13 125/59 100 Mechanical Ventilator 50 05/22/16 00:00 50 05/21/16 23:00 73 12 132/55 100 Mechanical Ventilator 50 05/21/16 22:56 75 12 50 05/21/16 22:00 73 12 126/58 100 Mechanical Ventilator 50 05/21/16 21:08 76 12 50 05/21/16 21:00 80 15 125/63 100 Mechanical Ventilator 50 05/21/16 20:41 80 109/52 05/21/16 20:00 98.7 77 12 109/52 100 Mechanical Ventilator 50 05/21/16 20:00 50 05/21/16 20:00 75 05/21/16 19:05 81 12 50 05/21/16 19:00 79 12 127/64 100 Mechanical Ventilator 50 05/21/16 18:00 77 12 127/68 100 Mechanical Ventilator 50 05/21/16 17:00 76 14 142/62 100 Mechanical Ventilator 50 05/21/16 16:50 75 12 50 05/21/16 16:00 97.9 74 15 144/70 100 Mechanical Ventilator 50 05/21/16 16:00 75 05/21/16 16:00 50 05/21/16 15:05 76 12 50 05/21/16 15:00 77 14 120/62 100 Mechanical Ventilator 50 05/21/16 14:00 74 14 131/57 100 Mechanical Ventilator 50 05/21/16 13:17 85 12 50 05/21/16 13:00 77 12 122/53 100 Mechanical Ventilator 50 05/21/16 12:00 50 05/21/16 12:00 99.0 75 12 133/64 98 Mechanical Ventilator 50 05/21/16 12:00 79 Status: awake Condition: critical, grave Neck: full ROM Lungs: clear Heart: HR/BP stable, HR/BP unstable Abdomen: non-tender, feeding tube Extremities: no C/C/E, edema Decubiti: location Accucheck: 188 Critical Care - Subjective ROS Limited/Unobtainable: Yes ICU Day: 7 Intubation Day: 7 Condition: critical EKG Rhythm: Sinus Rhythm FI02: 50 Vent Support Breath Rate: 12 Vent Support Mode: IMV/SIMV Vent Tidal Volume: 700 Sputum Amount: Moderate PEEP: 5.0 PIP: 28 Tube Feeding Amount: 40 I&O: Intake and Output 05/21/16 05/22/16 19:00 07:00 Intake Total 580 ml 610 ml Output Total 0 ml 250 ml Balance 580 ml 360 ml IV Total 100 ml 100 ml Tube Feeding 480 ml 480 ml Other 30 ml Output Urine Total 0 ml 50 ml Stool Total 200 ml # Bowel Movements 100 CXR: left atelectasis opened up ET-Tube: 7.5 ET Position: 24 Labs: Laboratory Tests Test 05/21/16 16:00 05/22/16 03:30 05/22/16 10:32 Stool Occult Blood Negative (NEGATIVE) White Blood Count 12.5 K/UL (4.8-10.8) H Red Blood Count 2.80 M/UL (4.70-6.10) L Hemoglobin 9.0 G/DL (14.2-18.0) L Hematocrit 27.5 % (42.0-52.0) L Mean Corpuscular Volume 98 FL (80-99) Mean Corpuscular Hemoglobin 32.3 PG (27.0-31.0) H Mean Corpuscular Hemoglobin Concent 32.8 G/DL (32.0-36.0) Red Cell Distribution Width 13.2 % (11.6-14.8) Platelet Count 282 K/UL (150-450) Mean Platelet Volume 6.0 FL (6.5-10.1) L Neutrophils (%) (Auto) 72.6 % (45.0-75.0) Lymphocytes (%) (Auto) 13.9 % (20.0-45.0) L Monocytes (%) (Auto) 7.3 % (1.0-10.0) Eosinophils (%) (Auto) 5.4 % (0.0-3.0) H Basophils (%) (Auto) 0.8 % (0.0-2.0) Sodium Level 142 mEQ/L (135-145) Potassium Level 2.9 mEQ/L (3.4-4.9) L Chloride Level 98 mEQ/L (98-107) Carbon Dioxide Level 29 mEQ/L (20-30) Anion Gap 15 (5-15) Blood Urea Nitrogen 44 mg/dL (7-23) H Creatinine 5.0 mg/dL (0.7-1.2) H Estimat Glomerular Filtration Rate 11.9 mL/min (>60) Glucose Level 179 mg/dL (74-106) H Calcium Level 8.1 mg/dL (8.6-10.2) L Phosphorus Level 1.8 mg/dL (2.5-4.8) L Magnesium Level 2.0 mg/dL (1.7-2.5) Total Bilirubin 0.3 mg/dL (0.0-1.2) Aspartate Amino Transf (AST/SGOT) 23 U/L (5-40) Alanine Aminotransferase (ALT/SGPT) 11 U/L (3-41) Alkaline Phosphatase 65 U/L (40-129) Total Protein 5.8 g/dL (6.6-8.7) L Albumin 2.0 g/dL (3.5-5.2) L Globulin 3.8 g/dL Albumin/Globulin Ratio 0.5 (1.0-2.7) L Arterial Blood pH 7.603 (7.350-7.450) Arterial Blood Partial Pressure CO2 35.9 mmHg (35.0-45.0) Arterial Blood Partial Pressure O2 58.0 mmHg (75.0-100.0) L Arterial Blood HCO3 34.7 mmol/L (22.0-26.0) H Arterial Blood Oxygen Saturation 92.4 % (92.0-98.0) Arterial Blood Base Excess 12.3 Tadeo Test N/a JEFF INMAN May 22, 2016 11:53
--- NOTE | 2016-05-22 11:58 | Diagnostic Imaging Report ---
Indication: DYSPNEA Technique: One view of the chest Comparison: 05/21/2016 Findings: Hazy bilateral basilar opacities persists, unchanged on the right, perhaps slightly improved on the left. Satisfactory positions of endotracheal and nasogastric tubes. Impression: Slightly improved left basilar consolidation, over one day Otherwise stable, as described
--- NOTE | 2016-05-22 12:48 | General Progress Note ---
Assessment/Plan Problem List: (1) C. difficile colitis ICD Codes: A04.7 - Enterocolitis due to Clostridium difficile SNOMED: 988569134 (2) HTN (hypertension) ICD Codes: I10 - Essential (primary) hypertension SNOMED: 51507187 (3) Anemia, chronic disease ICD Codes: D63.8 - Anemia in other chronic diseases classified elsewhere SNOMED: 444917151 (4) Methamphetamine abuse ICD Codes: F15.10 - Other stimulant abuse, uncomplicated SNOMED: 575866980 (5) Acute respiratory failure ICD Codes: J96.00 - Acute respiratory failure, unspecified whether with hypoxia or hypercapnia SNOMED: 76975935 Assessment/Plan ngtf treat for C.diff fu labs peg if needed possibly next week Subjective ROS Limited/Unobtainable: No Allergies: Coded Allergies: No Known Allergies (Unverified , 09/05/13) Objective Last 24 Hour Vital Signs Date Time Temp Pulse Resp B/P Pulse Ox O2 Delivery O2 Flow Rate FiO2 05/22/16 12:00 98.4 77 14 104/48 100 Mechanical Ventilator 50 05/22/16 12:00 78 05/22/16 11:50 50 05/22/16 11:00 80 12 50 05/22/16 11:00 79 14 143/73 100 Mechanical Ventilator 50 05/22/16 10:00 85 20 115/65 100 Mechanical Ventilator 50 05/22/16 09:25 82 134/69 05/22/16 09:00 97 05/22/16 09:00 82 20 134/69 100 Mechanical Ventilator 50 05/22/16 09:00 85 12 50 05/22/16 08:51 Mechanical Ventilator 50 05/22/16 08:00 98.3 85 110/86 Mechanical Ventilator 50 05/22/16 08:00 83 05/22/16 08:00 50 05/22/16 08:00 98.5 81 118/64 Mechanical Ventilator 50 05/22/16 07:00 85 12 50 05/22/16 07:00 85 12 106/89 100 Mechanical Ventilator 50 05/22/16 06:00 85 13 98/72 100 Mechanical Ventilator 50 05/22/16 05:27 77 12 50 05/22/16 05:00 71 12 125/59 99 Mechanical Ventilator 50 05/22/16 05:00 Mechanical Ventilator 50 05/22/16 04:45 98.7 75 12 125/59 100 Mechanical Ventilator 50 05/22/16 04:00 84 05/22/16 04:00 50 05/22/16 04:00 97.9 82 13 115/54 100 Mechanical Ventilator 50 05/22/16 03:15 77 12 50 05/22/16 03:00 77 12 117/52 99 Mechanical Ventilator 50 05/22/16 02:00 77 13 123/67 100 Mechanical Ventilator 50 05/22/16 01:00 80 15 113/88 100 Mechanical Ventilator 50 05/22/16 00:52 80 12 50 05/22/16 00:00 76 05/22/16 00:00 98.1 77 13 125/59 100 Mechanical Ventilator 50 05/22/16 00:00 50 05/21/16 23:00 73 12 132/55 100 Mechanical Ventilator 50 05/21/16 22:56 75 12 50 05/21/16 22:00 73 12 126/58 100 Mechanical Ventilator 50 05/21/16 21:08 76 12 50 05/21/16 21:00 80 15 125/63 100 Mechanical Ventilator 50 05/21/16 20:41 80 109/52 05/21/16 20:00 98.7 77 12 109/52 100 Mechanical Ventilator 50 05/21/16 20:00 50 05/21/16 20:00 75 05/21/16 19:05 81 12 50 05/21/16 19:00 79 12 127/64 100 Mechanical Ventilator 50 05/21/16 18:00 77 12 127/68 100 Mechanical Ventilator 50 05/21/16 17:00 76 14 142/62 100 Mechanical Ventilator 50 05/21/16 16:50 75 12 50 05/21/16 16:00 97.9 74 15 144/70 100 Mechanical Ventilator 50 05/21/16 16:00 75 05/21/16 16:00 50 05/21/16 15:05 76 12 50 05/21/16 15:00 77 14 120/62 100 Mechanical Ventilator 50 05/21/16 14:00 74 14 131/57 100 Mechanical Ventilator 50 05/21/16 13:17 85 12 50 05/21/16 13:00 77 12 122/53 100 Mechanical Ventilator 50 Intake and Output 05/21/16 05/22/16 19:00 07:00 Intake Total 580 ml 610 ml Output Total 0 ml 250 ml Balance 580 ml 360 ml IV Total 100 ml 100 ml Tube Feeding 480 ml 480 ml Other 30 ml Output Urine Total 0 ml 50 ml Stool Total 200 ml # Bowel Movements 100 Laboratory Tests 05/21/16 16:00: Stool Occult Blood Negative 05/22/16 03:30: White Blood Count 12.5H, Red Blood Count 2.80L, Hemoglobin 9.0L, Hematocrit 27.5L, Mean Corpuscular Volume 98, Mean Corpuscular Hemoglobin 32.3H, Mean Corpuscular Hemoglobin Concent 32.8, Red Cell Distribution Width 13.2, Platelet Count 282, Mean Platelet Volume 6.0L, Neutrophils (%) (Auto) 72.6, Lymphocytes ( %) (Auto) 13.9L, Monocytes (%) (Auto) 7.3, Eosinophils (%) (Auto) 5.4H, Basophils (%) (Auto) 0.8, Sodium Level 142, Potassium Level 2.9L, Chloride Level 98, Carbon Dioxide Level 29, Anion Gap 15, Blood Urea Nitrogen 44H, Creatinine 5.0H, Estimat Glomerular Filtration Rate 11.9, Glucose Level 179H, Calcium Level 8.1L, Phosphorus Level 1.8L, Magnesium Level 2.0, Total Bilirubin 0.3, Aspartate Amino Transf (AST/SGOT) 23, Alanine Aminotransferase (ALT/SGPT) 11, Alkaline Phosphatase 65, Total Protein 5.8L, Albumin 2.0L, Globulin 3.8, Albumin/Globulin Ratio 0.5L 05/22/16 10:32: Arterial Blood pH 7.603*H, Arterial Blood Partial Pressure CO2 35.9, Arterial Blood Partial Pressure O2 58.0L, Arterial Blood HCO3 34.7H, Arterial Blood Oxygen Saturation 92.4, Arterial Blood Base Excess 12.3, Tadeo Test N/a Height (Feet): 5 Height (Inches): 7.00 Weight (Pounds): 129 General Appearance: no apparent distress EENT: normal ENT inspection Neck: supple Cardiovascular: normal rate Respiratory/Chest: decreased breath sounds Abdomen: normal bowel sounds, non tender, soft Extremities: non-tender GOLD LOPEZ May 22, 2016 12:48
[2016-05-22] MEDS ORDERED: Pantoprazole Inj IVP SCH (13:00)
--- NOTE | 2016-05-22 13:03 | General Progress Note ---
Assessment/Plan Problem List: (1) Respiratory failure ICD Codes: J96.90 - Respiratory failure, unspecified, unspecified whether with hypoxia or hypercapnia SNOMED: 293474283 (2) ESRD on dialysis ICD Codes: N18.6 - ESRD on dialysis; Z99.2 - Dependence on renal dialysis SNOMED: 418504719 (3) Sepsis ICD Codes: A41.9 - Sepsis, unspecified organism SNOMED: 59541871 (4) CVA (cerebral vascular accident) ICD Codes: I63.9 - Cerebral infarction, unspecified SNOMED: 906041695 (5) Encephalopathy ICD Codes: G93.40 - Encephalopathy SNOMED: 37766025 (6) Seizure ICD Codes: R56.9 - Seizure SNOMED: 99402572 (7) Altered level of consciousness ICD Codes: R40.4 - Transient alteration of awareness SNOMED: 0621980 (8) UTI (urinary tract infection) ICD Codes: N39.0 - Urinary tract infection, site not specified SNOMED: 78374570 Qualifiers: Qualified Codes: N30.01 - Acute cystitis with hematuria Status: unchanged Assessment/Plan vent abx cbc bmp am ltach transfer if clear Subjective Constitutional: Reports: weakness Allergies: Coded Allergies: No Known Allergies (Unverified , 09/05/13) All Systems: reviewed and negative except above Subjective intub ng in icu Objective Last 24 Hour Vital Signs Date Time Temp Pulse Resp B/P Pulse Ox O2 Delivery O2 Flow Rate FiO2 05/22/16 12:00 98.4 77 14 104/48 100 Mechanical Ventilator 50 05/22/16 12:00 78 05/22/16 11:50 50 05/22/16 11:00 80 12 50 05/22/16 11:00 79 14 143/73 100 Mechanical Ventilator 50 05/22/16 10:00 85 20 115/65 100 Mechanical Ventilator 50 05/22/16 09:25 82 134/69 05/22/16 09:00 97 05/22/16 09:00 82 20 134/69 100 Mechanical Ventilator 50 05/22/16 09:00 85 12 50 05/22/16 08:51 Mechanical Ventilator 50 05/22/16 08:00 98.3 85 110/86 Mechanical Ventilator 50 05/22/16 08:00 83 05/22/16 08:00 50 05/22/16 08:00 98.5 81 118/64 Mechanical Ventilator 50 05/22/16 07:00 85 12 50 05/22/16 07:00 85 12 106/89 100 Mechanical Ventilator 50 05/22/16 06:00 85 13 98/72 100 Mechanical Ventilator 50 05/22/16 05:27 77 12 50 05/22/16 05:00 71 12 125/59 99 Mechanical Ventilator 50 05/22/16 05:00 Mechanical Ventilator 50 05/22/16 04:45 98.7 75 12 125/59 100 Mechanical Ventilator 50 05/22/16 04:00 84 05/22/16 04:00 50 05/22/16 04:00 97.9 82 13 115/54 100 Mechanical Ventilator 50 05/22/16 03:15 77 12 50 05/22/16 03:00 77 12 117/52 99 Mechanical Ventilator 50 05/22/16 02:00 77 13 123/67 100 Mechanical Ventilator 50 05/22/16 01:00 80 15 113/88 100 Mechanical Ventilator 50 05/22/16 00:52 80 12 50 05/22/16 00:00 76 05/22/16 00:00 98.1 77 13 125/59 100 Mechanical Ventilator 50 05/22/16 00:00 50 05/21/16 23:00 73 12 132/55 100 Mechanical Ventilator 50 05/21/16 22:56 75 12 50 05/21/16 22:00 73 12 126/58 100 Mechanical Ventilator 50 05/21/16 21:08 76 12 50 05/21/16 21:00 80 15 125/63 100 Mechanical Ventilator 50 05/21/16 20:41 80 109/52 05/21/16 20:00 98.7 77 12 109/52 100 Mechanical Ventilator 50 05/21/16 20:00 50 05/21/16 20:00 75 05/21/16 19:05 81 12 50 05/21/16 19:00 79 12 127/64 100 Mechanical Ventilator 50 05/21/16 18:00 77 12 127/68 100 Mechanical Ventilator 50 05/21/16 17:00 76 14 142/62 100 Mechanical Ventilator 50 05/21/16 16:50 75 12 50 05/21/16 16:00 97.9 74 15 144/70 100 Mechanical Ventilator 50 05/21/16 16:00 75 05/21/16 16:00 50 05/21/16 15:05 76 12 50 05/21/16 15:00 77 14 120/62 100 Mechanical Ventilator 50 05/21/16 14:00 74 14 131/57 100 Mechanical Ventilator 50 05/21/16 13:17 85 12 50 Intake and Output 05/21/16 05/22/16 19:00 07:00 Intake Total 580 ml 610 ml Output Total 0 ml 250 ml Balance 580 ml 360 ml IV Total 100 ml 100 ml Tube Feeding 480 ml 480 ml Other 30 ml Output Urine Total 0 ml 50 ml Stool Total 200 ml # Bowel Movements 100 Laboratory Tests 05/21/16 16:00: Stool Occult Blood Negative 05/22/16 03:30: White Blood Count 12.5H, Red Blood Count 2.80L, Hemoglobin 9.0L, Hematocrit 27.5L, Mean Corpuscular Volume 98, Mean Corpuscular Hemoglobin 32.3H, Mean Corpuscular Hemoglobin Concent 32.8, Red Cell Distribution Width 13.2, Platelet Count 282, Mean Platelet Volume 6.0L, Neutrophils (%) (Auto) 72.6, Lymphocytes ( %) (Auto) 13.9L, Monocytes (%) (Auto) 7.3, Eosinophils (%) (Auto) 5.4H, Basophils (%) (Auto) 0.8, Sodium Level 142, Potassium Level 2.9L, Chloride Level 98, Carbon Dioxide Level 29, Anion Gap 15, Blood Urea Nitrogen 44H, Creatinine 5.0H, Estimat Glomerular Filtration Rate 11.9, Glucose Level 179H, Calcium Level 8.1L, Phosphorus Level 1.8L, Magnesium Level 2.0, Total Bilirubin 0.3, Aspartate Amino Transf (AST/SGOT) 23, Alanine Aminotransferase (ALT/SGPT) 11, Alkaline Phosphatase 65, Total Protein 5.8L, Albumin 2.0L, Globulin 3.8, Albumin/Globulin Ratio 0.5L 05/22/16 10:32: Arterial Blood pH 7.603*H, Arterial Blood Partial Pressure CO2 35.9, Arterial Blood Partial Pressure O2 58.0L, Arterial Blood HCO3 34.7H, Arterial Blood Oxygen Saturation 92.4, Arterial Blood Base Excess 12.3, Tadeo Test N/a Height (Feet): 5 Height (Inches): 7.00 Weight (Pounds): 129 EENT: normal ENT inspection Neck: normal alignment Cardiovascular: normal peripheral pulses, normal rate, regular rhythm Respiratory/Chest: chest wall non-tender, lungs clear, normal breath sounds Abdomen: normal bowel sounds, non tender, soft Extremities: normal inspection Edema: no edema noted Arm (L), no edema noted Arm (R), no edema noted Leg (L), no edema noted Leg (R), no edema noted Pedal (L), no edema noted Pedal (R), no edema noted Generalized Neurologic: motor weakness Skin: normal pigmentation, warm/dry VANDANA INMAN May 22, 2016 13:03
--- NOTE | 2016-05-22 14:54 | Nephrology Progress Note ---
Assessment/Plan Problem List: (1) ESRD on dialysis (2) Sepsis (3) Anemia (4) HTN (hypertension) (5) Altered level of consciousness (6) C. difficile diarrhea Plan Severe hypokalemia - correct with HD S/P HD- net loss 1.5L Recheck BNP post HD Continue HD every MWF Monitor lytes, correct with HD Monitor H&H, transfuse as needed Continue NGT, f/u with GI recommendation for PEG Subjective ROS Limited/Unobtainable: Yes Subjective In no apparent distress Objective Objective Last 24 Hour Vital Signs Date Time Temp Pulse Resp B/P Pulse Ox O2 Delivery O2 Flow Rate FiO2 05/22/16 14:00 75 14 121/65 100 Mechanical Ventilator 50 05/22/16 13:00 70 13 50 05/22/16 13:00 76 14 136/64 100 Mechanical Ventilator 50 05/22/16 12:00 98.4 77 14 104/48 100 Mechanical Ventilator 50 05/22/16 12:00 78 05/22/16 11:50 50 05/22/16 11:00 80 12 50 05/22/16 11:00 79 14 143/73 100 Mechanical Ventilator 50 05/22/16 10:00 85 20 115/65 100 Mechanical Ventilator 50 05/22/16 09:25 82 134/69 05/22/16 09:00 97 05/22/16 09:00 82 20 134/69 100 Mechanical Ventilator 50 05/22/16 09:00 85 12 50 05/22/16 08:51 Mechanical Ventilator 50 05/22/16 08:00 98.3 85 110/86 Mechanical Ventilator 50 05/22/16 08:00 83 05/22/16 08:00 50 05/22/16 08:00 98.5 81 118/64 Mechanical Ventilator 50 05/22/16 07:00 85 12 50 05/22/16 07:00 85 12 106/89 100 Mechanical Ventilator 50 05/22/16 06:00 85 13 98/72 100 Mechanical Ventilator 50 05/22/16 05:27 77 12 50 05/22/16 05:00 71 12 125/59 99 Mechanical Ventilator 50 05/22/16 05:00 Mechanical Ventilator 50 05/22/16 04:45 98.7 75 12 125/59 100 Mechanical Ventilator 50 05/22/16 04:00 84 05/22/16 04:00 50 05/22/16 04:00 97.9 82 13 115/54 100 Mechanical Ventilator 50 05/22/16 03:15 77 12 50 05/22/16 03:00 77 12 117/52 99 Mechanical Ventilator 50 05/22/16 02:00 77 13 123/67 100 Mechanical Ventilator 50 05/22/16 01:00 80 15 113/88 100 Mechanical Ventilator 50 05/22/16 00:52 80 12 50 05/22/16 00:00 76 05/22/16 00:00 98.1 77 13 125/59 100 Mechanical Ventilator 50 05/22/16 00:00 50 05/21/16 23:00 73 12 132/55 100 Mechanical Ventilator 50 05/21/16 22:56 75 12 50 05/21/16 22:00 73 12 126/58 100 Mechanical Ventilator 50 05/21/16 21:08 76 12 50 05/21/16 21:00 80 15 125/63 100 Mechanical Ventilator 50 05/21/16 20:41 80 109/52 05/21/16 20:00 98.7 77 12 109/52 100 Mechanical Ventilator 50 05/21/16 20:00 50 05/21/16 20:00 75 05/21/16 19:05 81 12 50 05/21/16 19:00 79 12 127/64 100 Mechanical Ventilator 50 05/21/16 18:00 77 12 127/68 100 Mechanical Ventilator 50 05/21/16 17:00 76 14 142/62 100 Mechanical Ventilator 50 05/21/16 16:50 75 12 50 05/21/16 16:00 97.9 74 15 144/70 100 Mechanical Ventilator 50 05/21/16 16:00 75 05/21/16 16:00 50 05/21/16 15:05 76 12 50 05/21/16 15:00 77 14 120/62 100 Mechanical Ventilator 50 Intake and Output 05/21/16 05/22/16 19:00 07:00 Intake Total 580 ml 610 ml Output Total 0 ml 250 ml Balance 580 ml 360 ml IV Total 100 ml 100 ml Tube Feeding 480 ml 480 ml Other 30 ml Output Urine Total 0 ml 50 ml Stool Total 200 ml # Bowel Movements 100 Laboratory Tests 05/21/16 16:00: Stool Occult Blood Negative 05/22/16 03:30: White Blood Count 12.5H, Red Blood Count 2.80L, Hemoglobin 9.0L, Hematocrit 27.5L, Mean Corpuscular Volume 98, Mean Corpuscular Hemoglobin 32.3H, Mean Corpuscular Hemoglobin Concent 32.8, Red Cell Distribution Width 13.2, Platelet Count 282, Mean Platelet Volume 6.0L, Neutrophils (%) (Auto) 72.6, Lymphocytes ( %) (Auto) 13.9L, Monocytes (%) (Auto) 7.3, Eosinophils (%) (Auto) 5.4H, Basophils (%) (Auto) 0.8, Sodium Level 142, Potassium Level 2.9L, Chloride Level 98, Carbon Dioxide Level 29, Anion Gap 15, Blood Urea Nitrogen 44H, Creatinine 5.0H, Estimat Glomerular Filtration Rate 11.9, Glucose Level 179H, Calcium Level 8.1L, Phosphorus Level 1.8L, Magnesium Level 2.0, Total Bilirubin 0.3, Aspartate Amino Transf (AST/SGOT) 23, Alanine Aminotransferase (ALT/SGPT) 11, Alkaline Phosphatase 65, Total Protein 5.8L, Albumin 2.0L, Globulin 3.8, Albumin/Globulin Ratio 0.5L 05/22/16 10:32: Arterial Blood pH 7.603*H, Arterial Blood Partial Pressure CO2 35.9, Arterial Blood Partial Pressure O2 58.0L, Arterial Blood HCO3 34.7H, Arterial Blood Oxygen Saturation 92.4, Arterial Blood Base Excess 12.3, Tadeo Test N/a Height (Feet): 5 Height (Inches): 7.00 Weight (Pounds): 129 General Appearance: no apparent distress Neck: supple, normal inspection Cardiovascular: no JVD Respiratory/Chest: decreased breath sounds Abdomen: no organomegaly, no mass Genitourinary/Rectal: other - stone Extremities: other - right BKA, Neurologic: unresponsive Yelena Peoples N.P. May 22, 2016 14:54
--- NOTE | 2016-05-22 15:30 | Infectious Diseases Prog Note ---
Assessment/Plan Problems: (1) C. difficile diarrhea Assessment & Plan: will continue oral vancomycin and IV flagyl for sever C diff infection , will D/C protonix, continue gentle hydration , avoid antacids and laxatives (2) Sepsis Assessment & Plan: most likely due to C diff infection, continue oral vancomycin and IV flagyl. keep off antacid and Imodium (3) ESRD on dialysis Assessment & Plan: renal is following , continue HD (4) Diabetes Assessment & Plan: recommend tight glycemic control to keep blood glucose between 80-120 (5) Colonization with VRE (vancomycin-resistant enterococcus) Assessment & Plan: keep on contact isolation (6) Altered level of consciousness Assessment & Plan: improved, due to hypoxemia and fluids overload, intubated, continue HD to remove fluids, monitor CXR, pulmonary is following (7) Collapse of left lung Assessment & Plan: improved suspect due to mucous plug, cotinue suctioning , monitor CXR , pulmonary is following Subjective ROS Limited/Unobtainable: Yes Allergies: Coded Allergies: No Known Allergies (Unverified , 09/05/13) Subjective he is still intubated, on mechanical ventilation , had large volume diarrhea .afebrile Objective Vital Signs Last 24 Hour Vital Signs Date Time Temp Pulse Resp B/P Pulse Ox O2 Delivery O2 Flow Rate FiO2 05/22/16 15:00 81 14 133/69 100 Mechanical Ventilator 50 05/22/16 14:00 75 14 121/65 100 Mechanical Ventilator 50 05/22/16 13:00 70 13 50 05/22/16 13:00 76 14 136/64 100 Mechanical Ventilator 50 05/22/16 12:00 98.4 77 14 104/48 100 Mechanical Ventilator 50 05/22/16 12:00 78 05/22/16 11:50 50 05/22/16 11:00 80 12 50 05/22/16 11:00 79 14 143/73 100 Mechanical Ventilator 50 05/22/16 10:00 85 20 115/65 100 Mechanical Ventilator 50 05/22/16 09:25 82 134/69 05/22/16 09:00 97 05/22/16 09:00 82 20 134/69 100 Mechanical Ventilator 50 05/22/16 09:00 85 12 50 05/22/16 08:51 Mechanical Ventilator 50 05/22/16 08:00 98.3 85 110/86 Mechanical Ventilator 50 05/22/16 08:00 83 05/22/16 08:00 50 05/22/16 08:00 98.5 81 118/64 Mechanical Ventilator 50 05/22/16 07:00 85 12 50 05/22/16 07:00 85 12 106/89 100 Mechanical Ventilator 50 05/22/16 06:00 85 13 98/72 100 Mechanical Ventilator 50 05/22/16 05:27 77 12 50 05/22/16 05:00 71 12 125/59 99 Mechanical Ventilator 50 05/22/16 05:00 Mechanical Ventilator 50 05/22/16 04:45 98.7 75 12 125/59 100 Mechanical Ventilator 50 05/22/16 04:00 84 05/22/16 04:00 50 05/22/16 04:00 97.9 82 13 115/54 100 Mechanical Ventilator 50 05/22/16 03:15 77 12 50 05/22/16 03:00 77 12 117/52 99 Mechanical Ventilator 50 05/22/16 02:00 77 13 123/67 100 Mechanical Ventilator 50 05/22/16 01:00 80 15 113/88 100 Mechanical Ventilator 50 05/22/16 00:52 80 12 50 05/22/16 00:00 76 05/22/16 00:00 98.1 77 13 125/59 100 Mechanical Ventilator 50 05/22/16 00:00 50 05/21/16 23:00 73 12 132/55 100 Mechanical Ventilator 50 05/21/16 22:56 75 12 50 05/21/16 22:00 73 12 126/58 100 Mechanical Ventilator 50 05/21/16 21:08 76 12 50 05/21/16 21:00 80 15 125/63 100 Mechanical Ventilator 50 05/21/16 20:41 80 109/52 05/21/16 20:00 98.7 77 12 109/52 100 Mechanical Ventilator 50 05/21/16 20:00 50 05/21/16 20:00 75 05/21/16 19:05 81 12 50 05/21/16 19:00 79 12 127/64 100 Mechanical Ventilator 50 05/21/16 18:00 77 12 127/68 100 Mechanical Ventilator 50 05/21/16 17:00 76 14 142/62 100 Mechanical Ventilator 50 05/21/16 16:50 75 12 50 05/21/16 16:00 97.9 74 15 144/70 100 Mechanical Ventilator 50 05/21/16 16:00 75 05/21/16 16:00 50 Height (Feet): 5 Height (Inches): 7.00 Weight (Pounds): 129 General Appearance: WD/WN, no acute distress HEENT: normocephalic, atraumatic, anicteric, mucous membranes moist Respiratory/Chest: chest wall non-tender, no respiratory distress, no accessory muscle use, decreased breath sounds, crackles/rales Cardiovascular: normal peripheral pulses, normal rate, regular rhythm, no gallop/murmur Abdomen: normal bowel sounds, soft, non tender, no organomegaly, non distended , no mass, no scars Extremities: no cyanosis, no clubbing Skin: no rash, no lesions Laboratory Tests Test 05/21/16 16:00 05/22/16 03:30 05/22/16 10:32 Stool Occult Blood Negative (NEGATIVE) White Blood Count 12.5 K/UL (4.8-10.8) H Red Blood Count 2.80 M/UL (4.70-6.10) L Hemoglobin 9.0 G/DL (14.2-18.0) L Hematocrit 27.5 % (42.0-52.0) L Mean Corpuscular Volume 98 FL (80-99) Mean Corpuscular Hemoglobin 32.3 PG (27.0-31.0) H Mean Corpuscular Hemoglobin Concent 32.8 G/DL (32.0-36.0) Red Cell Distribution Width 13.2 % (11.6-14.8) Platelet Count 282 K/UL (150-450) Mean Platelet Volume 6.0 FL (6.5-10.1) L Neutrophils (%) (Auto) 72.6 % (45.0-75.0) Lymphocytes (%) (Auto) 13.9 % (20.0-45.0) L Monocytes (%) (Auto) 7.3 % (1.0-10.0) Eosinophils (%) (Auto) 5.4 % (0.0-3.0) H Basophils (%) (Auto) 0.8 % (0.0-2.0) Sodium Level 142 mEQ/L (135-145) Potassium Level 2.9 mEQ/L (3.4-4.9) L Chloride Level 98 mEQ/L (98-107) Carbon Dioxide Level 29 mEQ/L (20-30) Anion Gap 15 (5-15) Blood Urea Nitrogen 44 mg/dL (7-23) H Creatinine 5.0 mg/dL (0.7-1.2) H Estimat Glomerular Filtration Rate 11.9 mL/min (>60) Glucose Level 179 mg/dL (74-106) H Calcium Level 8.1 mg/dL (8.6-10.2) L Phosphorus Level 1.8 mg/dL (2.5-4.8) L Magnesium Level 2.0 mg/dL (1.7-2.5) Total Bilirubin 0.3 mg/dL (0.0-1.2) Aspartate Amino Transf (AST/SGOT) 23 U/L (5-40) Alanine Aminotransferase (ALT/SGPT) 11 U/L (3-41) Alkaline Phosphatase 65 U/L (40-129) Total Protein 5.8 g/dL (6.6-8.7) L Albumin 2.0 g/dL (3.5-5.2) L Globulin 3.8 g/dL Albumin/Globulin Ratio 0.5 (1.0-2.7) L Arterial Blood pH 7.603 (7.350-7.450) Arterial Blood Partial Pressure CO2 35.9 mmHg (35.0-45.0) Arterial Blood Partial Pressure O2 58.0 mmHg (75.0-100.0) L Arterial Blood HCO3 34.7 mmol/L (22.0-26.0) H Arterial Blood Oxygen Saturation 92.4 % (92.0-98.0) Arterial Blood Base Excess 12.3 Tadeo Test N/a Current Medications Medications (Trade) Dose Ordered Sig/Chelsea Route PRN Reason Start Time Stop Time Status Last Admin Dose Admin Acetaminophen (Tylenol) 1,000 mg Q6H PRN ORAL Mild Pain/Temp > 100.5 05/17/16 20:45 06/16/16 20:44 05/20/16 06:16 Albuterol/ Ipratropium (DuoNeb 0.5-3(2.5)mg/3ml) 3 ml Q4H PRN HHN Shortness of Breath 05/17/16 18:45 05/22/16 18:44 Clonidine HCl (Catapres) 0.1 mg Q6H PRN ORAL SBP>160 05/17/16 21:00 06/16/16 20:59 Dextrose (Dextrose 50%) STAT PRN IV Hypoglycemia 05/18/16 14:45 06/17/16 14:44 Heparin Sodium (Porcine) (Heparin 5000 units/ml) 5,000 units EVERY 12 HOURS SUBQ 05/17/16 21:00 06/16/16 20:59 05/22/16 09:27 Insulin Aspart (NovoLOG) Q6HR SUBQ 05/17/16 18:00 06/16/16 17:59 05/22/16 12:33 Lorazepam (Ativan 2mg/ml 1ml) 2 mg Q4H PRN IV PRN FOR TREMORS 05/18/16 11:00 05/25/16 10:59 Metoprolol Tartrate (Lopressor) 25 mg Q12HR NG 05/17/16 21:00 06/16/16 20:59 05/22/16 09:25 Metronidazole (Flagyl) 100 ml @ 100 mls/hr Q8HR IVPB 05/17/16 22:00 05/24/16 21:59 05/22/16 14:10 Morphine Sulfate (Morphine Sulfate) 4 mg Q4H PRN IVP Moderate Pain (Pain Scale 4-6) 05/18/16 10:30 05/25/16 10:29 Nitroglycerin (Ntg) 0.4 mg Q5M PRN SL Prn Chest Pain 05/17/16 15:30 06/16/16 15:29 Ondansetron HCl (Zofran) 4 mg Q6H PRN IVP Nausea & Vomiting 05/17/16 20:45 06/16/16 20:44 05/18/16 10:05 Vancomycin HCl (Vancomycin) 125 mg FOUR TIMES A DAY ORAL 05/17/16 18:00 05/24/16 17:59 05/22/16 12:31 Bandar Cartwright M.D. May 22, 2016 15:30
--- NOTE | 2016-05-22 18:11 | Cardiac Electrophysiology PN ---
Assessment/Plan Assessment/Plan 1. Respiratory failure due to Nosocomial PNA. On Vent. EF 55% by echo. EKG is nonischemic and Troponin is negative. Tracheostomy pending consent per Dr Meyers. 2. Hypertension, on Toprol 25 mg NG b.i.d. 3. Hyperlipidemia, on Lipitor. 4. Severe peripheral vascular disease status post right below knee amputation, on Plavix and Lipitor. 5. Sepsis, on Abx per Dr. Cartwright. 6. Psychosis per Dr. Davison 7. ESRD. Had HD 05/20/16 8. Altered mental status. No vegetation on echo. Encephalopathy versus sepsis. DW RN Subjective Subjective In ICU on Vent and in restraints. NG tube is in.Remained in SR with no arrhythmias. Off pressors.RN at bedside. Objective Last 24 Hour Vital Signs Date Time Temp Pulse Resp B/P Pulse Ox O2 Delivery O2 Flow Rate FiO2 05/22/16 17:00 75 10 50 05/22/16 17:00 73 15 123/51 100 Mechanical Ventilator 50 05/22/16 16:00 50 05/22/16 16:00 75 05/22/16 16:00 98.4 75 16 104/58 100 Mechanical Ventilator 50 05/22/16 15:00 76 10 50 05/22/16 15:00 81 14 133/69 100 Mechanical Ventilator 50 05/22/16 14:00 75 14 121/65 100 Mechanical Ventilator 50 05/22/16 13:00 70 13 50 05/22/16 13:00 76 14 136/64 100 Mechanical Ventilator 50 05/22/16 12:00 98.4 77 14 104/48 100 Mechanical Ventilator 50 05/22/16 12:00 78 05/22/16 11:50 50 05/22/16 11:00 80 12 50 05/22/16 11:00 79 14 143/73 100 Mechanical Ventilator 50 05/22/16 10:00 85 20 115/65 100 Mechanical Ventilator 50 05/22/16 09:25 82 134/69 05/22/16 09:00 97 05/22/16 09:00 82 20 134/69 100 Mechanical Ventilator 50 05/22/16 09:00 85 12 50 05/22/16 08:51 Mechanical Ventilator 50 05/22/16 08:00 98.3 85 110/86 Mechanical Ventilator 50 05/22/16 08:00 83 05/22/16 08:00 50 05/22/16 08:00 98.5 81 118/64 Mechanical Ventilator 50 05/22/16 07:00 85 12 50 05/22/16 07:00 85 12 106/89 100 Mechanical Ventilator 50 05/22/16 06:00 85 13 98/72 100 Mechanical Ventilator 50 05/22/16 05:27 77 12 50 05/22/16 05:00 71 12 125/59 99 Mechanical Ventilator 50 05/22/16 05:00 Mechanical Ventilator 50 05/22/16 04:45 98.7 75 12 125/59 100 Mechanical Ventilator 50 05/22/16 04:00 84 05/22/16 04:00 50 05/22/16 04:00 97.9 82 13 115/54 100 Mechanical Ventilator 50 05/22/16 03:15 77 12 50 05/22/16 03:00 77 12 117/52 99 Mechanical Ventilator 50 05/22/16 02:00 77 13 123/67 100 Mechanical Ventilator 50 05/22/16 01:00 80 15 113/88 100 Mechanical Ventilator 50 05/22/16 00:52 80 12 50 05/22/16 00:00 76 05/22/16 00:00 98.1 77 13 125/59 100 Mechanical Ventilator 50 05/22/16 00:00 50 05/21/16 23:00 73 12 132/55 100 Mechanical Ventilator 50 05/21/16 22:56 75 12 50 05/21/16 22:00 73 12 126/58 100 Mechanical Ventilator 50 05/21/16 21:08 76 12 50 05/21/16 21:00 80 15 125/63 100 Mechanical Ventilator 50 05/21/16 20:41 80 109/52 05/21/16 20:00 98.7 77 12 109/52 100 Mechanical Ventilator 50 05/21/16 20:00 50 05/21/16 20:00 75 05/21/16 19:05 81 12 50 05/21/16 19:00 79 12 127/64 100 Mechanical Ventilator 50 Intake and Output 05/21/16 05/22/16 19:00 07:00 Intake Total 580 ml 610 ml Output Total 0 ml 250 ml Balance 580 ml 360 ml IV Total 100 ml 100 ml Tube Feeding 480 ml 480 ml Other 30 ml Output Urine Total 0 ml 50 ml Stool Total 200 ml # Bowel Movements 100 Laboratory Tests Test 05/22/16 03:30 05/22/16 10:32 White Blood Count 12.5 K/UL (4.8-10.8) H Red Blood Count 2.80 M/UL (4.70-6.10) L Hemoglobin 9.0 G/DL (14.2-18.0) L Hematocrit 27.5 % (42.0-52.0) L Mean Corpuscular Volume 98 FL (80-99) Mean Corpuscular Hemoglobin 32.3 PG (27.0-31.0) H Mean Corpuscular Hemoglobin Concent 32.8 G/DL (32.0-36.0) Red Cell Distribution Width 13.2 % (11.6-14.8) Platelet Count 282 K/UL (150-450) Mean Platelet Volume 6.0 FL (6.5-10.1) L Neutrophils (%) (Auto) 72.6 % (45.0-75.0) Lymphocytes (%) (Auto) 13.9 % (20.0-45.0) L Monocytes (%) (Auto) 7.3 % (1.0-10.0) Eosinophils (%) (Auto) 5.4 % (0.0-3.0) H Basophils (%) (Auto) 0.8 % (0.0-2.0) Sodium Level 142 mEQ/L (135-145) Potassium Level 2.9 mEQ/L (3.4-4.9) L Chloride Level 98 mEQ/L (98-107) Carbon Dioxide Level 29 mEQ/L (20-30) Anion Gap 15 (5-15) Blood Urea Nitrogen 44 mg/dL (7-23) H Creatinine 5.0 mg/dL (0.7-1.2) H Estimat Glomerular Filtration Rate 11.9 mL/min (>60) Glucose Level 179 mg/dL (74-106) H Calcium Level 8.1 mg/dL (8.6-10.2) L Phosphorus Level 1.8 mg/dL (2.5-4.8) L Magnesium Level 2.0 mg/dL (1.7-2.5) Total Bilirubin 0.3 mg/dL (0.0-1.2) Aspartate Amino Transf (AST/SGOT) 23 U/L (5-40) Alanine Aminotransferase (ALT/SGPT) 11 U/L (3-41) Alkaline Phosphatase 65 U/L (40-129) Total Protein 5.8 g/dL (6.6-8.7) L Albumin 2.0 g/dL (3.5-5.2) L Globulin 3.8 g/dL Albumin/Globulin Ratio 0.5 (1.0-2.7) L Arterial Blood pH 7.603 (7.350-7.450) Arterial Blood Partial Pressure CO2 35.9 mmHg (35.0-45.0) Arterial Blood Partial Pressure O2 58.0 mmHg (75.0-100.0) L Arterial Blood HCO3 34.7 mmol/L (22.0-26.0) H Arterial Blood Oxygen Saturation 92.4 % (92.0-98.0) Arterial Blood Base Excess 12.3 Tadeo Test N/a Objective HEAD AND NECK: Orally intubated.NG tube in. LUNGS: Coarse rhonchi. CARDIOVASCULAR: Regular S1 and S2 with no gallop or rub. ABDOMEN: Soft and nontender. EXTREMITIES: Status post right below-knee amputation. Dialysis access in the right femoral area. THU MONREAL May 22, 2016 18:11
[2016-05-22 18:46] LABS: CALCIUM 7.9 mg/dL (8.6-10.2); CREATININE 3.4 mg/dL (0.7-1.2); GLOMERULAR FILTRATION RATE 18.6 mL/min (>60); POTASSIUM 3.3 mEQ/L (3.4-4.9)
[2016-05-23] VITALS (24 sets, daily range): BP systolic 101–169; BP diastolic 45–95
[2016-05-23] MEDS: NovoLOG Insulin Flexpen SUBQ SCH ×3 (05:33→18:33)
[2016-05-23] MEDS: metroNIDAZOLE 500mg 100 ML IVPB SCH ×3 (05:34→20:50)
--- NOTE | 2016-05-23 06:53 | General Progress Note ---
Assessment/Plan Problem List: (1) Respiratory failure ICD Codes: J96.90 - Respiratory failure, unspecified, unspecified whether with hypoxia or hypercapnia SNOMED: 534899491 (2) ESRD on dialysis ICD Codes: N18.6 - ESRD on dialysis; Z99.2 - Dependence on renal dialysis SNOMED: 596389051 (3) Sepsis ICD Codes: A41.9 - Sepsis, unspecified organism SNOMED: 50020056 (4) CVA (cerebral vascular accident) ICD Codes: I63.9 - Cerebral infarction, unspecified SNOMED: 605908916 (5) Encephalopathy ICD Codes: G93.40 - Encephalopathy SNOMED: 68408520 (6) Seizure ICD Codes: R56.9 - Seizure SNOMED: 62650747 (7) Altered level of consciousness ICD Codes: R40.4 - Transient alteration of awareness SNOMED: 0378392 (8) UTI (urinary tract infection) ICD Codes: N39.0 - Urinary tract infection, site not specified SNOMED: 21730788 Qualifiers: Qualified Codes: N30.01 - Acute cystitis with hematuria Status: stable, progressing, tolerating diet Assessment/Plan vent abx cbc bmp am ltach transfer if clear Subjective Constitutional: Reports: weakness Allergies: Coded Allergies: No Known Allergies (Unverified , 09/05/13) All Systems: reviewed and negative except above Subjective intub ng in icu Objective Last 24 Hour Vital Signs Date Time Temp Pulse Resp B/P Pulse Ox O2 Delivery O2 Flow Rate FiO2 05/23/16 06:00 80 12 109/52 100 Mechanical Ventilator 50 05/23/16 05:00 80 15 157/74 100 Mechanical Ventilator 50 05/23/16 05:00 83 10 50 05/23/16 04:00 99.0 81 15 117/58 100 Mechanical Ventilator 50 05/23/16 04:00 50 05/23/16 04:00 80 05/23/16 03:20 79 10 50 05/23/16 03:00 81 17 122/56 100 Mechanical Ventilator 50 05/23/16 02:00 81 16 132/68 100 Mechanical Ventilator 50 05/23/16 01:15 80 10 50 05/23/16 01:00 81 17 144/79 100 Mechanical Ventilator 50 05/23/16 00:00 98.3 77 14 169/75 100 Mechanical Ventilator 50 05/23/16 00:00 50 05/23/16 00:00 79 05/22/16 23:20 78 10 50 05/22/16 23:00 78 13 152/77 100 Mechanical Ventilator 50 05/22/16 22:00 77 18 144/67 100 Mechanical Ventilator 50 05/22/16 21:41 81 117/99 05/22/16 21:04 75 10 50 05/22/16 21:00 81 16 117/99 100 Mechanical Ventilator 50 05/22/16 20:00 50 05/22/16 20:00 85 05/22/16 20:00 98.2 80 14 139/55 100 Mechanical Ventilator 50 05/22/16 19:00 83 16 149/69 100 Mechanical Ventilator 50 05/22/16 18:54 81 11 50 05/22/16 18:00 80 14 136/61 100 Mechanical Ventilator 50 05/22/16 17:00 75 10 50 05/22/16 17:00 73 15 123/51 100 Mechanical Ventilator 50 05/22/16 16:00 50 05/22/16 16:00 75 05/22/16 16:00 98.4 75 16 104/58 100 Mechanical Ventilator 50 05/22/16 15:00 76 10 50 05/22/16 15:00 81 14 133/69 100 Mechanical Ventilator 50 05/22/16 14:00 75 14 121/65 100 Mechanical Ventilator 50 05/22/16 13:00 70 13 50 05/22/16 13:00 76 14 136/64 100 Mechanical Ventilator 50 05/22/16 12:00 98.4 77 14 104/48 100 Mechanical Ventilator 50 05/22/16 12:00 78 05/22/16 11:50 50 05/22/16 11:00 80 12 50 05/22/16 11:00 79 14 143/73 100 Mechanical Ventilator 50 05/22/16 10:00 85 20 115/65 100 Mechanical Ventilator 50 05/22/16 09:25 82 134/69 05/22/16 09:00 97 05/22/16 09:00 82 20 134/69 100 Mechanical Ventilator 50 05/22/16 09:00 85 12 50 05/22/16 08:51 Mechanical Ventilator 50 05/22/16 08:00 98.3 85 110/86 Mechanical Ventilator 50 05/22/16 08:00 83 05/22/16 08:00 50 05/22/16 08:00 98.5 81 118/64 Mechanical Ventilator 50 05/22/16 07:00 85 12 50 05/22/16 07:00 85 12 106/89 100 Mechanical Ventilator 50 Intake and Output 05/22/16 05/23/16 19:00 07:00 Intake Total 490 ml 590 ml Output Total 1370 ml 130 ml Balance -880 ml 460 ml Free Water 50 ml 50 ml Tube Feeding 440 ml 480 ml Other 60 ml Output Urine Total 20 ml 30 ml Stool Total 50 ml 100 ml Hemodialysis UF 1300 ml # Bowel Movements 100 Laboratory Tests 05/22/16 10:32: Arterial Blood pH 7.603*H, Arterial Blood Partial Pressure CO2 35.9, Arterial Blood Partial Pressure O2 58.0L, Arterial Blood HCO3 34.7H, Arterial Blood Oxygen Saturation 92.4, Arterial Blood Base Excess 12.3, Tadeo Test N/a 05/22/16 18:00: Sodium Level 139, Potassium Level 3.3L, Chloride Level 95L, Carbon Dioxide Level 32H, Anion Gap 12, Blood Urea Nitrogen 25H, Creatinine 3.4H, Estimat Glomerular Filtration Rate 18.6, Glucose Level 192H, Calcium Level 7.9L Height (Feet): 5 Height (Inches): 7.00 Weight (Pounds): 129 General Appearance: lethargic EENT: normal ENT inspection Neck: normal alignment Cardiovascular: normal peripheral pulses, normal rate, regular rhythm Respiratory/Chest: chest wall non-tender, lungs clear, normal breath sounds Abdomen: normal bowel sounds, non tender, soft Extremities: normal inspection Edema: no edema noted Arm (L), no edema noted Arm (R), no edema noted Leg (L), no edema noted Leg (R), no edema noted Pedal (L), no edema noted Pedal (R), no edema noted Generalized Neurologic: motor weakness Skin: normal pigmentation, warm/dry VANDANA INMAN May 23, 2016 06:53
[2016-05-23 07:19] LABS: ALBUMIN/GLOBULIN RATIO 0.5 (1.0-2.7); CALCIUM 8.1 mg/dL (8.6-10.2); CREATININE 4.2 mg/dL (0.7-1.2); GLOMERULAR FILTRATION RATE 14.5 mL/min (>60); MAGNESIUM 2.1 mg/dL (1.7-2.5); PHOSPHORUS 2.1 mg/dL (2.5-4.8); TOTAL PROTEIN 5.9 g/dL (6.6-8.7)
--- NOTE | 2016-05-23 07:30 | Pulmonolgy Critical Care Note ---
Critical Care - Asmt/Plan Assessment/Plan: ASSESSMENT acute respiratory failure requiring intubation sepsis HCAP L lung collapse UTI ESRD, on HD UTI C dif colitis anemia s/p blood transfusion DM amphetamine abuse HTN Hyperlipidemia acute encephalatrophy ( likely multifactorial 2to sepsis, possible amphet. abuse, renal failure ) psychosis severe PVD R BKA PLAN OF CARE ICU vent support pulmonary toilet daily ABG and CXR L lung reexpanded for now not ready for weaning yet abx, ID follows stool + C dif, urine cx + E coli, blood cx negative cardio follows ECHO with preserved EF 55% and RVSP of 20 continue Plavix stool OB negative, monitor HH, transfuse prn BS management with SS of insulin BP management with BB tox screen + Amphetamine, trauma counsellor on abstinence when more awake DVT, GI prophylaxis case discussed and evaluated by supervising physician Critical Care - Objective Last 24 Hour Vital Signs Date Time Temp Pulse Resp B/P Pulse Ox O2 Delivery O2 Flow Rate FiO2 05/23/16 07:00 76 15 118/60 100 Mechanical Ventilator 50 05/23/16 07:00 75 10 50 05/23/16 06:00 80 12 109/52 100 Mechanical Ventilator 50 05/23/16 05:00 80 15 157/74 100 Mechanical Ventilator 50 05/23/16 05:00 83 10 50 05/23/16 04:00 99.0 81 15 117/58 100 Mechanical Ventilator 50 05/23/16 04:00 50 05/23/16 04:00 80 05/23/16 03:20 79 10 50 05/23/16 03:00 81 17 122/56 100 Mechanical Ventilator 50 05/23/16 02:00 81 16 132/68 100 Mechanical Ventilator 50 05/23/16 01:15 80 10 50 05/23/16 01:00 81 17 144/79 100 Mechanical Ventilator 50 05/23/16 00:00 98.3 77 14 169/75 100 Mechanical Ventilator 50 05/23/16 00:00 50 05/23/16 00:00 79 05/22/16 23:20 78 10 50 05/22/16 23:00 78 13 152/77 100 Mechanical Ventilator 50 05/22/16 22:00 77 18 144/67 100 Mechanical Ventilator 50 05/22/16 21:41 81 117/99 05/22/16 21:04 75 10 50 05/22/16 21:00 81 16 117/99 100 Mechanical Ventilator 50 05/22/16 20:00 50 05/22/16 20:00 85 05/22/16 20:00 98.2 80 14 139/55 100 Mechanical Ventilator 50 05/22/16 19:00 83 16 149/69 100 Mechanical Ventilator 50 05/22/16 18:54 81 11 50 05/22/16 18:00 80 14 136/61 100 Mechanical Ventilator 50 05/22/16 17:00 75 10 50 05/22/16 17:00 73 15 123/51 100 Mechanical Ventilator 50 05/22/16 16:00 50 05/22/16 16:00 75 05/22/16 16:00 98.4 75 16 104/58 100 Mechanical Ventilator 50 05/22/16 15:00 76 10 50 05/22/16 15:00 81 14 133/69 100 Mechanical Ventilator 50 05/22/16 14:00 75 14 121/65 100 Mechanical Ventilator 50 05/22/16 13:00 70 13 50 05/22/16 13:00 76 14 136/64 100 Mechanical Ventilator 50 05/22/16 12:00 98.4 77 14 104/48 100 Mechanical Ventilator 50 05/22/16 12:00 78 05/22/16 11:50 50 05/22/16 11:00 80 12 50 05/22/16 11:00 79 14 143/73 100 Mechanical Ventilator 50 05/22/16 10:00 85 20 115/65 100 Mechanical Ventilator 50 05/22/16 09:25 82 134/69 05/22/16 09:00 97 05/22/16 09:00 82 20 134/69 100 Mechanical Ventilator 50 05/22/16 09:00 85 12 50 05/22/16 08:51 Mechanical Ventilator 50 05/22/16 08:00 98.3 85 110/86 Mechanical Ventilator 50 05/22/16 08:00 83 05/22/16 08:00 50 05/22/16 08:00 98.5 81 118/64 Mechanical Ventilator 50 Status: awake Condition: critical HEENT: atraumatic, normocephalic, other - NGTintact, OP with ET in place, intact Lungs: clear Heart: HR/BP stable Abdomen: soft, non-tender, active bowel sounds Extremities: other - L BKA, R great toe amputated Accucheck: 215 Critical Care - Subjective ROS Limited/Unobtainable: Yes Interval Events: continue to be on vent support no signs of respiratory distress ion current settings CXR with reexpanding L lung afebrile labs pending for this am Condition: critical IV Access: peripheral EKG Rhythm: Sinus Rhythm FI02: 50 Vent Support Breath Rate: 10 Vent Support Mode: IMV/SIMV Vent Tidal Volume: 700 Sputum Amount: Moderate PEEP: 5.0 PIP: 20 Tube Feeding Amount: 40 I&O: Intake and Output 05/22/16 05/23/16 19:00 07:00 Intake Total 490 ml 730 ml Output Total 1370 ml 130 ml Balance -880 ml 600 ml Free Water 50 ml 50 ml IV Total 100 ml Tube Feeding 440 ml 520 ml Other 60 ml Output Urine Total 20 ml 30 ml Stool Total 50 ml 100 ml Hemodialysis UF 1300 ml # Bowel Movements 100 CXR: 05/22 Slightly improved left basilar consolidation, ET-Tube: 7.5 ET Position: 24 Ruy (SeemaApoorva sultana NP May 23, 2016 07:30
[2016-05-23 07:33] LABS: BASOPHILS % (AUTO) 0.5 % (0.0-2.0); EOSINOPHILS % (AUTO) 4.8 % (0.0-3.0); LYMPHOCYTES % (AUTO) 10.7 % (20.0-45.0); MEAN CORPUSCULAR HEMOGLOBIN 32.9 PG (27.0-31.0); MEAN CORPUSCULAR HGB CONC 33.1 G/DL (32.0-36.0); MEAN CORPUSCULAR VOLUME 99 FL (80-99); MEAN PLATELET VOLUME 6.4 FL (6.5-10.1); PLATELET COUNT 269 K/UL (150-450); RED BLOOD COUNT 2.68 M/UL (4.70-6.10); RED CELL DISTRIBUTION WIDTH 13.3 % (11.6-14.8); WHITE BLOOD COUNT 12.7 K/UL (4.8-10.8)
[2016-05-23] MEDS: Metoprolol 25mg tab NG SCH ×2 (09:45→20:49)
[2016-05-23] MEDS: Vancomycin oral 125mg/2.5ml ORAL SCH ×4 (09:46→20:54)
[2016-05-23] MEDS: Heparin 5000 units/ml inj SUBQ SCH ×2 (09:53→20:52)
[2016-05-23] MEDS ORDERED: LORazepam Inj 2mg/ml 1ml IV PRN (10:00)
[2016-05-23] MEDS ORDERED: Morphine Sulfate 4mg/ml Inj IVP PRN (10:00)
--- NOTE | 2016-05-23 10:33 | General Progress Note ---
Assessment/Plan Problem List: (1) C. difficile colitis ICD Codes: A04.7 - Enterocolitis due to Clostridium difficile SNOMED: 112432016 (2) HTN (hypertension) ICD Codes: I10 - Essential (primary) hypertension SNOMED: 63135706 (3) Anemia, chronic disease ICD Codes: D63.8 - Anemia in other chronic diseases classified elsewhere SNOMED: 414461387 (4) Methamphetamine abuse ICD Codes: F15.10 - Other stimulant abuse, uncomplicated SNOMED: 565388125 (5) Acute respiratory failure ICD Codes: J96.00 - Acute respiratory failure, unspecified whether with hypoxia or hypercapnia SNOMED: 71793656 Assessment/Plan ngtf treat for C.diff fu labs peg if needed possibly next week Subjective ROS Limited/Unobtainable: No Allergies: Coded Allergies: No Known Allergies (Unverified , 09/05/13) Objective Last 24 Hour Vital Signs Date Time Temp Pulse Resp B/P Pulse Ox O2 Delivery O2 Flow Rate FiO2 05/23/16 09:45 82 135/95 05/23/16 09:00 100 05/23/16 09:00 78 10 50 05/23/16 07:00 76 15 118/60 100 Mechanical Ventilator 50 05/23/16 07:00 75 10 50 05/23/16 06:00 80 12 109/52 100 Mechanical Ventilator 50 05/23/16 05:00 80 15 157/74 100 Mechanical Ventilator 50 05/23/16 05:00 83 10 50 05/23/16 04:00 99.0 81 15 117/58 100 Mechanical Ventilator 50 05/23/16 04:00 50 05/23/16 04:00 80 05/23/16 03:20 79 10 50 05/23/16 03:00 81 17 122/56 100 Mechanical Ventilator 50 05/23/16 02:00 81 16 132/68 100 Mechanical Ventilator 50 05/23/16 01:15 80 10 50 05/23/16 01:00 81 17 144/79 100 Mechanical Ventilator 50 05/23/16 00:00 98.3 77 14 169/75 100 Mechanical Ventilator 50 05/23/16 00:00 50 05/23/16 00:00 79 05/22/16 23:20 78 10 50 05/22/16 23:00 78 13 152/77 100 Mechanical Ventilator 50 05/22/16 22:00 77 18 144/67 100 Mechanical Ventilator 50 05/22/16 21:41 81 117/99 05/22/16 21:04 75 10 50 05/22/16 21:00 81 16 117/99 100 Mechanical Ventilator 50 05/22/16 20:00 50 05/22/16 20:00 85 05/22/16 20:00 98.2 80 14 139/55 100 Mechanical Ventilator 50 05/22/16 19:00 83 16 149/69 100 Mechanical Ventilator 50 05/22/16 18:54 81 11 50 05/22/16 18:00 80 14 136/61 100 Mechanical Ventilator 50 05/22/16 17:00 75 10 50 05/22/16 17:00 73 15 123/51 100 Mechanical Ventilator 50 05/22/16 16:00 50 05/22/16 16:00 75 05/22/16 16:00 98.4 75 16 104/58 100 Mechanical Ventilator 50 05/22/16 15:00 76 10 50 05/22/16 15:00 81 14 133/69 100 Mechanical Ventilator 50 05/22/16 14:00 75 14 121/65 100 Mechanical Ventilator 50 05/22/16 13:00 70 13 50 05/22/16 13:00 76 14 136/64 100 Mechanical Ventilator 50 05/22/16 12:00 98.4 77 14 104/48 100 Mechanical Ventilator 50 05/22/16 12:00 78 05/22/16 11:50 50 05/22/16 11:00 80 12 50 05/22/16 11:00 79 14 143/73 100 Mechanical Ventilator 50 Intake and Output 05/22/16 05/23/16 19:00 07:00 Intake Total 490 ml 730 ml Output Total 1370 ml 130 ml Balance -880 ml 600 ml Free Water 50 ml 50 ml IV Total 100 ml Tube Feeding 440 ml 520 ml Other 60 ml Output Urine Total 20 ml 30 ml Stool Total 50 ml 100 ml Hemodialysis UF 1300 ml # Bowel Movements 100 Laboratory Tests 05/22/16 18:00: Sodium Level 139, Potassium Level 3.3L, Chloride Level 95L, Carbon Dioxide Level 32H, Anion Gap 12, Blood Urea Nitrogen 25H, Creatinine 3.4H, Estimat Glomerular Filtration Rate 18.6, Glucose Level 192H, Calcium Level 7.9L 05/23/16 06:30: Sodium Level 139, Potassium Level 3.0L, Chloride Level 95L, Carbon Dioxide Level 33H, Anion Gap 11, Blood Urea Nitrogen 34H, Creatinine 4.2H, Estimat Glomerular Filtration Rate 14.5, Glucose Level 177H, Calcium Level 8.1L, White Blood Count 12.7H, Red Blood Count 2.68L, Hemoglobin 8.8L, Hematocrit 26.6L, Mean Corpuscular Volume 99, Mean Corpuscular Hemoglobin 32.9H, Mean Corpuscular Hemoglobin Concent 33.1, Red Cell Distribution Width 13.3, Platelet Count 269, Mean Platelet Volume 6.4L, Neutrophils (%) (Auto) 78.0H, Lymphocytes (%) (Auto) 10.7L, Monocytes (%) (Auto) 6.0, Eosinophils (%) (Auto) 4.8H, Basophils (%) ( Auto) 0.5, Phosphorus Level 2.1L, Magnesium Level 2.1, Total Bilirubin 0.3, Aspartate Amino Transf (AST/SGOT) 35, Alanine Aminotransferase (ALT/SGPT) 17, Alkaline Phosphatase 73, Total Protein 5.9L, Albumin 2.2L, Globulin 3.7, Albumin /Globulin Ratio 0.5L Height (Feet): 5 Height (Inches): 7.00 Weight (Pounds): 129 General Appearance: lethargic EENT: normal ENT inspection Neck: supple Cardiovascular: normal rate Respiratory/Chest: decreased breath sounds Abdomen: normal bowel sounds, non tender, soft Extremities: non-tender GOLD LOPEZ May 23, 2016 10:33
[2016-05-23 10:57] LABS: ABG BASE EXCESS 8.9
--- NOTE | 2016-05-23 14:11 | Infectious Diseases Prog Note ---
Assessment/Plan Problems: (1) C. difficile diarrhea Assessment & Plan: will continue oral vancomycin and IV flagyl for sever C diff infection , will D/C protonix, continue gentle hydration , avoid antacids and laxatives (2) Sepsis Assessment & Plan: most likely due to C diff infection, continue oral vancomycin and IV flagyl. keep off antacid and Imodium (3) ESRD on dialysis Assessment & Plan: renal is following , continue HD (4) Diabetes Assessment & Plan: recommend tight glycemic control to keep blood glucose between 80-120 (5) Colonization with VRE (vancomycin-resistant enterococcus) Assessment & Plan: keep on contact isolation (6) Altered level of consciousness Assessment & Plan: improved, due to hypoxemia and fluids overload, intubated, continue HD to remove fluids, monitor CXR, pulmonary is following (7) Collapse of left lung Assessment & Plan: improved suspect due to mucous plug, cotinue suctioning , monitor CXR , pulmonary is following Subjective ROS Limited/Unobtainable: Yes Allergies: Coded Allergies: No Known Allergies (Unverified , 09/05/13) Subjective he is still intubated, on mechanical ventilation , but awake and alert, still has large volume diarrhea .afebrile Objective Vital Signs Last 24 Hour Vital Signs Date Time Temp Pulse Resp B/P Pulse Ox O2 Delivery O2 Flow Rate FiO2 05/23/16 14:00 81 18 105/65 100 Mechanical Ventilator 50 05/23/16 13:00 80 17 123/76 100 Mechanical Ventilator 50 05/23/16 13:00 77 10 50 05/23/16 12:00 98.7 85 16 115/66 99 Mechanical Ventilator 50 05/23/16 12:00 85 05/23/16 11:48 50 05/23/16 11:00 81 14 110/63 100 Mechanical Ventilator 50 05/23/16 11:00 79 10 50 05/23/16 10:00 85 10 105/55 100 Mechanical Ventilator 50 05/23/16 09:45 82 135/95 05/23/16 09:00 80 14 135/95 100 Mechanical Ventilator 50 05/23/16 09:00 100 05/23/16 09:00 78 10 50 05/23/16 08:00 80 05/23/16 08:00 50 05/23/16 08:00 98.5 80 16 106/71 100 Mechanical Ventilator 50 05/23/16 07:00 76 15 118/60 100 Mechanical Ventilator 50 18/17 07:00 75 10 50 18/17 06:00 80 12 109/52 100 Mechanical Ventilator 50 05/23/17 05:00 80 15 157/74 100 Mechanical Ventilator 50 18/17 05:00 83 10 50 18/17 04:00 99.0 81 15 117/58 100 Mechanical Ventilator 50 18/17 04:00 50 18/17 04:00 80 17 03:20 79 10 50 18/17 03:00 81 17 122/56 100 Mechanical Ventilator 50 17 02:00 81 16 132/68 100 Mechanical Ventilator 50 05/23/17 01:15 80 10 50 05/23/17 01:00 81 17 144/79 100 Mechanical Ventilator 50 05/23/16 00:00 98.3 77 14 169/75 100 Mechanical Ventilator 50 18/17 00:00 50 05/23/16 00:00 79 05/22/16 23:20 78 10 50 05/22/16 23:00 78 13 152/77 100 Mechanical Ventilator 50 05/22/16 22:00 77 18 144/67 100 Mechanical Ventilator 50 17 21:41 81 117/99 05/22/16 21:04 75 10 50 05/22/17 21:00 81 16 117/99 100 Mechanical Ventilator 50 17 20:00 50 17 20:00 85 17 20:00 98.2 80 14 139/55 100 Mechanical Ventilator 50 17 19:00 83 16 149/69 100 Mechanical Ventilator 50 17 18:54 81 11 50 05/22/17 18:00 80 14 136/61 100 Mechanical Ventilator 50 17/17 17:00 75 10 50 05/22/17 17:00 73 15 123/51 100 Mechanical Ventilator 50 05/22/17 16:00 50 05/22/17 16:00 75 05/22/17 16:00 98.4 75 16 104/58 100 Mechanical Ventilator 50 17/17 15:00 76 10 50 17/17 15:00 81 14 133/69 100 Mechanical Ventilator 50 Height (Feet): 5 Height (Inches): 7.00 Weight (Pounds): 129 General Appearance: WD/WN, no acute distress HEENT: normocephalic, atraumatic, anicteric Respiratory/Chest: chest wall non-tender, decreased breath sounds, crackles/ rales Cardiovascular: normal peripheral pulses, normal rate, regular rhythm, no gallop/murmur Abdomen: normal bowel sounds, soft, non tender, no organomegaly, non distended , no mass Extremities: no cyanosis, no clubbing Skin: no rash, no lesions Laboratory Tests Test 05/22/16 18:00 05/23/16 06:30 05/23/16 10:49 Sodium Level 139 mEQ/L (135-145) 139 mEQ/L (135-145) Potassium Level 3.3 mEQ/L (3.4-4.9) L 3.0 mEQ/L (3.4-4.9) L Chloride Level 95 mEQ/L (98-107) L 95 mEQ/L (98-107) L Carbon Dioxide Level 32 mEQ/L (20-30) H 33 mEQ/L (20-30) H Anion Gap 12 (5-15) 11 (5-15) Blood Urea Nitrogen 25 mg/dL (7-23) H 34 mg/dL (7-23) H Creatinine 3.4 mg/dL (0.7-1.2) H 4.2 mg/dL (0.7-1.2) H Estimat Glomerular Filtration Rate 18.6 mL/min (>60) 14.5 mL/min (>60) Glucose Level 192 mg/dL (74-106) H 177 mg/dL (74-106) H Calcium Level 7.9 mg/dL (8.6-10.2) L 8.1 mg/dL (8.6-10.2) L White Blood Count 12.7 K/UL (4.8-10.8) H Red Blood Count 2.68 M/UL (4.70-6.10) L Hemoglobin 8.8 G/DL (14.2-18.0) L Hematocrit 26.6 % (42.0-52.0) L Mean Corpuscular Volume 99 FL (80-99) Mean Corpuscular Hemoglobin 32.9 PG (27.0-31.0) H Mean Corpuscular Hemoglobin Concent 33.1 G/DL (32.0-36.0) Red Cell Distribution Width 13.3 % (11.6-14.8) Platelet Count 269 K/UL (150-450) Mean Platelet Volume 6.4 FL (6.5-10.1) L Neutrophils (%) (Auto) 78.0 % (45.0-75.0) H Lymphocytes (%) (Auto) 10.7 % (20.0-45.0) L Monocytes (%) (Auto) 6.0 % (1.0-10.0) Eosinophils (%) (Auto) 4.8 % (0.0-3.0) H Basophils (%) (Auto) 0.5 % (0.0-2.0) Phosphorus Level 2.1 mg/dL (2.5-4.8) L Magnesium Level 2.1 mg/dL (1.7-2.5) Total Bilirubin 0.3 mg/dL (0.0-1.2) Aspartate Amino Transf (AST/SGOT) 35 U/L (5-40) Alanine Aminotransferase (ALT/SGPT) 17 U/L (3-41) Alkaline Phosphatase 73 U/L (40-129) Total Protein 5.9 g/dL (6.6-8.7) L Albumin 2.2 g/dL (3.5-5.2) L Globulin 3.7 g/dL Albumin/Globulin Ratio 0.5 (1.0-2.7) L Arterial Blood pH 7.544 (7.350-7.450) Arterial Blood Partial Pressure CO2 38.0 mmHg (35.0-45.0) Arterial Blood Partial Pressure O2 85.3 mmHg (75.0-100.0) Arterial Blood HCO3 32.1 mmol/L (22.0-26.0) H Arterial Blood Oxygen Saturation 96.1 % (92.0-98.0) Arterial Blood Base Excess 8.9 Tadeo Test N/a Current Medications Medications (Trade) Dose Ordered Sig/Chelsea Route PRN Reason Start Time Stop Time Status Last Admin Dose Admin Acetaminophen (Tylenol) 1,000 mg Q6H PRN ORAL Mild Pain/Temp > 100.5 05/17/16 20:45 06/16/16 20:44 05/20/16 06:16 Clonidine HCl (Catapres) 0.1 mg Q6H PRN ORAL SBP>160 05/17/16 21:00 06/16/16 20:59 Dextrose (Dextrose 50%) STAT PRN IV Hypoglycemia 05/18/16 14:45 06/17/16 14:44 Heparin Sodium (Porcine) (Heparin 5000 units/ml) 5,000 units EVERY 12 HOURS SUBQ 05/17/16 21:00 06/16/16 20:59 05/23/16 09:53 Insulin Aspart (NovoLOG) Q6HR SUBQ 05/17/16 18:00 06/16/16 17:59 05/23/16 12:00 Lorazepam (Ativan 2mg/ml 1ml) 2 mg Q4H PRN IV PRN FOR TREMORS 05/23/16 10:00 05/30/16 09:59 Metoprolol Tartrate (Lopressor) 25 mg Q12HR NG 05/17/16 21:00 06/16/16 20:59 05/23/16 09:45 Metronidazole (Flagyl) 100 ml @ 100 mls/hr Q8HR IVPB 05/17/16 22:00 05/24/16 21:59 05/23/16 14:09 Morphine Sulfate (Morphine Sulfate) 4 mg Q4H PRN IVP Moderate Pain (Pain Scale 4-6) 05/23/16 10:00 05/30/16 09:59 05/23/16 09:56 Nitroglycerin (Ntg) 0.4 mg Q5M PRN SL Prn Chest Pain 05/17/16 15:30 06/16/16 15:29 Ondansetron HCl (Zofran) 4 mg Q6H PRN IVP Nausea & Vomiting 05/17/16 20:45 06/16/16 20:44 05/23/16 09:46 Vancomycin HCl (Vancomycin) 125 mg FOUR TIMES A DAY ORAL 05/17/16 18:00 05/24/16 17:59 05/23/16 12:37 Bandar Cartwright M.D. May 23, 2016 14:11
--- NOTE | 2016-05-23 14:57 | Cardiac Electrophysiology PN ---
Assessment/Plan Assessment/Plan 1. Respiratory failure due to Nosocomial PNA. On Vent. EF 55% by echo. EKG is nonischemic and Troponin is negative. Tracheostomy vs Comfort care pending family decision. 2. Hypertension, on Toprol 25 mg NG b.i.d. 3. Hyperlipidemia, on Lipitor. 4. Severe peripheral vascular disease status post right below knee amputation, on Plavix and Lipitor. 5. Sepsis, on Abx per Dr. Cartwright. 6. Psychosis per Dr. Davison 7. ESRD. Had HD 05/22/16 and removed 1.3 liter 8. Altered mental status. No vegetation on echo. Encephalopathy versus sepsis. DW RN Subjective Subjective In ICU on Vent, alert,daughter at bedside. NG tube in.Remained in SR with no arrhythmias. Off pressors.RN at bedside. Objective Last 24 Hour Vital Signs Date Time Temp Pulse Resp B/P Pulse Ox O2 Delivery O2 Flow Rate FiO2 05/23/16 14:00 81 18 105/65 100 Mechanical Ventilator 50 05/23/16 13:00 80 17 123/76 100 Mechanical Ventilator 50 05/23/16 13:00 77 10 50 05/23/16 12:00 98.7 85 16 115/66 99 Mechanical Ventilator 50 05/23/16 12:00 85 05/23/16 11:48 50 05/23/16 11:00 81 14 110/63 100 Mechanical Ventilator 50 05/23/16 11:00 79 10 50 05/23/16 10:00 85 10 105/55 100 Mechanical Ventilator 50 05/23/16 09:45 82 135/95 05/23/16 09:00 80 14 135/95 100 Mechanical Ventilator 50 05/23/16 09:00 100 05/23/16 09:00 78 10 50 05/23/16 08:00 80 05/23/16 08:00 50 05/23/16 08:00 98.5 80 16 106/71 100 Mechanical Ventilator 50 05/23/16 07:00 76 15 118/60 100 Mechanical Ventilator 50 05/23/16 07:00 75 10 50 05/23/16 06:00 80 12 109/52 100 Mechanical Ventilator 50 05/23/16 05:00 80 15 157/74 100 Mechanical Ventilator 50 05/23/16 05:00 83 10 50 05/23/16 04:00 99.0 81 15 117/58 100 Mechanical Ventilator 50 05/23/16 04:00 50 05/23/16 04:00 80 05/23/16 03:20 79 10 50 05/23/16 03:00 81 17 122/56 100 Mechanical Ventilator 50 05/23/16 02:00 81 16 132/68 100 Mechanical Ventilator 50 05/23/16 01:15 80 10 50 05/23/16 01:00 81 17 144/79 100 Mechanical Ventilator 50 05/23/16 00:00 98.3 77 14 169/75 100 Mechanical Ventilator 50 05/23/16 00:00 50 05/23/16 00:00 79 05/22/16 23:20 78 10 50 05/22/16 23:00 78 13 152/77 100 Mechanical Ventilator 50 05/22/16 22:00 77 18 144/67 100 Mechanical Ventilator 50 05/22/16 21:41 81 117/99 05/22/16 21:04 75 10 50 05/22/16 21:00 81 16 117/99 100 Mechanical Ventilator 50 05/22/16 20:00 50 05/22/16 20:00 85 05/22/16 20:00 98.2 80 14 139/55 100 Mechanical Ventilator 50 05/22/16 19:00 83 16 149/69 100 Mechanical Ventilator 50 05/22/16 18:54 81 11 50 05/22/16 18:00 80 14 136/61 100 Mechanical Ventilator 50 05/22/16 17:00 75 10 50 05/22/16 17:00 73 15 123/51 100 Mechanical Ventilator 50 05/22/16 16:00 50 05/22/16 16:00 75 05/22/16 16:00 98.4 75 16 104/58 100 Mechanical Ventilator 50 05/22/16 15:00 76 10 50 05/22/16 15:00 81 14 133/69 100 Mechanical Ventilator 50 Intake and Output 05/22/16 05/23/16 19:00 07:00 Intake Total 490 ml 830 ml Output Total 1370 ml 130 ml Balance -880 ml 700 ml Free Water 50 ml 50 ml IV Total 200 ml Tube Feeding 440 ml 520 ml Other 60 ml Output Urine Total 20 ml 30 ml Stool Total 50 ml 100 ml Hemodialysis UF 1300 ml # Bowel Movements 100 Laboratory Tests Test 05/22/16 18:00 05/23/16 06:30 05/23/16 10:49 Sodium Level 139 mEQ/L (135-145) 139 mEQ/L (135-145) Potassium Level 3.3 mEQ/L (3.4-4.9) L 3.0 mEQ/L (3.4-4.9) L Chloride Level 95 mEQ/L (98-107) L 95 mEQ/L (98-107) L Carbon Dioxide Level 32 mEQ/L (20-30) H 33 mEQ/L (20-30) H Anion Gap 12 (5-15) 11 (5-15) Blood Urea Nitrogen 25 mg/dL (7-23) H 34 mg/dL (7-23) H Creatinine 3.4 mg/dL (0.7-1.2) H 4.2 mg/dL (0.7-1.2) H Estimat Glomerular Filtration Rate 18.6 mL/min (>60) 14.5 mL/min (>60) Glucose Level 192 mg/dL (74-106) H 177 mg/dL (74-106) H Calcium Level 7.9 mg/dL (8.6-10.2) L 8.1 mg/dL (8.6-10.2) L White Blood Count 12.7 K/UL (4.8-10.8) H Red Blood Count 2.68 M/UL (4.70-6.10) L Hemoglobin 8.8 G/DL (14.2-18.0) L Hematocrit 26.6 % (42.0-52.0) L Mean Corpuscular Volume 99 FL (80-99) Mean Corpuscular Hemoglobin 32.9 PG (27.0-31.0) H Mean Corpuscular Hemoglobin Concent 33.1 G/DL (32.0-36.0) Red Cell Distribution Width 13.3 % (11.6-14.8) Platelet Count 269 K/UL (150-450) Mean Platelet Volume 6.4 FL (6.5-10.1) L Neutrophils (%) (Auto) 78.0 % (45.0-75.0) H Lymphocytes (%) (Auto) 10.7 % (20.0-45.0) L Monocytes (%) (Auto) 6.0 % (1.0-10.0) Eosinophils (%) (Auto) 4.8 % (0.0-3.0) H Basophils (%) (Auto) 0.5 % (0.0-2.0) Phosphorus Level 2.1 mg/dL (2.5-4.8) L Magnesium Level 2.1 mg/dL (1.7-2.5) Total Bilirubin 0.3 mg/dL (0.0-1.2) Aspartate Amino Transf (AST/SGOT) 35 U/L (5-40) Alanine Aminotransferase (ALT/SGPT) 17 U/L (3-41) Alkaline Phosphatase 73 U/L (40-129) Total Protein 5.9 g/dL (6.6-8.7) L Albumin 2.2 g/dL (3.5-5.2) L Globulin 3.7 g/dL Albumin/Globulin Ratio 0.5 (1.0-2.7) L Arterial Blood pH 7.544 (7.350-7.450) Arterial Blood Partial Pressure CO2 38.0 mmHg (35.0-45.0) Arterial Blood Partial Pressure O2 85.3 mmHg (75.0-100.0) Arterial Blood HCO3 32.1 mmol/L (22.0-26.0) H Arterial Blood Oxygen Saturation 96.1 % (92.0-98.0) Arterial Blood Base Excess 8.9 Tadeo Test N/a Objective HEAD AND NECK: Orally intubated.NG tube in. LUNGS: Coarse rhonchi. CARDIOVASCULAR: Regular S1 and S2 with no gallop or rub. ABDOMEN: Soft and nontender. EXTREMITIES: Status post right below-knee amputation. Dialysis access in the right femoral area. THU MONREAL May 23, 2016 14:57
--- NOTE | 2016-05-23 20:36 | Nephrology Progress Note ---
Assessment/Plan Problem List: (1) ESRD on dialysis (2) Respiratory failure (3) Pleural effusion (4) Altered level of consciousness Plan HD as scheduled. Monitor labs. D/w Dr. Jackman. Subjective Subjective on vent. Objective Objective Last 24 Hour Vital Signs Date Time Temp Pulse Resp B/P Pulse Ox O2 Delivery O2 Flow Rate FiO2 05/23/16 20:00 99.3 79 10 131/60 100 Mechanical Ventilator 50 05/23/16 20:00 79 05/23/16 20:00 50 05/23/16 19:00 82 10 120/58 100 Mechanical Ventilator 50 05/23/16 18:56 86 10 50 05/23/16 18:00 78 10 109/60 100 Mechanical Ventilator 50 05/23/16 17:00 82 10 116/64 100 Mechanical Ventilator 50 05/23/16 17:00 81 10 50 05/23/16 16:00 81 05/23/16 16:00 97.9 81 10 101/56 100 Mechanical Ventilator 50 05/23/16 16:00 50 05/23/16 15:02 80 19 104/65 100 Mechanical Ventilator 50 05/23/16 15:00 79 10 50 05/23/16 14:00 81 18 105/65 100 Mechanical Ventilator 50 05/23/16 13:00 80 17 123/76 100 Mechanical Ventilator 50 05/23/16 13:00 77 10 50 05/23/16 12:00 98.7 85 16 115/66 99 Mechanical Ventilator 50 05/23/16 12:00 85 05/23/16 11:48 50 05/23/16 11:00 81 14 110/63 100 Mechanical Ventilator 50 05/23/16 11:00 79 10 50 05/23/16 10:00 85 10 105/55 100 Mechanical Ventilator 50 05/23/16 09:45 82 135/95 05/23/16 09:00 80 14 135/95 100 Mechanical Ventilator 50 05/23/16 09:00 100 05/23/16 09:00 78 10 50 05/23/16 08:00 80 05/23/16 08:00 50 05/23/16 08:00 98.5 80 16 106/71 100 Mechanical Ventilator 50 05/23/16 07:00 76 15 118/60 100 Mechanical Ventilator 50 05/23/16 07:00 75 10 50 05/23/16 06:00 80 12 109/52 100 Mechanical Ventilator 50 05/23/16 05:00 80 15 157/74 100 Mechanical Ventilator 50 05/23/16 05:00 83 10 50 05/23/16 04:00 99.0 81 15 117/58 100 Mechanical Ventilator 50 05/23/16 04:00 50 05/23/16 04:00 80 05/23/16 03:20 79 10 50 05/23/16 03:00 81 17 122/56 100 Mechanical Ventilator 50 05/23/16 02:00 81 16 132/68 100 Mechanical Ventilator 50 05/23/16 01:15 80 10 50 05/23/16 01:00 81 17 144/79 100 Mechanical Ventilator 50 05/23/16 00:00 98.3 77 14 169/75 100 Mechanical Ventilator 50 05/23/16 00:00 50 05/23/16 00:00 79 05/22/16 23:20 78 10 50 05/22/16 23:00 78 13 152/77 100 Mechanical Ventilator 50 05/22/16 22:00 77 18 144/67 100 Mechanical Ventilator 50 05/22/16 21:41 81 117/99 05/22/16 21:04 75 10 50 05/22/16 21:00 81 16 117/99 100 Mechanical Ventilator 50 Intake and Output 05/22/16 05/23/16 19:00 07:00 Intake Total 490 ml 830 ml Output Total 1370 ml 130 ml Balance -880 ml 700 ml Free Water 50 ml 50 ml IV Total 200 ml Tube Feeding 440 ml 520 ml Other 60 ml Output Urine Total 20 ml 30 ml Stool Total 50 ml 100 ml Hemodialysis UF 1300 ml # Bowel Movements 100 Laboratory Tests 05/23/16 06:30: White Blood Count 12.7H, Red Blood Count 2.68L, Hemoglobin 8.8L, Hematocrit 26.6L, Mean Corpuscular Volume 99, Mean Corpuscular Hemoglobin 32.9H, Mean Corpuscular Hemoglobin Concent 33.1, Red Cell Distribution Width 13.3, Platelet Count 269, Mean Platelet Volume 6.4L, Neutrophils (%) (Auto) 78.0H, Lymphocytes (%) (Auto) 10.7L, Monocytes (%) (Auto) 6.0, Eosinophils (%) (Auto) 4.8H, Basophils (%) (Auto) 0.5, Sodium Level 139, Potassium Level 3.0L, Chloride Level 95L, Carbon Dioxide Level 33H, Anion Gap 11, Blood Urea Nitrogen 34H, Creatinine 4.2H, Estimat Glomerular Filtration Rate 14.5, Glucose Level 177H, Calcium Level 8.1L, Phosphorus Level 2.1L, Magnesium Level 2.1, Total Bilirubin 0.3, Aspartate Amino Transf (AST/SGOT) 35, Alanine Aminotransferase (ALT/SGPT) 17, Alkaline Phosphatase 73, Total Protein 5.9L, Albumin 2.2L, Globulin 3.7, Albumin/Globulin Ratio 0.5L 05/23/16 10:49: Arterial Blood pH 7.544H, Arterial Blood Partial Pressure CO2 38.0, Arterial Blood Partial Pressure O2 85.3, Arterial Blood HCO3 32.1H, Arterial Blood Oxygen Saturation 96.1, Arterial Blood Base Excess 8.9, Tadeo Test N/a Height (Feet): 5 Height (Inches): 7.00 Weight (Pounds): 129 General Appearance: no apparent distress Cardiovascular: normal rate, regular rhythm Respiratory/Chest: decreased breath sounds Abdomen: non tender, soft Extremities: non-pitting ANA HOUSTON May 23, 2016 20:36
[2016-05-24] VITALS (24 sets, daily range): BP systolic 94–149; BP diastolic 43–88
[2016-05-24] MEDS: NovoLOG Insulin Flexpen SUBQ SCH ×4 (00:31→18:12)
[2016-05-24 04:51] LABS: BASOPHILS % (AUTO) 0.5 % (0.0-2.0); EOSINOPHILS % (AUTO) 4.4 % (0.0-3.0); LYMPHOCYTES % (AUTO) 14.6 % (20.0-45.0); MEAN CORPUSCULAR HEMOGLOBIN 32.3 PG (27.0-31.0); MEAN CORPUSCULAR HGB CONC 32.4 G/DL (32.0-36.0); MEAN CORPUSCULAR VOLUME 100 FL (80-99); MEAN PLATELET VOLUME 6.5 FL (6.5-10.1); MONOCYTES % (AUTO) 5.2 % (1.0-10.0); NEUTROPHILS % (AUTO) 75.2 % (45.0-75.0); PLATELET COUNT 302 K/UL (150-450); RED BLOOD COUNT 2.76 M/UL (4.70-6.10); RED CELL DISTRIBUTION WIDTH 13.1 % (11.6-14.8); WHITE BLOOD COUNT 13.7 K/UL (4.8-10.8)
[2016-05-24] MEDS: metroNIDAZOLE 500mg 100 ML IVPB SCH ×3 (06:00→22:24)
[2016-05-24 06:28] LABS: MAGNESIUM 2.3 mg/dL (1.7-2.5); PHOSPHORUS 2.7 mg/dL (2.5-4.8)
--- NOTE | 2016-05-24 07:00 | General Progress Note ---
Assessment/Plan Problem List: (1) Respiratory failure ICD Codes: J96.90 - Respiratory failure, unspecified, unspecified whether with hypoxia or hypercapnia SNOMED: 974707790 (2) ESRD on dialysis ICD Codes: N18.6 - ESRD on dialysis; Z99.2 - Dependence on renal dialysis SNOMED: 279440268 (3) Sepsis ICD Codes: A41.9 - Sepsis, unspecified organism SNOMED: 36296593 (4) CVA (cerebral vascular accident) ICD Codes: I63.9 - Cerebral infarction, unspecified SNOMED: 348123889 (5) Encephalopathy ICD Codes: G93.40 - Encephalopathy SNOMED: 88829698 (6) Seizure ICD Codes: R56.9 - Seizure SNOMED: 37749023 (7) Altered level of consciousness ICD Codes: R40.4 - Transient alteration of awareness SNOMED: 8370660 (8) UTI (urinary tract infection) ICD Codes: N39.0 - Urinary tract infection, site not specified SNOMED: 08987597 Qualifiers: Qualified Codes: N30.01 - Acute cystitis with hematuria Status: unchanged Assessment/Plan vent abx cbc bmp am ltach transfer if clear Subjective Constitutional: Reports: weakness Allergies: Coded Allergies: No Known Allergies (Unverified , 09/05/13) All Systems: reviewed and negative except above Subjective intub ng in icu Objective Last 24 Hour Vital Signs Date Time Temp Pulse Resp B/P Pulse Ox O2 Delivery O2 Flow Rate FiO2 05/24/16 06:00 83 13 109/53 100 Mechanical Ventilator 50 05/24/16 05:07 84 10 50 05/24/16 05:00 83 13 104/43 100 Mechanical Ventilator 50 05/24/16 04:00 88 05/24/16 04:00 98.5 86 10 142/64 100 Mechanical Ventilator 50 05/24/16 04:00 50 05/24/16 03:00 86 12 149/88 100 Mechanical Ventilator 50 05/24/16 02:43 84 10 50 05/24/16 02:00 83 10 115/55 100 Mechanical Ventilator 50 05/24/16 01:15 87 12 50 05/24/16 01:00 84 10 110/66 100 Mechanical Ventilator 50 05/24/16 00:00 80 05/24/16 00:00 50 05/24/16 00:00 98.6 83 13 111/52 100 Mechanical Ventilator 50 3/18/17 23:11 90 10 50 3/18/17 23:00 80 10 106/45 100 Mechanical Ventilator 50 3/18/17 22:00 81 10 110/60 100 Mechanical Ventilator 50 3/18/17 21:00 80 10 127/63 100 Mechanical Ventilator 50 3/18/17 20:49 81 113/75 3/18/17 20:46 84 10 50 3/18/17 20:00 99.3 79 10 131/60 100 Mechanical Ventilator 50 3/18/17 20:00 79 3/18/17 20:00 50 3/18/17 19:00 82 10 120/58 100 Mechanical Ventilator 50 3/18/17 18:56 86 10 50 3/18/17 18:00 78 10 109/60 100 Mechanical Ventilator 50 3/18/17 17:00 82 10 116/64 100 Mechanical Ventilator 50 3/18/17 17:00 81 10 50 3/18/17 16:00 81 318/17 16:00 97.9 81 10 101/56 100 Mechanical Ventilator 50 3/18/17 16:00 50 3/18/17 15:02 80 19 104/65 100 Mechanical Ventilator 50 3/18/17 15:00 79 10 50 3/18/17 14:00 81 18 105/65 100 Mechanical Ventilator 50 3/18/17 13:00 80 17 123/76 100 Mechanical Ventilator 50 3/18/17 13:00 77 10 50 3/18/17 12:00 98.7 85 16 115/66 99 Mechanical Ventilator 50 3/18/17 12:00 85 3/18/17 11:48 50 3/18/17 11:00 81 14 110/63 100 Mechanical Ventilator 50 3/18/17 11:00 79 10 50 3/18/17 10:00 85 10 105/55 100 Mechanical Ventilator 50 3/18/17 09:45 82 135/95 3/18/17 09:00 80 14 135/95 100 Mechanical Ventilator 50 3/18/17 09:00 100 3/18/17 09:00 78 10 50 3/18/17 08:00 80 318/17 08:00 50 318/17 08:00 98.5 80 16 106/71 100 Mechanical Ventilator 50 Intake and Output 18/17 05/24/17 19:00 07:00 Intake Total 820 ml 640 ml Output Total 170 ml 40 ml Balance 650 ml 600 ml Free Water 340 ml 100 ml IV Total 100 ml Tube Feeding 480 ml 440 ml Output Urine Total 20 ml 40 ml Stool Total 150 ml # Bowel Movements 30 Laboratory Tests 05/23/16 10:49: Arterial Blood pH 7.544H, Arterial Blood Partial Pressure CO2 38.0, Arterial Blood Partial Pressure O2 85.3, Arterial Blood HCO3 32.1H, Arterial Blood Oxygen Saturation 96.1, Arterial Blood Base Excess 8.9, Tadeo Test N/a 05/24/16 04:05: White Blood Count 13.7H, Red Blood Count 2.76L, Hemoglobin 8.9L, Hematocrit 27.5L, Mean Corpuscular Volume 100H, Mean Corpuscular Hemoglobin 32.3H, Mean Corpuscular Hemoglobin Concent 32.4, Red Cell Distribution Width 13.1, Platelet Count 302, Mean Platelet Volume 6.5, Neutrophils (%) (Auto) 75.2H, Lymphocytes ( %) (Auto) 14.6L, Monocytes (%) (Auto) 5.2, Eosinophils (%) (Auto) 4.4H, Basophils (%) (Auto) 0.5, Phosphorus Level 2.7, Magnesium Level 2.3 Height (Feet): 5 Height (Inches): 7.00 Weight (Pounds): 129 General Appearance: lethargic EENT: normal ENT inspection Neck: normal alignment Cardiovascular: normal peripheral pulses, normal rate, regular rhythm Respiratory/Chest: chest wall non-tender, lungs clear, normal breath sounds Abdomen: normal bowel sounds, non tender, soft Extremities: normal inspection Edema: no edema noted Arm (L), no edema noted Arm (R), no edema noted Leg (L), no edema noted Leg (R), no edema noted Pedal (L), no edema noted Pedal (R), no edema noted Generalized Neurologic: motor weakness Skin: normal pigmentation, warm/dry VANDANA INMAN May 24, 2016 07:00
[2016-05-24 07:49] LABS: ABG ALLEN TEST POSITIVE; ABG BASE EXCESS 1.3
[2016-05-24] MEDS: Vancomycin oral 125mg/2.5ml ORAL SCH ×4 (08:26→20:51)
[2016-05-24] MEDS: Metoprolol 25mg tab NG SCH ×2 (08:26→20:51)
[2016-05-24] MEDS: Heparin 5000 units/ml inj SUBQ SCH ×2 (08:28→20:53)
[2016-05-24 10:02] LABS: ALBUMIN/GLOBULIN RATIO 0.6 (1.0-2.7); CALCIUM 8.5 mg/dL (8.6-10.2); CREATININE 5.1 mg/dL (0.7-1.2); GLOMERULAR FILTRATION RATE 11.6 mL/min (>60); POTASSIUM 3.1 mEQ/L (3.4-4.9); TOTAL PROTEIN 6.4 g/dL (6.6-8.7)
--- NOTE | 2016-05-24 10:07 | General Progress Note ---
Assessment/Plan Problem List: (1) C. difficile colitis ICD Codes: A04.7 - Enterocolitis due to Clostridium difficile SNOMED: 981246477 (2) HTN (hypertension) ICD Codes: I10 - Essential (primary) hypertension SNOMED: 99364342 (3) Anemia, chronic disease ICD Codes: D63.8 - Anemia in other chronic diseases classified elsewhere SNOMED: 057784766 (4) Methamphetamine abuse ICD Codes: F15.10 - Other stimulant abuse, uncomplicated SNOMED: 840110833 (5) Acute respiratory failure ICD Codes: J96.00 - Acute respiratory failure, unspecified whether with hypoxia or hypercapnia SNOMED: 53371579 Assessment/Plan ngtf treat for C.diff fu labs peg if needed possibly next week Subjective ROS Limited/Unobtainable: Yes Allergies: Coded Allergies: No Known Allergies (Unverified , 09/05/13) Subjective no event Objective Last 24 Hour Vital Signs Date Time Temp Pulse Resp B/P Pulse Ox O2 Delivery O2 Flow Rate FiO2 05/24/16 09:05 100 05/24/16 09:05 83 12 50 05/24/16 08:26 84 145/65 05/24/16 08:00 98.3 79 13 115/59 100 Mechanical Ventilator 50 05/24/16 08:00 50 05/24/16 07:00 77 13 99/54 100 Mechanical Ventilator 50 05/24/16 06:45 77 10 50 05/24/16 06:00 83 13 109/53 100 Mechanical Ventilator 50 05/24/16 05:07 84 10 50 05/24/16 05:00 83 13 104/43 100 Mechanical Ventilator 50 05/24/16 04:00 88 05/24/16 04:00 98.5 86 10 142/64 100 Mechanical Ventilator 50 05/24/16 04:00 50 05/24/16 03:00 86 12 149/88 100 Mechanical Ventilator 50 05/24/16 02:43 84 10 50 05/24/16 02:00 83 10 115/55 100 Mechanical Ventilator 50 05/24/16 01:15 87 12 50 05/24/16 01:00 84 10 110/66 100 Mechanical Ventilator 50 05/24/16 00:00 80 05/24/16 00:00 50 05/24/16 00:00 98.6 83 13 111/52 100 Mechanical Ventilator 50 05/23/16 23:11 90 10 50 05/23/16 23:00 80 10 106/45 100 Mechanical Ventilator 50 05/23/16 22:00 81 10 110/60 100 Mechanical Ventilator 50 05/23/16 21:00 80 10 127/63 100 Mechanical Ventilator 50 05/23/16 20:49 81 113/75 05/23/16 20:46 84 10 50 05/23/16 20:00 99.3 79 10 131/60 100 Mechanical Ventilator 50 05/23/16 20:00 79 05/23/16 20:00 50 05/23/16 19:00 82 10 120/58 100 Mechanical Ventilator 50 05/23/16 18:56 86 10 50 05/23/16 18:00 78 10 109/60 100 Mechanical Ventilator 50 05/23/16 17:00 82 10 116/64 100 Mechanical Ventilator 50 05/23/16 17:00 81 10 50 05/23/16 16:00 81 05/23/16 16:00 97.9 81 10 101/56 100 Mechanical Ventilator 50 05/23/16 16:00 50 05/23/16 15:02 80 19 104/65 100 Mechanical Ventilator 50 05/23/16 15:00 79 10 50 05/23/16 14:00 81 18 105/65 100 Mechanical Ventilator 50 05/23/16 13:00 80 17 123/76 100 Mechanical Ventilator 50 05/23/16 13:00 77 10 50 05/23/16 12:00 98.7 85 16 115/66 99 Mechanical Ventilator 50 05/23/16 12:00 85 05/23/16 11:48 50 05/23/16 11:00 81 14 110/63 100 Mechanical Ventilator 50 05/23/16 11:00 79 10 50 Intake and Output 05/23/16 05/24/16 19:00 07:00 Intake Total 820 ml 780 ml Output Total 170 ml 40 ml Balance 650 ml 740 ml Free Water 340 ml 100 ml IV Total 200 ml Tube Feeding 480 ml 480 ml Output Urine Total 20 ml 40 ml Stool Total 150 ml # Bowel Movements 30 Laboratory Tests 05/23/16 10:49: Arterial Blood pH 7.544H, Arterial Blood Partial Pressure CO2 38.0, Arterial Blood Partial Pressure O2 85.3, Arterial Blood HCO3 32.1H, Arterial Blood Oxygen Saturation 96.1, Arterial Blood Base Excess 8.9, Tadeo Test N/a 3/19/17 04:05: White Blood Count 13.7H, Red Blood Count 2.76L, Hemoglobin 8.9L, Hematocrit 27.5L, Mean Corpuscular Volume 100H, Mean Corpuscular Hemoglobin 32.3H, Mean Corpuscular Hemoglobin Concent 32.4, Red Cell Distribution Width 13.1, Platelet Count 302, Mean Platelet Volume 6.5, Neutrophils (%) (Auto) 75.2H, Lymphocytes ( %) (Auto) 14.6L, Monocytes (%) (Auto) 5.2, Eosinophils (%) (Auto) 4.4H, Basophils (%) (Auto) 0.5, Sodium Level 141, Potassium Level 3.1L, Chloride Level 95L, Carbon Dioxide Level 31H, Anion Gap 15, Blood Urea Nitrogen 59#H, Creatinine 5.1H, Estimat Glomerular Filtration Rate 11.6, Glucose Level 153H, Calcium Level 8.5L, Phosphorus Level 2.7, Magnesium Level 2.3, Total Bilirubin 0.3, Aspartate Amino Transf (AST/SGOT) 38, Alanine Aminotransferase (ALT/SGPT) 21, Alkaline Phosphatase 75, Total Protein 6.4L, Albumin 2.5L, Globulin 3.9, Albumin/Globulin Ratio 0.6L 05/24/16 07:35: Arterial Blood pH 7.580*H, Arterial Blood Partial Pressure CO2 27.0L, Arterial Blood Partial Pressure O2 131.0H, Arterial Blood HCO3 24.0, Arterial Blood Oxygen Saturation 98.0, Arterial Blood Base Excess 1.3, Tadeo Test Positive Height (Feet): 5 Height (Inches): 7.00 Weight (Pounds): 129 General Appearance: no apparent distress EENT: normal ENT inspection Neck: supple Cardiovascular: tachycardia Respiratory/Chest: decreased breath sounds Abdomen: normal bowel sounds, non tender, soft Extremities: non-tender GOLD LOPEZ May 24, 2016 10:07
--- NOTE | 2016-05-24 10:42 | Pulmonolgy Critical Care Note ---
Critical Care - Asmt/Plan Assessment/Plan: ASSESSMENT acute respiratory failure requiring intubation sepsis HCAP L lung collapse UTI ESRD, on HD UTI C dif colitis anemia s/p blood transfusion DM amphetamine abuse HTN Hyperlipidemia acute encephalatrophy ( likely multifactorial 2to sepsis, possible amphet, abuse, renal failure ) psychosis severe PVD R BKA PLAN OF CARE ICU vent support pulmonary toilet daily ABG and CXR L lung reexpanded for now ABG stable this am, probably ready for further weaning- will be done as per MD abx, ID follows stool + C dif, urine cx + E coli, blood cx negative cardio follows ECHO with preserved EF 55% and RVSP of 20 continue Plavix stool OB negative, monitor HH, transfuse prn BS management with SS of insulin BP management with BB tox screen + Amphetamine, classification counselor on abstinence when more awake DVT, GI prophylaxis case discussed and evaluated by supervising physician Critical Care - Objective Last 24 Hour Vital Signs Date Time Temp Pulse Resp B/P Pulse Ox O2 Delivery O2 Flow Rate FiO2 05/24/16 09:05 100 05/24/16 09:05 83 12 50 05/24/16 08:26 84 145/65 05/24/16 08:00 98.3 79 13 115/59 100 Mechanical Ventilator 50 05/24/16 08:00 50 05/24/16 07:00 77 13 99/54 100 Mechanical Ventilator 50 05/24/16 06:45 77 10 50 05/24/16 06:00 83 13 109/53 100 Mechanical Ventilator 50 05/24/16 05:07 84 10 50 05/24/16 05:00 83 13 104/43 100 Mechanical Ventilator 50 05/24/16 04:00 88 05/24/16 04:00 98.5 86 10 142/64 100 Mechanical Ventilator 50 05/24/16 04:00 50 05/24/16 03:00 86 12 149/88 100 Mechanical Ventilator 50 05/24/16 02:43 84 10 50 05/24/16 02:00 83 10 115/55 100 Mechanical Ventilator 50 05/24/16 01:15 87 12 50 05/24/16 01:00 84 10 110/66 100 Mechanical Ventilator 50 05/24/16 00:00 80 05/24/16 00:00 50 05/24/16 00:00 98.6 83 13 111/52 100 Mechanical Ventilator 50 05/23/16 23:11 90 10 50 05/23/16 23:00 80 10 106/45 100 Mechanical Ventilator 50 05/23/16 22:00 81 10 110/60 100 Mechanical Ventilator 50 05/23/16 21:00 80 10 127/63 100 Mechanical Ventilator 50 05/23/16 20:49 81 113/75 05/23/16 20:46 84 10 50 05/23/16 20:00 99.3 79 10 131/60 100 Mechanical Ventilator 50 05/23/16 20:00 79 05/23/16 20:00 50 05/23/16 19:00 82 10 120/58 100 Mechanical Ventilator 50 05/23/16 18:56 86 10 50 05/23/16 18:00 78 10 109/60 100 Mechanical Ventilator 50 05/23/16 17:00 82 10 116/64 100 Mechanical Ventilator 50 05/23/16 17:00 81 10 50 05/23/16 16:00 81 05/23/16 16:00 97.9 81 10 101/56 100 Mechanical Ventilator 50 05/23/16 16:00 50 05/23/16 15:02 80 19 104/65 100 Mechanical Ventilator 50 05/23/16 15:00 79 10 50 05/23/16 14:00 81 18 105/65 100 Mechanical Ventilator 50 05/23/16 13:00 80 17 123/76 100 Mechanical Ventilator 50 05/23/16 13:00 77 10 50 05/23/16 12:00 98.7 85 16 115/66 99 Mechanical Ventilator 50 05/23/16 12:00 85 05/23/16 11:48 50 05/23/16 11:00 81 14 110/63 100 Mechanical Ventilator 50 05/23/16 11:00 79 10 50 Objective: Status: sedated Condition: critical HEENT: atraumatic, normocephalic, NGT intact, OP with ET in place, intact Lungs: clear Heart: HR/BP stable Abdomen: soft, non-tender, active bowel sounds Extremities: other - L BKA, R great toe amputated Accucheck: 180 Critical Care - Subjective ROS Limited/Unobtainable: Yes Interval Events: afebrile, leucocytosis with small trend up ABG on SIMV stable no signs of respiratory distress Condition: critical IV Access: peripheral EKG Rhythm: Sinus Rhythm FI02: 50 Vent Support Breath Rate: 10 Vent Support Mode: IMV/SIMV Vent Tidal Volume: 700 Sputum Amount: Small PEEP: 5.0 PIP: 22 Tube Feeding Amount: 40 I&O: Intake and Output 05/23/16 05/24/16 19:00 07:00 Intake Total 820 ml 780 ml Output Total 170 ml 40 ml Balance 650 ml 740 ml Free Water 340 ml 100 ml IV Total 200 ml Tube Feeding 480 ml 480 ml Output Urine Total 20 ml 40 ml Stool Total 150 ml # Bowel Movements 30 CXR: Slightly improved left basilar consolidation, ET-Tube: 7.5 ET Position: 24 [place] ([facility]),Apoorva COLEMAN May 24, 2016 10:42
[2016-05-24] MEDS ORDERED: DuoNeb 0.5-3(2.5)mg/3ml neb HHN PRN (10:45)
[2016-05-24] MEDS ORDERED: NS 275ml ONE (15:11)
--- NOTE | 2016-05-24 20:25 | Nephrology Progress Note ---
Assessment/Plan Problem List: (1) ESRD on dialysis (2) Anemia, chronic disease (3) Respiratory failure (4) Pleural effusion (5) UTI (urinary tract infection) Plan HD as scheduled. in am. MOnitor labs. Subjective Subjective remains in ICU intubated. Objective Objective Last 24 Hour Vital Signs Date Time Temp Pulse Resp B/P Pulse Ox O2 Delivery O2 Flow Rate FiO2 05/24/16 19:01 85 13 118/55 100 Mechanical Ventilator 50 05/24/16 18:58 80 10 50 05/24/16 18:00 85 13 118/55 100 Mechanical Ventilator 50 05/24/16 17:00 80 13 106/71 100 Mechanical Ventilator 50 05/24/16 16:46 82 10 50 05/24/16 16:00 77 05/24/16 16:00 50 05/24/16 16:00 98.5 82 10 116/64 100 Mechanical Ventilator 50 05/24/16 15:00 78 13 106/71 100 Mechanical Ventilator 50 05/24/16 14:47 82 11 50 05/24/16 14:02 80 13 114/56 100 Mechanical Ventilator 50 05/24/16 13:05 76 10 50 05/24/16 13:00 77 13 94/77 100 Mechanical Ventilator 50 05/24/16 12:00 50 05/24/16 12:00 82 05/24/16 12:00 98.6 79 14 103/78 100 Mechanical Ventilator 50 05/24/16 11:00 84 13 123/64 100 Mechanical Ventilator 50 05/24/16 10:49 81 13 50 05/24/16 10:00 78 13 118/57 100 Mechanical Ventilator 50 05/24/16 09:05 100 05/24/16 09:05 83 12 50 05/24/16 09:00 77 13 108/70 100 Mechanical Ventilator 50 05/24/16 08:26 84 145/65 05/24/16 08:00 98.3 79 13 115/59 100 Mechanical Ventilator 50 05/24/16 08:00 83 05/24/16 08:00 50 05/24/16 07:00 77 13 99/54 100 Mechanical Ventilator 50 05/24/16 06:45 77 10 50 05/24/16 06:00 83 13 109/53 100 Mechanical Ventilator 50 05/24/16 05:07 84 10 50 05/24/16 05:00 83 13 104/43 100 Mechanical Ventilator 50 05/24/16 04:00 88 05/24/16 04:00 98.5 86 10 142/64 100 Mechanical Ventilator 50 05/24/16 04:00 50 05/24/16 03:00 86 12 149/88 100 Mechanical Ventilator 50 05/24/16 02:43 84 10 50 05/24/16 02:00 83 10 115/55 100 Mechanical Ventilator 50 05/24/16 01:15 87 12 50 05/24/16 01:00 84 10 110/66 100 Mechanical Ventilator 50 05/24/16 00:00 80 05/24/16 00:00 50 05/24/16 00:00 98.6 83 13 111/52 100 Mechanical Ventilator 50 05/23/16 23:11 90 10 50 05/23/16 23:00 80 10 106/45 100 Mechanical Ventilator 50 05/23/16 22:00 81 10 110/60 100 Mechanical Ventilator 50 05/23/16 21:00 80 10 127/63 100 Mechanical Ventilator 50 05/23/16 20:49 81 113/75 05/23/16 20:46 84 10 50 Intake and Output 05/23/16 05/24/16 19:00 07:00 Intake Total 820 ml 780 ml Output Total 170 ml 40 ml Balance 650 ml 740 ml Free Water 340 ml 100 ml IV Total 200 ml Tube Feeding 480 ml 480 ml Output Urine Total 20 ml 40 ml Stool Total 150 ml # Bowel Movements 30 Laboratory Tests 05/24/16 04:05: White Blood Count 13.7H, Red Blood Count 2.76L, Hemoglobin 8.9L, Hematocrit 27.5L, Mean Corpuscular Volume 100H, Mean Corpuscular Hemoglobin 32.3H, Mean Corpuscular Hemoglobin Concent 32.4, Red Cell Distribution Width 13.1, Platelet Count 302, Mean Platelet Volume 6.5, Neutrophils (%) (Auto) 75.2H, Lymphocytes ( %) (Auto) 14.6L, Monocytes (%) (Auto) 5.2, Eosinophils (%) (Auto) 4.4H, Basophils (%) (Auto) 0.5, Sodium Level 141, Potassium Level 3.1L, Chloride Level 95L, Carbon Dioxide Level 31H, Anion Gap 15, Blood Urea Nitrogen 59#H, Creatinine 5.1H, Estimat Glomerular Filtration Rate 11.6, Glucose Level 153H, Calcium Level 8.5L, Phosphorus Level 2.7, Magnesium Level 2.3, Total Bilirubin 0.3, Aspartate Amino Transf (AST/SGOT) 38, Alanine Aminotransferase (ALT/SGPT) 21, Alkaline Phosphatase 75, Total Protein 6.4L, Albumin 2.5L, Globulin 3.9, Albumin/Globulin Ratio 0.6L 05/24/16 07:35: Arterial Blood pH 7.580*H, Arterial Blood Partial Pressure CO2 27.0L, Arterial Blood Partial Pressure O2 131.0H, Arterial Blood HCO3 24.0, Arterial Blood Oxygen Saturation 98.0, Arterial Blood Base Excess 1.3, Tadeo Test Positive Height (Feet): 5 Height (Inches): 7.00 Weight (Pounds): 129 General Appearance: no apparent distress Cardiovascular: normal rate, regular rhythm Respiratory/Chest: decreased breath sounds Abdomen: non tender, soft Extremities: non-pitting AUTUMN RODNEY May 24, 2016 20:25
[2016-05-25] VITALS (25 sets, daily range): BP systolic 93–153; BP diastolic 39–87
[2016-05-25] MEDS: NovoLOG Insulin Flexpen SUBQ SCH ×2 (00:27→06:05)
--- NOTE | 2016-05-25 02:08 | Progress Note ---
DATE: 05/19/2016 SUBJECTIVE: The patient is a 61-year-old with altered mental status and confusion. . Poor cognition secondary to progression of his medical illness. We will continue treatment for this patient with psychotropic medications to stabilize his mood. 05/19/2016 chart reviewed and discussed with staff. Seen and assessed at the bedside. Continue treatment with psychotropic medications . Siva Hussein M.D. DR: LEANDRO JOB#: [id number] CC:
--- NOTE | 2016-05-25 02:08 | Progress Note ---
DATE: 05/24/2016 SUBJECTIVE: The patient with altered mental status and confusion. ASSESSMENT AND PLAN: I am going to continue treatment with psychotropic medications to stabilize his mood. Chart was reviewed and discussed with the staff. Seen and assessed at the bedside. Siva Hussein M.D. DR: KENZIE JOB#: [id number] CC:
--- NOTE | 2016-05-25 02:08 | Progress Note ---
DATE: 05/23/2016 SUBJECTIVE: Patient brought in with mental status and confusion. PLAN: I am going to continue treatment with psychotropic medications to stabilize his mood. 05/23/2016, chart was reviewed and discussed with staff. Patient was seen and assessed at the bedside. Siva Hussein M.D. DR: KENZIE JOB#: [id number] CC:
--- NOTE | 2016-05-25 02:58 | Progress Note ---
DATE: 05/18/2016 SUBJECTIVE: The patient is a 61-year-old male. The patient with altered mental status. ASSESSMENT AND PLAN: Continue treatment with psychotropic medications to stabilize mood. His cognition declined below baseline. On 05/18/2016, chart was reviewed and discussed with staff. Seen and assessed at the bedside. Siva Hussein M.D. DR: LEANDRO JOB#: [id number] CC:
[2016-05-25 04:18] LABS: BASOPHILS % (AUTO) 0.7 % (0.0-2.0); EOSINOPHILS % (AUTO) 4.2 % (0.0-3.0); LYMPHOCYTES % (AUTO) 15.3 % (20.0-45.0); MEAN CORPUSCULAR HEMOGLOBIN 32.3 PG (27.0-31.0); MEAN CORPUSCULAR HGB CONC 32.4 G/DL (32.0-36.0); MEAN CORPUSCULAR VOLUME 100 FL (80-99); MEAN PLATELET VOLUME 6.4 FL (6.5-10.1); MONOCYTES % (AUTO) 7.1 % (1.0-10.0); NEUTROPHILS % (AUTO) 72.7 % (45.0-75.0); PLATELET COUNT 269 K/UL (150-450); RED BLOOD COUNT 2.73 M/UL (4.70-6.10); RED CELL DISTRIBUTION WIDTH 12.6 % (11.6-14.8); WHITE BLOOD COUNT 12.1 K/UL (4.8-10.8)
[2016-05-25 04:38] LABS: CALCIUM 8.5 mg/dL (8.6-10.2); CREATININE 6.1 mg/dL (0.7-1.2); GLOMERULAR FILTRATION RATE 9.5 mL/min (>60); POTASSIUM 3.3 mEQ/L (3.4-4.9)
[2016-05-25] MEDS: metroNIDAZOLE 500mg 100 ML IVPB SCH (06:03)
--- NOTE | 2016-05-25 08:12 | Diagnostic Imaging Report ---
Indication: Dyspnea Comparison: 05/22/16 A single view chest radiograph was obtained. Findings: Hazy right basilar opacity demonstrated, likely pleural effusion. Cardiomegaly is noted. Endotracheal tube is in good position. The nasogastric tube tip is in the stomach likely. The proximal port is at the EG junction. Impression: Nasogastric tube has been pulled out slightly and should be be advanced. No significant change otherwise
[2016-05-25] MEDS: Vancomycin oral 125mg/2.5ml ORAL SCH (08:28)
[2016-05-25] MEDS: Metoprolol 25mg tab NG SCH (08:28)
[2016-05-25] MEDS: Heparin 5000 units/ml inj SUBQ SCH (08:30)
--- NOTE | 2016-05-25 10:12 | Pulmonolgy Critical Care Note ---
Critical Care - Asmt/Plan Problems: (1) Acute respiratory failure (2) Nosocomial pneumonia (3) C. difficile colitis (4) ESRD on dialysis (5) Sepsis Respiratory: monitor respiratory rate, adjust FIO2, CXR, other - will probably need tracheostomy Cardiac: continue to monitor HR/BP Renal: F/U I&O, check electrolytes, other Infectious Disease: check cultures, continue antibiotics - on Flagyl and vancomycin Gastrointestinal: continue feedings/current rate Endocrine: monitor blood sugar, check HgA1C, start insulin drip Hematologic: monitor H/H, transfuse if hgb<8.5 Neurologic: PRN Ativan, keep patient comfortable Affect: PRN ativan Prophylaxis: Protonix Notes Reviewed: chiller tender, cardio Discussed with: nurses, consultants, correctional case managermicrobiology manager - Objective Last 24 Hour Vital Signs Date Time Temp Pulse Resp B/P Pulse Ox O2 Delivery O2 Flow Rate FiO2 05/25/16 10:00 73 12 143/48 100 Mechanical Ventilator 50 05/25/16 09:00 79 12 100/42 100 Mechanical Ventilator 50 05/25/16 08:28 75 116/71 05/25/16 08:10 98.6 86 16 119/69 100 Mechanical Ventilator 50 05/25/16 08:10 Mechanical Ventilator 50 05/25/16 08:00 50 05/25/16 08:00 98.5 76 18 108/87 100 Mechanical Ventilator 50 05/25/16 07:00 78 21 93/70 100 Mechanical Ventilator 50 05/25/16 06:44 74 10 50 05/25/16 06:00 80 18 102/45 100 Mechanical Ventilator 50 05/25/16 05:45 78 10 50 05/25/16 05:00 80 18 102/45 100 Mechanical Ventilator 50 05/25/16 04:45 99.0 80 10 109/49 100 Mechanical Ventilator 50 05/25/16 04:45 Mechanical Ventilator 50 05/25/16 04:00 97.8 81 17 102/45 100 Mechanical Ventilator 50 05/25/16 04:00 50 05/25/16 04:00 81 05/25/16 03:15 81 10 50 05/25/16 03:00 77 17 114/51 100 Mechanical Ventilator 50 05/25/16 02:00 78 17 124/71 100 Mechanical Ventilator 50 05/25/16 01:08 73 10 50 05/25/16 01:00 74 17 140/58 100 Mechanical Ventilator 50 05/25/16 00:00 50 05/25/16 00:00 74 05/25/16 00:00 98.0 74 17 153/83 100 Mechanical Ventilator 50 05/24/16 23:09 76 10 50 05/24/16 23:00 74 17 123/60 100 Mechanical Ventilator 50 05/24/16 22:00 75 18 118/61 100 Mechanical Ventilator 50 05/24/16 21:00 80 14 131/66 100 Mechanical Ventilator 50 05/24/16 20:51 83 133/58 05/24/16 20:44 81 12 50 05/24/16 20:00 98.2 80 16 133/58 100 Mechanical Ventilator 50 05/24/16 20:00 80 05/24/16 20:00 50 05/24/16 19:01 85 13 118/55 100 Mechanical Ventilator 50 05/24/16 18:58 80 10 50 05/24/16 18:00 85 13 118/55 100 Mechanical Ventilator 50 05/24/16 17:00 80 13 106/71 100 Mechanical Ventilator 50 05/24/16 16:46 82 10 50 05/24/16 16:00 77 05/24/16 16:00 50 05/24/16 16:00 98.5 82 10 116/64 100 Mechanical Ventilator 50 05/24/16 15:00 78 13 106/71 100 Mechanical Ventilator 50 05/24/16 14:47 82 11 50 05/24/16 14:02 80 13 114/56 100 Mechanical Ventilator 50 05/24/16 13:05 76 10 50 05/24/16 13:00 77 13 94/77 100 Mechanical Ventilator 50 05/24/16 12:00 50 05/24/16 12:00 82 05/24/16 12:00 98.6 79 14 103/78 100 Mechanical Ventilator 50 05/24/16 11:00 84 13 123/64 100 Mechanical Ventilator 50 05/24/16 10:49 81 13 50 Status: awake Condition: critical HEENT: atraumatic Neck: full ROM Lungs: chest wall tender Heart: HR/BP stable, regular Abdomen: non-tender, active bowel sounds Extremities: no C/C/E, edema Decubiti: location Accucheck: 152 Critical Care - Subjective ROS Limited/Unobtainable: Yes ICU Day: 8 Intubation Day: 8 Condition: critical EKG Rhythm: Sinus Rhythm FI02: 50 Vent Support Breath Rate: 10 Vent Support Mode: IMV/SIMV Vent Tidal Volume: 700 Sputum Amount: Small PEEP: 5.0 PIP: 24 Tube Feeding Amount: 40 I&O: Intake and Output 05/24/16 05/25/16 19:00 07:00 Intake Total 440 ml 670 ml Output Total 45 ml 180 ml Balance 395 ml 490 ml Free Water 150 ml Tube Feeding 440 ml 520 ml Output Urine Total 45 ml 180 ml CXR: less infiltrate, ET in good position ET-Tube: 7.5 ET Position: 22 Labs: Laboratory Tests Test 05/25/16 03:25 White Blood Count 12.1 K/UL (4.8-10.8) H Red Blood Count 2.73 M/UL (4.70-6.10) L Hemoglobin 8.8 G/DL (14.2-18.0) L Hematocrit 27.2 % (42.0-52.0) L Mean Corpuscular Volume 100 FL (80-99) H Mean Corpuscular Hemoglobin 32.3 PG (27.0-31.0) H Mean Corpuscular Hemoglobin Concent 32.4 G/DL (32.0-36.0) Red Cell Distribution Width 12.6 % (11.6-14.8) Platelet Count 269 K/UL (150-450) Mean Platelet Volume 6.4 FL (6.5-10.1) L Neutrophils (%) (Auto) 72.7 % (45.0-75.0) Lymphocytes (%) (Auto) 15.3 % (20.0-45.0) L Monocytes (%) (Auto) 7.1 % (1.0-10.0) Eosinophils (%) (Auto) 4.2 % (0.0-3.0) H Basophils (%) (Auto) 0.7 % (0.0-2.0) Sodium Level 141 mEQ/L (135-145) Potassium Level 3.3 mEQ/L (3.4-4.9) L Chloride Level 95 mEQ/L (98-107) L Carbon Dioxide Level 31 mEQ/L (20-30) H Anion Gap 15 (5-15) Blood Urea Nitrogen 65 mg/dL (7-23) H Creatinine 6.1 mg/dL (0.7-1.2) H Estimat Glomerular Filtration Rate 9.5 mL/min (>60) Glucose Level 162 mg/dL (74-106) H Calcium Level 8.5 mg/dL (8.6-10.2) L JEFF INMAN May 25, 2016 10:12
[2016-05-25 10:29] LABS: ABG ALLEN TEST POSITIVE; ABG BASE EXCESS 8.5; ABG PCO2 41.8 mmHg (35.0-45.0)
--- NOTE | 2016-05-25 10:31 | General Progress Note ---
Assessment/Plan Problem List: (1) C. difficile colitis ICD Codes: A04.7 - Enterocolitis due to Clostridium difficile SNOMED: 728628815 (2) HTN (hypertension) ICD Codes: I10 - Essential (primary) hypertension SNOMED: 58740532 (3) Anemia, chronic disease ICD Codes: D63.8 - Anemia in other chronic diseases classified elsewhere SNOMED: 603473437 (4) Methamphetamine abuse ICD Codes: F15.10 - Other stimulant abuse, uncomplicated SNOMED: 586571306 (5) Acute respiratory failure ICD Codes: J96.00 - Acute respiratory failure, unspecified whether with hypoxia or hypercapnia SNOMED: 36312230 Assessment/Plan ngtf treat for C.diff fu labs peg if needed stool ob negative fu cbc Subjective ROS Limited/Unobtainable: No Allergies: Coded Allergies: No Known Allergies (Unverified , 09/05/13) Subjective no event Objective Last 24 Hour Vital Signs Date Time Temp Pulse Resp B/P Pulse Ox O2 Delivery O2 Flow Rate FiO2 05/25/16 10:00 73 12 143/48 100 Mechanical Ventilator 50 05/25/16 09:00 79 12 100/42 100 Mechanical Ventilator 50 05/25/16 08:55 74 10 50 05/25/16 08:55 100 05/25/16 08:28 75 116/71 05/25/16 08:10 98.6 86 16 119/69 100 Mechanical Ventilator 50 05/25/16 08:10 Mechanical Ventilator 50 05/25/16 08:00 50 05/25/16 08:00 98.5 76 18 108/87 100 Mechanical Ventilator 50 05/25/16 07:00 78 21 93/70 100 Mechanical Ventilator 50 05/25/16 06:44 74 10 50 05/25/16 06:00 80 18 102/45 100 Mechanical Ventilator 50 05/25/16 05:45 78 10 50 05/25/16 05:00 80 18 102/45 100 Mechanical Ventilator 50 05/25/16 04:45 99.0 80 10 109/49 100 Mechanical Ventilator 50 05/25/16 04:45 Mechanical Ventilator 50 05/25/16 04:00 97.8 81 17 102/45 100 Mechanical Ventilator 50 05/25/16 04:00 50 05/25/16 04:00 81 05/25/16 03:15 81 10 50 05/25/16 03:00 77 17 114/51 100 Mechanical Ventilator 50 05/25/16 02:00 78 17 124/71 100 Mechanical Ventilator 50 05/25/16 01:08 73 10 50 05/25/16 01:00 74 17 140/58 100 Mechanical Ventilator 50 05/25/16 00:00 50 05/25/16 00:00 74 05/25/16 00:00 98.0 74 17 153/83 100 Mechanical Ventilator 50 05/24/16 23:09 76 10 50 05/24/16 23:00 74 17 123/60 100 Mechanical Ventilator 50 05/24/16 22:00 75 18 118/61 100 Mechanical Ventilator 50 05/24/16 21:00 80 14 131/66 100 Mechanical Ventilator 50 05/24/16 20:51 83 133/58 05/24/16 20:44 81 12 50 05/24/16 20:00 98.2 80 16 133/58 100 Mechanical Ventilator 50 05/24/16 20:00 80 05/24/16 20:00 50 05/24/16 19:01 85 13 118/55 100 Mechanical Ventilator 50 05/24/16 18:58 80 10 50 05/24/16 18:00 85 13 118/55 100 Mechanical Ventilator 50 05/24/16 17:00 80 13 106/71 100 Mechanical Ventilator 50 05/24/16 16:46 82 10 50 05/24/16 16:00 77 05/24/16 16:00 50 05/24/16 16:00 98.5 82 10 116/64 100 Mechanical Ventilator 50 05/24/16 15:00 78 13 106/71 100 Mechanical Ventilator 50 05/24/16 14:47 82 11 50 05/24/16 14:02 80 13 114/56 100 Mechanical Ventilator 50 05/24/16 13:05 76 10 50 05/24/16 13:00 77 13 94/77 100 Mechanical Ventilator 50 05/24/16 12:00 50 05/24/16 12:00 82 05/24/16 12:00 98.6 79 14 103/78 100 Mechanical Ventilator 50 05/24/16 11:00 84 13 123/64 100 Mechanical Ventilator 50 05/24/16 10:49 81 13 50 Intake and Output 05/24/16 05/25/16 19:00 07:00 Intake Total 440 ml 670 ml Output Total 45 ml 180 ml Balance 395 ml 490 ml Free Water 150 ml Tube Feeding 440 ml 520 ml Output Urine Total 45 ml 180 ml Laboratory Tests 05/25/16 03:25: White Blood Count 12.1H, Red Blood Count 2.73L, Hemoglobin 8.8L, Hematocrit 27.2L, Mean Corpuscular Volume 100H, Mean Corpuscular Hemoglobin 32.3H, Mean Corpuscular Hemoglobin Concent 32.4, Red Cell Distribution Width 12.6, Platelet Count 269, Mean Platelet Volume 6.4L, Neutrophils (%) (Auto) 72.7, Lymphocytes ( %) (Auto) 15.3L, Monocytes (%) (Auto) 7.1, Eosinophils (%) (Auto) 4.2H, Basophils (%) (Auto) 0.7, Sodium Level 141, Potassium Level 3.3L, Chloride Level 95L, Carbon Dioxide Level 31H, Anion Gap 15, Blood Urea Nitrogen 65H, Creatinine 6.1H, Estimat Glomerular Filtration Rate 9.5, Glucose Level 162H, Calcium Level 8.5L 05/25/16 10:09: Arterial Blood pH 7.506H, Arterial Blood Partial Pressure CO2 41.8, Arterial Blood Partial Pressure O2 99.9, Arterial Blood HCO3 32.3H, Arterial Blood Oxygen Saturation 97.5, Arterial Blood Base Excess 8.5, Tadeo Test Positive Height (Feet): 5 Height (Inches): 7.00 Weight (Pounds): 129 General Appearance: no apparent distress EENT: normal ENT inspection Neck: supple Cardiovascular: normal rate Respiratory/Chest: decreased breath sounds Abdomen: normal bowel sounds, non tender, soft Extremities: non-tender GOLD LOPEZ May 25, 2016 10:31
[2016-05-25] MEDS ORDERED: Glycopyrrolate 0.2mg/ml 1ml Vial IV PRN ×2 (11:45→23:45)
[2016-05-25] MEDS ORDERED: Haloperidol 5mg/ml Inj IM PRN ×2 (11:45→22:15)
[2016-05-25] MEDS ORDERED: Rate Change Narcotic Drip MISC SCH (12:30)
[2016-05-25] MEDS ORDERED: PCA Morphine 1mg/ml 30 ML IV PRN (12:30)
[2016-05-25] MEDS ORDERED: Prochlorperazine 10mg tab ORAL PRN (12:30)
[2016-05-25] MEDS ORDERED: Artificial Tears 1.4% Op Soln BOTH EYES PRN ×2 (13:00→22:00)
[2016-05-25] MEDS ORDERED: Morphine Sulfate 10mg/ml Inj IVP ONE (13:00)
--- NOTE | 2016-05-25 13:56 | Diagnostic Imaging Report ---
Indication: Status post dialysis, status post reinsertion of endotracheal tube Technique: One view of the chest Comparison: 05/24/2016 Findings: Endotracheal tubes in good position, tip approximately 3 cm above the antonio. Nasogastric tubes in good position, tip projected at the level gastric fundus. Some right basilar infiltrate or atelectasis persists. The left medial hemidiaphragm is obscured, likely indicating retrocardiac consolidation. Allowing for technical differences, parenchymal disease is stable or slightly improved Impression: Satisfactory endotracheal intubation Stable or slightly improved bilateral parenchymal disease, as described
--- NOTE | 2016-05-25 14:29 | General Progress Note ---
Assessment/Plan Problem List: (1) Respiratory failure ICD Codes: J96.90 - Respiratory failure, unspecified, unspecified whether with hypoxia or hypercapnia SNOMED: 152289311 (2) ESRD on dialysis ICD Codes: N18.6 - ESRD on dialysis; Z99.2 - Dependence on renal dialysis SNOMED: 363330438 (3) Sepsis ICD Codes: A41.9 - Sepsis, unspecified organism SNOMED: 36251174 (4) CVA (cerebral vascular accident) ICD Codes: I63.9 - Cerebral infarction, unspecified SNOMED: 745284448 (5) Encephalopathy ICD Codes: G93.40 - Encephalopathy SNOMED: 56357536 (6) Seizure ICD Codes: R56.9 - Seizure SNOMED: 09674764 (7) Altered level of consciousness ICD Codes: R40.4 - Transient alteration of awareness SNOMED: 9906622 (8) UTI (urinary tract infection) ICD Codes: N39.0 - Urinary tract infection, site not specified SNOMED: 79923292 Qualifiers: Qualified Codes: N30.01 - Acute cystitis with hematuria Status: unchanged Assessment/Plan vent abx cbc bmp am possible terminal extubation hospice eval Subjective Constitutional: Reports: weakness Allergies: Coded Allergies: No Known Allergies (Unverified , 09/05/13) All Systems: reviewed and negative except above Subjective intub ng in icu Objective Last 24 Hour Vital Signs Date Time Temp Pulse Resp B/P Pulse Ox O2 Delivery O2 Flow Rate FiO2 05/25/16 13:00 88 12 109/44 100 Mechanical Ventilator 50 05/25/16 12:44 76 13 50 05/25/16 12:00 50 05/25/16 12:00 71 05/25/16 12:00 98.2 89 12 100/66 100 Mechanical Ventilator 50 05/25/16 11:25 75 13 50 05/25/16 11:00 86 12 105/39 100 Mechanical Ventilator 50 05/25/16 10:00 73 12 143/48 100 Mechanical Ventilator 50 05/25/16 09:00 79 12 100/42 100 Mechanical Ventilator 50 05/25/16 08:55 74 10 50 05/25/16 08:55 100 05/25/16 08:28 75 116/71 05/25/16 08:10 98.6 86 16 119/69 100 Mechanical Ventilator 50 05/25/16 08:10 Mechanical Ventilator 50 05/25/16 08:00 50 05/25/16 08:00 78 05/25/16 08:00 98.5 76 18 108/87 100 Mechanical Ventilator 50 05/25/16 07:00 78 21 93/70 100 Mechanical Ventilator 50 05/25/16 06:44 74 10 50 05/25/16 06:00 80 18 102/45 100 Mechanical Ventilator 50 05/25/16 05:45 78 10 50 05/25/16 05:00 80 18 102/45 100 Mechanical Ventilator 50 05/25/16 04:45 99.0 80 10 109/49 100 Mechanical Ventilator 50 05/25/16 04:45 Mechanical Ventilator 50 05/25/16 04:00 97.8 81 17 102/45 100 Mechanical Ventilator 50 05/25/16 04:00 50 05/25/16 04:00 81 05/25/16 03:15 81 10 50 05/25/16 03:00 77 17 114/51 100 Mechanical Ventilator 50 05/25/16 02:00 78 17 124/71 100 Mechanical Ventilator 50 05/25/16 01:08 73 10 50 05/25/16 01:00 74 17 140/58 100 Mechanical Ventilator 50 05/25/16 00:00 50 05/25/16 00:00 74 05/25/16 00:00 98.0 74 17 153/83 100 Mechanical Ventilator 50 05/24/16 23:09 76 10 50 05/24/16 23:00 74 17 123/60 100 Mechanical Ventilator 50 05/24/16 22:00 75 18 118/61 100 Mechanical Ventilator 50 05/24/16 21:00 80 14 131/66 100 Mechanical Ventilator 50 05/24/16 20:51 83 133/58 05/24/16 20:44 81 12 50 05/24/16 20:00 98.2 80 16 133/58 100 Mechanical Ventilator 50 05/24/16 20:00 80 05/24/16 20:00 50 05/24/16 19:01 85 13 118/55 100 Mechanical Ventilator 50 05/24/16 18:58 80 10 50 05/24/16 18:00 85 13 118/55 100 Mechanical Ventilator 50 05/24/16 17:00 80 13 106/71 100 Mechanical Ventilator 50 05/24/16 16:46 82 10 50 05/24/16 16:00 77 05/24/16 16:00 50 05/24/16 16:00 98.5 82 10 116/64 100 Mechanical Ventilator 50 05/24/16 15:00 78 13 106/71 100 Mechanical Ventilator 50 05/24/16 14:47 82 11 50 Intake and Output 05/24/16 05/25/16 19:00 07:00 Intake Total 440 ml 670 ml Output Total 45 ml 180 ml Balance 395 ml 490 ml Free Water 150 ml Tube Feeding 440 ml 520 ml Output Urine Total 45 ml 180 ml Laboratory Tests 05/25/16 03:25: White Blood Count 12.1H, Red Blood Count 2.73L, Hemoglobin 8.8L, Hematocrit 27.2L, Mean Corpuscular Volume 100H, Mean Corpuscular Hemoglobin 32.3H, Mean Corpuscular Hemoglobin Concent 32.4, Red Cell Distribution Width 12.6, Platelet Count 269, Mean Platelet Volume 6.4L, Neutrophils (%) (Auto) 72.7, Lymphocytes ( %) (Auto) 15.3L, Monocytes (%) (Auto) 7.1, Eosinophils (%) (Auto) 4.2H, Basophils (%) (Auto) 0.7, Sodium Level 141, Potassium Level 3.3L, Chloride Level 95L, Carbon Dioxide Level 31H, Anion Gap 15, Blood Urea Nitrogen 65H, Creatinine 6.1H, Estimat Glomerular Filtration Rate 9.5, Glucose Level 162H, Calcium Level 8.5L 05/25/16 10:09: Arterial Blood pH 7.506H, Arterial Blood Partial Pressure CO2 41.8, Arterial Blood Partial Pressure O2 99.9, Arterial Blood HCO3 32.3H, Arterial Blood Oxygen Saturation 97.5, Arterial Blood Base Excess 8.5, Tadeo Test Positive Height (Feet): 5 Height (Inches): 7.00 Weight (Pounds): 129 General Appearance: lethargic EENT: normal ENT inspection Neck: normal alignment Cardiovascular: normal peripheral pulses, normal rate, regular rhythm Respiratory/Chest: chest wall non-tender, lungs clear, decreased breath sounds Abdomen: normal bowel sounds, non tender, soft Extremities: normal inspection Edema: no edema noted Arm (L), no edema noted Arm (R), no edema noted Leg (L), no edema noted Leg (R), no edema noted Pedal (L), no edema noted Pedal (R), no edema noted Generalized Neurologic: motor weakness Skin: normal pigmentation, warm/dry VANDANA INMAN May 25, 2016 14:29
[2016-05-25] MEDS ORDERED: Narcotic Shift Volume MISC SCH (15:00)
--- NOTE | 2016-05-25 15:44 | Nephrology Progress Note ---
Assessment/Plan Problem List: (1) ESRD on dialysis (2) Sepsis (3) Anemia (4) HTN (hypertension) (5) Altered level of consciousness (6) C. difficile diarrhea Plan Plan - comfort measures only Extubate Subjective ROS Limited/Unobtainable: Yes Subjective In no apparent distress, intubated on vent settings Objective Objective Last 24 Hour Vital Signs Date Time Temp Pulse Resp B/P Pulse Ox O2 Delivery O2 Flow Rate FiO2 05/25/16 14:30 78 12 50 05/25/16 14:00 87 12 131/75 100 Mechanical Ventilator 50 05/25/16 13:00 88 12 109/44 100 Mechanical Ventilator 50 05/25/16 12:44 76 13 50 05/25/16 12:00 50 05/25/16 12:00 71 05/25/16 12:00 98.2 89 12 100/66 100 Mechanical Ventilator 50 05/25/16 11:25 75 13 50 05/25/16 11:00 86 12 105/39 100 Mechanical Ventilator 50 05/25/16 10:00 73 12 143/48 100 Mechanical Ventilator 50 05/25/16 09:00 79 12 100/42 100 Mechanical Ventilator 50 05/25/16 08:55 74 10 50 05/25/16 08:55 100 05/25/16 08:28 75 116/71 05/25/16 08:10 98.6 86 16 119/69 100 Mechanical Ventilator 50 05/25/16 08:10 Mechanical Ventilator 50 05/25/16 08:00 50 05/25/16 08:00 78 05/25/16 08:00 98.5 76 18 108/87 100 Mechanical Ventilator 50 05/25/16 07:00 78 21 93/70 100 Mechanical Ventilator 50 05/25/16 06:44 74 10 50 05/25/16 06:00 80 18 102/45 100 Mechanical Ventilator 50 05/25/16 05:45 78 10 50 05/25/16 05:00 80 18 102/45 100 Mechanical Ventilator 50 05/25/16 04:45 99.0 80 10 109/49 100 Mechanical Ventilator 50 05/25/16 04:45 Mechanical Ventilator 50 05/25/16 04:00 97.8 81 17 102/45 100 Mechanical Ventilator 50 05/25/16 04:00 50 05/25/16 04:00 81 05/25/16 03:15 81 10 50 05/25/16 03:00 77 17 114/51 100 Mechanical Ventilator 50 05/25/16 02:00 78 17 124/71 100 Mechanical Ventilator 50 05/25/16 01:08 73 10 50 05/25/16 01:00 74 17 140/58 100 Mechanical Ventilator 50 05/25/16 00:00 50 05/25/16 00:00 74 05/25/16 00:00 98.0 74 17 153/83 100 Mechanical Ventilator 50 05/24/16 23:09 76 10 50 05/24/16 23:00 74 17 123/60 100 Mechanical Ventilator 50 05/24/16 22:00 75 18 118/61 100 Mechanical Ventilator 50 05/24/16 21:00 80 14 131/66 100 Mechanical Ventilator 50 05/24/16 20:51 83 133/58 05/24/16 20:44 81 12 50 05/24/16 20:00 98.2 80 16 133/58 100 Mechanical Ventilator 50 05/24/16 20:00 80 05/24/16 20:00 50 05/24/16 19:01 85 13 118/55 100 Mechanical Ventilator 50 05/24/16 18:58 80 10 50 05/24/16 18:00 85 13 118/55 100 Mechanical Ventilator 50 05/24/16 17:00 80 13 106/71 100 Mechanical Ventilator 50 05/24/16 16:46 82 10 50 05/24/16 16:00 77 05/24/16 16:00 50 05/24/16 16:00 98.5 82 10 116/64 100 Mechanical Ventilator 50 Intake and Output 05/24/16 05/25/16 19:00 07:00 Intake Total 440 ml 670 ml Output Total 45 ml 180 ml Balance 395 ml 490 ml Free Water 150 ml Tube Feeding 440 ml 520 ml Output Urine Total 45 ml 180 ml Laboratory Tests 05/25/16 03:25: White Blood Count 12.1H, Red Blood Count 2.73L, Hemoglobin 8.8L, Hematocrit 27.2L, Mean Corpuscular Volume 100H, Mean Corpuscular Hemoglobin 32.3H, Mean Corpuscular Hemoglobin Concent 32.4, Red Cell Distribution Width 12.6, Platelet Count 269, Mean Platelet Volume 6.4L, Neutrophils (%) (Auto) 72.7, Lymphocytes ( %) (Auto) 15.3L, Monocytes (%) (Auto) 7.1, Eosinophils (%) (Auto) 4.2H, Basophils (%) (Auto) 0.7, Sodium Level 141, Potassium Level 3.3L, Chloride Level 95L, Carbon Dioxide Level 31H, Anion Gap 15, Blood Urea Nitrogen 65H, Creatinine 6.1H, Estimat Glomerular Filtration Rate 9.5, Glucose Level 162H, Calcium Level 8.5L 05/25/16 10:09: Arterial Blood pH 7.506H, Arterial Blood Partial Pressure CO2 41.8, Arterial Blood Partial Pressure O2 99.9, Arterial Blood HCO3 32.3H, Arterial Blood Oxygen Saturation 97.5, Arterial Blood Base Excess 8.5, Tadeo Test Positive Height (Feet): 5 Height (Inches): 7.00 Weight (Pounds): 129 Neck: normal alignment Cardiovascular: normal rate, no JVD Neurologic: unresponsive Yelena Peoples N.P. May 25, 2016 15:44
--- NOTE | 2016-05-25 16:02 | Infectious Diseases Prog Note ---
Assessment/Plan Problems: (1) C. difficile diarrhea Assessment & Plan: on oral vancomycin and IV flagyl for sever C diff infection , off protonix, now on comfort measured and morphine drip (2) Sepsis Assessment & Plan: with poor prognosis , most likely due to C diff infection, on oral vancomycin and IV flagyl. keep off antacid and Imodium (3) ESRD on dialysis Assessment & Plan: renal is following , continue HD (4) Diabetes Assessment & Plan: recommend tight glycemic control to keep blood glucose between 80-120 (5) Altered level of consciousness Assessment & Plan: worse today , due to hypoxemia and fluids overload, on comfort measures and morphine drip (6) Collapse of left lung Assessment & Plan: improved suspect due to mucous plug, cotinue suctioning , monitor CXR , pulmonary is following Subjective ROS Limited/Unobtainable: Yes Allergies: Coded Allergies: No Known Allergies (Unverified , 09/05/13) Subjective he is still intubated, on mechanical ventilation , obtunded , still has large volume diarrhea .afebrile Objective Vital Signs Last 24 Hour Vital Signs Date Time Temp Pulse Resp B/P Pulse Ox O2 Delivery O2 Flow Rate FiO2 05/25/16 14:30 78 12 50 05/25/16 14:00 87 12 131/75 100 Mechanical Ventilator 50 05/25/16 13:00 88 12 109/44 100 Mechanical Ventilator 50 05/25/16 12:44 76 13 50 05/25/16 12:00 50 05/25/16 12:00 71 05/25/16 12:00 98.2 89 12 100/66 100 Mechanical Ventilator 50 05/25/16 11:25 75 13 50 05/25/16 11:00 86 12 105/39 100 Mechanical Ventilator 50 05/25/16 10:00 73 12 143/48 100 Mechanical Ventilator 50 05/25/16 09:00 79 12 100/42 100 Mechanical Ventilator 50 05/25/16 08:55 74 10 50 05/25/16 08:55 100 05/25/16 08:28 75 116/71 05/25/16 08:10 98.6 86 16 119/69 100 Mechanical Ventilator 50 05/25/16 08:10 Mechanical Ventilator 50 05/25/16 08:00 50 05/25/16 08:00 78 05/25/16 08:00 98.5 76 18 108/87 100 Mechanical Ventilator 50 05/25/16 07:00 78 21 93/70 100 Mechanical Ventilator 50 05/25/16 06:44 74 10 50 05/25/16 06:00 80 18 102/45 100 Mechanical Ventilator 50 05/25/16 05:45 78 10 50 05/25/16 05:00 80 18 102/45 100 Mechanical Ventilator 50 05/25/16 04:45 99.0 80 10 109/49 100 Mechanical Ventilator 50 05/25/16 04:45 Mechanical Ventilator 50 05/25/16 04:00 97.8 81 17 102/45 100 Mechanical Ventilator 50 05/25/16 04:00 50 05/25/16 04:00 81 05/25/16 03:15 81 10 50 05/25/16 03:00 77 17 114/51 100 Mechanical Ventilator 50 05/25/16 02:00 78 17 124/71 100 Mechanical Ventilator 50 05/25/16 01:08 73 10 50 05/25/16 01:00 74 17 140/58 100 Mechanical Ventilator 50 05/25/16 00:00 50 05/25/16 00:00 74 05/25/16 00:00 98.0 74 17 153/83 100 Mechanical Ventilator 50 05/24/16 23:09 76 10 50 05/24/16 23:00 74 17 123/60 100 Mechanical Ventilator 50 05/24/16 22:00 75 18 118/61 100 Mechanical Ventilator 50 05/24/16 21:00 80 14 131/66 100 Mechanical Ventilator 50 05/24/16 20:51 83 133/58 05/24/16 20:44 81 12 50 05/24/16 20:00 98.2 80 16 133/58 100 Mechanical Ventilator 50 05/24/16 20:00 80 05/24/16 20:00 50 05/24/16 19:01 85 13 118/55 100 Mechanical Ventilator 50 05/24/16 18:58 80 10 50 05/24/16 18:00 85 13 118/55 100 Mechanical Ventilator 50 05/24/16 17:00 80 13 106/71 100 Mechanical Ventilator 50 05/24/16 16:46 82 10 50 Height (Feet): 5 Height (Inches): 7.00 Weight (Pounds): 129 General Appearance: cachetic, other - obtunded HEENT: normocephalic, atraumatic, anicteric Respiratory/Chest: chest wall non-tender, lungs clear, normal breath sounds, no respiratory distress, no accessory muscle use Cardiovascular: normal peripheral pulses, normal rate, regular rhythm, no gallop/murmur Abdomen: normal bowel sounds, soft, non tender, no organomegaly, non distended , no mass Extremities: no cyanosis, no clubbing Skin: no rash Laboratory Tests Test 05/25/16 03:25 05/25/16 10:09 White Blood Count 12.1 K/UL (4.8-10.8) H Red Blood Count 2.73 M/UL (4.70-6.10) L Hemoglobin 8.8 G/DL (14.2-18.0) L Hematocrit 27.2 % (42.0-52.0) L Mean Corpuscular Volume 100 FL (80-99) H Mean Corpuscular Hemoglobin 32.3 PG (27.0-31.0) H Mean Corpuscular Hemoglobin Concent 32.4 G/DL (32.0-36.0) Red Cell Distribution Width 12.6 % (11.6-14.8) Platelet Count 269 K/UL (150-450) Mean Platelet Volume 6.4 FL (6.5-10.1) L Neutrophils (%) (Auto) 72.7 % (45.0-75.0) Lymphocytes (%) (Auto) 15.3 % (20.0-45.0) L Monocytes (%) (Auto) 7.1 % (1.0-10.0) Eosinophils (%) (Auto) 4.2 % (0.0-3.0) H Basophils (%) (Auto) 0.7 % (0.0-2.0) Sodium Level 141 mEQ/L (135-145) Potassium Level 3.3 mEQ/L (3.4-4.9) L Chloride Level 95 mEQ/L (98-107) L Carbon Dioxide Level 31 mEQ/L (20-30) H Anion Gap 15 (5-15) Blood Urea Nitrogen 65 mg/dL (7-23) H Creatinine 6.1 mg/dL (0.7-1.2) H Estimat Glomerular Filtration Rate 9.5 mL/min (>60) Glucose Level 162 mg/dL (74-106) H Calcium Level 8.5 mg/dL (8.6-10.2) L Arterial Blood pH 7.506 (7.350-7.450) Arterial Blood Partial Pressure CO2 41.8 mmHg (35.0-45.0) Arterial Blood Partial Pressure O2 99.9 mmHg (75.0-100.0) Arterial Blood HCO3 32.3 mmol/L (22.0-26.0) H Arterial Blood Oxygen Saturation 97.5 % (92.0-98.0) Arterial Blood Base Excess 8.5 Tadeo Test Positive Current Medications Medications (Trade) Dose Ordered Sig/Chelsea Route PRN Reason Start Time Stop Time Status Last Admin Dose Admin Acetaminophen (Tylenol) 1,000 mg Q6H PRN ORAL Mild Pain/Temp > 100.5 05/17/16 20:45 06/16/16 20:44 05/20/16 06:16 Artificial Tears (Akwa-Tears) 1 drop QIDPRN PRN BOTH EYES Dry Eyes 05/25/16 13:00 06/24/16 12:59 Clonidine HCl (Catapres) 0.1 mg Q6H PRN ORAL SBP>160 05/17/16 21:00 06/16/16 20:59 Dextrose (Dextrose 50%) STAT PRN IV Hypoglycemia 05/18/16 14:45 06/17/16 14:44 Glycopyrrolate (Robinul) 0.1 mg Q6H PRN IV excessive secretions 05/25/16 11:45 06/24/16 11:44 Haloperidol Lactate 1 mg 1 mg Q30M PRN IM Agitation 05/25/16 11:45 06/24/16 11:44 Lorazepam (Ativan 2mg/ml 1ml) 2 mg Q4H PRN IV PRN FOR TREMORS 05/23/16 10:00 05/30/16 09:59 Miscellaneous Medication (Narcotic Drip Rate Change) 1 ea DAILY MISC 05/25/16 12:30 06/24/16 12:29 Miscellaneous Medication (Narcotic Shift Volume) 1 ea Q8HR@07,15,23 MISC 05/25/16 15:00 06/24/16 14:59 Morphine Sulfate (POLICE RESERVES COMMANDER Morphine) 30 ml @ 5 mls/hr [employer]ICE RESERVES COMMANDER Protocol PRN IV For Pain 05/25/16 12:30 05/27/16 12:29 05/25/16 15:37 Prochlorperazine (Compazine) 10 mg Q6H PRN ORAL Nausea & Vomiting 05/25/16 12:30 06/24/16 12:29 Bandar Cartwright M.D. May 25, 2016 16:02
--- NOTE | 2016-05-25 17:18 | Cardiac Electrophysiology PN ---
Assessment/Plan Assessment/Plan 1. Respiratory failure due to Nosocomial PNA. EF 55% by echo. EKG is nonischemic and Troponin is negative. Terminally extubated today. 2. Hypertension 3. Hyperlipidemia 4. Severe peripheral vascular disease status post right below knee amputation, on Plavix and Lipitor. 5. Sepsis, Abx per Dr. Cartwright. 6. Psychosis per Dr. Davison 7. ESRD. Had HD today again. 8. Altered mental status. No vegetation on echo. Encephalopathy versus sepsis. DW RN I will sign off at this time as patient comfort care and was terminally extubated. Subjective Subjective In ICU , was just terminally extubated.Family at bedside.Remained in SR with no arrhythmias.RN at bedside.On FINANCIAL SERVICE REP drip. Objective Last 24 Hour Vital Signs Date Time Temp Pulse Resp B/P Pulse Ox O2 Delivery O2 Flow Rate FiO2 05/25/16 16:45 Nasal Cannula 2.0 28 05/25/16 16:45 76 12 50 05/25/16 16:00 50 05/25/16 16:00 97.8 72 12 143/65 100 Mechanical Ventilator 50 05/25/16 15:00 71 12 132/68 100 Mechanical Ventilator 50 05/25/16 14:30 78 12 50 05/25/16 14:00 87 12 131/75 100 Mechanical Ventilator 50 05/25/16 13:00 88 12 109/44 100 Mechanical Ventilator 50 05/25/16 12:44 76 13 50 05/25/16 12:00 50 05/25/16 12:00 71 05/25/16 12:00 98.2 89 12 100/66 100 Mechanical Ventilator 50 05/25/16 11:25 75 13 50 05/25/16 11:00 86 12 105/39 100 Mechanical Ventilator 50 05/25/16 10:00 73 12 143/48 100 Mechanical Ventilator 50 05/25/16 09:00 79 12 100/42 100 Mechanical Ventilator 50 05/25/16 08:55 74 10 50 05/25/16 08:55 100 05/25/16 08:28 75 116/71 05/25/16 08:10 98.6 86 16 119/69 100 Mechanical Ventilator 50 05/25/16 08:10 Mechanical Ventilator 50 05/25/16 08:00 50 05/25/16 08:00 78 05/25/16 08:00 98.5 76 18 108/87 100 Mechanical Ventilator 50 05/25/16 07:00 78 21 93/70 100 Mechanical Ventilator 50 05/25/16 06:44 74 10 50 05/25/16 06:00 80 18 102/45 100 Mechanical Ventilator 50 05/25/16 05:45 78 10 50 05/25/16 05:00 80 18 102/45 100 Mechanical Ventilator 50 05/25/16 04:45 99.0 80 10 109/49 100 Mechanical Ventilator 50 05/25/16 04:45 Mechanical Ventilator 50 05/25/16 04:00 97.8 81 17 102/45 100 Mechanical Ventilator 50 05/25/16 04:00 50 05/25/16 04:00 81 05/25/16 03:15 81 10 50 05/25/16 03:00 77 17 114/51 100 Mechanical Ventilator 50 05/25/16 02:00 78 17 124/71 100 Mechanical Ventilator 50 05/25/16 01:08 73 10 50 05/25/16 01:00 74 17 140/58 100 Mechanical Ventilator 50 05/25/16 00:00 50 05/25/16 00:00 74 05/25/16 00:00 98.0 74 17 153/83 100 Mechanical Ventilator 50 05/24/16 23:09 76 10 50 05/24/16 23:00 74 17 123/60 100 Mechanical Ventilator 50 05/24/16 22:00 75 18 118/61 100 Mechanical Ventilator 50 05/24/16 21:00 80 14 131/66 100 Mechanical Ventilator 50 05/24/16 20:51 83 133/58 05/24/16 20:44 81 12 50 05/24/16 20:00 98.2 80 16 133/58 100 Mechanical Ventilator 50 05/24/16 20:00 80 05/24/16 20:00 50 05/24/16 19:01 85 13 118/55 100 Mechanical Ventilator 50 05/24/16 18:58 80 10 50 05/24/16 18:00 85 13 118/55 100 Mechanical Ventilator 50 Intake and Output 05/24/16 05/25/16 19:00 07:00 Intake Total 440 ml 670 ml Output Total 45 ml 180 ml Balance 395 ml 490 ml Free Water 150 ml Tube Feeding 440 ml 520 ml Output Urine Total 45 ml 180 ml Laboratory Tests Test 05/25/16 03:25 05/25/16 10:09 White Blood Count 12.1 K/UL (4.8-10.8) H Red Blood Count 2.73 M/UL (4.70-6.10) L Hemoglobin 8.8 G/DL (14.2-18.0) L Hematocrit 27.2 % (42.0-52.0) L Mean Corpuscular Volume 100 FL (80-99) H Mean Corpuscular Hemoglobin 32.3 PG (27.0-31.0) H Mean Corpuscular Hemoglobin Concent 32.4 G/DL (32.0-36.0) Red Cell Distribution Width 12.6 % (11.6-14.8) Platelet Count 269 K/UL (150-450) Mean Platelet Volume 6.4 FL (6.5-10.1) L Neutrophils (%) (Auto) 72.7 % (45.0-75.0) Lymphocytes (%) (Auto) 15.3 % (20.0-45.0) L Monocytes (%) (Auto) 7.1 % (1.0-10.0) Eosinophils (%) (Auto) 4.2 % (0.0-3.0) H Basophils (%) (Auto) 0.7 % (0.0-2.0) Sodium Level 141 mEQ/L (135-145) Potassium Level 3.3 mEQ/L (3.4-4.9) L Chloride Level 95 mEQ/L (98-107) L Carbon Dioxide Level 31 mEQ/L (20-30) H Anion Gap 15 (5-15) Blood Urea Nitrogen 65 mg/dL (7-23) H Creatinine 6.1 mg/dL (0.7-1.2) H Estimat Glomerular Filtration Rate 9.5 mL/min (>60) Glucose Level 162 mg/dL (74-106) H Calcium Level 8.5 mg/dL (8.6-10.2) L Arterial Blood pH 7.506 (7.350-7.450) Arterial Blood Partial Pressure CO2 41.8 mmHg (35.0-45.0) Arterial Blood Partial Pressure O2 99.9 mmHg (75.0-100.0) Arterial Blood HCO3 32.3 mmol/L (22.0-26.0) H Arterial Blood Oxygen Saturation 97.5 % (92.0-98.0) Arterial Blood Base Excess 8.5 Tadeo Test Positive Objective HEAD AND NECK: No JVD LUNGS: Coarse rhonchi. CARDIOVASCULAR: Regular S1 and S2 with no gallop or rub. ABDOMEN: Soft and nontender. EXTREMITIES: Status post right below-knee amputation. Dialysis access in the right femoral area. THU MONREAL May 25, 2016 17:18
[2016-05-25] MEDS: PCA Morphine 1mg/ml 30 ML IV PRN (22:44)
[2016-05-25] MEDS ORDERED: Morphine Sulfate 4mg/ml Inj SUBQ PRN (22:45)
[2016-05-25] MEDS: Narcotic Shift Volume MISC SCH (23:24)
[2016-05-26] VITALS: BP 102/51
[2016-05-26] MEDS ORDERED: Prochlorperazine 10mg tab ORAL PRN (00:30)
[2016-05-26] MEDS ORDERED: LORazepam Inj 2mg/ml 1ml IV PRN (02:00)
[2016-05-26] MEDS ORDERED: Acetaminophen 500mg (ES) tab ORAL PRN (02:45)
[2016-05-26 04:00] VITALS: BP 95/46
[2016-05-26] MEDS: PCA Morphine 1mg/ml 30 ML IV PRN ×2 (04:59→11:43)
[2016-05-26 07:10] LABS: BASOPHILS % (AUTO) 1.1 % (0.0-2.0); EOSINOPHILS % (AUTO) 2.5 % (0.0-3.0); LYMPHOCYTES % (AUTO) 10.7 % (20.0-45.0); MEAN CORPUSCULAR HEMOGLOBIN 31.2 PG (27.0-31.0); MEAN CORPUSCULAR HGB CONC 30.3 G/DL (32.0-36.0); MEAN CORPUSCULAR VOLUME 103 FL (80-99); MEAN PLATELET VOLUME 6.4 FL (6.5-10.1); MONOCYTES % (AUTO) 10.1 % (1.0-10.0); NEUTROPHILS % (AUTO) 75.6 % (45.0-75.0); PLATELET COUNT 349 K/UL (150-450); RED BLOOD COUNT 2.96 M/UL (4.70-6.10); RED CELL DISTRIBUTION WIDTH 13.5 % (11.6-14.8); WHITE BLOOD COUNT 15.2 K/UL (4.8-10.8)
[2016-05-26] MEDS: Narcotic Shift Volume MISC SCH ×2 (07:20→15:00)
[2016-05-26 07:33] LABS: CALCIUM 8.3 mg/dL (8.6-10.2); CREATININE 4.2 mg/dL (0.7-1.2); GLOMERULAR FILTRATION RATE 14.5 mL/min (>60); POTASSIUM 4.1 mEQ/L (3.4-4.9)
[2016-05-26 08:00] VITALS: BP 50/48
[2016-05-26] MEDS ORDERED: Rate Change Narcotic Drip MISC SCH (09:00)
[2016-05-26 09:45] VITALS: BP 95/56
--- NOTE | 2016-05-26 13:07 | General Progress Note ---
Assessment/Plan Problem List: (1) Respiratory failure ICD Codes: J96.90 - Respiratory failure, unspecified, unspecified whether with hypoxia or hypercapnia SNOMED: 040687935 (2) ESRD on dialysis ICD Codes: N18.6 - ESRD on dialysis; Z99.2 - Dependence on renal dialysis SNOMED: 673316043 (3) Sepsis ICD Codes: A41.9 - Sepsis, unspecified organism SNOMED: 69026864 (4) CVA (cerebral vascular accident) ICD Codes: I63.9 - Cerebral infarction, unspecified SNOMED: 361686959 (5) Encephalopathy ICD Codes: G93.40 - Encephalopathy SNOMED: 82781278 (6) Seizure ICD Codes: R56.9 - Seizure SNOMED: 54015589 (7) Altered level of consciousness ICD Codes: R40.4 - Transient alteration of awareness SNOMED: 3524380 (8) UTI (urinary tract infection) ICD Codes: N39.0 - Urinary tract infection, site not specified SNOMED: 84105206 Qualifiers: Qualified Codes: N30.01 - Acute cystitis with hematuria Status: unchanged Assessment/Plan s/p terminal extubation hospice eval comfort measures Subjective Constitutional: Reports: weakness Allergies: Coded Allergies: No Known Allergies (Unverified , 09/05/13) All Systems: reviewed and negative except above Subjective o2nc lethragic Objective Last 24 Hour Vital Signs Date Time Temp Pulse Resp B/P Pulse Ox O2 Delivery O2 Flow Rate FiO2 05/26/16 12:13 99.1 05/26/16 09:45 101 14 95/56 05/26/16 08:00 99.1 91 16 50/48 99 Room Air 05/26/16 07:36 Nasal Cannula 2.0 28 05/26/16 07:35 96 Nasal Cannula 2.0 28 05/26/16 04:00 100.8 104 20 95/46 78 2.0 05/26/16 00:00 98.0 55 20 102/51 78 Nasal Cannula 2.0 05/25/16 22:00 97.5 93 22 111/57 Nasal Cannula 2.0 05/25/16 21:00 82 12 112/62 95 05/25/16 20:00 97.2 81 12 106/61 95 05/25/16 20:00 80 05/25/16 19:28 Nasal Cannula 2.0 28 05/25/16 19:28 98 Nasal Cannula 2.0 28 05/25/16 19:00 81 12 114/56 95 05/25/16 18:00 81 12 103/60 95 05/25/16 17:00 81 12 95/55 95 05/25/16 16:45 Nasal Cannula 2.0 28 05/25/16 16:45 76 12 50 05/25/16 16:00 50 05/25/16 16:00 71 05/25/16 16:00 97.8 72 12 143/65 100 Mechanical Ventilator 50 05/25/16 15:00 71 12 132/68 100 Mechanical Ventilator 50 05/25/16 14:30 78 12 50 05/25/16 14:00 87 12 131/75 100 Mechanical Ventilator 50 Intake and Output 05/25/16 05/26/16 18:59 06:59 Intake Total 410 ml 50 ml Output Total 480 ml 370 ml Balance -70 ml -320 ml IV Total 10 ml 50 ml Tube Feeding 400 ml Output Urine Total 80 ml 150 ml Stool Total 220 ml Hemodialysis UF 400 ml Laboratory Tests 05/26/16 05:05: White Blood Count 15.2H, Red Blood Count 2.96L, Hemoglobin 9.2L, Hematocrit 30.5L, Mean Corpuscular Volume 103H, Mean Corpuscular Hemoglobin 31.2H, Mean Corpuscular Hemoglobin Concent 30.3L, Red Cell Distribution Width 13.5, Platelet Count 349, Mean Platelet Volume 6.4L, Neutrophils (%) (Auto) 75.6H, Lymphocytes (%) (Auto) 10.7L, Monocytes (%) (Auto) 10.1H, Eosinophils (%) (Auto ) 2.5, Basophils (%) (Auto) 1.1, Sodium Level 137, Potassium Level 4.1, Chloride Level 96L, Carbon Dioxide Level 26, Anion Gap 15, Blood Urea Nitrogen 33#H, Creatinine 4.2H, Estimat Glomerular Filtration Rate 14.5, Glucose Level 126H, Calcium Level 8.3L Height (Feet): 5 Height (Inches): 7.00 Weight (Pounds): 129 General Appearance: lethargic EENT: normal ENT inspection Neck: normal alignment Cardiovascular: normal peripheral pulses, normal rate, regular rhythm Respiratory/Chest: chest wall non-tender, lungs clear, decreased breath sounds Abdomen: normal bowel sounds, non tender, soft Extremities: normal inspection Edema: no edema noted Arm (L), no edema noted Arm (R), no edema noted Leg (L), no edema noted Leg (R), no edema noted Pedal (L), no edema noted Pedal (R), no edema noted Generalized Neurologic: motor weakness Skin: normal pigmentation, warm/dry VANDANA INMAN May 26, 2016 13:07
--- NOTE | 2016-05-26 17:00 | Pulmonology Progress Note ---
Assessment/Plan Problems: (1) Sepsis (2) Seizure (3) HTN (hypertension) (4) Encephalopathy (5) CVA (cerebral vascular accident) (6) Depression (7) ESRD on dialysis Assessment/Plan no improving on morphin drip for comfort s/p extubation all sisters and daughter agreeable to comfort care. no labs titrate morphine imminent Subjective ROS Limited/Unobtainable: No Allergies: Coded Allergies: No Known Allergies (Unverified , 09/05/13) Objective Last 24 Hour Vital Signs Date Time Temp Pulse Resp B/P Pulse Ox O2 Delivery O2 Flow Rate FiO2 05/26/16 12:13 99.1 05/26/16 09:45 101 14 95/56 05/26/16 08:00 99.1 91 16 50/48 99 Room Air 05/26/16 07:36 Nasal Cannula 2.0 28 05/26/16 07:35 96 Nasal Cannula 2.0 28 05/26/16 04:00 100.8 104 20 95/46 78 2.0 05/26/16 00:00 98.0 55 20 102/51 78 Nasal Cannula 2.0 05/25/16 22:00 97.5 93 22 111/57 Nasal Cannula 2.0 05/25/16 21:00 82 12 112/62 95 05/25/16 20:00 97.2 81 12 106/61 95 05/25/16 20:00 80 05/25/16 19:28 Nasal Cannula 2.0 28 05/25/16 19:28 98 Nasal Cannula 2.0 28 05/25/16 19:00 81 12 114/56 95 05/25/16 18:00 81 12 103/60 95 05/25/16 17:00 81 12 95/55 95 Intake and Output 05/25/16 05/26/16 19:00 07:00 Intake Total 375 ml 50 ml Output Total 560 ml 250 ml Balance -185 ml -200 ml IV Total 15 ml 50 ml Tube Feeding 360 ml Output Urine Total 40 ml 150 ml Stool Total 120 ml 100 ml Hemodialysis UF 400 ml General Appearance: cachetic HEENT: normocephalic, atraumatic Respiratory/Chest: chest wall non-tender, lungs clear Cardiovascular: normal peripheral pulses, normal rate Abdomen: normal bowel sounds, non distended Skin: no rash Laboratory Tests 05/26/16 05:05: White Blood Count 15.2H, Red Blood Count 2.96L, Hemoglobin 9.2L, Hematocrit 30.5L, Mean Corpuscular Volume 103H, Mean Corpuscular Hemoglobin 31.2H, Mean Corpuscular Hemoglobin Concent 30.3L, Red Cell Distribution Width 13.5, Platelet Count 349, Mean Platelet Volume 6.4L, Neutrophils (%) (Auto) 75.6H, Lymphocytes (%) (Auto) 10.7L, Monocytes (%) (Auto) 10.1H, Eosinophils (%) (Auto ) 2.5, Basophils (%) (Auto) 1.1, Sodium Level 137, Potassium Level 4.1, Chloride Level 96L, Carbon Dioxide Level 26, Anion Gap 15, Blood Urea Nitrogen 33#H, Creatinine 4.2H, Estimat Glomerular Filtration Rate 14.5, Glucose Level 126H, Calcium Level 8.3L Current Medications Medications (Trade) Dose Ordered Sig/Chelsea Route PRN Reason Start Time Stop Time Status Last Admin Dose Admin Acetaminophen (Tylenol) 1,000 mg Q6H PRN ORAL Mild Pain/Temp > 100.5 05/26/16 02:45 06/25/16 02:44 Artificial Tears (Akwa-Tears) 1 drop QIDPRN PRN BOTH EYES Dry Eyes 05/25/16 22:00 06/24/16 21:59 Clonidine HCl (Catapres) 0.1 mg Q6H PRN ORAL SBP>160 05/26/16 03:00 06/25/16 02:59 Dextrose (Dextrose 50%) STAT PRN IV Hypoglycemia 05/26/16 14:45 06/25/16 14:44 Glycopyrrolate (Robinul) 0.1 mg Q6H PRN IV excessive secretions 05/25/16 23:45 06/24/16 23:44 Haloperidol Lactate (Haldol) 1 mg Q30M PRN IM Agitation 05/25/16 22:15 06/24/16 22:14 Lorazepam (Ativan 2mg/ml 1ml) 2 mg Q4H PRN IV PRN FOR TREMORS 05/26/16 02:00 06/02/16 01:59 Miscellaneous Medication (Narcotic Drip Rate Change) 1 ea DAILY MISC 05/26/16 09:00 06/25/16 08:59 Miscellaneous Medication (Narcotic Shift Volume) 1 ea Q8HR@07,15,23 MISC 05/25/16 23:00 06/24/16 22:59 05/26/16 07:20 Morphine Sulfate (Morphine Sulfate) 4 mg Q3H PRN SUBQ SEVERE BREAKTHRU PAIN/DYSPNEA 05/25/16 22:45 06/01/16 22:44 Morphine Sulfate (INSTRUCTOR BRIDGE Morphine) 30 ml @ 5 mls/hr INSTRUCTOR BRIDGE Protocol PRN IV For Pain 05/25/16 22:15 05/27/16 22:14 05/26/16 11:43 Prochlorperazine (Compazine) 10 mg Q6H PRN ORAL Nausea & Vomiting 05/26/16 00:30 06/25/16 00:29 JEFF INMAN May 26, 2016 17:00
--- NOTE | 2016-05-26 19:39 | Progress Note ---
DATE: 05/22/2016 I will continue treatment with psychotropic medications to clear up his disorganized thought process. His cognition has declined below baseline. Chart was reviewed and discussed with staff 00:11. Siva Hussein M.D. DR: KENZIE JOB#: [id number] CC:
--- NOTE | 2016-05-26 23:30 | Nephrology Progress Note ---
Assessment/Plan Problem List: (1) ESRD on dialysis (2) Anemia, chronic disease (3) Respiratory failure (4) Pleural effusion (5) UTI (urinary tract infection) Plan comfort care only. grave prognosis. Subjective Subjective late entry - patient seen earlier today. terminally extubated. on comfort care only. Objective Objective Last 24 Hour Vital Signs Date Time Temp Pulse Resp B/P Pulse Ox O2 Delivery O2 Flow Rate FiO2 05/26/16 12:13 99.1 05/26/16 09:45 101 14 95/56 05/26/16 08:00 99.1 91 16 50/48 99 Room Air 05/26/16 07:36 Nasal Cannula 2.0 28 05/26/16 07:35 96 Nasal Cannula 2.0 28 05/26/16 04:00 100.8 104 20 95/46 78 2.0 05/26/16 00:00 98.0 55 20 102/51 78 Nasal Cannula 2.0 Intake and Output 05/25/16 05/26/16 19:00 07:00 Intake Total 375 ml 50 ml Output Total 560 ml 250 ml Balance -185 ml -200 ml IV Total 15 ml 50 ml Tube Feeding 360 ml Output Urine Total 40 ml 150 ml Stool Total 120 ml 100 ml Hemodialysis UF 400 ml Laboratory Tests 05/26/16 05:05: White Blood Count 15.2H, Red Blood Count 2.96L, Hemoglobin 9.2L, Hematocrit 30.5L, Mean Corpuscular Volume 103H, Mean Corpuscular Hemoglobin 31.2H, Mean Corpuscular Hemoglobin Concent 30.3L, Red Cell Distribution Width 13.5, Platelet Count 349, Mean Platelet Volume 6.4L, Neutrophils (%) (Auto) 75.6H, Lymphocytes (%) (Auto) 10.7L, Monocytes (%) (Auto) 10.1H, Eosinophils (%) (Auto ) 2.5, Basophils (%) (Auto) 1.1, Sodium Level 137, Potassium Level 4.1, Chloride Level 96L, Carbon Dioxide Level 26, Anion Gap 15, Blood Urea Nitrogen 33#H, Creatinine 4.2H, Estimat Glomerular Filtration Rate 14.5, Glucose Level 126H, Calcium Level 8.3L Height (Feet): 5 Height (Inches): 7.00 Weight (Pounds): 129 General Appearance: lethargic Cardiovascular: normal rate, regular rhythm Respiratory/Chest: decreased breath sounds Abdomen: non tender, soft Neurologic: unresponsive AUTUMN RODNEY May 26, 2016 23:30
--- NOTE | 2016-05-27 08:27 | Diagnostic Imaging Report ---
Indication: DYSPNEA Technique: One view of the chest Comparison: none Findings: Patient is rotated slightly to the right. There is interim development of right basilar opacity likely increasing atelectasis. There is rightward shift of the mediastinum. Component of pleural fluid not excludable. There is persistent hazy left mid and lower lung opacity as well as fairly dense retrocardiac consolidation. Endotracheal and nasogastric tubes have been removed. Impression: Increasing right basilar opacity, likely represents developing atelectasis. There may be a component of pleural fluid, as well. Persistent left basilar retrocardiac consolidation Interim endotracheal and nasogastric tube removal
--- NOTE | 2016-05-28 17:11 | Discharge Summary ---
Discharge Summary Hospital Course Date of Admission May 13, 2016 at 09:31 Date of Discharge May 26, 2016 at 17:28 Admitting Diagnosis ALTERD MENTAL STATUS HPI Dayday Marie is a 61 year old male who was admitted on May 13, 2016 at 09:31 for Altered Mental Status Hospital Course [id number] Discharge Discharge Disposition Patient was discharged to SNF/Subacute Facility(03) Discharge Diagnoses: Laal Rendon NP May 28, 2016 17:11
--- NOTE | 2016-05-29 03:08 | Discharge Summary 2 SIG ---
DATE OF ADMISSION: 05/13/2016 DATE OF DISCHARGE: 05/26/2016 CONSULTANTS: 1. Marcos Jackman M.D. 2. Catalina Meyers M.D. 3. Siva Hussein M.D. 4. Amanuel Malhotra M.D. 5. Bandar Cartwright M.D. 6. Enrique Irizarry M.D. 7. Nunu Davison M.D. 8. Christiano Blandon M.D. BRIEF SUMMARY: The patient is a 61-year-old male from [facility] with complex medical history including diabetes, hypertension, CVA, dementia, renal disease, right BKA, was brought in by EMS as the patient was more altered than usual. He has history of CVA, on hemodialysis. On evaluation at ED, urine was grossly infected. Chest x-ray was negative for pneumonia. CT scan of the head was negative for acute CVA or mass effect. Urine toxicology was positive for amphetamine. He was followed by Dr. Cartwright and was started empirically on vancomycin and cefepime. Dr. Blandon was consulted. Encephalopathy was most likely in the setting of urosepsis. He was also followed by Dr. Reagan as the patient was not able to take any oral medications or food and NG tube was inserted for safe administration of fluids and medicines. He was eventually started on tube feedings. Dr. Davison was also consulted. The patient has chronic paranoid schizophrenia and was treated with antipsychotics. He was continued on Remeron and lorazepam as needed. Urine culture showed growth of E. coli and was placed on meropenem and vancomycin. He was also followed by Dr. Malhotra and was continued on Toprol. EKG has been normal with troponins negative. Echocardiogram showed ejection fraction of 55% with no vegetations. On 05/17/2016, the patient had respiratory distress. [facility] was called. The patient was orally intubated and was transferred to ICU. He had diarrhea. C. difficile was positive and was given Flagyl. X-rays showed large left pleural effusion with right perihilar infiltrate. He was given pulmonary toilet. The patient was placed on comfort care and was terminally extubated. He given morphine drip. The patient eventually . FINAL DIAGNOSES: 1. Acute respiratory failure. 2. Acute toxic metabolic encephalopathy. 3. Sepsis. 4. C. difficile colitis. 5. Healthcare associated pneumonia. 6. Acute anemia, status post transfusion. 7. Amphetamine abuse. 8. Hyperlipidemia. 9. Hypertension. 10. Diabetes mellitus. 11. Severe peripheral vascular disease. 12. End-stage renal disease, on hemodialysis. 13. Sacral DTI pressure ulcer, left heel stage 4/unstageable scar, left lower lateral leg DTI present on admission. 14. Cerebrovascular accident. 15. Urinary tract infection. 16. Collapse of the left lung. 17. Palliative/comfort care. Paul Mckeon D.O. I have been assigned to dictate discharge summary on this account and I was not involved in the patient's management. Lala Rendon N.P. DR: ROMERO JOB#: [id number] CC: SHALOM
--- NOTE | 2016-06-04 03:08 | Progress Note ---
SUBJECTIVE: This is a 61-year-old with altered mental status. PLAN: Continue treatment with psychotropic medications to stabilize mood. On 05/26/2016, chart was reviewed and discussed with staff. Seen and assessed at the bedside. Siva Hussein M.D. DR: ADELAIDE JOB#: [id number] CC:
--- NOTE | 2016-06-04 03:08 | Procedure Note ---
SUBJECTIVE: He has altered mental status and confusion. The patient is a 61-year-old male patient. PLAN: I am going to continue treatment with psychotropic medications to prevent any further decline in cognition. Siva Hussein M.D. DR: ADELAIDE JOB#: [id number] CC:
--- NOTE | 2016-06-10 14:20 | Diagnostic Imaging Report ---
Indication: Dyspnea Comparison: 05/23/2016 A single view chest radiograph was obtained. Findings: Hazy opacity is present at the right lung base. Heart is mildly enlarged. Endotracheal tube is just above the antonio satisfactory in position. The tip of the NG tube is not seen well but is probably a little bit short. Suggest advancing the NG tube a few centimeters. Impression: No significant change from the previous day. Suggest advancing the nasogastric tube
--- NOTE | 2016-06-15 11:08 | Diagnostic Imaging Report ---
Indications: Nasogastric tube placement Technique: Portable supine AP abdomen Findings: Comparison: None Tip in proximal port of nasogastric tube in region of gastric fundus. Lower pelvis excluded from image. Visualized bowel gas pattern unremarkable. Suggestion of consolidation and retrocardiac region of left lung base. IMPRESSION: Nasogastric tube in stomach No evidence of acute abdominopelvic disease, limited as described Suggestion of left pulmonary lower lobe atelectasis versus pneumonia This correlates with [facility] preliminary report.
== END 2016-05-26 17:28 | disposition expired | DRG 870 ==
LOC: EDBD 08:39 → EMR 09:11 → 2E 09:31 → EDBEDREQSVC 11:49 → EDBEDREQ 11:49 → 2E 13:49 → 4E 05-17 07:19 → 2E 05-17 09:29 → ICU 05-17 15:31 → 4E 05-25 21:50
DX: A41.9 Sepsis, unspecified organism (principal); J96.00 Acute respiratory failure, unspecified whether with hypoxia or hypercapnia; G93.40 Encephalopathy, unspecified; J18.9 Pneumonia, unspecified organism; N18.6 End stage renal disease; A04.7 Enterocolitis due to Clostridium difficile; E11.22 Type 2 diabetes mellitus with diabetic chronic kidney disease; I12.0 Hypertensive chronic kidney disease with stage 5 chronic kidney disease or end stage renal disease; N39.0 Urinary tract infection, site not specified; N30.01 Acute cystitis with hematuria; J98.11 Atelectasis; F20.0 Paranoid schizophrenia; Z89.511 Acquired absence of right leg below knee; F32.9 Major depressive disorder, single episode, unspecified; D64.9 Anemia, unspecified; G30.9 Alzheimer's disease, unspecified; F02.80 Dementia in other diseases classified elsewhere, unspecified severity, without behavioral disturbance, psychotic disturbance, mood disturbance, and anxiety; E78.5 Hyperlipidemia, unspecified; F20.9 Schizophrenia, unspecified; Z66 Do not resuscitate; Z99.2 Dependence on renal dialysis; Z86.73 Personal history of transient ischemic attack (TIA), and cerebral infarction without residual deficits; R25.1 Tremor, unspecified; G40.909 Epilepsy, unspecified, not intractable, without status epilepticus; F15.10 Other stimulant abuse, uncomplicated; G89.4 Chronic pain syndrome; R13.10 Dysphagia, unspecified; R65.20 Severe sepsis without septic shock
CPT/HCPCS: 36415; 36600; 70450; 71010; 74000; 80048; 80053; 80069; 80202; 80300; 81003; 82270; 82550; 82553; 82803; 82962; 83605; 83735; 84100; 84484; 85007; 85025; 86850; 86900; 86901; 86920; 87040; 87081; 87086; 87181; 87493; 92950; 93005; 93306; 94002; 94003; 94664; 94760; 97803; J0171; J1815; J2405